=== PATIENT | female | born 1950 | race Caucasian/White ===

== ENCOUNTER 2016-07-07 08:02 | Emergency (ER) | payer MEDICARE, OTHER ==
[~2016-07-07] VITALS: Ht 147.3 cm; Wt 39.0 kg
[2016-07-07 08:05] VITALS: Ht 147.3 cm; Wt 39.0 kg
--- OUTSIDE RECORDS SUMMARY | 2016-07-07 08:07 | XMS REPORT | Summary of Care ---
Author Author Aletha Torrez, [facility] Unknown Address [address], [place] [id number] Phone Unavailable Care Team Providers Care Manufacturing Maintenance Technician Name Role Phone Inna Torrez, Radha Unavailable Unavailable Vance Torrez, David Unavailable Unavailable Jacqueline Nova Unavailable Unavailable Deangelo Torrez, Roosevelt Unavailable Unavailable Richard Keith PP Unavailable Unavailable Unavailable Functional Status Functional Status Health Issues* Name Dates Details Functional status health issues are not documented Status: Cognitive Status Health Issues* Name Dates Details Cognitive status health issues are not documented Status: Problems Name Dates Details Anticoagulant long-term use (V58.61, Z79.01) Status: Active Panniculitis (729.30, M79.3) Status: Active Abnormal weight loss (783.21, R63.4) Status: Active Herpes zoster (053.9, B02.9) Status: Active Chronic pain (338.29, G89.29) Status: Active Eczema (692.9, L30.9) Status: Active Peripheral neuropathy (356.9, G62.9) Status: Active Lower back pain (724.2, M54.5) Status: Active Vulvar pain (625.9, R10.2) Status: Active Medications Name Dates Details Vitamin B-12 1000 MCG Oral Tablet Take 1 tablet daily * Started 18-Feb-2008 ActivePoly-Iron 150 Forte 150-25-1 MG-MCG-MG Oral Capsule si cap daily * Quantity: 30 Refills: 6 Richard Woodard M.D.* Started ActiveCyclobenzaprine HCl - 10 MG Oral Tablet TAKE ONE TABLET BY MOUTH THREE TIMES DAILY NEEDED * Quantity: 90 Refills: 0 Gunner Bright M.D.* Started 24-Aug-2010 ActivePremarin 0.625 MG/GM Vaginal Cream USE 1/3 APPLICATOR VAGINALLY AT BEDTIME TWICE WEEKLY * Quantity: 30 Refills: 11 Richard Keith M.D.* Started 08-Feb-2013 ActiveOxycodone-Acetaminophen 10-325 MG Oral Tablet Si PO every 4-6 hrs prn with a max of 6 per day.Scripts must last 30 days. May fill on or after 06-30-2014.Managed by Dr. Bright. * Quantity: 180 Refills: 0 Jacqueline Hill* Started 23-Nov-2013 ActiveGabapentin 100 MG Oral Capsule TAKE 1 CAPSULE 3 TIMES DAILY. * Quantity: 90 Refills: 5 Richard Keith M.D.* Started 13-May-2014 ActiveTriamcinolone Acetonide 0.1 % External Cream APPLY SPARINGLY AND MASSAGE IN TWICE DAILY. 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 History of colon polyps (V12.72, Z86.010) Status: Resolved History of Summary Of Previous Pregnancies ___ (Total No.) Status: Resolved History of Visit for screening mammogram (V76.12, Z12.31) Status: Resolved Procedures Procedure Dates Details History of Hysterectomy History of Cervical Conization Loop Electrode Excision History of Shoulder Surgery History of Shoulder Arthroplasty Total Shoulder Replacement Completed:Apr-2010 History of Shoulder Arthroscopy With Rotator Cuff Repair Completed:2011 History of Tenodesis Of Long Biceps Tendon Completed:02-Apr-2012 History of Shldr Arthrosc W/ Distal Claviculectomy Incl Distal Art Surf Completed:02-Apr-2012 History of Shoulder Arthroscopy, Space Decompression And Acromioplasty Completed:02-Apr-2012 History of Colonoscopy (Fiberoptic) History of Salpingo-oophorectomy Left Side Procedures not documented Immunization Name Dates Details Immunizations not documented Family History Sister* Name Dates Details Family history of Breast Cancer (V16.3) Status: Active Brother* Name Dates Details Family history of Lung Cancer (V16.1) Status: Active Social History Name Dates Details Smoking Status* Former smoker Vital Signs Date Test Result Details 06-Jul-2014 10:09 BP Systolic 120 mm[Hg] Status: BP Diastolic 80 mm[Hg] Status: Weight 95 lb Status: Body Mass Index Calculated 18.55 kg/m2 Status: Body Surface Area Calculated 1.36 m2 Status: 20-Jun-2014 14:23 BP Systolic 118 mm[Hg] Status: BP Diastolic 84 mm[Hg] Status: Weight 95.5 lb Status: Height 60 in Status: Body Mass Index Calculated 18.65 kg/m2 Status: Body Surface Area Calculated 1.36 m2 Status: Results Date Description Value Details 21-Jun-2014 10:42 Vaginitis Panel ( Trichomonas, Gardnerella, Najma sp.) 5615 T. VAGINALIS PROBE Negative (Better) Range: Negative GARDNERELLA PROBE Negative (Better) Range: Negative NAJMA SP. PROBE Negative (Better) Range: Negative Plan of Care Planned Observations* Name Dates Details Planned Goals not documented Goal Planned Encounters* Appointment; Provider: Luciana Pompa On 21-Jun-2015 09:00 * Appointment; Provider: Luciana Pompa On 08:30 * Appointment; Provider: Jacqueline Hill On 25-Aug-2014 10:00 * Appointment; Provider: Gerard Tillman On 02-Apr-2012 09:30 * Appointment; Provider: Gerard Tillman On 17-May-2010 08:30 * Appointment; Provider: Richard Woodard On 13:45 * Appointment; Provider: Richard Woodard On 08-Sep-2008 08:30 Instructions * Instructions not documented Encounters Appointment; Luciana Pompa Encounter Diagnosis: Problem not documented On 06-Jul-2014 09:45 Appointment; Luciana Pompa Encounter Diagnosis: Problem not documented On 20-Jun-2014 13:45 Appointment; Gunner Bright Encounter Diagnosis: Problem not documented On 31-May-2014 10:45 Appointment; Richard Keith Encounter Diagnosis: Problem not documented On 06-May-2014 09:45 Appointment; Gunner Bright Encounter Diagnosis: Problem not documented On 01-Mar-2014 09:00 Appointment; Giorgi Dockery Encounter Diagnosis: Problem not documented On 31-Jan-2014 13:30 Appointment; Samantha Gao Encounter Diagnosis: Problem not documented On 31-Jan-2014 09:00 Appointment; Richard Keith Encounter Diagnosis: Problem not documented On 17-Jan-2014 09:15 Appointment; Gunner Bright Encounter Diagnosis: Problem not documented On 22-Dec-2013 08:00 Appointment; Gunner Bright Encounter Diagnosis: Problem not documented On 30-Nov-2013 08:15 Appointment; Richard Keith Encounter Diagnosis: Problem not documented On 22-Nov-2013 09:30 Appointment; Gunner Bright Encounter Diagnosis: Problem not documented On 25-Aug-2013 13:15 Appointment; Graham Mcmahan Encounter Diagnosis: Problem not documented On 13-Aug-2013 09:00 Appointment; Richard Keith Encounter Diagnosis: Problem not documented On 08-Jun-2013 13:00 Appointment; Gunner Bright Encounter Diagnosis: Problem not documented On 26-May-2013 13:15 Appointment; Richard Keith Encounter Diagnosis: Problem not documented On 20-May-2013 09:45 Appointment; Gunner Bright Encounter Diagnosis: Problem not documented On 25-Feb-2013 08:15 Appointment; Jese Reyes Encounter Diagnosis: Problem not documented On 25-Jan-2013 14:30 Appointment; Gunner Bright Encounter Diagnosis: Problem not documented On 26-Nov-2012 08:45 Appointment; Gunner Bright Encounter Diagnosis: Problem not documented On 26-Aug-2012 09:15 Appointment; Vimal Rojo Encounter Diagnosis: Problem not documented On 21-Aug-2012 12:00 Appointment; Gerard Tillman Encounter Diagnosis: Problem not documented On 15-Jul-2012 08:30 Appointment; Char Germain Encounter Diagnosis: Problem not documented On 08-Jul-2012 08:00
--- OUTSIDE RECORDS SUMMARY | 2016-07-07 08:07 | XMS REPORT | Summary of Care ---
Author Author Richard Keith M.D. 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 Neck Pain In The Lower Neck / Upper Back Bilateral Status: Active Anticoagulant long-term use (V58.61, Z79.01) Status: Active Muscle spasm (728.85, M62.838) Status: Active High risk medication use (V58.69, Z79.899) Status: Active Pre-operative exam (V72.84, Z01.818) Status: Active Panniculitis (729.30, M79.3) Status: Active Left hip pain (719.45, M25.552) Status: Active Lower back pain (724.2, M54.5) Status: Active Acute bronchitis (466.0, J20.9) Status: Active Wrist pain (719.43, M25.539) Status: Active Visit for screening mammogram (V76.12, Z12.31) Status: Active History of colon polyps (V12.72, Z86.010) Status: Active Abnormal weight loss (783.21, R63.4) Status: Active Herpes zoster (053.9, B02.9) Status: Active Chronic pain (338.29, G89.29) Status: Active Eczema (692.9, L30.9) Status: Active Peripheral neuropathy (356.9, G62.9) Status: Active Medications Name Dates Details Vitamin [...] 6 per day.Scripts must last 30 days. fill 04-27-14 * Quantity: 180 Refills: 0 Gunner Bright M.D.* Started 23-Nov-2013 Active Allergies and Adverse Reactions Name Dates Details Latex Exam Gloves MISC Status: Active Penicillins Status: Active Past Medical History Name Dates Details History of Summary Of Previous Pregnancies ___ (Total No.) Status: Resolved Procedures Procedure Dates Details History [...] And Acromioplasty Completed:02-Apr-2012 History of Colonoscopy (Fiberoptic) Procedures not documented Immunization Name Dates Details Immunizations not documented Family History Sister* Name Dates Details Family history of Breast Cancer (V16.3) Status: Active Brother* Name Dates Details Family history of Lung Cancer (V16.1) Status: Active Social History Name Dates Details Smoking Status* Former smoker Vital Signs Date Test Result Details 06-May-2014 09:52 BP Systolic 136 mm[Hg] Status: BP Diastolic 72 mm[Hg] Status: Heart Rate 64 /min Status: Weight 93 lb Status: Body Mass Index Calculated 18.16 kg/m2 Status: Body Surface Area Calculated 1.35 m2 Status: Results Date Description Value Details Results not documented Plan of Care Planned Observations* Name Dates Details Planned Goals not documented Goal Planned Encounters* Appointment; Provider: Gunner Bright On 31-May-2014 10:45 * Appointment; Provider: Gerard Tillman On 02-Apr-2012 09:30 * Appointment; Provider: Gerard Tillman On 17-May-2010 08:30 * Appointment; Provider: Richard Woodard On 13:45 * Appointment; Provider: Richard Woodard On 08-Sep-2008 08:30 Instructions * Instructions not documented Encounters Appointment; Richard Keith Encounter Diagnosis: Problem not [...] not documented On 25-Aug-2013 13:15 Appointment; Graham Mcmahna Encounter Diagnosis: Problem not documented On 13-Aug-2013 [...] Diagnosis: Problem not documented On 08-Jul-2012 08:00 Appointment; Char Germain Encounter Diagnosis: Problem not documented On 01-Jul-2012 09:00 Appointment; Char Germain Encounter Diagnosis: Problem not documented On 23-Jun-2012 09:00 Appointment; Richard Keith Encounter Diagnosis: Problem not documented On 18-Jun-2012 14:00 Appointment; Kamar Mims Encounter Diagnosis: Problem not documented On 17-Jun-2012 08:45 Appointment; Gerard Tillman Encounter Diagnosis: Problem not documented On 17-Jun-2012 08:30 Appointment; Char Germain Encounter Diagnosis: Problem not documented On 12-Jun-2012 09:00 Appointment; Char Germain Encounter Diagnosis: Problem not documented On 10-Jun-2012 09:30 Appointment; Char Germain Encounter Diagnosis: Problem not documented On 08-Jun-2012 10:30 Appointment; Char Germain Encounter Diagnosis: Problem not documented On 03-Jun-2012 13:00 Appointment; Char Germain Encounter Diagnosis: Problem not documented On 29-May-2012 10:30 Appointment; Gunner Bright Encounter Diagnosis: Problem not documented On 27-May-2012 10:30 Appointment; Char Germain Encounter Diagnosis: Problem not documented On 27-May-2012 09:00 Appointment; Char Germain Encounter Diagnosis: Problem not documented On 22-May-2012 15:30 Appointment; Richard Stringer Encounter Diagnosis: Problem not documented On 19-May-2012 08:00 Appointment; Char Germain Encounter Diagnosis: Problem not documented On 13-May-2012 08:00 Appointment; Char Germain Encounter Diagnosis: Problem not documented On 11-May-2012 08:00
--- OUTSIDE RECORDS SUMMARY | 2016-07-07 08:07 | XMS REPORT | Summary of Care ---
Author Author Richard Keith M.D. Organization Unknown Address [address], [place] [id number] Phone Unavailable Care Team Providers Care Sales Receptionist Name Role Phone Inna Torrez, Radha Unavailable Unavailable Vance Torrez, David Unavailable Unavailable Aletha Torrez, Luciana Unavailable Unavailable Richard Keith PP Unavailable Unavailable [...] Lower back pain (724.2, M54.5) Status: Active Osteoarthritis of spine (721.90, M47.9) Status: Active Low back pain (724.2, M54.5) Status: Active Degenerative disc disease, lumbar (722.52, M51.36) Status: Active Encounter for bone density measurement for therapeutic drug monitoring (V58.83 , Z51.81) Status: Active Vulvar pain (625.9, R10.2) Status: Active Vaginal pain (625.9, R10.2) Status: Active Chronic prescription opiate use (V58.69, Z79.899) Status: Active Cervical pain (neck) (723.1, M54.2) Status: Active Degenerative disc disease, cervical (722.4, M50.30) Status: Active Acute sinusitis (461.9, J01.90) Status: Active Acute bronchitis (466.0, J20.9) Status: Active Left breast lump (611.72, N63) Status: Active Emphysema lung (492.8, J43.9) Status: Active Medications Name Dates Details Vitamin B-12 1000 MCG Oral Tablet Take 1 tablet daily * Started 18-Feb-2008 ActivePoly-Iron 150 Forte 150-25-1 MG-MCG-MG Oral Capsule si cap daily * Quantity: 30 Refills: 6 Richard Woodard M.D.* Started ActivePremarin 0.625 MG/GM Vaginal Cream USE 1/3 APPLICATOR VAGINALLY AT BEDTIME TWICE WEEKLY * Quantity: 30 Refills: 11 Richard Keith M.D.* Started 08-Feb-2013 ActiveOxycodone-Acetaminophen 10-325 MG Oral Tablet Si PO every 4-6 hrs prn with a max of 6 per day. [id number] * Quantity: 180 Refills: 0 Richard Keith M.D.* Started 23-Nov-2013 ActiveGabapentin 300 MG Oral Capsule 1 po morning and noon, 2 po HS * Quantity: 120 Refills: 2 Richard Keith M.D.* Started 13-May-2014 ActiveTriamcinolone Acetonide 0.1 % External Cream APPLY SPARINGLY AND MASSAGE IN TWICE DAILY. * Quantity: 1 Refills: 11 Richard Keith M.D.* Started 13-May-2014 [id number] GM Tube Morphine Sulfate ER 30 MG Oral Tablet Extended Release Take 1 tablet twice daily *MUST LAST 30 DAYS* * Quantity: 60 Refills: 0 Richard Keith M.D.* Started 25-Aug-2014 ActiveMixture Vulvodynia cream-Apply to Vuvla TID * Refills: 0 Luciana Pompa M.D.* Started ActiveSymbicort 160-4.5 MCG/ACT Inhalation Aerosol INHALE 2 PUFFS TWICE DAILY. RINSE MOUTH AFTER USE. * Quantity: 1 Refills: 6 Richard Keith M.D.* Started 28-Feb-2015 Active6 GM Inhaler Allergies and Adverse Reactions Name Dates Details [...] Colonoscopy (Fiberoptic) History of Salpingo-oophorectomy Left Side MAMMOGRAM-DIAG UNILATERAL FOR LUMP PAIN Ordered:03-Feb-2015 Immunization Name Dates Details Immunizations not documented Family History Sister* Name Dates Details Family history of Breast Cancer (V16.3) Status: Active Brother* Name Dates Details Family history of Lung Cancer (V16.1) Status: Active Social History Name Dates Details Smoking Status* Former smoker Vital Signs Date Test Result Details No Known Vitals to report Results Date Description Value Details Results not documented Plan of Care Planned Observations* Name Dates Details Planned Goals not documented Goal Planned Encounters* Appointment; Provider: Luciana Pompa On 21-Jun-2015 13:00 * Appointment; Provider: Luciana Pompa On 07-Apr-2015 09:00 * Appointment; Provider: Gerard Tillman On 02-Apr-2012 09:30 * Appointment; Provider: Gerard Tillman On 17-May-2010 08:30 * Appointment; Provider: Richard Woodard On 13:45 * Appointment; Provider: Richard Woodard On 08-Sep-2008 08:30 Instructions * Instructions not documented Encounters Appointment; Richard Keith Encounter Diagnosis: Problem not documented On 02-Feb-2015 13:15 Appointment; Richard Keith Encounter Diagnosis: Problem not documented On 12-Dec-2014 12:15 Appointment; Gunner Bright Encounter Diagnosis: Problem not documented On 28-Nov-2014 08:15 Appointment; Luciana Pompa Encounter Diagnosis: Problem not documented On 08:30 Appointment; Jacqueline Hill Encounter Diagnosis: Problem not documented On 09:30 Appointment; Richard Keith Encounter Diagnosis: Problem not documented On 26-Aug-2014 11:45 Appointment; Jacqueline Hill Encounter Diagnosis: Problem not documented On 25-Aug-2014 10:00 Appointment; Luciana Pompa Encounter Diagnosis: Problem not [...]
--- OUTSIDE RECORDS SUMMARY | 2016-07-07 08:07 | XMS REPORT | Summary of Care ---
Author Author Gunner Bright M.D. Unknown Address [address] [place], [place] [id number] Phone Unavailable Care Team Providers Care Ticket Attendant Name Role Phone Inna Torrez, Radha Unavailable Unavailable Vance Torrez, David Unavailable Unavailable Aletha Torrez, Luciana Unavailable Unavailable Deangelo Torrez, Roosevelt Unavailable Unavailable [...] Left breast lump (611.72, N63) Status: Active Medications Name Dates Details Vitamin [...] 08-Feb-2013 ActiveOxycodone-Acetaminophen 10-325 MG Oral Tablet Si to 2 PO every 4 hours prn with a max of 6 per day.Scripts must last [address] Bright * Quantity: 180 Refills: 0 Richard Keith M.D.* Started 23-Nov-2013 ActiveGabapentin 300 MG Oral Capsule 1 po morning and noon, 2 po HS * Quantity: 120 Refills: 2 Richard Keith M.D.* Started 13-May-2014 ActiveTriamcinolone Acetonide 0.1 % External Cream APPLY SPARINGLY AND MASSAGE IN TWICE DAILY. * Quantity: 1 Refills: 11 Richard Keith M.D.* Started 13-May-2014 [id number] GM Tube Morphine Sulfate ER 30 MG Oral Tablet Extended Release Take 1 tablet twice daily *MUST LAST 30 DAYS* * Quantity: 60 Refills: 0 Gunner Bright M.D.* Started 25-Aug-2014 ActiveMixture Vulvodynia cream-Apply to Vuvla TID * Refills: 0 Luciana Pompa M.D.* Started Active Allergies and Adverse Reactions Name Dates [...] Colonoscopy (Fiberoptic) History of Salpingo-oophorectomy Left Side MAMMOGRAM-DIAGNOSTIC UNILATERAL FOR BREAST CANCER OR FOLLOW-UP Ordered:2014 ULTRASOUND BREAST CYST ASP LEFT Ordered:02-Feb-2015 Immunization Name Dates Details Immunizations not documented Family History Sister* Name Dates Details Family history of Breast Cancer (V16.3) Status: Active Brother* Name Dates Details Family history of Lung Cancer (V16.1) Status: Active Social History Name Dates Details Smoking Status* Former smoker Vital Signs Date Test Result Details 02-Feb-2015 13:04 BP Systolic 118 mm[Hg] Status: BP Diastolic 66 mm[Hg] Status: Heart Rate 100 /min Status: Height 60 in Status: Weight 83 lb Status: Body Mass Index Calculated 16.21 kg/m2 Status: Body Surface Area Calculated 1.28 m2 Status: Results Date Description Value Details Results not documented Plan of Care Planned Observations* Name Dates Details Planned Goals not documented Goal Planned Encounters* Appointment; Provider: Luciana Pompa On 07-Apr-2015 09:00 [...]
--- OUTSIDE RECORDS SUMMARY | 2016-07-07 08:07 | XMS REPORT | Summary of Care ---
Author Author Richard Keith M.D. Organization Unknown Address [address] [place], [place] [id number] Phone Unavailable Care Team Providers Care Digital Commentator Name Role Phone Radha Keith M.D. Unavailable Unavailable David Woodard M.D. Unavailable Unavailable Richard Keith Unavailable Unavailable Unavailable Unavailable Functional Status Name Dates Details Functional status health issues are not documented Status: Name Dates Details Cognitive status health issues [...] disc disease, lumbar (722.52, M51.36) Status: Active Chronic prescription opiate use (V58.69, Z79.891) Status: Active Cervical pain (neck) (723.1, M54.2) Status: Active Degenerative disc disease, cervical (722.4, M50.30) Status: Active Left breast lump (611.72, N63) Status: Active Emphysema lung (492.8, J43.9) Status: Active Well woman exam with routine gynecological exam (V72.31, Z01.419) Status: Active Postmenopausal (V49.81, Z78.0) Status: Active Wrist pain (719.43, M25.539) Status: Active Wrist pain, acute, left (719.43, M25.532) Status: Active Dysuria (788.1, R30.0) Status: Active Nausea (787.02, R11.0) Status: Active Right flank pain (789.09, R10.9) Status: Active Abdominal pain, acute, right lower quadrant (789.03, R10.31) Status: Active Hydronephrosis, right (591, N13.30) Status: Active Ureteral stone (592.1, N20.1) Status: Active Bruising (924.9, T14.8) Status: Active Pain of right lower extremity (729.5, M79.604) Status: Active Nephrolithiasis (592.0, N20.0) Status: Active Medications Name Dates Details Vitamin B-12 1000 MCG Oral Tablet Take 1 tablet daily * Start 18-Feb-2008 Active Poly-Iron 150 Forte 150-25-1 MG-MCG-MG Oral Capsule si cap daily * Quantity: 30 Refills: 6 Richard Woodard M.D. * Start Active Premarin 0.625 MG/GM Vaginal Cream USE 1/3 APPLICATOR VAGINALLY AT BEDTIME TWICE WEEKLY * Quantity: 30 Refills: 11 Richard Keith M.D. * Start 08-Feb-2013 Active Oxycodone-Acetaminophen 10-325 MG Oral Tablet Si PO every 4-6 hrs prn with a max of 6 per day. [id number] * Quantity: 180 Refills: 0 Richard Keith M.D. * Start 23-Nov-2013 Active Gabapentin 300 MG Oral Capsule 1 po morning and noon, 2 po HS * Quantity: 120 Refills: 2 Richard Keith M.D. * Start 13-May-2014 Active Triamcinolone Acetonide 0.1 % External Cream Apply to skin twice daily. * Quantity: 15 Refills: 6 Richard Keith M.D. * Start 13-May-2014 Active Morphine Sulfate ER 30 MG Oral Tablet Extended Release Take 1 tablet twice daily *MUST LAST 30 DAYS* * Quantity: 60 Refills: 0 Richard Keith M.D. 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 History of colon polyps (V12.72, Z86.010) Status: Resolved History of Encounter for bone density measurement for therapeutic drug monitoring (V58.83, Z51.81) Status: Resolved History of Summary Of Previous Pregnancies ___ (Total No.) Status: Resolved History of Vaginal pain (625.9, R10.2) Status: Resolved History of Visit for screening mammogram (V76.12, Z12.31) Status: Resolved History of Vulvar pain (625.9, R10.2) Status: Resolved Procedures Procedure Dates Details History of Hysterectomy History of Cervical Conization Loop Electrode Excision History of Shoulder Surgery History of Shoulder Arthroplasty Total Shoulder Replacement Completed: Apr-2010 History of Shoulder Arthroscopy With Rotator Cuff Repair Completed: 2011 History of Tenodesis Of Long Biceps Tendon Completed: 02-Apr-2012 History of Shldr Arthrosc W/ Distal Claviculectomy Incl Distal Art Surf Completed: 02-Apr-2012 History of Shoulder Arthroscopy, Space Decompression And Acromioplasty Completed: 02-Apr-2012 History of Colonoscopy (Fiberoptic) History of Salpingo-oophorectomy Left Side [facility] Lumbar Epidural [address] Ordered: Immunization Name Dates Details Immunizations not documented Family History Name Dates Details Family history of Breast Cancer (V16.3) Status: Active Name Dates Details Family history of Lung Cancer (V16.1) Status: Active Social History Name Dates Details - Status: Name Dates Details Current every day smoker Vital Signs Date Test Result Details No Known Vitals to report Results Date Description Value Details 15:30 [facility] PROCEDURE Comments: Exam Date: 11/16/2015 14: 40Dictation Date: 11/16/2015 15:30 Plan of Care Name Dates Details Planned Observations Planned Goals not documented Planned Encounters Appointment; Provider: Luciana Pompa M.D. On 10-Feb-2017 10:45 Appointment; Provider: Schedule Radiology On 10-Feb-2017 10:00 Appointment; Provider: Tadeo Carson M.D.|Saray|GABY Torrez|GABY Torrez, On 03-Apr-2016 11:45 Interventions Provided Medication Changes* Oxycodone-Acetaminophen 10-325 MG Oral Tablet - Renew Instructions Name Dates Details Instructions not documented Encounters Appointment; Richard Keith M.D. Encounter Diagnosis: Problem not documented On 13:15 Appointment; Tadeo Carson M.D.|Saray|GABY Torrez|GABY Torrez, Encounter Diagnosis: Problem not documented On 09:30 Appointment; Cheng Harrington D.O. Encounter Diagnosis: Problem not documented On 14:15 Appointment; Carlota Denny A.P.R.N. Encounter Diagnosis: Problem not documented On 20-Jul-2015 14:15 Appointment; Luciana Pompa M.D. Encounter Diagnosis: Problem not documented On 13-Jul-2015 09:15 Appointment; Richard Keith M.D. Encounter Diagnosis: Problem not documented On 09-Jun-2015 10:40 Appointment; Luciana Pompa M.D. Encounter Diagnosis: Problem not documented On 07-Apr-2015 09:00 Appointment; Richard Keith M.D. Encounter Diagnosis: Problem not documented On 02-Feb-2015 13:15 Appointment; Richard Keith M.D. Encounter Diagnosis: Problem not documented On 12-Dec-2014 12:15 Appointment; Gunner Bright M.D. Encounter Diagnosis: Problem not documented On 28-Nov-2014 08:15 Appointment; Luciana Pompa M.D. Encounter Diagnosis: Problem not documented On 08:30 Appointment; Jacqueline Hill P.A. Encounter Diagnosis: Problem not documented On 09:30 Appointment; Richard Keith M.D. Encounter Diagnosis: Problem not documented On 26-Aug-2014 11:45 Appointment; Jacqueline Hill P.A. Encounter Diagnosis: Problem not documented On 25-Aug-2014 10:00 Appointment; Luciana Pompa M.D. Encounter Diagnosis: Problem not documented On 06-Jul-2014 09:45 Appointment; Luciana Pompa M.D. Encounter Diagnosis: Problem not documented On 20-Jun-2014 13:45 Appointment; Gunner Bright M.D. Encounter Diagnosis: Problem not documented On 31-May-2014 10:45 Appointment; Richard Keith M.D. Encounter Diagnosis: Problem not documented On 06-May-2014 09:45 Appointment; Gunner Bright M.D. Encounter Diagnosis: Problem not documented On 01-Mar-2014 09:00 Appointment; Giorgi Dockery Encounter Diagnosis: Problem not documented On 31-Jan-2014 13:30 Appointment; Samantha Gao M.D. Encounter Diagnosis: Problem not documented On 31-Jan-2014 09:00 Appointment; Richard Keith M.D. Encounter Diagnosis: Problem not documented On 17-Jan-2014 09:15 Appointment; Gunner Bright M.D. Encounter Diagnosis: Problem not documented On 22-Dec-2013 08:00"
--- OUTSIDE RECORDS SUMMARY | 2016-07-07 08:08 | XMS REPORT | Continuity of Care Document ---
Author Author [facility] Organization [facility] Address Unknown Phone Unavailable Allergies Medications Problems Procedures Results Encounters ACCT No. Visit Date/Time Discharge Status Pt. Type Provider Facility Loc./Unit Complaint [id number] 09/27/2015 08:51:00 2015 18:57:50 DIS Inpatient GERTRUDIS GOETZ RIGHT URETERAL LITHIASIS
--- OUTSIDE RECORDS SUMMARY | 2016-07-07 08:08 | XMS REPORT | Summary of Care ---
Author [facility] Address [address] [place], [place] [id number] Phone Unavailable Care Team Providers Care Second Class Welder Name Role Phone Inna Torrez, Radha Unavailable [...] Anticoagulant long-term use (V58.61, Z79.01) Status: Active High risk medication use (V58.69, Z79.899) Status: Active Panniculitis (729.30, M79.3) Status: Active History of colon polyps (V12.72, Z86.010) Status: Active Abnormal weight loss (783.21, R63.4) Status: Active Herpes zoster (053.9, B02.9) Status: Active Chronic pain (338.29, G89.29) Status: Active Eczema (692.9, L30.9) Status: Active Peripheral neuropathy (356.9, G62.9) Status: Active Lower back pain (724.2, M54.5) Status: Active Vulvar pain (625.9, R10.2) Status: Active Well woman exam with routine gynecological exam (V72.31, Z01.419) Status: Active Medications Name Dates Details Vitamin [...] Refills: 11 Richard Keith M.D.* Started 08-Feb-2013 ActiveGabapentin 100 MG Oral Capsule TAKE 1 CAPSULE 3 TIMES DAILY. * Quantity: 90 Refills: 5 Richard Keith M.D.* Started 13-May-2014 ActiveTriamcinolone Acetonide 0.1 % External Cream APPLY SPARINGLY AND MASSAGE IN TWICE DAILY. * Quantity: 1 Refills: 11 Richard Keith M.D.* Started 13-May-2014 [id number] GM Tube Oxycodone-Acetaminophen 10-325 MG Oral Tablet Si PO every 4-6 hrs prn with a max of 6 per day.Scripts must last 30 days. May fill on or after 06-30-2014.Managed by Dr. Bright. 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
--- OUTSIDE RECORDS SUMMARY | 2016-07-07 08:08 | XMS REPORT | Summary of Care ---
Author Author Richard Keith M.D. Organization Unknown Address [address], [place] [phone] Phone Unavailable Care Team Providers Care Medical Surgery Nurse Name Role Phone Radha Keith M.D. Unavailable [...] with a max of 6 per day. [id number] * Quantity: 180 Refills: 0 Richard Keith [...] Colonoscopy (Fiberoptic) History of Salpingo-oophorectomy Left Side [facility] Lumbar Epidural [address] Ordered: Immunization Name Dates Details Immunizations not documented Family History Name Dates Details Family history of Breast Cancer (V16.3) Status: Active Name Dates Details Family history of Lung Cancer (V16.1) Status: Active Social History Name Dates Details - Status: Name Dates Details Current every day smoker Vital Signs Date Test Result Details 13:23 BP Systolic 121 mm[Hg] Status: Comments: Location: ; Position: BP Diastolic 62 mm[Hg] Status: Comments: Location: ; Position: Heart Rate 76 /min Status: Comments: Location: ; Weight 84.6 lb Status: Body Mass Index Calculated 17.68 kg/m2 Status: Body Surface Area Calculated 1.26 m2 Status: Results Date Description Value Details 14:16 PROTIME PANEL 7000 PROTIME 12.1 secs Range: 12.0-14.9 INR 0.90 14:17 PTT 7500 PTT 31.7 secs Range: 23.0-34.7 14:22 CBC w/ Auto Diff 7150 WBC 6.2 K/uL Range: 4.5-11.0 RBC 3.80 mil/uL Range: 3.60-5.00 HGB 13.1 g/dL Range: 12.0-16.0 HCT 41.6 % Range: 36.0-48.0 MCV 109.3 fL (Above high threshold) Range: 80.0-99.0 MCH 34.3 pg (Above high threshold) Range: 27.3-32.5 MCHC 31.4 % (Below low threshold) Range: 32.0-36.0 RDW 14.2 % Range: 11.6-14.8 PLATELETS 267 K/uL Range: 150-400 MPV 7.9 fL Range: 6.0-11.0 %NEUTRO 48.9 % Range: 37.0-80.0 %LYMPHS 37.0 % Range: 13.0-50.0 %MONO 6.5 % Range: 0.0-12.0 %EOS 4.4 % Range: 0.0-7.0 %BASO 0.4 % Range: 0.0-2.5 %PEMA 2.8 % Range: 0.0-5.0 NEUTRO 3.1 K/uL Range: 2.0-6.9 LYMPHS 2.3 K/uL Range: 0.6-3.4 MONOS 0.4 K/uL Range: 0.0-0.9 EOS 0.3 K/uL Range: 0.0-0.7 BASO 0.0 K/uL Range: 0.0-0.2 14:54 XRay TIBIA & FIBULA-Right Comments: Exam Date: 11/06/2015 14: 11Dictation Date: 11/06/2015 14:54 X TIBIA & FIBULA RT 15:36 XRay SPINE-LUMBAR Comments: Exam Date: 11/06/2015 14:11Dictation Date : 11/06/2015 15:36 X SPINE LUMBAR W/ FLEX & EXT 15:30 [facility] PROCEDURE Comments: Exam Date: 11/16/2015 14: 40Dictation Date: 11/16/2015 15:30 Plan of Care Name Dates Details Planned Observations Planned Goals not documented Planned Encounters Appointment; Provider: Luciana Pompa M.D. On 10-Feb-2017 10:45 Appointment; Provider: [facility] On 10-Feb-2017 10:00 Appointment; Provider: Tadeo Carson M.D.|Saray|GBAY Torrez|GABY Torrez, On 03-Apr-2016 11:45 Interventions Provided Medication Changes* Morphine Sulfate ER 30 MG Oral Tablet Extended Release - Renew Instructions Name Dates Details Instructions not documented Encounters Appointment; Richard Keith M.D. Encounter Diagnosis: Problem not documented On 13:15 Appointment; Tadeo Carson M.D.|AleC.STy|GABY Torrez|GABY Torrez, Encounter Diagnosis: Problem not documented [...] not documented On 08:30 Appointment; Jacqueline Hill PGwendolyn Encounter Diagnosis: Problem not documented On 09:30 [...] documented On 22-Dec-2013 08:00 Appointment; Gunner Bright M.D. Encounter Diagnosis: Problem not documented On 30-Nov-2013 08:15"
--- OUTSIDE RECORDS SUMMARY | 2016-07-07 08:08 | XMS REPORT | Summary of Care ---
Author Author Cheng Harrington D.O. Organization Unknown Address [address] [place], [place] [id number] Phone Unavailable Care Team Providers Care Test Preparer Name Role Phone Inna Torrez, Radha Unavailable Unavailable David Woodard M.D. Unavailable Unavailable Richard Keith PP Unavailable Unavailable [...] right lower quadrant (789.03, R10.31) Status: Active Medications Name Dates Details Vitamin [...] with a max of 6 per day. [id number] * Quantity: 180 Refills: 0 Richard Keith M.D.* Started 23-Nov-2013 ActiveGabapentin 300 MG Oral Capsule 1 po morning and noon, 2 po HS * Quantity: 120 Refills: 2 Richard Keith M.D.* Started 13-May-2014 ActiveTriamcinolone Acetonide 0.1 % External Cream Apply to skin twice daily. * Quantity: 15 Refills: 6 Richard Keith M.D.* Started 13-May-2014 ActiveMorphine Sulfate ER 30 MG Oral Tablet Extended Release Take 1 tablet twice daily *MUST LAST 30 DAYS* * Quantity: 60 Refills: 0 Richard Keith M.D.* Started 25-Aug-2014 Active Allergies and Adverse Reactions Name Dates Details Latex Exam Gloves MISC Status: Active Penicillins Status: Active Past Medical History Name Dates Details History of acute bronchitis (V12.69, Z87.09) Status: Resolved History of Acute bronchitis, unspecified organism (466.0, J20.9) Status: Resolved History of acute sinusitis (V1., Z87.09) Status: Resolved History of Adenocarcinoma Of [...] Colonoscopy (Fiberoptic) History of Salpingo-oophorectomy Left Side Urinalysis, Reflex to Microscopic or Culture PRN 8005 Ordered: ULTRASOUND RENAL SONO Ordered: Immunization Name Dates Details Immunizations not documented Family History Sister* Name Dates Details Family history of Breast Cancer (V16.3) Status: Active Brother* Name Dates Details Family history of Lung Cancer (V16.1) Status: Active Social History Name Dates Details Smoking Status* Current every day smoker Vital Signs Date Test Result Details 14:23 BP Systolic 136 mm[Hg] Status: BP Diastolic 88 mm[Hg] Status: Temperature 98.2 f Status: Heart Rate 93 /min Status: O2 SAT 96 % Status: Results Date Description Value Details Results not documented Plan of Care Planned Observations* Name Dates Details Planned Goals not documented Goal Planned Encounters* Appointment; Provider: Luciana Pompa On 10-Feb-2017 10:45 * Appointment; Provider: Schedule Radiology On 10-Feb-2017 10:00 * Appointment; Provider: Schedule Radiology On 15:00 * Appointment; Provider: Schedule Radiology On 03-Aug-2015 11:00 * Appointment; Provider: Gerard Tillman On 02-Apr-2012 09:30 * Appointment; Provider: Gerard Tillman On 17-May-2010 08:30 * Appointment; Provider: Richard Woodard On 13:45 * Appointment; Provider: Richard Woodard On 08-Sep-2008 08:30 Instructions * Instructions not documented Encounters Appointment; Cheng Harrington Encounter Diagnosis: Problem not documented On 14:15 Appointment; Carlota Denny Encounter Diagnosis: Problem not documented On 20-Jul-2015 14:15 Appointment; Luciana Pompa Encounter Diagnosis: Problem not documented On 13-Jul-2015 09:15 Appointment; Richard Keith Encounter Diagnosis: Problem not documented On 09-Jun-2015 10:40 Appointment; Luciana Pompa Encounter Diagnosis: Problem not documented On 07-Apr-2015 09:00 Appointment; Richard Keith Encounter Diagnosis: Problem [...]
--- OUTSIDE RECORDS SUMMARY | 2016-07-07 08:08 | XMS REPORT | Summary of Care ---
Author Author Richard Keith M.D. Organization Unknown Address [address] [place], [place] [id number] Phone Unavailable Care Team Providers Care Army Officer Name Role Phone Radha Keith M.D. Unavailable David Estrada M.D. Unavailable Unavailable Richard Keith Unavailable Unavailable Unavailable Unavailable Functional Status Name Dates Details Functional status health issues are not documented Status: Name Dates Details Cognitive status health issues are not documented Status: Problems Name Dates Details Anticoagulant long-term use (V58.61, Z79.01) Status: Active Lower back pain (724.2, M54.5) Status: Active Low back pain (724.2, M54.5) Status: Active Well woman exam with routine gynecological exam (V72.31, Z01.419) Status: Active Postmenopausal (V49.81, Z78.0) Status: Active Wrist pain (719.43, M25.539) Status: Active Wrist pain, acute, left (719.43, M25.532) Status: Active Dysuria (788.1, R30.0) Status: Active Nausea (787.02, R11.0) Status: Active Right flank pain (789.09, R10.9) Status: Active Abdominal pain, acute, right lower quadrant (789.03, R10.31) Status: Active Bruising (924.9, T14.8) Status: Active Pain of right lower extremity (729.5, M79.604) Status: Active Degenerative disc disease, cervical (722.4, M50.30) Status: Active Abnormal weight loss (783.21, R63.4) Status: Active Chronic pain (338.29, G89.29) Status: Active Peripheral neuropathy (356.9, G62.9) Status: Active Panniculitis (729.30, M79.3) Status: Active Herpes zoster (053.9, B02.9) Status: Active Eczema (692.9, L30.9) Status: Active Osteoarthritis of spine (721.90, M47.9) Status: Active Degenerative disc disease, lumbar (722.52, M51.36) Status: Active Chronic prescription opiate use (V58.69, Z79.891) Status: Active Cervical pain (neck) (723.1, M54.2) Status: Active Left breast lump (611.72, N63) Status: Active Hydronephrosis, right (591, N13.30) Status: Active Ureteral stone (592.1, N20.1) Status: Active Emphysema lung (492.8, J43.9) Status: Active Acute sinusitis (461.9, J01.90) Status: Active Oral thrush (112.0, B37.0) Status: Active Nephrolithiasis (592.0, N20.0) Status: Active Cough (786.2, R05) Status: Active COPD (chronic obstructive pulmonary disease) (496, J44.9) Status: Active Asthmatic bronchitis (493.90, J45.909) Status: Active Medications Name Dates Details Vitamin B-12 1000 MCG Oral Tablet Take 1 tablet daily * Start 18-Feb-2008 Active Poly-Iron 150 Forte 150-25-1 MG-MCG-MG Oral Capsule si cap daily * Quantity: 30 Refills: 6 Richard Woodard M.D. Start Active Premarin 0.625 MG/GM Vaginal Cream USE 1/3 APPLICATOR VAGINALLY AT BEDTIME TWICE WEEKLY * Quantity: 30 Refills: 11 Richard Keith M.D. * Start 08-Feb-2013 Active Oxycodone-Acetaminophen 10-325 MG Oral Tablet Si PO every 4-6 hrs prn with a max of 6 per day. [id number] must last 30 daysDO NOT FILL UNTIL 04/28/16 * Quantity: 180 Refills: 0 Richard Keith M.D. * Start 23-Nov-2013 Active Gabapentin 300 MG Oral Capsule ONE CAPSULE BY MOUTH EVERY MORNING AND NOON TWO CAPSULES BY MOUTH ATBEDTIME * Quantity: 120 Refills: 2 Richard Keith M.D. * Start 20-Mar-2016 Active Triamcinolone Acetonide 0.1 % External Cream Apply to skin twice daily. * Quantity: 15 Refills: 6 Richard Keith M.D. * Start 13-May-2014 Active Morphine Sulfate ER 30 MG Oral Tablet Extended Release Take 1 tablet twice daily *MUST LAST 30 DAYSDO NOT FILL UNTIL 04/20/16 * Quantity: 60 Refills: 0 Richard Keith M.D. * Start 25-Aug-2014 Active Cyclobenzaprine HCl - 10 MG Oral Tablet take one tablet by mouth every 8 hours as needed * Quantity: 60 Refills: 3 Richard Keith M.D. * Start 28-Dec-2015 Active Ipratropium-Albuterol 0.5-2.5 (3) MG/3ML Inhalation Solution NEBULIZE 1 VIAL FOUR TIMES A DAY----DX: J45.909, J43.9 * Quantity: 180 Refills: 11 Richard Keith M.D. * Start 01-Feb-2016 Active Azithromycin 500 MG Oral Tablet TAKE 1 TABLET DAILY UNTIL FINISHED. * Quantity: 7 Refills: 1 Richard Keith M.D. * Start 28-Mar-2016 Active Fluconazole 150 MG Oral Tablet TAKE 1 TABLET DAILY. * Quantity: 7 Refills: 3 Richard Keith M.D. * Start 28-Mar-2016 Active LevoFLOXacin 500 MG Oral Tablet TAKE 1 TABLET DAILY UNTIL FINISHED. * Quantity: 10 Refills: 0 Richard Keith M.D. * Start 03-May-2016 Active PredniSONE 10 MG Oral Tablet 4 tabs for 4 Days, 3 tabs for 4 Days, 2 tabs for 4 Days and 1 tab for 4 Days * Quantity: 40 Refills: 0 Richard Keith M.D. * Start 03-May-2016 Active Allergies and Adverse Reactions Name Dates Details Latex Exam Gloves MISC (Allergy) Status: Active Penicillins (Allergy) Status: Active Past Medical History Name Dates Details Cervical pain (neck) (723.1, M54.2) Status: Active Chronic pain (338.29, G89.29) Status: Active Chronic prescription opiate use (V58.69, Z79.891) Status: Active Degenerative disc disease, lumbar (722.52, M51.36) Status: Active Eczema (692.9, L30.9) Status: Active Emphysema lung (492.8, J43.9) Status: Active Herpes zoster (053.9, B02.9) Status: Active Hydronephrosis, right (591, N13.30) Status: Active Left breast lump (611.72, N63) Status: Active Nephrolithiasis (592.0, N20.0) Status: Active Osteoarthritis of spine (721.90, M47.9) Status: Active Panniculitis (729.30, M79.3) Status: Active Peripheral neuropathy (356.9, G62.9) Status: Active Ureteral stone (592.1, N20.1) Status: Active History of acute bronchitis (V12.69, Z87.09) Status: Resolved History of Acute bronchitis, unspecified organism (466.0, J20.9) Status: Resolved History of Adenocarcinoma Of The [...] smoker Vital Signs Date Test Result Details 03-May-2016 08:14 BP Systolic 120 mm[Hg] Status: Comments: Location: ; Position: BP Diastolic 80 mm[Hg] Status: Comments: Location: ; Position: Heart Rate 60 /min Status: Comments: Location: ; Weight 85 lb Status: Physical Findings 72 Status: Comments: O2 Saturation Body Mass Index Calculated 17.77 kg/m2 Status: Body Surface Area Calculated 1.27 m2 Status: Results Date Description Value Details 03-May-2016 08:50 XRay CHEST-PA & LAT Comments: Exam Date: 05/03/2016 08: 31Dictation Date: 05/03/2016 08:50 X CHEST PA & LAT Plan of Care Name Dates Details Planned Observations Planned Goals not documented Planned Encounters Appointment; Provider: Luciana Pompa M.D. On 10-Feb-2017 10:45 Appointment; Provider: Schedule Radiology On 10-Feb-2017 10:00 Interventions Provided Medication Changes* LevoFLOXacin 500 MG Oral Tablet - Start * PredniSONE 10 MG Oral Tablet - Start Labs/Procedures/Imaging* XRay CHEST-PA & LAT; Done: May 03 2016 8:50AM Instructions* Intermediate Counseling(3-10min) Smoke & Tobacco Cessation - Follow Up at next visit NO referral to [facility] at this vist. Asymptomatic patient.; Done: * You need to stop smoking. Though it is not easy, more than half of all adult smokers have quit. We encourage you to write down all the reasons you should quit smoking and set a quit date for yourself. Ask us how we can help. You may also call 9-205-EWUINOW for free resources and assistance.; Done: Instructions Name Dates Details Instructions not documented Encounters Appointment; Tadeo Carson M.D.,FACS, Encounter Diagnosis: Problem not documented On 03-Apr-2016 11:45 Appointment; Richard Keith M.D. Encounter Diagnosis: Problem not documented On 28-Mar-2016 14:45 Appointment; Richard Keith M.D. Encounter Diagnosis: Problem not documented On 01-Feb-2016 11:30 Appointment; Vimal Rojo M.D. Encounter Diagnosis: Problem not documented On 08-Jan-2016 10:40 Appointment; Richard Keith M.D. Encounter Diagnosis: Problem not documented On 28-Dec-2015 13:15 Appointment; Richard Keith M.D. Encounter Diagnosis: Problem not documented On 13:15 Appointment; Tadeo Carson M.D.,[facility], Encounter Diagnosis: Problem not documented On 09:30 [...] documented On 26-Aug-2014 11:45 Appointment; Jacqueline Hill PGwendolyn Encounter Diagnosis: Problem not documented On 25-Aug-2014 10:00 Appointment; Luciana Pompa M.D. Encounter Diagnosis: Problem not documented On 06-Jul-2014 09:45 Appointment; Luciana Pompa M.D. Encounter Diagnosis: Problem not documented On 20-Jun-2014 13:45 Appointment; Gunner Bright M.D. Encounter Diagnosis: Problem not documented On 31-May-2014 10:45 Appointment; Richard Keith M.D. Encounter Diagnosis: Problem not documented On 06-May-2014 09:45
--- OUTSIDE RECORDS SUMMARY | 2016-07-07 08:08 | XMS REPORT | Summary of Care ---
Author Author Richard Keith M.D. Organization Unknown Address [address], [place] [id number] Phone Unavailable Care Team Providers Care Oenologist Name Role Phone Inna Torrez, Radha Unavailable [...] Active Vaginal pain (625.9, R10.2) Status: Active Acute sinusitis (461.9, J01.90) Status: Active Medications Name Dates Details Vitamin [...] Dr. Bright * Quantity: 180 Refills: 0 Jacqueline Hill P.A.* Started 29-Aug-2014 ActiveGabapentin 300 MG Oral Capsule Si PO Tid.Start with 1 po HS and gradually titrate to 3 x daily. * Quantity: 90 Refills: 0 Jacqueline Hill P.A.* Started 13-May-2014 ActiveTriamcinolone Acetonide 0.1 % External Cream APPLY SPARINGLY AND MASSAGE IN TWICE DAILY. * Quantity: 1 Refills: 11 Richard Keith M.D.* Started 13-May-2014 [id number] GM Tube Morphine Sulfate ER 30 MG Oral Tablet Extended Release Si PO every 12 hours with a max of 2 per day. Script must last [address] Bright. * Quantity: 60 Refills: 0 Jacqueline Hill P.A.* Started 25-Aug-2014 Active Allergies and Adverse Reactions [...] smoker Vital Signs Date Test Result Details 26-Aug-2014 11:39 BP Systolic 148 mm[Hg] Status: BP Diastolic 90 mm[Hg] Status: Heart Rate 100 /min Status: Weight 94 lb Status: Height 60 in Status: Body Mass Index Calculated 18.36 kg/m2 Status: Body Surface Area Calculated 1.35 m2 Status: Results Date Description Value Details Results not documented Plan of Care Planned Observations* Name Dates Details Planned Goals not documented Goal Planned Encounters* Appointment; Provider: Luciana Pompa On 21-Jun-2015 09:00 * Appointment; Provider: Luciana Pompa On 08:30 * Appointment; Provider: Jacqueline Hill On 09:30 * Appointment; Provider: Gerard Tillman On 02-Apr-2012 [...]
--- OUTSIDE RECORDS SUMMARY | 2016-07-07 08:08 | XMS REPORT | Summary of Care ---
Author Author Jacqueline Nova Organization Unknown Address [address], [place] [id number] Phone Unavailable Care Team Providers Care Credit Administration Officer Name Role Phone Inna Torrez, Radha Unavailable Unavailable David Woodard M.D. Unavailable Unavailable Jacqueline Nova Unavailable Unavailable Richard Keith PP Unavailable Unavailable [...] Active Acute sinusitis (461.9, J01.90) Status: Active Low back pain (724.2, M54.5) Status: Active Osteoarthritis of spine (721.90, M47.9) Status: Active Medications Name Dates Details Vitamin B-12 1000 MCG Oral Tablet Take 1 tablet daily * Started 18-Feb-2008 ActivePoly-Iron 150 Forte 150-25-1 MG-MCG-MG Oral Capsule si cap daily * Quantity: 30 Refills: 6 Richard Woodard M.D.* Started ActivePremarin 0.625 MG/GM Vaginal Cream USE 1/3 APPLICATOR VAGINALLY AT BEDTIME TWICE WEEKLY * Quantity: 30 Refills: 11 Yalisaley, Richard M.D.* Started 08-Feb-2013 ActiveOxycodone-Acetaminophen 10-325 MG Oral Tablet Si to 2 PO every 4 hours prn with a max of 6 per day.Scripts must last [address] Bright * Quantity: 180 Refills: 0 Jacqueline Hill P.A.* Started ActiveGabapentin 300 MG Oral Capsule 1 po morning and noon, 2 po HS * Quantity: 120 Refills: 2 Jacqueline Hill P.A.* Started 13-May-2014 ActiveTriamcinolone Acetonide 0.1 % External Cream APPLY SPARINGLY AND MASSAGE IN TWICE DAILY. * Quantity: 1 Refills: 11 Richard Keith M.D.* Started 13-May-2014 [id number] GM Tube Morphine Sulfate ER 30 MG Oral Tablet Extended Release Si PO every 12 hours with a max of 2 per day. Script must last [address] Bright. * Quantity: 60 Refills: 0 Jacqueline Hill P.A.* Started Active Allergies and Adverse Reactions Name [...] Pompa On 21-Jun-2015 09:00 * Appointment; Provider: Gunner Bright On 28-Nov-2014 08:15 * Appointment; Provider: Luciana Pompa On 08:30 * Appointment; Provider: Gerard Tillman On 02-Apr-2012 09:30 * Appointment; Provider: Gerard Tillman On 17-May-2010 08:30 * Appointment; Provider: Richard Woodard On 13:45 * Appointment; Provider: Richard Woodard On 08-Sep-2008 08:30 Instructions * Instructions not documented Encounters Appointment; Jacqueline Hill Encounter Diagnosis: Problem not [...]
--- OUTSIDE RECORDS SUMMARY | 2016-07-07 08:08 | XMS REPORT | Summary of Care ---
Author Author Richard Keith M.D. Organization Unknown Address [address] [place], [place] [id number] Phone Unavailable Care Team Providers Care Director Of Category Management Name Role Phone Inna Torrez, Radha Unavailable [...] Emphysema lung (492.8, J43.9) Status: Active Acute bronchitis, unspecified organism (466.0, J20.9) Status: Active Medications Name Dates Details Vitamin [...] with a max of 6 per day. [id number] * Quantity: 180 Refills: 0 Richard Keith [...] bronchitis (V12.69, Z87.09) Status: Resolved History of acute sinusitis (V12.69, [...] smoker Vital Signs Date Test Result Details 09-Jun-2015 10:53 BP Systolic 142 mm[Hg] Status: BP Diastolic 86 mm[Hg] Status: Heart Rate 80 /min Status: Height 60 in Status: Weight 84 lb Status: Body Mass Index Calculated 16.41 kg/m2 Status: Body Surface Area Calculated 1.29 m2 Status: Results Date Description Value Details Results not documented Plan of Care Planned Observations* Name Dates Details Planned Goals not documented Goal Planned Encounters* Appointment; Provider: Luciana Pompa On 13-Jul-2015 09:15 * Appointment; Provider: Gerard Tillman On 02-Apr-2012 [...]
--- OUTSIDE RECORDS SUMMARY | 2016-07-07 08:09 | XMS REPORT | Summary of Care ---
Author Author Vimal Rojo M.D. Unknown Address Unknown Phone Unavailable Care Team Providers Care Foundry Operator Name Role Phone Inna Torrez, Radha Unavailable Unavailable Nnamdi Rojo M.D. Unavailable Unavailable Vance Torrez, David Unavailable Unavailable Richard Keith Unavailable Unavailable Unavailable [...] Abnormal weight loss (783.21, R63.4) Status: Active Asthmatic bronchitis (493.90, J45.909) Status: Active Chronic pain (338.29, G89.29) Status: [...] Active Ureteral stone (592.1, N20.1) Status: Active Nephrolithiasis (592.0, N20.0) Status: Active Emphysema lung (492.8, J43.9) Status: [...] with a max of 6 per day. [id number] must last 30 days * Quantity: 180 Refills: 0 Richard Keith [...] as needed * Quantity: 60 Refills: 3 Inna Torrez, Richard Garcia * Start 28-Dec-2015 Active Proventil HFA 108 (90 Base) MCG/ACT Inhalation Aerosol Solution INHALE 2 PUFFS FOUR TIMES DAILY DIRECTED. * Quantity: 1 Refills: 0 Thode M.D., Vimal Coto * Start 08-Jan-2016 End 15-Jan-2016 Active 6.7 GM Inhaler Azithromycin 250 MG Oral Tablet TAKE 2 TABLETS ON DAY 1 THEN TAKE 1 TABLET A DAY FOR 4 DAYS. * Quantity: 6 Refills: 0 Thode M.D., Vimal Coto * Start 08-Jan-2016 End 13-Jan-2016 Active PredniSONE 10 MG Oral Tablet TAKE 4 TABLETS DAILY FOR 2 DAYS,3 TABLETS DAILY FOR 2 DAYS, 2 TABLETS DAILY FOR 2 DAYS AND 1 TABLET DAILY FOR 2 DAYS, THEN STOP. * Quantity: 20 Refills: 0 Thode M.D., Vimal Coto * Start 08-Jan-2016 Active Allergies and Adverse Reactions Name Dates [...] smoker Vital Signs Date Test Result Details 08-Jan-2016 11:11 BP Systolic 102 mm[Hg] Status: Comments: Location: ; Position: BP Diastolic 62 mm[Hg] Status: Comments: Location: ; Position: Temperature 98.1 f Status: Heart Rate 62 /min Status: Comments: Location: ; Physical Findings 91 Status: Comments: O2 Saturation 28-Dec-2015 13:19 BP Systolic 120 mm[Hg] Status: Comments: Location: ; Position: BP Diastolic 62 mm[Hg] Status: Comments: Location: ; Position: Heart Rate 97 /min Status: Comments: Location: ; Weight 82.4 lb Status: Body Mass Index Calculated 17.22 kg/m2 Status: Body Surface Area Calculated 1.25 m2 Status: Results Date Description Value Details Results not documented Plan of Care Name Dates Details Planned Observations Planned Goals not documented Planned Encounters Appointment; Provider: Luciana Pompa M.D. On 10-Feb-2017 10:45 Appointment; Provider: Schedule Radiology On 10-Feb-2017 10:00 Appointment; Provider: Tadeo Carson M.D.|GABY Suarez|GABY Torrez, On 03-Apr-2016 11:45 Appointment; Provider: Richard Keith M.D. On 28-Mar-2016 14:45 Interventions Provided Medication Changes* Azithromycin 250 MG Oral Tablet - Start * PredniSONE 10 MG Oral Tablet - Start * Proventil HFA 108 (90 Base) MCG/ACT Inhalation Aerosol Solution - Start Instructions Name Dates Details Instructions not documented Encounters Appointment; Richard Keith M.D. Encounter Diagnosis: Problem not documented On 28-Dec-2015 13:15 Appointment; Richard Keith M.D. Encounter Diagnosis: Problem not documented On 13:15 Appointment; Tadeo Carson M.D.|GABY Suarez|GABY Torrez, Encounter Diagnosis: Problem not documented On [...] Encounter Diagnosis: Problem not documented On 17-Jan-2014 09:15"
--- OUTSIDE RECORDS SUMMARY | 2016-07-07 08:09 | XMS REPORT | Summary of Care ---
Author Author Aletha Torrez, Luciana [facility] Unknown Address [address], [place] [id number] Phone Unavailable Care Team Providers Care Meringuer Name Role Phone Inna Torrez, Radha Unavailable [...] Active Vaginal pain (625.9, R10.2) Status: Active Medications Name [...] Refills: 11 Richard Keith M.D.* Started 13-May-2014 [id number] GM Tube Allergies and Adverse Reactions Name [...]
--- OUTSIDE RECORDS SUMMARY | 2016-07-07 08:09 | XMS REPORT | Summary of Care ---
Author Author Richard Keith M.D. Organization Unknown Address [address] [place], [place] [id number] Phone Unavailable Care Team Providers Care Landscape Architect And Planner Name Role Phone Radha Keith M.D. Unavailable [...] Status: Active Nephrolithiasis (592.0, N20.0) Status: Active COPD (chronic obstructive pulmonary disease) [...] Quantity: 30 Refills: 11 Richard Keith M.D. Start 08-Feb-2013 Active Oxycodone-Acetaminophen 10-325 MG Oral Tablet Si PO every 4-6 hrs prn with a max of 6 per day. [id number] must last 30 daysDO NOT FILL UNTIL 04/28/16 * Quantity: 180 Refills: 0 Richard Keith M.D. Start 23-Nov-2013 Active Gabapentin 300 MG Oral Capsule ONE CAPSULE BY MOUTH EVERY MORNING AND NOON TWO CAPSULES BY MOUTH ATBEDTIME * Quantity: 120 Refills: 2 Richard Keith M.D. Start 20-Mar-2016 Active Triamcinolone Acetonide 0.1 % External Cream Apply to skin twice daily. * Quantity: 15 Refills: 6 Inna Torrez Richard Garcia * Start 13-May-2014 Active Morphine Sulfate ER [...] Refills: 0 Richard Keith M.D. * Start 13-May-2016 Active PredniSONE 10 MG Oral Tablet 4 TABS FOR 4 DAYS, 3 TABS FOR 4 DAYS, 2 TABS FOR 4 DAYS AND 1 TAB FOR4 DAYS * Quantity: 40 Refills: 0 Richard Keith M.D. * Start 13-May-2016 Active Allergies and Adverse Reactions Name Dates [...] smoker Vital Signs Date Test Result Details 13-Oj-2017 08:14 BP Systolic 120 mm[Hg] Status: Comments: [...] On 10-Feb-2017 10:00 Interventions Provided Medication Changes* Morphine Sulfate ER 30 MG Oral Tablet Extended Release - Renew Instructions Name Dates Details Instructions not documented Encounters Appointment; Richard Keith M.D. Encounter Diagnosis: Problem not documented On 03-May-2016 08:15 Appointment; Tadeo Carson M.D.,GABY, Encounter Diagnosis: Problem not documented On 03-Apr-2016 [...] not documented On 13:15 Appointment; Tadeo Carson M.D., FACS, Encounter Diagnosis: Problem not documented On 09:30 [...] not documented On 26-Aug-2014 11:45 Appointment; Jacqueline Hill, PTyATy Encounter Diagnosis: Problem not documented On 25-Aug-2014 10:00 Appointment; Luciana Pompa M.D. Encounter Diagnosis: Problem not documented On 06-Jul-2014 09:45 Appointment; Luciana Pompa M.D. Encounter Diagnosis: Problem not documented On 20-Jun-2014 13:45 Appointment; Gunner Bright M.D. Encounter Diagnosis: Problem not documented On 31-May-2014 10:45
--- OUTSIDE RECORDS SUMMARY | 2016-07-07 08:09 | XMS REPORT | Summary of Care ---
Author Author Richard Keith M.D. Organization Unknown Address [address] [place], [place] [id number] Phone Unavailable Care Team Providers Care Radiology Resident Name Role Phone Inna Torrez, Radha Unavailable [...] pain, acute, left (719.43, M25.532) Status: Active Medications Name Dates Details Vitamin [...] with a max of 6 per day. [id number] * Quantity: 180 Refills: 0 Richard Keith [...] to report Results Date Description Value Details 03-Aug-2015 11:46 CT WRIST W/O LEFT Comments: Exam Date: 08/03/2015 10: 25Dictation Date: 08/03/2015 11:46 XC WRIST W/O LT (Better) Plan of Care Planned Observations* Name Dates Details Planned Goals not documented Goal Planned Encounters* Appointment; Provider: Luciana Pompa On 10-Feb-2017 10:45 * Appointment; Provider: Schedule Radiology On 10-Feb-2017 10:00 * Appointment; Provider: Schedule Radiology On 03-Aug-2015 11:00 * Appointment; Provider: Gerard Tillman On 02-Apr-2012 09:30 * Appointment; Provider: Gerard Tillman On 17-May-2010 08:30 * Appointment; Provider: Richard Woodard On 13:45 * Appointment; Provider: Richard Woodard On 08-Sep-2008 08:30 Instructions * Instructions not documented Encounters Appointment; Carlota Denny Encounter Diagnosis: Problem not [...]
--- OUTSIDE RECORDS SUMMARY | 2016-07-07 08:09 | XMS REPORT | Summary of Care ---
Author Author Richard Keith M.D. Organization Unknown Address [address] [place], [place] [id number] Phone Unavailable Care Team Providers Care Flight Operations Inspector Name Role Phone Inna Torrez, Radha Unavailable [...] Active Ureteral stone (592.1, N20.1) Status: Active Medications Name Dates Details Vitamin [...] with a max of 6 per day. [id number] * Quantity: 180 Refills: 0 Richard Keith [...] % Status: Results Date Description Value Details 15:11 Urinalysis, Reflex to Microscopic or Culture PRN 8005 pH 5.5 (Better) Range: 5.0-7.5 SP GRAVITY 1.025 (Better) Range: 1.010-1.030 APPEARANCE CLEAR (Better) Range: Clear COLOR YELLOW (Better) Range: Straw-Yellow PROTEIN NEGATIVE mg/dL (Better) Range: Negative-Trace GLUCOSE NEGATIVE mg/dL (Better) Range: Negative KETONE TRACE mg/dL (Abnormal) Range: Negative BILIRUB NEGATIVE (Better) Range: Negative BLOOD SMALL (Abnormal) Range: Negative UROBIL 0.2 EU/dL (Better) Range: 0.2-1.0 NITRITE NEGATIVE (Better) Range: Negative LEUK MODERATE (Abnormal) Range: Negative 15:11 Urine Microscopic UMIC Comments: Quantity not sufficient for concentration.Less than 10 ml received for analysis WBC 6-10 /HPF (Abnormal) Range: 0-5 Comments: Specimen referred to Microbiology for Culture----- RBC 3-5 /HPF (Abnormal) Range: 0-2 EPITH 0-2 /HPF (Better) Range: 0-10 U CA OX 1+ /HPF (Better) 15:25 ULTRASOUND RENAL SONO Comments: Exam Date: 09/26/2015 14: 43Dictation Date: 09/26/2015 15:25 XS RENAL LIMITED (Better) Plan of Care Planned Observations* Name [...]
--- OUTSIDE RECORDS SUMMARY | 2016-07-07 08:09 | XMS REPORT | Summary of Care ---
Author Author Richard Keith M.D. Organization Unknown Address [address] [place], [place] [id number] Phone Unavailable Care Team Providers Care College Advisor Name Role Phone Radha Keith M.D. Unavailable [...] Active Emphysema lung (492.8, J43.9) Status: Active Asthmatic bronchitis (493.90, J45.909) Status: Active Acute sinusitis (461.9, J01.90) Status: [...] with a max of 6 per day. [id number] must last 30 daysDO NOT FILL UNTIL [...] UNTIL 04/20/16 * Quantity: 60 Refills: 0 Inna Torrez, Richard Garcia * Start 25-Aug-2014 Active Cyclobenzaprine HCl - 10 MG Oral Tablet take one tablet by mouth every 8 hours as needed * Quantity: 60 Refills: 3 iRchard Keith M.D. * Start 28-Dec-2015 Active Ipratropium-Albuterol [...] Richard Keith M.D. * Start 28-Mar-2016 Active Allergies and Adverse Reactions Name Dates [...] smoker Vital Signs Date Test Result Details 28-Mar-2016 14:52 BP Systolic 115 mm[Hg] Status: Comments: Location: ; Position: BP Diastolic 70 mm[Hg] Status: Comments: Location: ; Position: Heart Rate 78 /min Status: Comments: Location: ; Weight 85.8 lb Status: Physical Findings 76 Status: Comments: O2 Saturation Body Mass Index Calculated 17.93 kg/m2 Status: Body Surface Area Calculated 1.27 m2 Status: Results Date Description Value Details 03-Apr-2016 12:05 Xray ABD ( KUB) Comments: Exam Date: 04/03/2016 11: 41Dictation Date: 04/03/2016 12:05 X ABDOMEN (1V) Plan of Care Name Dates Details Planned Observations Planned Goals not documented Planned Encounters Appointment; Provider: Luciana Pompa M.D. On 10-Feb-2017 10:45 Appointment; Provider: Schedule Radiology On 10-Feb-2017 10:00 Interventions Provided Medication Changes* Morphine Sulfate ER 30 MG Oral Tablet Extended Release - Renew * Oxycodone-Acetaminophen 10-325 MG Oral Tablet - Renew Instructions Name Dates Details Instructions not documented Encounters Appointment; Tadeo Carson M.D.|AleCTySTy|GABY Torrez|GABY Torrez, Encounter Diagnosis: Problem not documented On 03-Apr-2016 [...] Encounter Diagnosis: Problem not documented On 06-May-2014 09:45"
--- OUTSIDE RECORDS SUMMARY | 2016-07-07 08:09 | XMS REPORT | Summary of Care ---
Author Author Gunner Bright M.D. 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 Neck Pain In The Lower Neck / Upper Back Bilateral Status: Active Anticoagulant long-term use (V58.61, Z79.01) Status: Active Muscle spasm (728.85, M62.838) Status: Active High risk medication use (V58.69, Z79.899) Status: Active Pre-operative exam (V72.84, Z01.818) Status: Active Panniculitis (729.30, M79.3) Status: Active Peripheral neuropathy (356.9, G62.9) Status: Active Abnormal weight loss (783.21, R63.4) Status: Active Left hip pain (719.45, M25.552) Status: Active Acute bronchitis (466.0, J20.9) Status: Active Abnormal loss of weight (783.21, R63.4) Status: Active Herpes zoster (053.9, B02.9) Status: Active Chronic pain (338.29, G89.29) Status: Active Lower back pain (724.2, M54.5) Status: Active Medications Name Dates Details Vitamin B-12 1000 MCG Oral Tablet Take 1 tablet daily * Started 18-Feb-2008 ActivePoly-Iron 150 Forte 150-25-1 MG-MCG-MG Oral Capsule si cap daily * Quantity: 30 Refills: 6 * Started ActiveGabapentin 100 MG Oral Capsule Take one capsule 3 times daily for 10 days. * Quantity: 90 Capsule Refills: 2 * Started 30-Aug-2010 ActiveOmeprazole 20 MG Oral Capsule Delayed Release TAKE ONE CAPSULE BY MOUTH EVERY DAY * Quantity: 30 Capsule Delayed Release Refills: 1 * Started 20-Apr-2013 ActivePremarin 0.625 MG/GM Vaginal Cream USE 1/3 APPLICATOR VAGINALLY AT BEDTIME TWICE WEEKLY * Quantity: 30 GM Refills: 11 * Started 08-Feb-2013 ActiveCarisoprodol 350 MG Oral Tablet Si PO Tid. * Quantity: 90 Tablet Refills: 2 * Started 25-Aug-2013 ActiveOxycodone-Acetaminophen 10-325 MG Oral Tablet Si PO every 4-6 hrs prn with a max of 6 per day.Scripts must last 30 days. May fill on or after 12-30-2013. * Quantity: 180 Tablet Refills: 0 * Started 23-Nov-2013 Active Allergies and Adverse Reactions Name Dates Details Penicillins Status: Active Latex Exam Gloves MISC Status: Active Past Medical History Name Dates Details Summary Of Previous Pregnancies ___ (Total No.) Status: Resolved Procedures Procedure Dates Details Hysterectomy Cervical Conization Loop Electrode Excision Shoulder Surgery Shoulder Arthroplasty Total Shoulder Replacement Completed:17-May-2010 Shoulder Arthroscopy With Rotator Cuff Repair Completed:02-Apr-2012 Tenodesis Of Long Biceps Tendon Completed:02-Apr-2012 ldr Arthrosc W/ Distal Claviculectomy Incl Distal Art Surf Completed:Mar-2012 Shoulder Arthroscopy, Space Decompression And Acromioplasty Completed:Mar-2012 Procedures not documented Immunization Name Dates Details Immunizations not documented Family History Sister* Name Dates Details Breast Cancer (V16.3) Status: Active Brother* Name Dates Details Lung Cancer (V16.1) Status: Active Social History Name Dates Details Former Smoker Comments: 1/2 ppd X 30yrs Smoking Status* Former smoker Vital Signs Date Test Result Details No Known Vitals to report Results Date Description Value Details Results not documented Plan of Care Instructions* Instructions not documented Planned Observations* Name Dates Details Planned Goals not documented Goal Planned Encounters* Appointment; Provider: Gunner Bright On 01-Mar-2014 08:15 * Appointment; Provider: Gerard Tillman On 02-Apr-2012 09:30 * Appointment; Provider: Gerard Tillman On 17-May-2010 08:30 * Appointment; Provider: Richard Woodard On 13:45 * Appointment; Provider: Richard Woodard On 08-Sep-2008 08:30 Instructions * No Known Instructions Encounters Appointment; Gunner Bright Encounter Diagnosis: Problem not [...] Diagnosis: Problem not documented On 11-May-2012 08:00 Appointment; Gerard Tillman Encounter Diagnosis: Problem not documented On 06-May-2012 08:45 Appointment; Char Germain Encounter Diagnosis: Problem not documented On 06-May-2012 08:00 Appointment; Char Germain Encounter Diagnosis: Problem not documented On 04-May-2012 09:00 Appointment; Char Germain Encounter Diagnosis: Problem not documented On 01-May-2012 09:00 Appointment; Char Germain Encounter Diagnosis: Problem not documented On 28-Apr-2012 09:00 Appointment; Richard Stringer Encounter Diagnosis: Problem not documented On 22-Apr-2012 11:00 Appointment; Gerard Tillman Encounter Diagnosis: Problem not documented On 22-Apr-2012 10:15 Appointment; Richard Stringer Encounter Diagnosis: Problem not documented On 17-Apr-2012 09:00 Appointment; Gerard Tillman Encounter Diagnosis: Problem not documented On 15-Apr-2012 09:00 Appointment; Gerard Tillman Encounter Diagnosis: Problem not documented On 08-Apr-2012 11:00 Appointment; Gerard Tillman Encounter Diagnosis: Problem not documented On 16-Mar-2012 14:15 Appointment; Gunner Bright Encounter Diagnosis: Problem not documented On 27-Feb-2012 09:30 Appointment; Richard Keith Encounter Diagnosis: Problem not documented On 27-Feb-2012 09:15
--- OUTSIDE RECORDS SUMMARY | 2016-07-07 08:10 | XMS REPORT | Summary of Care ---
Author Author Gunner Bright M.D. Organization Unknown Address [address] [place], [place] [id number] Phone Unavailable Care Team Providers Care Restaurant Greeter Name Role Phone Inna Torrez, Radha Unavailable [...] WEEKLY * Quantity: 30 Refills: 11 Richard Keiht M.D.* Started 08-Feb-2013 ActiveOxycodone-Acetaminophen 10-325 MG Oral Tablet Si to 2 PO every 4 hours prn with a max of 6 per day.Scripts must last 30 days. May fill on or after 07-30-2014.Managed by Dr. Bright. * Quantity: 180 Refills: 0 Gunner Bright M.D.* Started 23-Nov-2013 ActiveGabapentin 100 MG Oral Capsule TAKE 1 CAPSULE 3 TIMES DAILY. * Quantity: 90 Refills: 5 Richard Keith M.D.* Started 13-May-2014 ActiveTriamcinolone Acetonide 0.1 % External Cream APPLY SPARINGLY AND MASSAGE IN TWICE DAILY. * Quantity: 1 Refills: 11 Richard Keith M.D.* Started 13-May-2014 [id number] GM Tube Allergies and Adverse Reactions Name [...] 95 lb Status: Body Mass Index Calculated .55 kg/m2 Status: Body Surface Area Calculated 1.36 [...]
--- OUTSIDE RECORDS SUMMARY | 2016-07-07 08:10 | XMS REPORT | Summary of Care ---
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 Anticoagulant long-term use (V58.61, Z79.01) Status: Active High risk medication use (V58.69, Z79.899) Status: Active Panniculitis (729.30, M79.3) Status: Active Visit for screening mammogram (V76.12, Z12.31) Status: Active History of colon polyps (V12.72, Z86.010) Status: Active Abnormal weight loss (783.21, R63.4) Status: Active Herpes zoster (053.9, B02.9) Status: Active Chronic pain (338.29, G89.29) Status: Active Eczema (692.9, L30.9) Status: Active Peripheral neuropathy (356.9, G62.9) Status: Active Lower back pain (724.2, M54.5) Status: Active Vaginal pain (625.9, R10.2) Status: [...] Refills: 11 Richard Keith M.D.* Started 13-May-2014 [id number] GM Tube Allergies and Adverse Reactions Name [...] And Acromioplasty Completed:02-Apr-2012 History of Colonoscopy (Fiberoptic) Vaginitis Panel ( Trichomonas, Gardnerella, Najma sp.) 5615 Ordered:2014 Immunization Name Dates Details Immunizations not documented [...]
--- OUTSIDE RECORDS SUMMARY | 2016-07-07 08:10 | XMS REPORT | Summary of Care ---
Author Author Richard Keith M.D. Organization Unknown Address Unknown Phone Unavailable Care Team Providers Care Supreme Court Judge Name Role Phone Inna Torrez, Radha Unavailable [...] right lower extremity (729.5, M79.604) Status: Active Medications Name Dates Details Vitamin [...] with a max of 6 per day. [email or web address] * Quantity: 180 Refills: 0 Richard Keith [...] Colonoscopy (Fiberoptic) History of Salpingo-oophorectomy Left Side CBC w/ Auto Diff 7150 Ordered: PROTIME PANEL 7000 Ordered: PTT 7500 Ordered: XRay SPINE-LUMBAR Ordered: XRay TIBIA & FIBULA-Right Ordered: Immunization Name Dates Details Immunizations not documented Family History Sister* Name Dates Details Family history of Breast Cancer (V16.3) Status: Active Brother* Name Dates Details Family history of Lung Cancer (V16.1) Status: Active Social History Name Dates Details Smoking Status* Current every day smoker Vital Signs Date Test Result Details 13:23 BP Systolic 121 mm[Hg] Status: BP Diastolic 62 mm[Hg] Status: Heart Rate 76 /min Status: Weight 84.6 lb Status: Body Mass Index Calculated 17.68 kg/m2 Status: Body Surface Area Calculated 1.26 m2 Status: Results Date Description Value Details Results not documented Plan of Care Planned Observations* Name Dates Details Planned Goals not documented Goal Planned Encounters* Appointment; Provider: Luciana Pompa On 10-Feb-2017 10:45 * Appointment; Provider: Schedule Radiology On 10-Feb-2017 10:00 * Appointment; Provider: Tadeo Carson On 03-Apr-2016 11:45 * Appointment; Provider: Schedule Radiology On 15:00 * Appointment; Provider: Schedule Radiology On 03-Aug-2015 11:00 * Appointment; Provider: Gerard Tillman On 02-Apr-2012 09:30 * Appointment; Provider: Gerard Tillman On 17-May-2010 08:30 * Appointment; Provider: Richard Woodard On 13:45 * Appointment; Provider: Richard Woodard On 08-Sep-2008 08:30 Instructions * Instructions not documented Encounters Appointment; Richard Keith Encounter Diagnosis: Problem not documented On 13:15 Appointment; Tadeo Carson Encounter Diagnosis: Problem not documented On 09:30 Appointment; Cheng Harrington Encounter Diagnosis: Problem not [...]
--- OUTSIDE RECORDS SUMMARY | 2016-07-07 08:10 | XMS REPORT | Summary of Care ---
Author Author Richard Keith M.D. Organization Unknown Address Unknown Phone Unavailable Care Team Providers Care Security Ambassador Name Role Phone Inna Torrez, Radha Unavailable [...] with a max of 6 per day. [id number] * Quantity: 180 Refills: 0 Richard Keith [...] 14:16 PROTIME PANEL 7000 PROTIME 12.1 secs (Better) Range: 12.0-14.9 INR 0.90 (Better) 14:17 PTT 7500 PTT 31.7 secs (Better) Range: 23.0-34.7 14:22 CBC w/ Auto Diff 7150 WBC 6.2 K/uL (Better) Range: 4.5-11.0 RBC 3.80 mil/uL (Better) Range: 3.60-5.00 HGB 13.1 g/dL (Better) Range: 12.0-16.0 HCT 41.6 % (Better) Range: 36.0-48.0 MCV 109.3 fL (Above high threshold) Range: 80.0-99.0 MCH 34.3 pg (Above high threshold) Range: 27.3-32.5 MCHC 31.4 % (Below low threshold) Range: 32.0-36.0 RDW 14.2 % (Better) Range: 11.6-14.8 PLATELETS 267 K/uL (Better) Range: 150-400 MPV 7.9 fL (Better) Range: 6.0-11.0 %NEUTRO 48.9 % (Better) Range: 37.0-80.0 %LYMPHS 37.0 % (Better) Range: 13.0-50.0 %MONO 6.5 % (Better) Range: 0.0-12.0 %EOS 4.4 % (Better) Range: 0.0-7.0 %BASO 0.4 % (Better) Range: 0.0-2.5 %PEMA 2.8 % (Better) Range: 0.0-5.0 NEUTRO 3.1 K/uL (Better) Range: 2.0-6.9 LYMPHS 2.3 K/uL (Better) Range: 0.6-3.4 MONOS 0.4 K/uL (Better) Range: 0.0-0.9 EOS 0.3 K/uL (Better) Range: 0.0-0.7 BASO 0.0 K/uL (Better) Range: 0.0-0.2 14:54 XRay TIBIA & FIBULA-Right Comments: Exam Date: 11/06/2015 14: 11Dictation Date: 11/06/2015 14:54 X TIBIA & FIBULA RT (Better) 15:36 XRay SPINE-LUMBAR Comments: Exam Date: 11/06/2015 14:11Dictation Date: 11/06/2015 15:36 X SPINE LUMBAR W/ FLEX & EXT (Better) Plan of Care Planned Observations* Name [...]
--- OUTSIDE RECORDS SUMMARY | 2016-07-07 08:10 | XMS REPORT | Summary of Care ---
Author Author Richard Keith M.D. Organization Unknown Address [address] [place], [place] [id number] Phone Unavailable Care Team Providers Care Sanitizer Name Role Phone Inna Torrez, Radha Unavailable [...] Active Acute bronchitis (466.0, J20.9) Status: Active Medications Name Dates [...] Refills: 11 Richard Keith M.D.* Started 13-May-2014 [id number] GM Tube Morphine Sulfate ER 30 MG Oral Tablet Extended Release Si PO every 12 hours with a max of 2 per day. Script must last [address] Bright. * Quantity: 60 Refills: 0 Gunner Bright M.D.* Started 28-Dec-2014 ActiveMixture Vulvodynia cream-Apply to Vuvla TID * [...] Colonoscopy (Fiberoptic) History of Salpingo-oophorectomy Left Side Drug Screen Pain Management 8400 Ordered:28-Nov-2014 Immunization Name Dates Details Immunizations not documented [...]
--- OUTSIDE RECORDS SUMMARY | 2016-07-07 08:10 | XMS REPORT | Summary of Care ---
Author Author Richard Goetz M.D. Organization Unknown Address [address] [place], [place] [id number] Phone Unavailable Care Team Providers Care Retail Loss Prevention Officer Name Role Phone Inna Torrez, Radha Unavailable Unavailable Vance Torrez, David Unavailable Unavailable Aletha Torrez, Luciana Unavailable Unavailable Deangelo Torrez, Roosevelt Unavailable Unavailable Richard Goetz PP Unavailable Unavailable Unavailable Functional Status Functional [...] WEEKLY * Quantity: 30 Refills: 11 Richard Goetz M.D.* Started 08-Feb-2013 ActiveOxycodone-Acetaminophen 10-325 MG Oral Tablet Si PO every 4-6 hrs prn with a max of 6 per day. [id number] * Quantity: 180 Refills: 0 Richard Goetz M.D.* Started 23-Nov-2013 ActiveGabapentin 300 MG Oral Capsule 1 po morning and noon, 2 po HS * Quantity: 120 Refills: 2 Richard Goetz M.D.* Started 13-May-2014 ActiveTriamcinolone Acetonide 0.1 % External Cream APPLY SPARINGLY AND MASSAGE IN TWICE DAILY. * Quantity: 1 Refills: 11 Richard Goetz M.D.* Started 13-May-2014 [id number] GM Tube Morphine Sulfate ER 30 MG Oral Tablet Extended Release Take 1 tablet twice daily *MUST LAST 30 DAYS* * Quantity: 60 Refills: 0 Gunner Bright M.D.* Started 25-Aug-2014 ActiveMixture Vulvodynia cream-Apply to Vuvla TID * Refills: 0 Luciana Pompa M.D.* Started ActiveSymbicort 160-4.5 MCG/ACT Inhalation Aerosol INHALE 2 PUFFS TWICE DAILY. RINSE MOUTH AFTER USE. * Quantity: 1 Refills: 6 Richard Goetz M.D.* Started 28-Feb-2015 Active6 GM Inhaler Allergies [...] to report Results Date Description Value Details 08-Feb-2015 10:25 ULTRASOUND BREAST LEFT Comments: Exam Date: 2014 09:59Dictation Date: 02/08/2015 10:25 XS BREAST LEFT (Better) 10:25 MAMMOGRAM-DIAG BILATERAL FOR LUMP OR PAIN Comments: Exam Date: 09:23Dictation Date: 02/08/2015 10:25 XM DIAG MARCIAL FOR LUMP [facility] ReportSLARA CARLISLE [id number] (X-RAY)PATIENT OF DR. GOETZ BD: 1949 SECONDARY 02/08/15 XM DIG DIAG MARCIAL FOR LUMP /PAIN XM DIGITAL CAD ( DIAGNOSTIC) INDICA (Better) 22-Feb-2015 12:37 CT CHEST ABD PEL WITH ORAL AND WITHOUT IV CONTRAST Comments: Exam Date: 02/22/2015 09:34Dictation Date: 02/22/2015 12:37 XC CHEST ABD PEL WITHOUT [facility] Radiologic ReportSLARA CARLISLE [id number] (X-RAY)PATIENT OF DR. GOETZ BD: 1949 SECONDARY 02/22/15 XC CHEST ABD PEL WITHOUT INDICATION : R 63.4: ABNORMAL WEIGHT LOS (Better) Plan of Care Planned Observations* Name Dates Details Planned Goals not documented Goal Planned Encounters* Appointment; Provider: Luciana Pompa On 07-Apr-2015 09:00 * Appointment; Provider: Gerard Tillman On 02-Apr-2012 09:30 * Appointment; Provider: Gerard Tillman On 17-May-2010 08:30 * Appointment; Provider: Richard Woodard On 13:45 * Appointment; Provider: Richard Woodard On 08-Sep-2008 08:30 Instructions * Instructions not documented Encounters Appointment; Richard Goetz Encounter Diagnosis: Problem not documented On 02-Feb-2015 13:15 Appointment; Richard Goetz Encounter Diagnosis: Problem not documented On 12-Dec-2014 12:15 Appointment; Gunner Bright Encounter Diagnosis: Problem not documented On 28-Nov-2014 08:15 Appointment; Luciana Pompa Encounter Diagnosis: Problem not documented On 08:30 Appointment; Jacqueline Hill Encounter Diagnosis: Problem not documented On 09:30 Appointment; Richard Goetz Encounter Diagnosis: Problem not documented On 26-Aug-2014 11:45 Appointment; Jacqueline Hill Encounter Diagnosis: Problem not documented On 25-Aug-2014 10:00 Appointment; Luciana Pompa Encounter Diagnosis: Problem not documented On 06-Jul-2014 09:45 Appointment; Luciana Pompa Encounter Diagnosis: Problem not documented On 20-Jun-2014 13:45 Appointment; Gunner Bright Encounter Diagnosis: Problem not documented On 31-May-2014 10:45 Appointment; Richard Goetz Encounter Diagnosis: Problem not documented On 06-May-2014 09:45 Appointment; Gunner Bright Encounter Diagnosis: Problem not documented On 01-Mar-2014 09:00 Appointment; Giorgi Dockery Encounter Diagnosis: Problem not documented On 31-Jan-2014 13:30 Appointment; Samantha Gao Encounter Diagnosis: Problem not documented On 31-Jan-2014 09:00 Appointment; Richard Goetz Encounter Diagnosis: Problem not documented On 17-Jan-2014 09:15 Appointment; Gunner Bright Encounter Diagnosis: Problem not documented On 22-Dec-2013 08:00 Appointment; Gunner Bright Encounter Diagnosis: Problem not documented On 30-Nov-2013 08:15 Appointment; Richard Goetz Encounter Diagnosis: Problem not documented On 22-Nov-2013 09:30 Appointment; Gunner Bright Encounter Diagnosis: Problem not documented On 25-Aug-2013 13:15 Appointment; Graham Mcmahan Encounter Diagnosis: Problem not documented On 13-Aug-2013 09:00 Appointment; Richard Goetz Encounter Diagnosis: Problem not documented On 08-Jun-2013 13:00 Appointment; Gunner Bright Encounter Diagnosis: Problem not documented On 26-May-2013 13:15 Appointment; Richard Goetz Encounter Diagnosis: Problem not documented On 20-May-2013 09:45
--- OUTSIDE RECORDS SUMMARY | 2016-07-07 08:10 | XMS REPORT | Summary of Care ---
Author Author Richard Keith M.D. Organization Unknown Address [address] [place], [place] [id number] Phone Unavailable Care Team Providers Care Accounts Receivable Manager Name Role Phone Radha Keith M.D. Unavailable [...] with a max of 6 per day. [id number] must last 30 days * Quantity: 180 [...] as needed * Quantity: 60 Refills: 3 nIna Torrez, Richard Garcia * Start 28-Dec-2015 Active Ipratropium-Albuterol 0.5-2.5 (3) MG/3ML Inhalation Solution NEBULIZE 1 VIAL FOUR TIMES A DAY----DX: J45.909, J43.9 * Quantity: 180 Refills: 11 Richard Keith M.D. * Start 01-Feb-2016 Active Allergies and Adverse Reactions Name Dates [...] smoker Vital Signs Date Test Result Details 01-Feb-2016 11:56 BP Systolic 120 mm[Hg] Status: Comments: Location: ; Position: BP Diastolic 70 mm[Hg] Status: Comments: Location: ; Position: Heart Rate 71 /min Status: Comments: Location: ; Weight 83 lb Status: Physical Findings 88 Status: Comments: O2 Saturation Body Mass Index Calculated 17.35 kg/m2 Status: Body Surface Area Calculated 1.25 m2 Status: Results Date Description Value Details Results not documented Plan of Care Name Dates Details Planned Observations Planned Goals not documented Planned Encounters Appointment; Provider: Luciana Pompa M.D. On 10-Feb-2017 10:45 Appointment; Provider: Schedule Radiology On 10-Feb-2017 10:00 Appointment; Provider: Tadeo Carson M.D.|Saray|GABY Torrez|Shan,GABY, On 03-Apr-2016 11:45 Appointment; Provider: Richard Keith M.D. On 28-Mar-2016 14:45 Interventions Provided Medication Changes* Morphine Sulfate ER [...] not documented On 13:15 Appointment; Tadeo Carson M.D.|Saray|Shan,GABY|Shan,GABY, Encounter Diagnosis: Problem not documented On 09:30 [...] Encounter Diagnosis: Problem not documented On 01-Mar-2014 09:00"
--- OUTSIDE RECORDS SUMMARY | 2016-07-07 08:11 | XMS REPORT | Summary of Care ---
Author Author Aletha Torrez, [employer] [facility] Unknown Address [address], [place] [id number] Phone Unavailable Care Team Providers Care Signal Wirer Name Role Phone Inna Torrez, Radha Unavailable [...] with a max of 6 per day. [email or web address] * Quantity: 180 Refills: 0 Richard Keith [...] not documented Goal Planned Encounters* Appointment; Provider: Gerard Tillman On 02-Apr-2012 09:30 * Appointment; Provider: Gerard Tilmlan On 17-May-2010 08:30 * Appointment; Provider: Richard [...]
--- OUTSIDE RECORDS SUMMARY | 2016-07-07 08:11 | XMS REPORT | Summary of Care ---
Author Author Richard Keith M.D. Organization Unknown Address [address] [place], [place] [id number] Phone Unavailable Care Team Providers Care Tour Driver Name Role Phone Inna Torrez, Radha Unavailable [...] with a max of 6 per day. [email or web address] * Quantity: 180 Refills: 0 Richard Keith M.D.* Started 23-Nov-2013 ActiveGabapentin 300 MG Oral Capsule 1 po morning and noon, 2 po HS * Quantity: 120 Refills: 2 Richard Keith M.D.* Started 13-May-2014 ActiveTriamcinolone Acetonide 0.1 % External Cream APPLY SPARINGLY AND MASSAGE IN TWICE DAILY. * Quantity: 1 Refills: 11 Richard Keith M.D.* Started 13-May-2014 [id number] GM Tube Morphine Sulfate ER 30 MG Oral Tablet Extended Release Take 1 tablet twice daily *MUST LAST 30 DAYS* * Quantity: 60 Refills: 0 Richard Keith M.D.* Started 25-Aug-2014 ActiveMixture Vulvodynia cream-Apply to Vuvla TID * Refills: 0 Luciana Pompa M.D.* Started ActiveSymbicort 160-4.5 MCG/ACT Inhalation Aerosol INHALE 2 PUFFS TWICE DAILY. RINSE MOUTH AFTER USE. * Quantity: 1 Refills: 6 Richard eKith M.D.* Started 28-Feb-2015 Active6 GM Inhaler Allergies [...] Pompa On 21-Jun-2015 13:00 * Appointment; Provider: Gerard Tillman On 02-Apr-2012 [...]
--- OUTSIDE RECORDS SUMMARY | 2016-07-07 08:11 | XMS REPORT | Summary of Care ---
Author Author Richard Keith M.D. Organization Unknown Address [address] [place], [place] [id number] Phone Unavailable Care Team Providers Care Electrician Supervisor Name Role Phone Inna Torrez, Radha Unavailable [...] with a max of 6 per day. [id number] * Quantity: 180 Refills: 0 Richard Keith [...] Date: 09/26/2015 15:25 XS RENAL LIMITED (Better) 07:43 URINE CULTURE [id number] Comments: N[facility]has performed at: [email or web address], [address] [place] [address], [phone], Gas Scrubber Operator: Per Hoffman D.O., MPHQuest Collection Date/Time: [id number] Results Received Date/Time: [id number] Reported Date/Time: FASTING:NOQuest performed at: [email or web address], [address] [place] [address], [phone], Gas Scrubber Operator: Per Hoffman D.O., MPHQuest Collection Date/Time: [id number] Results Received Date/Time: [id number] Reported Date/Time: FASTING:NO CULTURE, URINE, ROUTINE SEE NOTE (Abnormal) Comments: CULTURE, URINE, ROUTINE MICRO NUMBER: [id number] TEST STATUS: FINAL SPECIMEN SOURCE : URINE, CLEAN CATCH SPECIMEN QUALITY: ADEQUATE RESULT: 10,000- 50,000 CFU/mL of Proteus mirabilis This organism may show imipenem resistance by mechanisms other than a carbapenemase. COMMENT: Additional organism(s) less than 10,000 CFU/ mL isolated. These organisms, commonly found on external and internal genitalia, are considered colonizers. No further testing performed. P.mirabilis INT YARIEL AMOX/CLAVULANATE S <=2 AMPICILLIN S <=2 AMP/ SULBACTAM S <=2 CEFAZOLIN R 8 1 CEFEPIME S <=1 CEFTRIAXONE S <=1 CIPROFLOXACIN S <=0.25 ERTAPENEM S <=0.5 GENTAMICIN S <=1 IMIPENEM I 2 LEVOFLOXACIN S <=0.12 NITROFURANTOIN R 128 PIP/TAZOBACTAM S <=4 TOBRAMYCIN S <=1 TRIMETHOPRIM/SULFA S <=20S= Susceptible I=Intermediate R=Resistant *=Not TestedNR=Not Reported NN=See Therapy CommentsTHERAPY COMMENTS Note 1: ORAL therapy: A cefazolin YARIEL of < 32 predicts susceptibility to the oral agents cefaclor, cefdinir, cefpodoxime, cefprozil, cefuroxime, cephalexin, and loracarbef when used for therapy of uncomplicated UTIs due to E. coli, K. pneumoniae, and P. mirabilis. PARENTERAL therapy: A cefazolin YARIEL of > 8 indicates resistance to parenteral cefazo----- 09:41 Xray ABD ( KUB) Comments: Exam Date: 10/03/2015 09: 22Dictation Date: 10/03/2015 09:41 X ABDOMEN (1V) (Better) Plan of Care Planned Observations* Name [...] Instructions * Instructions not documented Encounters Appointment; Tadeo Carson Encounter Diagnosis: Problem not [...]
--- OUTSIDE RECORDS SUMMARY | 2016-07-07 08:11 | XMS REPORT | Summary of Care ---
Author Author Carlota Denny APRN Unknown Address [address] [place], [place] [id number] Phone Unavailable Care Team Providers Care Fraud Representative Name Role Phone Inna Torrez, Radha Unavailable Unavailable Vance Torrez, David Unavailable Unavailable Richard Keith PP Unavailable Unavailable [...] with a max of 6 per day. [id number] * Quantity: 180 Refills: 0 Richard Keith [...] Colonoscopy (Fiberoptic) History of Salpingo-oophorectomy Left Side XRay WRIST-Left Ordered:20-Jul-2015 Immunization Name Dates Details Immunizations not documented Family History Sister* Name Dates Details Family history of Breast Cancer (V16.3) Status: Active Brother* Name Dates Details Family history of Lung Cancer (V16.1) Status: Active Social History Name Dates Details Smoking Status* Current every day smoker Vital Signs Date Test Result Details 20-Jul-2015 14:19 BP Systolic 137 mm[Hg] Status: BP Diastolic 93 mm[Hg] Status: Temperature 98.2 f Status: Heart Rate 108 /min Status: Respiration Rate 16 /min Status: O2 SAT 93 % Status: 13-Jul-2015 09:22 BP Systolic 100 mm[Hg] Status: BP Diastolic 61 mm[Hg] Status: Height 58 in Status: Weight 83 lb Status: Body Mass Index Calculated 17.35 kg/m2 Status: Body Surface Area Calculated 1.25 m2 Status: Results Date Description Value Details Results not documented Plan of Care Planned Observations* Name Dates Details Planned Goals not documented Goal Planned Encounters* Appointment; Provider: Luciana Pompa On 10-Feb-2017 10:45 * Appointment; Provider: Lorene Radiology On 10-Feb-2017 10:00 * Appointment; Provider: Gerard Tillman On [...]
--- OUTSIDE RECORDS SUMMARY | 2016-07-07 08:11 | XMS REPORT | Summary of Care ---
Author Author Aletha Torrez, Luciana Mullins Unknown Address Unknown Phone Unavailable Care Team Providers Care Digital Manager Name Role Phone Inna Torrez, Radha Unavailable Unavailable David Woodard M.D. Unavailable Unavailable Aletha Torrez, Luciana Unavailable Unavailable Richard Keith Unavailable Unavailable Unavailable [...] Abnormal weight loss (783.21, R63.4) Status: Active Ureteral stone (592.1, N20.1) Status: Active Peripheral neuropathy (356.9, G62.9) Status: Active Panniculitis (729.30, M79.3) Status: Active Osteoarthritis of spine (721.90, M47.9) Status: Active Left breast lump (611.72, N63) Status: Active Hydronephrosis, right (591, N13.30) Status: Active Herpes zoster (053.9, B02.9) Status: Active Emphysema lung (492.8, J43.9) Status: Active Eczema (692.9, L30.9) Status: Active Degenerative disc disease, lumbar (722.52, M51.36) Status: Active Chronic prescription opiate use (V58.69, Z79.891) Status: Active Chronic pain (338.29, G89.29) Status: Active Cervical pain (neck) (723.1, M54.2) Status: Active Acute sinusitis (461.9, J01.90) Status: Active Oral thrush (112.0, B37.0) Status: Active Nephrolithiasis (592.0, N20.0) Status: Active COPD (chronic obstructive pulmonary disease) (496, J44.9) Status: Active Asthmatic bronchitis (493.90, J45.909) Status: Active Vaginal lesion (623.8, N89.8) Status: Active Vaginal ulcer (616.89, N76.5) Status: Active Vulvar lesion (624.8, N90.89) Status: Active Medications Name Dates Details Vitamin [...] with a max of 6 per day. [id number] must last 30 days * Quantity: 180 [...] Richard Keith M.D. * Start 01-Feb-2016 Active LevoFLOXacin 500 MG Oral Tablet TAKE 1 TABLET DAILY UNTIL FINISHED. * Quantity: 10 Refills: 0 Richard Keith M.D. * Start 13-May-2016 Active PredniSONE 10 MG Oral Tablet 4 TABS FOR 4 DAYS, 3 TABS FOR 4 DAYS, 2 TABS FOR 4 DAYS AND 1 TAB FOR4 DAYS * Quantity: 40 Refills: 0 Richard Keith M.D. * Start 13-May-2016 Active Acyclovir 400 MG Oral Tablet TAKE ONE TABLET THREE TIMES DAILY FOR 10 DAYS. * Quantity: 30 Refills: 0 Luciana Pompa M.D. * Start 31-May-2016 Active Allergies and Adverse Reactions Name Dates [...] Colonoscopy (Fiberoptic) History of Salpingo-oophorectomy Left Side HSV CULTURE [id number] Ordered: 31-May-2016 Immunization Name Dates Details Immunizations not documented Family History Name Dates Details Family history of Breast Cancer (V16.3) Status: Active Name Dates Details Family history of Lung Cancer (V16.1) Status: Active Social History Name Dates Details - Status: Name Dates Details Current every day smoker Vital Signs Date Test Result Details 31-May-2016 13:12 BP Systolic 128 mm[Hg] Status: Comments: Location: ; Position: BP Diastolic 82 mm[Hg] Status: Comments: Location: ; Position: Heart Rate 102 /min Status: Comments: Location: ; Weight 85 lb Status: Body Mass Index Calculated 17.77 kg/m2 Status: Body Surface Area Calculated 1.27 m2 Status: 03-May-2016 08:14 BP Systolic 120 mm[Hg] Status: [...] On 10-Feb-2017 10:00 Interventions Provided Medication Changes* Acyclovir 400 MG Oral Tablet - Start * Azithromycin 500 MG Oral Tablet - Completed * Fluconazole 150 MG Oral Tablet - Completed Labs/Procedures/Imaging* HSV CULTURE [id number]; To be Done: 31 May 2016 Instructions Name Dates Details Instructions not documented Encounters Appointment; Richard Keith M.D. Encounter Diagnosis: Problem not documented On 03-May-2016 08:15 Appointment; Tadeo Carson M.D.,[facility], Encounter Diagnosis: Problem not documented On 03-Apr-2016 [...] not documented On 13:15 Appointment; Tadeo Carson M.D.,[facility], Encounter Diagnosis: Problem not documented On 09:30 [...]
--- OUTSIDE RECORDS SUMMARY | 2016-07-07 08:11 | XMS REPORT | Summary of Care ---
Author Author Aletha Torrez, Luciana Mullins Unknown Address [address] [place], [place] [phone] Phone Unavailable Care Team Providers Care X Ray Technician Name Role Phone Inna Torrez, Radha Unavailable Unavailable David Woodard M.D. Unavailable Unavailable Luciana Travis M.D. Unavailable Unavailable Liz Redd, Jacqueline Unavailable Unavailable Richard Keith PP Unavailable Unavailable [...] back pain (724.2, M54.5) Status: Active Acute sinusitis (461.9, J01.90) Status: Active Osteoarthritis of spine (721.90, M47.9) [...] Refills: 11 Richard Keith M.D.* Started 13-May-2014 [id number] GM Tube Morphine Sulfate ER 30 MG Oral Tablet Extended Release Si PO every 12 hours with a max of 2 per day. Script must last [address] Bright. * Quantity: 60 Refills: 0 Jacqueline Hill P.A.* Started ActiveMixture Vulvodynia cream-Apply to Vuvla TID * Refills: 0 Luciana Travis M.D.* Started Active Allergies and Adverse Reactions [...] smoker Vital Signs Date Test Result Details 08:28 BP Systolic 120 mm[Hg] Status: BP Diastolic 70 mm[Hg] Status: Weight 89 lb Status: Body Mass Index Calculated 17.38 kg/m2 Status: Body Surface Area Calculated 1.32 m2 Status: Results Date Description Value Details 09:56 DEXA Comments: Exam Date: 10/20/2014 08:42Dictation Date: 10/20/2014 09:56 XD DEXA FIN[facility]ULT[facility] Radiologic ReportSCAROLANN CARLISLE [id number] (X-RAY)PATIENT OF DR. TRAVIS BD: 1950 SECONDARY XD DEXA XD DEXAImaging was performed with the [employer]) Plan of Care Planned Observations* Name Dates Details Planned Goals not documented Goal Planned Encounters* Appointment; Provider: Luciana Travis On 21-Jun-2015 09:00 * Appointment; Provider: Luciana Travis On 07-Apr-2015 09:00 * Appointment; Provider: Gunner Bright On 28-Nov-2014 08:15 * Appointment; Provider: Gerard Tillman On 02-Apr-2012 09:30 * Appointment; Provider: Gerard Tillman On 17-May-2010 08:30 * Appointment; Provider: Richard Woodard On 13:45 * Appointment; Provider: Richard Woodard On 08-Sep-2008 08:30 Instructions * Instructions not documented Encounters Appointment; Luciana Travis Encounter Diagnosis: Problem not documented On 08:30 Appointment; Jacqueline Hill Encounter Diagnosis: Problem not documented On 09:30 Appointment; Richard Keith Encounter Diagnosis: Problem not documented On 26-Aug-2014 11:45 Appointment; Jacqueline Hill Encounter Diagnosis: Problem not documented On 25-Aug-2014 10:00 Appointment; Luciana Travis Encounter Diagnosis: Problem not documented On 06-Jul-2014 09:45 Appointment; Luciana Travis Encounter Diagnosis: Problem not documented On 20-Jun-2014 [...]
--- OUTSIDE RECORDS SUMMARY | 2016-07-07 08:12 | XMS REPORT | Summary of Care ---
Author Author Richard Keith M.D. Organization Unknown Address [address] [place], [place] [id number] Phone Unavailable Care Team Providers Care Road Consultant Name Role Phone Inna Torrez, Radha Unavailable [...] with a max of 6 per day. [id number] * Quantity: 180 Refills: 0 Richard Keith [...] /min Status: O2 SAT 93 % Status: Results Date Description Value Details 20-Jul-2015 16:35 XRay WRIST-Left Comments: Exam Date: 07/20/2015 14: 21Dictation Date: 07/20/2015 16:35 X WRIST COMP (MIN 3V) LT (Better) 03-Aug-2015 11:46 CT WRIST W/O LEFT Comments: [...] Problem not documented On 02-Feb-2015 13:15 Appointment; Richrad Keith Encounter Diagnosis: Problem not documented On [...] Problem not documented On 06-May-2014 09:45 Appointment; uGnner Bright Encounter Diagnosis: Problem not documented On [...]
--- OUTSIDE RECORDS SUMMARY | 2016-07-07 08:12 | XMS REPORT | Summary of Care ---
Author Author Richard Keith M.D. Organization Unknown Address [address] [place], [place] [id number] Phone Unavailable Care Team Providers Care Sustainability Purchasing Agent Name Role Phone Inna Torrez, Radha Unavailable [...] with a max of 6 per day. [id number] * Quantity: 180 Refills: 0 Richard Keith [...] Colonoscopy (Fiberoptic) History of Salpingo-oophorectomy Left Side CT WRIST W/O LEFT Ordered:31-Jul-2015 Immunization Name Dates Details Immunizations not documented [...] m2 Status: Results Date Description Value Details 20-Jul-2015 16:35 XRay WRIST-Left Comments: Exam Date: 07/20/2015 14: 21Dictation Date: 07/20/2015 16:35 X WRIST COMP (MIN 3V) LT (Better) Plan of Care Planned Observations* [...] Problem not documented On 31-Jan-2014 13:30 Appointment; Murray Samantha Encounter Diagnosis: Problem not documented On 31-Jan-2014 [...]
--- OUTSIDE RECORDS SUMMARY | 2016-07-07 08:12 | XMS REPORT | Summary of Care ---
Author Author Richard Keith M.D. Organization Unknown Address [address] [place], [place] [phone] Phone Unavailable Care Team Providers Care Financial Recording Clerk Name Role Phone Radha Keith M.D. Unavailable [...] prescription opiate use (V58.69, Z79.891) Status: Active Left breast lump (611.72, N63) [...] Status: Active Nephrolithiasis (592.0, N20.0) Status: Active Degenerative disc disease, cervical (722.4, M50.30) Status: Active Cervical pain (neck) (723.1, M54.2) Status: Active Abnormal weight loss (783.21, R63.4) Status: Active Medications Name Dates Details Vitamin [...] with a max of 6 per day. [id number] * Quantity: 180 Refills: 0 Richard Keith [...] Torrez, Richard Garcia * Start 28-Dec-2015 Active Allergies and Adverse Reactions Name Dates [...] smoker Vital Signs Date Test Result Details 28-Dec-2015 13:19 BP Systolic 120 mm[Hg] Status: [...] On 28-Mar-2016 14:45 Interventions Provided Medication Changes* Cyclobenzaprine HCl - 10 MG Oral Tablet - Start Instructions Name Dates Details Instructions [...]
--- OUTSIDE RECORDS SUMMARY | 2016-07-07 08:12 | XMS REPORT | Summary of Care ---
Author Author Richard Goetz M.D. Organization Unknown Address [address] [place], [place] [phone] Phone Unavailable Care Team Providers Care Marker Assembler Name Role Phone Inna Torrez, Radha Unavailable [...] with a max of 6 per day. [id number] * Quantity: 180 Refills: 0 Richard Goetz M.D.* Started 23-Nov-2013 ActiveGabapentin 300 MG Oral Capsule 1 po morning and noon, 2 po HS * Quantity: 120 Refills: 2 Richard Goetz M.D.* Started 13-May-2014 ActiveTriamcinolone Acetonide 0.1 % External Cream APPLY SPARINGLY AND MASSAGE IN TWICE DAILY. * Quantity: 1 Refills: 11 Richard Goetz M.D.* Started 13-May-2014 [id number] GM Tube Morphine Sulfate ER 30 MG [...] Side MAMMOGRAM-DIAG UNILATERAL FOR LUMP PAIN Ordered:03-Feb-2015 CT CHEST ABD PEL WITH ORAL AND WITHOUT IV CONTRAST Ordered:13-Feb-2015 Immunization Name Dates Details Immunizations not documented [...] m2 Status: Results Date Description Value Details 08-Feb-2015 10:25 ULTRASOUND BREAST LEFT Comments: Exam Date: 2014 09:59Dictation Date: 02/08/2015 10:25 XS BREAST LEFT (Better) 10:25 MAMMOGRAM-DIAG BILATERAL FOR LUMP OR PAIN Comments: Exam Date: 09:23Dictation Date: 02/08/2015 10:25 XM DIAG MARCIAL FOR LUMP OR PAIN [facility]ULTFair[facility] Radiologic ReportSLARA CARLISLE [id number] (X-RAY)PATIENT OF DR. GOETZ BD: 1949 SECONDARY 02/08/15 XM DIG DIAG MARCIAL FOR LUMP /PAIN XM DIGITAL CAD ( DIAGNOSTIC) INDICA (Better) Plan of Care Planned Observations* Name [...] Problem not documented On 12-Dec-2014 12:15 Appointment; Gunnre Bright Encounter Diagnosis: Problem not documented On [...]
--- OUTSIDE RECORDS SUMMARY | 2016-07-07 08:12 | XMS REPORT | Summary of Care ---
Author Author Richard Keith M.D. Organization Unknown Address [address] [place], [place] [id number] Phone Unavailable Care Team Providers Care Bridal Gown Fitter Name Role Phone Inna Torrez, Radha Unavailable [...] with a max of 6 per day. [id number] * Quantity: 180 Refills: 0 Richard Keith [...]
--- OUTSIDE RECORDS SUMMARY | 2016-07-07 08:12 | XMS REPORT | Summary of Care ---
Author Author Richard Keith M.D. Organization Unknown Address [address] [place], [place] [id number] Phone Unavailable Care Team Providers Care Labor Economics Professor Name Role Phone Inna Torrez, Radha Unavailable [...] with a max of 6 per day. [id number] * Quantity: 180 Refills: 0 Richard Keith M.D.* Started 23-Nov-2013 ActiveGabapentin 300 MG Oral Capsule 1 po morning and noon, 2 po HS * Quantity: 120 Refills: 2 Richard Keith M.D.* Started 13-May-2014 ActiveTriamcinolone Acetonide 0.1 % External Cream APPLY SPARINGLY AND MASSAGE IN TWICE DAILY. * Quantity: 1 Refills: 11 Richard Keith M.D.* Started 13-May-2014 [id number] GM Tube Morphine Sulfate ER 30 MG [...] smoker Vital Signs Date Test Result Details 07-Apr-2015 09:11 BP Systolic 138 mm[Hg] Status: BP Diastolic 86 mm[Hg] Status: Weight 83.5 lb Status: Body Mass Index Calculated 16.31 kg/m2 Status: Body Surface Area Calculated 1.29 [...]
--- OUTSIDE RECORDS SUMMARY | 2016-07-07 08:12 | XMS REPORT | Summary of Care ---
Author Author Richard Keith M.D. Organization Unknown Address [address] [place], [place] [phone] Phone Unavailable Care Team Providers Care Pickle Water Pump Operator Name Role Phone Radha Keith M.D. Unavailable David Estraad M.D. Unavailable Unavailable Richard Keith Unavailable Unavailable [...] Active Oral thrush (112.0, B37.0) Status: Active Acute upper respiratory infection (465.9, J06.9) Status: Active Medications Name Dates Details Vitamin [...] with a max of 6 per day. [id number] must last 30 days * Quantity: 180 [...] Carson M.D.|GABY Suarez|GABY Torrez, On 03-Apr-2016 11:45 Interventions Provided Medication Changes* Azithromycin 500 MG Oral Tablet - Start * Fluconazole 150 MG Oral Tablet - Start * Oxycodone-Acetaminophen 10-325 MG Oral Tablet - Renew Instructions* Intermediate Counseling(3-10min) Smoke & Tobacco Cessation - Follow Up at next visit [facility] Asymptomatic patient.; Done: * You need to stop smoking. Though it is not easy, more than half of all adult smokers have quit. We encourage you to write down all the reasons you should quit smoking and set a quit date for yourself. Ask us how we can help. You may also call [address] [place], [place] [address] for free resources and assistance.; Done: Instructions [...]
--- OUTSIDE RECORDS SUMMARY | 2016-07-07 08:12 | XMS REPORT | Summary of Care ---
Author Author Richard Goetz M.D. Organization Unknown Address [address] [place], [place] [phone] Phone Unavailable Care Team Providers Care Dairy Associate Name Role Phone Inna Torrez, Radha Unavailable Unavailable Vance Torrez, David Unavailable Unavailable Aletha Torrez, Luciana Unavailable Unavailable Richard Goetz PP Unavailable Unavailable [...] with a max of 6 per day. [id number] * Quantity: 180 Refills: 0 Richard Goetz M.D.* Started 23-Nov-2013 ActiveGabapentin 300 MG Oral Capsule 1 po morning and noon, 2 po HS * Quantity: 120 Refills: 2 Richard Goetz M.D.* Started 13-May-2014 ActiveTriamcinolone Acetonide 0.1 % External Cream APPLY SPARINGLY AND MASSAGE IN TWICE DAILY. * Quantity: 1 Refills: 11 Richard Goetz M.D.* Started 13-May-2014 [id number] GM Tube Morphine Sulfate ER 30 MG Oral Tablet Extended Release Take 1 tablet twice daily *MUST LAST 30 DAYS* * Quantity: 60 Refills: 0 Richard Goetz M.D.* Started 25-Aug-2014 ActiveMixture Vulvodynia cream-Apply to [...] DIAG MARCIAL FOR LUMP OR PAIN FINAL RESULTWashington [facility] Radiologic ReportSMITCAROLANN [id number] (X-RAY)PATIENT OF DR. GOETZ BD: 1949 SECONDARY 02/08/15 XM DIG DIAG MARCIAL FOR LUMP /PAIN XM DIGITAL CAD ( DIAGNOSTIC) INDICA (Better) 22-Feb-2015 12:37 CT CHEST ABD PEL WITH ORAL AND WITHOUT IV CONTRAST Comments: Exam Date: 02/22/2015 09:34Dictation Date: 02/22/2015 12:37 XC CHEST ABD PEL WITHOUT FINAL RESULTWashington Health System [facility] Radiologic ReportSCAROLANN CARLISLE-[id number] (X-RAY)PATIENT OF DR. GOETZ BD: 1949 SECONDARY DRTy 02/22/15 XC CHEST ABD PEL WITHOUT INDICATION [...] Instructions not documented Encounters Appointment; Richard Goetz Diagnosis: Problem not documented On 02-Feb-2015 13:15 [...]
--- OUTSIDE RECORDS SUMMARY | 2016-07-07 08:13 | XMS REPORT ---
Author Author Vimal Rojo Organization Unknown Address [address] [place], [place] [phone] Phone Care Team Providers Care White Work Cleaner Name Role Phone Inna Ramos PP Unavailable Unavailable Reason for Referral No Reason for Referral was given. History of Present Illness No HPI available. 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); (Active) * Visit For: Preoperative Exam (V72.84); (Active) * Neck Pain In The Lower Neck / Upper Back Bilateral (Active) * Peripheral Neuropathy (356.9); (Active) * Lower Back Pain (724.2); (Active) * Muscle Spasm (728.85); (Active) * Panniculitis (729.30); (Active) Medication * Vitamin B-12 1000 MCG Oral Tablet; Take 1 tablet daily; Start Date: 2007 (Active) * Poly-Iron 150 Forte 150-25-1 MG-MCG-MG Oral Capsule; si cap daily; Start Date: 10/04/2008 (Active) * Premarin Vaginal Cream; 1/3 applicator vaginally @ twice weekly; Start Date : 10/17/2008; End Date: (Active) * Cyclobenzaprine HCl 10 MG Oral Tablet; Take 1 tablet every 6 hours as needed for muscle spasms.; Start Date: 04/22/2012; End Date: (Active) * Gabapentin 100 MG Oral Capsule; Take one capsule 3 times daily for 10 days.; Start Date: 08/30/2010; End Date: (Active) * Triamcinolone Acetonide 0.1 % External Cream; APPLY SPARINGLY AND RUB IN TO AFFECTED AREA 3 TIMES A DAY UNTIL CLEAR.; Start Date: 05/06/2012; End Date: 04/1899 (Active) * Oxycodone-Acetaminophen 5-325 MG Oral Tablet; Si or 2 PO every 4-6 hrs prn with a max of 6 per day. May fill on or after 07-25-2012. Must last 30 days.; Start Date: 03/19/2012 (Active) Allergies and Adverse Reactions * Penicillins (Active) Past Medical History * Recovering Alcoholic Comments: Quit 11yrs ago (Resolved) * History of Summary Of Previous Pregnancies ___ (Total No.) Comments: 3 (Resolved) Procedures Procedure Procedure Date Date Completed Status Hysterectomy - - Active Cervical Conization Loop Electrode Excision - - Active Shoulder Surgery - - Active Shoulder Arthroplasty Total Shoulder Replacement 05/17/2010 - Active Shoulder Arthroscopy With Rotator Cuff Repair 04/02/2012 - Active Tenodesis Of Long Biceps Tendon 04/02/2012 - Active Shldr Arthrosc W/ Distal Claviculectomy Incl Distal Art Surf 04/02/2012 - Active Shoulder Arthroscopy, Space Decompression And Acromioplasty 04/02/2012 - Active Family History * Sororal history of Breast Cancer (V16.3); (Active) * Fraternal history of Lung Cancer (V16.1); (Active) Social History * Marital History - (V61.0); (Active) * Occupation: Comments: Retired valet cashier (Active) * Former Smoker Comments: 1/2 ppd X 30yrs (Active) Vital Signs Date Description Test Result 21 Aug 2012 12:04 PM recorded by: Carlota Delong BP Systolic 110 mm[Hg] BP Diastolic 74 mm[Hg] Temperature 98 F Heart Rate 120 /min O2 SAT 90 % Treatment Plan * X DIGITIZATION OF X-RAY FILM 04/08/2008 Routine * XN CARD STRESS PERFUSION 07/22/2008 Routine * XN NUC MED HEART WALL MOTION 07/22/2008 Routine * XN PERFUSION STUDY WITH EF 07/22/2008 Routine * XC OPTIRAY 320 100ML 09/09/2008 Routine * PAP SMEAR 9600 10/17/2008 Routine * XM CAD (SCREENING) 11/26/2008 Routine * XO SHOULDER COMP (MIN 2V) RT 01/02/2009 Routine * XRay FOREARM-Right 08/31/2009 Routine * XO SHOULDER COMP (MIN 2V) LT 02/02/2010 Routine * XO SHOULDER COMP (MIN 2V) RT 04/11/2010 Routine * Urine Culture PRN 8000 04/26/2010 Routine * XO SHOULDER COMP (MIN 2V) RT 05/23/2010 Routine * XO SHOULDER COMP (MIN 2V) RT 06/04/2010 Routine * XO SHOULDER COMP (MIN 2V) RT 04/17/2011 Routine * XO SHOULDER COMP (MIN 2V) LT 09/25/2011 Routine Advance Directives * No Advance Directives available. Encounters * AUDIT 08/22/2012 * RTNPT , Provider: Deangelo Martino, Status: Pen , Time: 9:15 AM 08/26/2012
--- OUTSIDE RECORDS SUMMARY | 2016-07-07 08:13 | XMS REPORT | Summary of Care ---
Author Author Richard Keith M.D. Organization Unknown Address [address] [place], [place] [phone] Phone Unavailable Care Team Providers Care Vegetable Sorter Name Role Phone Inna Torrez, Radha Unavailable [...] with a max of 6 per day. [id number] * Quantity: 180 Refills: 0 Richard Keith [...]
--- OUTSIDE RECORDS SUMMARY | 2016-07-07 08:13 | XMS REPORT | Summary of Care ---
Author Author Inna oTrrez, Richard Garcia Organization Unknown Address [address] [place], [place] [phone] Phone Unavailable Care Team Providers Care Commodities Requirements Analyst Name Role Phone Inna Torrez, Radha Unavailable [...] with a max of 6 per day. [id number] must last 30 days * Quantity: 180 Refills: 0 Richard Keith M.D. Start 23-Nov-2013 Active Gabapentin 300 MG Oral Capsule ONE CAPSULE BY MOUTH EVERY MORNING AND NOON TWO CAPSULES BY MOUTH ATBEDTIME * Quantity: 120 Refills: 3 Richard Keith M.D. * Start 10-Jun-2016 Active Triamcinolone Acetonide 0.1 % External Cream Apply to skin twice daily. * Quantity: 15 Refills: 6 Richard Keith M.D. * Start 13-May-2014 Active Morphine Sulfate ER 30 MG Oral Tablet Extended Release Take 1 tablet twice daily *MUST LAST 30 DAYS*MAY 06/19/16 * Quantity: 60 Refills: 0 Richard Keith [...] m2 Status: Results Date Description Value Details 04-Jun-2016 15:39 HSV CULTURE [id number] Comments: Swipp performed at: [facility], [address] [place], [address], Net Finisher: Per Hoffman D.O., MPHQuest Collection Date/Time: [id number] Results Received Date/Time: [id number] Reported Date/Time: [id number] VAGINAL LESION FASTING:NO SOURCE: LESION Comments: [NE]----- HSV CULTURE: NOT ISOLATED Comments: [NE]----- Plan of Care Name Dates Details Planned Observations Planned Goals not documented Planned Encounters Appointment; Provider: Luciana Pompa M.D. On 10-Feb-2017 10:45 Appointment; Provider: Schedule Radiology On 10-Feb-2017 10:00 Interventions Provided Medication Changes* Oxycodone-Acetaminophen 10-325 MG Oral Tablet - Renew Instructions Name Dates Details Instructions not documented Encounters Appointment; Luciana Pompa M.D. Encounter Diagnosis: Problem not documented On 31-May-2016 13:15 Appointment; Richard Keith M.D. Encounter Diagnosis: Problem not documented On 03-May-2016 08:15 Appointment; Tadeo Carson M.D.,[facility], Encounter Diagnosis: Problem not documented On [...] not documented On 13:15 Appointment; Tadeo Carson M.D.,[facility], Encounter Diagnosis: Problem not documented On [...] Problem not documented On 08:30 Appointment; Jacqueline Hill, PGwendolyn Encounter Diagnosis: Problem not documented On 09:30 Appointment; Richard Keith M.D. Encounter Diagnosis: Problem not documented On 26-Aug-2014 11:45 Appointment; Jacqueline Hill PGwendolyn Encounter Diagnosis: Problem not documented On 25-Aug-2014 10:00 Appointment; Luciana Pompa M.D. Encounter Diagnosis: Problem not documented On 06-Jul-2014 09:45
--- OUTSIDE RECORDS SUMMARY | 2016-07-07 08:13 | XMS REPORT | Summary of Care ---
Author Author Richard Keith M.D. Organization Unknown Address Unknown Phone Unavailable Care Team Providers Care Glass Mould Cleaner Name Role Phone Inna Torrez, Radha Unavailable [...] with a max of 6 per day. [id number] * Quantity: 180 Refills: 0 Richard Keith [...] to report Results Date Description Value Details 07:43 URINE CULTURE [id number] Comments: [facility] [address] [place], [address], Thread Trimmer: Per Hoffman D.O., MPHQuest Collection Date/Time: [id number] Results Received Date/Time: [id number] Reported Date/Time: [id number] FASTING:NOQuest performed at: [facility] [address] [place], [address], Thread Trimmer: Per Hoffman D.O., MPHQuest Collection Date/Time: [id number] Results Received Date/Time: [id number] Reported Date/Time: FASTING:NO CULTURE, URINE, ROUTINE SEE NOTE (Abnormal) Comments: CULTURE, URINE, ROUTINE MICRO NUMBER: [id number] TEST STATUS: FINAL SPECIMEN SOURCE : URINE, [...] 8 indicates resistance to parenteral cefazo----- 09:41 Talon WISE ( TANIA) Comments: Exam Date: 10/03/2015 09: 22Dictation Date: [...]
--- OUTSIDE RECORDS SUMMARY | 2016-07-07 08:13 | XMS REPORT | Summary of Care ---
Author Author Carlota Denny APRN Unknown Address [address], [place] [address] Phone Unavailable Care Team Providers Care Stranding Machine Operator Helper Name Role Phone Inna Torrez, Radha Unavailable [...] with a max of 6 per day. [id number] * Quantity: 180 Refills: 0 Richard Keith [...]
--- OUTSIDE RECORDS SUMMARY | 2016-07-07 08:13 | XMS REPORT | Summary of Care ---
Author Author Yamileth Torrez, FACS, ,, Tadeo Monzon Organization Unknown Address [address] [place], [place] [phone] Phone Unavailable Care Team Providers Care Driver Service Technician Name Role Phone Inna Torrez, Radha [...] with a max of 6 per day. [id number] * Quantity: 180 Refills: 0 Richard Keith [...]
--- OUTSIDE RECORDS SUMMARY | 2016-07-07 08:13 | XMS REPORT | Summary of Care ---
Author Author Richard Keith M.D. Organization Unknown Address [address] [place], [place] [phone] Phone Unavailable Care Team Providers Care Trimming Cutter Machine Name Role Phone Radha Keith M.D. Unavailable [...] with a max of 6 per day. [id number] must last 30 days * Quantity: 180 [...] J43.9 * Quantity: 180 Refills: 11 Richard Kieth M.D. * Start 01-Feb-2016 Active Allergies and [...] not documented On 13:15 Appointment; Tadeo Carson M.D.|F.A.CTySTy|Shan,GABY|Shan,GABY, Encounter Diagnosis: Problem not documented On 09:30 [...]
--- OUTSIDE RECORDS SUMMARY | 2016-07-07 08:14 | XMS REPORT | Summary of Care ---
Author Author Murray Torrez, Samantha J Organization Unknown Address [address] [place], [place] [phone] Phone Unavailable Care Team Providers Care Heat Treat Supervisor Name Role Phone Inna Torrez, Radha Unavailable Unavailable Murray Torrez, Luci Unavailable Unavailable Vance Torrez, David Unavailable Unavailable [...] Active Peripheral neuropathy (356.9, G62.9) Status: Active Left hip pain (719.45, M25.552) Status: Active Herpes zoster (053.9, B02.9) Status: Active Lower back pain (724.2, M54.5) Status: Active Acute bronchitis (466.0, J20.9) Status: Active Wrist pain (719.43, M25.539) Status: Active Visit for screening mammogram (V76.12, Z12.31) Status: Active Eczema (692.9, L30.9) Status: Active History of colon polyps (V12.72, Z86.010) Status: Active Abnormal weight loss (783.21, R63.4) Status: Active Chronic pain (338.29, G89.29) Status: Active Medications Name Dates Details Vitamin B-12 1000 MCG Oral Tablet Take 1 tablet daily * Started 30-Oct-2008 ActivePoly-Iron 150 Forte 150-25-1 MG-MCG-MG Oral Capsule [...] Refills: 11 Richard Keith M.D.* Started 08-Feb-2013 ActiveOmeprazole 20 MG Oral Capsule Delayed Release TAKE ONE CAPSULE BY MOUTH EVERY DAY * Quantity: 30 Refills: 1 Richard Keith M.D.* Started 20-Apr-2013 ActiveOxycodone-Acetaminophen 10-325 MG Oral Tablet Si PO every 4-6 hrs prn with a max of 6 per day.Scripts must last 30 days. fill 04-27-14 * Quantity: 180 Refills: 0 Gunner Bright M.D.* Started 23-Nov-2013 ActiveMetoclopramide HCl - 10 MG Oral Tablet 1 tablet as directed per colonoscopy instructions * Quantity: 1 Refills: 0 Samantha Gao M.D.* Started 17-Jan-2014 Active Allergies and Adverse Reactions Name Dates [...] Instructions * Instructions not documented Encounters Appointment; Gunner Bright Encounter Diagnosis: Problem [...] documented On 22-Nov-2013 09:30 Appointment; Gunner Bright Diagnosis: Problem not documented On 25-Aug-2013 13:15 Appointment; Graham Mcmahan Encounter Diagnosis: Problem not documented On 13-Aug-2013 09:00 Appointment; Richard Keith Encounter Diagnosis: Problem not documented On 08-Jun-2013 13:00 Appointment; Gunner Bright Encounter Diagnosis: Problem not documented On 26-May-2013 13:15 Appointment; Richard Keith Encounter Diagnosis: Problem not documented On 20-May-2013 09:45 Appointment; Gunner Bright Diagnosis: Problem not documented On 25-Feb-2013 08:15 [...]
--- OUTSIDE RECORDS SUMMARY | 2016-07-07 08:14 | XMS REPORT | Summary of Care ---
Author Author Aletha Torrez, Luciana [facility] Unknown Address [address] [place], [place] [phone] Phone Unavailable Care Team Providers Care Public Safety Teacher Name Role Phone Inna Torrez, Radha Unavailable [...] Refills: 11 Richard Keith M.D.* Started 13-May-2014 [id number] GM Tube Morphine Sulfate ER 30 MG [...] Colonoscopy (Fiberoptic) History of Salpingo-oophorectomy Left Side DEXA Ordered: Immunization Name Dates Details Immunizations not [...] not documented Goal Planned Encounters* Appointment; Provider: Lcuiana Pompa On 21-Jun-2015 09:00 * Appointment; Provider: Luciana Pompa On 07-Apr-2015 09:00 * Appointment; Provider: Gunner [...]
--- OUTSIDE RECORDS SUMMARY | 2016-07-07 08:14 | XMS REPORT | Summary of Care ---
Author Author Gunner Bright M.D. Organization Unknown Address Unknown Phone Unavailable Care Team Providers Care Human Resources Manager Manufacturing Name Role Phone Inna Torrez, Radha Unavailable [...] Refills: 0 Samantha Gao M.D.* Started 17-Jan-2014 ActiveCyclobenzaprine HCl - 10 MG Oral Tablet TAKE ONE TABLET BY MOUTH THREE TIMES DAILY NEEDED * Quantity: 90 Refills: 0 Gunner Bright M.D.* Started 24-Aug-2010 Active Allergies and Adverse Reactions Name Dates [...] not documented On 01-Mar-2014 09:00 Appointment; Giorgi Docekry Encounter Diagnosis: Problem not documented On 31-Jan-2014 [...]
--- OUTSIDE RECORDS SUMMARY | 2016-07-07 08:14 | XMS REPORT ---
Author Author Gerard Tillman Organization Unknown Address [address] [place], [place] [phone] Phone Care Team Providers Care County Agent Name Role Phone Inna Ramos PP Unavailable Unavailable Reason for Referral RECHECK History of Present Illness No HPI available. [...] Date : 10/17/2008; End Date: (Active) * Gabapentin 100 MG Oral Capsule; Take one capsule 3 times daily for 10 days.; Start Date: 08/30/2010; End Date: (Active) * Oxycodone-Acetaminophen 5-325 MG Oral Tablet; Si or 2 PO every 4-6 hrs prn with a max of 6 per day. May fill on or after 06-26-2012. Must last 30 days.; Start Date: 03/19/2012 (Active) * Cyclobenzaprine HCl 10 MG Oral Tablet; Take 1 tablet every 6 hours as needed for muscle spasms.; Start Date: 04/22/2012; End Date: (Active) * Triamcinolone Acetonide 0.1 % External Cream; APPLY SPARINGLY AND RUB IN TO AFFECTED AREA 3 TIMES A DAY UNTIL CLEAR.; Start Date: 05/06/2012; End Date: 04/1899 (Active) Allergies and Adverse Reactions * Penicillins [...] - (V61.0); (Active) * Occupation: Comments: Retired decision unit rn (Active) * Former Smoker Comments: 1/2 ppd X 30yrs (Active) Treatment Plan * X DIGITIZATION OF X-RAY [...] * No Advance Directives available. Encounters * Appointment 07/15/2012 * RTNPT , Provider: Deangelo Martino, Status: Steven , Time: 9:15 AM 08/26/2012
--- OUTSIDE RECORDS SUMMARY | 2016-07-07 08:14 | XMS REPORT | Summary of Care ---
Author Author Aletha Torrez, [facility] Unknown Address [address], [place] [phone] Phone Unavailable Care Team Providers Care Services Host Name Role Phone Inna Torrez, Radha Unavailable [...] Refills: 11 Richard Keith M.D.* Started 13-May-2014 [id number] GM Tube Allergies and Adverse Reactions Name [...] not documented Goal Planned Encounters* Appointment; Provider: Jacqueline Hill On 25-Aug-2014 10:00 [...]
--- OUTSIDE RECORDS SUMMARY | 2016-07-07 08:14 | XMS REPORT | Summary of Care ---
Author Richard Pugh M.D. Organization Unknown Address [address] [place], [place] [phone] Phone Unavailable Care Team Providers Care Chute Man Name Role Phone Inna Torrez, Radha Unavailable Unavailable Nnamdi Rojo M.D. Unavailable Unavailable Vance Torrez, David Unavailable Unavailable Richard Ketih Unavailable Unavailable Unavailable Unavailable Functional Status Name [...] with a max of 6 per day. [id number] must last 30 days * Quantity: 180 [...] Quantity: 60 Refills: 0 Richard Keith M.D. A * Start 25-Aug-2014 Active Cyclobenzaprine HCl - 10 MG Oral Tablet take one tablet by mouth every 8 hours as needed * Quantity: 60 Refills: 3 Inna Torrez, Richard Garcia * Start 28-Dec-2015 Active PredniSONE 10 MG Oral Tablet TAKE 4 TABLETS DAILY FOR 2 DAYS,3 TABLETS DAILY FOR 2 DAYS, 2 TABLETS DAILY FOR 2 DAYS AND 1 TABLET DAILY FOR 2 DAYS, THEN STOP. * Quantity: 20 Refills: 0 Vimal Rojo M.D. * Start 08-Jan-2016 Active PredniSONE 10 MG Oral Tablet TAKE 4 TABLETS FOR 3 DAYS, 3 TABLETS FOR 3 DAYS, 2 TABLET FOR 3 DAYS AND 1 TABLET FOR 3 DAYS THEN STOP. * Quantity: 30 Refills: 0 Richard Keith M.D. * Start 18-Jan-2016 Active Azithromycin 500 MG Oral Tablet TAKE 1 TABLET DAILY. * Quantity: 7 Refills: 0 Inna Torrez, Richard Garcia * Start 18-Jan-2016 Active Allergies and Adverse Reactions Name Dates [...] On 10-Feb-2017 10:00 Appointment; Provider: Tadeo Carson M.D.|BIBI Suarez FACS, On 03-Apr-2016 11:45 Appointment; Provider: Richard Keith M.D. On 28-Mar-2016 14:45 Interventions Provided Medication Changes* Morphine Sulfate ER 30 MG Oral Tablet Extended Release - Renew Instructions Name Dates Details Instructions not documented Encounters Appointment; Vimal Rojo M.D. Encounter Diagnosis: Problem [...] Encounter Diagnosis: Problem not documented On 31-Jan-2014 09:00"
--- OUTSIDE RECORDS SUMMARY | 2016-07-07 08:14 | XMS REPORT | Summary of Care ---
Author Author Richard Keith M.D. Organization Unknown Address [address] [place], [place] [phone] Phone Unavailable Care Team Providers Care Controller Instructor Name Role Phone Inna Torrez, Radha Unavailable [...] with a max of 6 per day. [id number] * Quantity: 180 Refills: 0 Richard Keith M.D.* Started 23-Nov-2013 ActiveGabapentin 300 MG Oral Capsule 1 po morning and noon, 2 po HS * Quantity: 120 Refills: 2 Richard Keith M.D.* Started 13-May-2014 ActiveTriamcinolone Acetonide 0.1 % External Cream APPLY SPARINGLY AND MASSAGE IN TWICE DAILY. * Quantity: 1 Refills: 11 Richard Keith M.D.* Started 13-May-2014 [id number] GM Tube Morphine Sulfate ER 30 MG [...]
--- OUTSIDE RECORDS SUMMARY | 2016-07-07 08:15 | XMS REPORT | Summary of Care ---
Author Author Gunner Bright M.D. Organization Unknown Address Unknown Phone Unavailable Care Team Providers Care Community Recreation Programmer Name Role Phone Inna Torrez, Radha Unavailable Unavailable David Woodard M.D. Unavailable Unavailable Roosevelt Bright M.D. Unavailable Unavailable Richard Keith PP Unavailable [...] Refills: 11 Richard Keith M.D.* Started 13-May-2014 [id number] GM Tube Allergies and Adverse Reactions Name [...] On 02-Apr-2012 09:30 * Appointment; Provider: Gerard Tillmna On 17-May-2010 08:30 * Appointment; Provider: Richard [...]
--- OUTSIDE RECORDS SUMMARY | 2016-07-07 08:15 | XMS REPORT | Summary of Care ---
Author Author Richard Keith M.D. Organization Unknown Address [address] [place], [place] [phone] Phone Unavailable Care Team Providers Care Physical Scientist Name Role Phone Radha Keith M.D. Unavailable [...] with a max of 6 per day. [id number] must last 30 days * Quantity: 180 [...]
--- OUTSIDE RECORDS SUMMARY | 2016-07-07 08:15 | XMS REPORT | Summary of Care ---
Author Author Richard Keith M.D. Organization Unknown Address [address] [place], [place] [phone] Phone Unavailable Care Team Providers Care Supervisor Electronics Inspection Name Role Phone Radha Keith M.D. Unavailable [...] Richard Keith M.D. * Start 08-Feb-2013 Active Triamcinolone Acetonide 0.1 % External Cream Apply to skin twice daily. * Quantity: 15 Refills: 6 Richard Keith M.D. * Start 13-May-2014 Active Oxycodone-Acetaminophen 10-325 MG Oral Tablet Si PO every 4-6 hrs prn with a max of 6 per day. [id number] * Quantity: 180 Refills: 0 Richard Keith [...] On 10-Feb-2017 10:00 Appointment; Provider: Tadeo Carson M.D.|Daniela,GABY|GABY Torrez, On 03-Apr-2016 11:45 Interventions Provided Medication [...]
--- OUTSIDE RECORDS SUMMARY | 2016-07-07 08:15 | XMS REPORT | Summary of Care ---
Author Author Cheng Harrington D.O. Organization Unknown Address [address] [place], [place] [phone] Phone Unavailable Care Team Providers Care Sausage Smoker Name Role Phone Inna Torrez, Radha Unavailable [...] Active Hydronephrosis, right (591, N13.30) Status: Active Medications Name Dates Details Vitamin [...] with a max of 6 per day. [id number] * Quantity: 180 Refills: 0 Richard Keith [...] not documented On 01-Mar-2014 09:00 Appointment; Giorgi oDckery Encounter Diagnosis: Problem not documented On 31-Jan-2014 [...]
--- OUTSIDE RECORDS SUMMARY | 2016-07-07 08:15 | XMS REPORT | Summary of Care ---
Author Author Erlin ALBERT, Darlyn Organization Unknown Address [address] [place], [place] [phone] Phone Unavailable Care Team Providers Care Senior Hr Business Partner Name Role Phone Yamileth Torrez, FACS, ,, M Unavailable Unavailable Inna Torrez, A Unavailable Unavailable Vance Torrez, R Unavailable Unavailable Richard Keith Unavailable Unavailable Unavailable [...] Cervical pain (neck) (723.1, M54.2) Status: Active Asthmatic bronchitis (493.90, J45.909) Status: Active Acute sinusitis (461.9, J01.90) Status: Active Oral thrush (112.0, B37.0) Status: Active Acute upper respiratory infection (465.9, J06.9) Status: Active Nephrolithiasis (592.0, N20.0) Status: Active [...] Richard Keith M.D. * Start 13-May-2014 Active Ipratropium-Albuterol 0.5-2.5 (3) MG/3ML Inhalation Solution NEBULIZE 1 VIAL FOUR TIMES A DAY----DX: J45.909, J43.9 * Quantity: 180 Refills: 11 Richard Keith M.D. * Start 01-Feb-2016 Active Cyclobenzaprine HCl - 10 MG Oral Tablet take one tablet by mouth every 8 hours as needed * Quantity: 60 Refills: 3 Inna Torrez, Richard Garcia * Start 28-Dec-2015 Active Gabapentin 300 MG Oral Capsule ONE CAPSULE BY MOUTH EVERY MORNING AND NOON TWO CAPSULES BY MOUTH ATBEDTIME * Quantity: 120 Refills: 2 Inna Torrez, Richard Garcia * Start 20-Mar-2016 Active Morphine Sulfate ER 30 MG Oral Tablet Extended Release Take 1 tablet twice daily *MUST LAST 30 DAYS* * Quantity: 60 Refills: 0 Richard Keith M.D. * Start 25-Aug-2014 Active Oxycodone-Acetaminophen 10-325 MG Oral Tablet Si PO every 4-6 hrs prn with a max of 6 per day. [id number] must last 30 days * Quantity: 180 Refills: 0 Inna Torrez, Richard Garcia * Start 23-Nov-2013 Active Azithromycin 500 MG Oral Tablet TAKE [...] Schedule Radiology On 10-Feb-2017 10:00 Interventions Provided Labs/Procedures/Imaging* Xray ABD ( KUB); Done: Apr 03 2016 12:05PM Instructions Name Dates Details Instructions not documented [...] not documented On 13:15 Appointment; Tadeo Carson M.D.|Saray|Shan,BIBI,GABY, Encounter Diagnosis: Problem not documented On 09:30 [...]
--- OUTSIDE RECORDS SUMMARY | 2016-07-07 08:15 | XMS REPORT | Summary of Care ---
Author Author Richard Keith M.D. Organization Unknown Address [address] [place], [place] [phone] Phone Unavailable Care Team Providers Care Stockroom Selector Name Role Phone Radha Keith M.D. Unavailable [...] with a max of 6 per day. [id number] must last 30 days * Quantity: 180 [...] On 28-Mar-2016 14:45 Interventions Provided Medication Changes* Oxycodone-Acetaminophen 10-325 MG [...] Problem not documented On 08:30 Appointment; Jacqueline Hlil P.A. Encounter Diagnosis: Problem not documented On [...]
--- OUTSIDE RECORDS SUMMARY | 2016-07-07 08:15 | XMS REPORT | Summary of Care ---
Author Author Jacqueline Nova Unknown Address [address] [place], [place] [phone] Phone Unavailable Care Team Providers Care Automobile Service Station Mechanic Name Role Phone Inna Torrez, Radha Unavailable Unavailable Vance Torrez, David Unavailable Unavailable Jacqueline Nova Unavailable Unavailable Deangelo oTrrez, G Unavailable Unavailable Richard Keith PP Unavailable Unavailable [...] Refills: 11 Richard Keith M.D.* Started 13-May-2014 [id number] GM Tube Allergies and Adverse Reactions Name [...]
--- OUTSIDE RECORDS SUMMARY | 2016-07-07 08:16 | XMS REPORT | Summary of Care ---
Author Author Richard Keith M.D. Organization Unknown Address Unknown Phone Unavailable Care Team Providers Care Remedial Reading Teacher Name Role Phone Inna Torrez, Radha [...] with a max of 6 per day. [id number] * Quantity: 180 Refills: 0 Richard Keith [...]
--- OUTSIDE RECORDS SUMMARY | 2016-07-07 08:16 | XMS REPORT | Summary of Care ---
Author Author Aletha Torrez, Luciana [facility] Unknown Address [address] [place], [place] [phone] Phone Unavailable Care Team Providers Care Patient Scheduling Coordinator Name Role Phone Inna Torrez, Radha Unavailable Unavailable David Woodard M.D. Unavailable Unavailable Luciana Pompa M.D. Unavailable Unavailable Richard Keith PP Unavailable [...] with a max of 6 per day. [id number] * Quantity: 180 Refills: 0 Richard Keith M.D.* Started 23-Nov-2013 ActiveGabapentin 300 MG Oral Capsule 1 po morning and noon, 2 po HS * Quantity: 120 Refills: 2 Richard Keith M.D.* Started 13-May-2014 ActiveTriamcinolone Acetonide 0.1 % External Cream APPLY SPARINGLY AND MASSAGE IN TWICE DAILY. * Quantity: 1 Refills: 11 Richard Keith M.D.* Started 13-May-2014 [id number] GM Tube Morphine Sulfate ER 30 MG [...]
--- OUTSIDE RECORDS SUMMARY | 2016-07-07 08:16 | XMS REPORT | Summary of Care ---
Author Author Richard Keith M.D. Organization Unknown Address [address] [place], [place] [phone] Phone Unavailable Care Team Providers Care Lobby [place] Name Role Phone Inna Torrez, Radha Unavailable [...] with a max of 6 per day. [id number] * Quantity: 180 Refills: 0 Richard Keith [...] Diagnosis: Problem not documented On 09:30 Appointment; iRchard Keith Encounter Diagnosis: Problem not documented On [...]
--- OUTSIDE RECORDS SUMMARY | 2016-07-07 08:16 | XMS REPORT | Summary of Care ---
Author Author Jacqueline Nova Organization Unknown Address [address] [place], [place] [phone] Phone Unavailable Care Team Providers Care Deputy County Attorney Name Role Phone Inna Torrez, Radha Unavailable [...] disc disease, lumbar (722.52, M51.36) Status: Active Medications Name Dates Details Vitamin [...] Refills: 11 Richard Keith M.D.* Started 13-May-2014 [id number] GM Tube Morphine Sulfate ER 30 MG [...]
--- OUTSIDE RECORDS SUMMARY | 2016-07-07 08:16 | XMS REPORT | Summary of Care ---
Author Author Richard Keith M.D. Organization Unknown Address [address] [place], [place] [phone] Phone Unavailable Care Team Providers Care Biology Instructor Name Role Phone Inna Torrez, Radha [...] with a max of 6 per day. [id number] * Quantity: 180 Refills: 0 Richard Keith [...] Planned Encounters* Appointment; Provider: Luciana Pompa On 05-Jul-2015 11:45 * Appointment; Provider: Gerard Tillman On 02-Apr-2012 [...]
--- OUTSIDE RECORDS SUMMARY | 2016-07-07 08:16 | XMS REPORT | Summary of Care ---
Author Author Gunner Bright M.D. Organization Unknown Address Unknown Phone Unavailable Care Team Providers Care Beam Racker Name Role Phone Inna Torrez, Radha Unavailable Unavailable Murray Torrez, Luci Unavailable Unavailable David Woodard M.D. Unavailable Unavailable Deangelo Torrez, Roosevelt Unavailable Unavailable [...]
--- OUTSIDE RECORDS SUMMARY | 2016-07-07 08:16 | XMS REPORT | Summary of Care ---
Author Author Richard Keith M.D. Organization Unknown Address Unknown Phone Unavailable Care Team Providers Care Materials Clerk Name Role Phone Inna Torrez, Radha Unavailable [...] with a max of 6 per day. [id number] * Quantity: 180 Refills: 0 Richard Keith [...]
--- OUTSIDE RECORDS SUMMARY | 2016-07-07 08:17 | XMS REPORT | Summary of Care ---
Author Author Yamileth Torrez, GABY, ,, Tadeo Mullins Unknown Address Unknown Phone Unavailable Care Team Providers Care Deaf Interpreter Name Role Phone Yamileth Torrez, GABY, ,, Nicolás Unavailable Unavailable Inna Torrez, Radha Unavailable Unavailable Vance Torrez, [...] with a max of 6 per day. [id number] * Quantity: 180 Refills: 0 Richard Keith [...] of Salpingo-oophorectomy Left Side HASC Lumbar Epidural [id number] Ordered: Immunization Name Dates Details Immunizations not [...] 10-Feb-2017 10:00 Appointment; Provider: Tadeo Carson M.D.|GABY Suarez|Shan,GABY, On 03-Apr-2016 11:45 Interventions Provided Labs/Procedures/Imaging* Xray ABD ( KUB); Done: Oct 03 2015 9:41AM Instructions Name Dates Details Instructions not documented Encounters Appointment; Cheng Hrarington D.O. Encounter Diagnosis: Problem not documented On [...] Problem not documented On 01-Mar-2014 09:00 Appointment; Nahed, Giorgi Encounter Diagnosis: Problem not documented On 31-Jan-2014 13:30 Appointment; Samantha Gao M.D. Encounter Diagnosis: Problem not documented On 31-Jan-2014 09:00 Appointment; Richard Keith M.D. Encounter Diagnosis: Problem not documented On 17-Jan-2014 09:15 Appointment; Gunner Bright M.D. Encounter Diagnosis: Problem not documented On 22-Dec-2013 08:00 Appointment; Gunner Bright M.D. Encounter Diagnosis: Problem not documented On 30-Nov-2013 08:15 Appointment; Richard Keith M.D. Encounter Diagnosis: Problem not documented On 22-Nov-2013 09:30"
--- OUTSIDE RECORDS SUMMARY | 2016-07-07 08:17 | XMS REPORT | Summary of Care ---
Author Author Gunner Bright M.D. 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 Medications Name Dates Details Poly-Iron 150 Forte 150-25-1 MG-MCG-MG Oral Capsule si cap daily Quantity: 30 Richard Woodard M.D.* Started ActivePremarin 0.625 MG/GM [...] Refills: 0 Gunner Bright M.D.* Started 24-Aug-2010 ActiveVitamin B-12 1000 MCG Oral Tablet Take 1 tablet daily * Refills: 0 * Started 18-Feb-2008 ActiveOmeprazole 20 MG Oral Capsule Delayed Release TAKE ONE CAPSULE BY MOUTH EVERY DAY * Quantity: 30 Refills: 1 Richard Keith M.D.* Started 20-Apr-2013 Active Allergies and Adverse Reactions Name Dates Details Latex Exam Gloves MISC Status: Active Penicillins Status: Active Past Medical History Name Dates Details History of Summary Of Previous Pregnancies ___ (Total No.) Status: Resolved Procedures Procedure Dates Details History of Shoulder Arthroplasty Total Shoulder Replacement Completed:Apr-2010 History of Shoulder Arthroscopy With Rotator Cuff Repair Completed:2011 History of Tenodesis Of Long Biceps Tendon Completed:02-Apr-2012 History of Shldr Arthrosc W/ Distal Claviculectomy Incl Distal Art Surf Completed:02-Apr-2012 History of Shoulder Arthroscopy, Space Decompression And Acromioplasty Completed:02-Apr-2012 History of Colonoscopy (Fiberoptic) History of Shoulder Surgery History of Cervical Conization Loop Electrode Excision History of Hysterectomy Procedures not documented Immunization Name Dates Details [...] not documented On 31-Jan-2014 13:30 Appointment; Samantha aGo Encounter Diagnosis: Problem not documented On 31-Jan-2014 [...] not documented On 06-May-2012 08:00 Appointment; Char Germani Encounter Diagnosis: Problem not documented On 04-May-2012 09:00
--- OUTSIDE RECORDS SUMMARY | 2016-07-07 08:17 | XMS REPORT | Summary of Care ---
Author Author Cheng Harrington D.O. Organization Unknown Address [address] [place], [place] [phone] Phone Unavailable Care Team Providers Care Deputy Sheriff Lieutenant Name Role Phone Inna Torrez, Radha Unavailable [...] with a max of 6 per day. [id number] * Quantity: 180 Refills: 0 Richard Keith [...]
--- OUTSIDE RECORDS SUMMARY | 2016-07-07 08:17 | XMS REPORT | Summary of Care ---
Author Author Richard Keith M.D. Organization Unknown Address [address] [place], [place] [id number] Phone Unavailable Care Team Providers Care Tentmaker Name Role Phone Inna Torrez, Radha Unavailable [...] 30 Refills: 6 Richard Woodard M.D.* Started ActiveTriamcinolone Acetonide 0.1 % External Cream APPLY SPARINGLY AND MASSAGE IN TWICE DAILY. * Quantity: 1 Refills: 11 Richard Keith M.D.* Started 13-May-2014 [id number] GM Tube Mixture Vulvodynia cream-Apply to Vuvla TID * Refills: 0 Luciana Pompa M.D.* Started ActivePremarin 0.625 MG/GM Vaginal Cream USE 1/3 APPLICATOR VAGINALLY AT BEDTIME TWICE WEEKLY * Quantity: 30 Refills: 11 Richard Keith M.D.* Started 08-Feb-2013 ActiveSymbicort 160-4.5 MCG/ACT Inhalation Aerosol INHALE 2 PUFFS TWICE DAILY. RINSE MOUTH AFTER USE. * Quantity: 1 Refills: 6 Richard Keith M.D.* Started 28-Feb-2015 Active6 GM Inhaler Gabapentin 300 MG Oral Capsule 1 po morning and noon, 2 po HS * Quantity: 120 Refills: 2 Richard Keith M.D.* Started 13-May-2014 ActiveMorphine Sulfate ER 30 MG Oral Tablet Extended Release Take 1 tablet twice daily *MUST LAST 30 DAYS* * Quantity: 60 Refills: 0 Richard Keith M.D.* Started 25-Aug-2014 ActiveOxycodone-Acetaminophen 10-325 MG Oral Tablet Si PO every 4-6 hrs prn with a max of 6 per day. [id number] * Quantity: 180 Refills: 0 Richard Keith M.D.* Started 23-Nov-2013 Active Allergies and Adverse [...] not documented On 20-Jun-2014 13:45 Appointment; Gunner Brigth Encounter Diagnosis: Problem not documented On 31-May-2014 [...]
--- OUTSIDE RECORDS SUMMARY | 2016-07-07 08:17 | XMS REPORT | Summary of Care ---
Author Author Richard Keith M.D. Organization Unknown Address [address] [place], [place] [phone] Phone Unavailable Care Team Providers Care Senior Technologist Name Role Phone Radha Keith M.D. Unavailable [...] with a max of 6 per day. [email or web address] must last 30 days * Quantity: 180 [...] Quantity: 60 Refills: 3 Inna Torrez, Richard A * Start 28-Dec-2015 Active Allergies and Adverse [...] On 10-Feb-2017 10:00 Appointment; Provider: Tadeo Carson M.D.|AleCLuda|GABY Torrez|GABY Torrez, On 03-Apr-2016 11:45 Appointment; Provider: Richard [...]
--- OUTSIDE RECORDS SUMMARY | 2016-07-07 08:17 | XMS REPORT | Summary of Care ---
Author Author Richard Keith M.D. Organization Unknown Address [address] [place], [place] [phone] Phone Unavailable Care Team Providers Care Die Repairer Stamping Name Role Phone Radha Keith M.D. Unavailable [...] J45.909) Status: Active Medications Name Dates Details Poly-Iron 150 Forte 150-25-1 MG-MCG-MG Oral Capsule si cap daily Quantity: 30 Richard Woodard M.D. * Start Active Premarin 0.625 MG/GM Vaginal Cream USE 1/3 APPLICATOR VAGINALLY AT BEDTIME TWICE WEEKLY * Quantity: 30 Refills: 11 Richard Keith M.D. * Start 08-Feb-2013 Active Oxycodone-Acetaminophen 10-325 MG Oral Tablet Si PO every 4-6 hrs prn with a max of 6 per day. [id number] must last 30 days * Quantity: 180 [...] Richard Keith M.D. * Start 25-Aug-2014 Active Ipratropium-Albuterol 0.5-2.5 (3) MG/3ML Inhalation Solution NEBULIZE 1 VIAL FOUR TIMES A DAY----DX: J45.909, J43.9 * Quantity: 180 Refills: 11 Inna Torrez, Richard Garcia * Start 01-Feb-2016 Active Vitamin B-12 1000 MCG Oral Tablet Take 1 tablet daily * Refills: 0 * Start 18-Feb-2008 Active Cyclobenzaprine HCl - 10 MG Oral [...] Body Surface Area Calculated 1.25 m2 Status: 08-Jan-2016 11:11 BP Systolic 102 mm[Hg] Status: Comments: Location: ; Position: BP Diastolic 62 mm[Hg] Status: Comments: Location: ; Position: Temperature 98.1 f Status: Heart Rate 62 /min Status: Comments: Location: ; Physical Findings 91 Status: Comments: O2 Saturation Results Date Description Value Details Results not documented Plan of Care Name Dates Details Planned Observations Planned Goals not documented Planned Encounters Appointment; Provider: Luciana Pompa M.D. On 10-Feb-2017 10:45 Appointment; Provider: Schedule Radiology On 10-Feb-2017 10:00 Appointment; Provider: Tadeo Carson M.D.|Saray|GABY Torrez|GABY Torrez, On 03-Apr-2016 11:45 Appointment; Provider: Richard Keith M.D. On 28-Mar-2016 14:45 Interventions Provided Medication Changes* Azithromycin 500 MG Oral Tablet - Completed * PredniSONE 10 MG Oral Tablet - Completed * PredniSONE 10 MG Oral Tablet - Completed Instructions* Intermediate Counseling(3-10min) Smoke & Tobacco Cessation [...] we can help. You may also call [address] [place], [place] [phone] for free resources and assistance.; Done: Instructions Name Dates Details Instructions not documented Encounters Appointment; Vimal Rojo M.D. Encounter Diagnosis: Problem not documented On 08-Jan-2016 10:40 Appointment; Richard Keith M.D. Encounter Diagnosis: Problem not documented On 28-Dec-2015 13:15 Appointment; Richard Keith M.D. Encounter Diagnosis: Problem not documented On 13:15 Appointment; Tadeo Carson M.D.|Saray|GABY Torrez|Shan,GABY, Encounter Diagnosis: Problem not documented On 09:30 [...]
--- OUTSIDE RECORDS SUMMARY | 2016-07-07 08:17 | XMS REPORT | Summary of Care ---
Author Author Richard Keith M.D. Organization Unknown Address [address] [place], [place] [phone] Phone Unavailable Care Team Providers Care Prototype Engineer Name Role Phone Inna Torrez, Radha Unavailable [...] with a max of 6 per day. [id number] * Quantity: 180 Refills: 0 Richard Keith M.D.* Started 23-Nov-2013 ActiveGabapentin 300 MG Oral Capsule 1 po morning and noon, 2 po HS * Quantity: 120 Refills: 2 Richard Keith M.D.* Started 13-May-2014 ActiveTriamcinolone Acetonide 0.1 % External Cream APPLY SPARINGLY AND MASSAGE IN TWICE DAILY. * Quantity: 1 Refills: 11 Ricahrd Keith M.D.* Started 13-May-2014 [id number] GM Tube Morphine Sulfate ER 30 MG [...]
--- OUTSIDE RECORDS SUMMARY | 2016-07-07 08:18 | XMS REPORT | Summary of Care ---
Author Author Aletha Torrez, Prior Knowledge Unknown Address [address] [place], [place] [phone] Phone Unavailable Care Team Providers Care Spool Sander Name Role Phone Inna Torrez, Radha Unavailable [...] Status: Active Postmenopausal (V49.81, Z78.0) Status: Active Medications Name Dates Details Vitamin [...] with a max of 6 per day. [id number] * Quantity: 180 Refills: 0 Richard Keith [...] smoker Vital Signs Date Test Result Details 13-Jul-2015 09:22 BP Systolic 100 mm[Hg] Status: [...]
--- OUTSIDE RECORDS SUMMARY | 2016-07-07 08:18 | XMS REPORT | Summary of Care ---
Author Author Jacqueline Nova Unknown Address [address] [place], [place] [phone] Phone Unavailable Care Team Providers Care Edge Stainer Name Role Phone Inna Torrez, Radha Unavailable Unavailable Vance Torrez, David Unavailable Unavailable Jacqueline Nova Unavailable Unavailable Deangelo Torrez, G Unavailable Unavailable Richard Keith PP Unavailable [...] Refills: 0 Jacqueline Hill P.A.* Started 29-Aug-2014 ActiveTriamcinolone Acetonide 0.1 % External Cream APPLY SPARINGLY AND MASSAGE IN TWICE DAILY. * Quantity: 1 Refills: 11 Richard Keith M.D.* Started 13-May-2014 [id number] GM Tube Gabapentin 300 MG Oral Capsule Si PO Tid.Start with 1 po HS and gradually titrate to 3 x daily. * Quantity: 90 Refills: 0 Jacqueline Hill P.A.* Started 13-May-2014 ActiveMorphine Sulfate ER 30 MG [...] Richard Woodard On 13:45 * Appointment; Provider: Rcihard Woodard On 08-Sep-2008 08:30 Instructions * Instructions [...]
--- OUTSIDE RECORDS SUMMARY | 2016-07-07 08:18 | XMS REPORT | Summary of Care ---
Author Author Richard Keith M.D. Organization Unknown Address [address] [place], [place] [phone] Phone Unavailable Care Team Providers Care Felling Bucking Supervisor Name Role Phone Inna Torrez, Radha [...] TWICE WEEKLY * Quantity: 30 Refills: 11 Rihcard Keith M.D.* Started 08-Feb-2013 ActiveOxycodone-Acetaminophen 10-325 MG Oral Tablet Si PO every 4-6 hrs prn with a max of 6 per day. [id number] * Quantity: 180 Refills: 0 Richard Keith M.D.* Started 23-Nov-2013 ActiveGabapentin 300 MG Oral Capsule 1 po morning and noon, 2 po HS * Quantity: 120 Refills: 2 Richard Keith M.D.* Started 13-May-2014 ActiveTriamcinolone Acetonide 0.1 % External Cream APPLY SPARINGLY AND MASSAGE IN TWICE DAILY. * Quantity: 1 Refills: 11 Richard Keith M.D.* Started 13-May-2014 [id number] GM Tube Morphine Sulfate ER 30 MG [...]
--- OUTSIDE RECORDS SUMMARY | 2016-07-07 08:18 | XMS REPORT | Summary of Care ---
Author Author Aletha Torrez, [facility] Unknown Address [address], [place] [phone] Phone Unavailable Care Team Providers Care Duty Engineer Name Role Phone Inna Torrez, Radha [...] Refills: 11 Richard Keith M.D.* Started 13-May-2014 [id number] GM Tube Allergies and Adverse Reactions Name [...]
--- OUTSIDE RECORDS SUMMARY | 2016-07-07 08:18 | XMS REPORT | Summary of Care ---
Author Author Jacqueline Nova Unknown Address [address], [place] [phone] Phone Unavailable Care Team Providers Care Edge Blacker Name Role Phone Inna Torrez, Radha Unavailable [...] TWICE WEEKLY * Quantity: 30 Refills: 11 Yackley, Richard M.D.* Started 08-Feb-2013 ActiveOxycodone-Acetaminophen 10-325 MG [...] Refills: 11 Richard Keith M.D.* Started 13-May-2014 [id number] GM Tube Morphine Sulfate ER 30 MG [...] not documented On 20-May-2013 09:45 Appointment; Gunner Brgiht Encounter Diagnosis: Problem not documented On 25-Feb-2013 08:15 Appointment; Jese Reyes Encounter Diagnosis: Problem not documented On 25-Jan-2013 14:30 Appointment; Gunner Bright Encounter Diagnosis: Problem not documented On 26-Nov-2012 08:45 Appointment; Gunner Bright Encounter Diagnosis: Problem not documented On 26-Aug-2012 09:15
--- OUTSIDE RECORDS SUMMARY | 2016-07-07 08:18 | XMS REPORT | Summary of Care ---
Author Author Richard Keith M.D. Organization Unknown Address [address] [place], [place] [id number] Phone Unavailable Care Team Providers Care Major Sales Associate Name Role Phone Inna Torrez, Radha Unavailable Unavailable Vance Torrez, David Unavailable Unavailable Aletha Torrez, Luciana Unavailable Unavailable Liz Redd, Jacqueline Unavailable Unavailable Deangelo Torrez, G Unavailable Unavailable [...] Dr. Bright * Quantity: 180 Refills: 0 Gunner Bright M.D.* Started 28-Dec-2014 ActiveGabapentin 300 MG Oral Capsule 1 po morning and noon, 2 po HS * Quantity: 120 Refills: 2 Jacqueline Hill* Started 13-May-2014 ActiveTriamcinolone Acetonide 0.1 % External Cream APPLY SPARINGLY AND MASSAGE IN TWICE DAILY. * Quantity: 1 Refills: 11 Richard Keith M.D.* Started 13-May-2014 [id number] GM Tube Morphine Sulfate ER 30 MG [...] smoker Vital Signs Date Test Result Details 12-Dec-2014 12:06 BP Systolic 126 mm[Hg] Status: BP Diastolic 74 mm[Hg] Status: Heart Rate 84 /min Status: Height 60 in Status: Weight 85 lb Status: Body Mass Index Calculated 16.6 kg/m2 Status: Body Surface Area Calculated 1.3 m2 Status: Results Date Description Value Details 01-Dec-2014 09:36 Drug Screen PM, Tramadol [id number] Comments: What's Hot performed at: [facility] [address], [address], Lumber Carrier: Shantelle Santana Ph.D.Quest Collection Date/Time: [id number] Results Received Date/Time: [id number] Reported Date/Time: [id number] Desmethyltramadol NEGATIVE ng/mL (Better) Range: <100 Comments: [AP]----- Tramadol NEGATIVE ng/mL (Better) Range: <100 Comments: [AP]----- 02-Dec-2014 07:50 Drug Screen PM, Fentanyl [id number] Comments: What's Hot performed at: [facility] [address], [address], Lumber Carrier: Shantelle Santana Ph.D.Quest Collection Date/Time: [id number] Results Received Date/Time: [id number] Reported Date/Time: [id number] performed at: , [facility], [address] [place] [address], [address], [place], [address], Lumber Carrier: Shantelle Santana Ph.D.Quest Collection Date/Time: [id number] Results Received Date/Time: Reported Date/Time: [id number] performed at: , [facility], [address] [place] [address], [address], [place], [address], Lumber Carrier: Shantelle Santana Ph.D.Quest Collection Date/Time: [id number] Results Received Date/Time: [id number] Reported Date/Time: [id number] Fentanyl NEGATIVE ng/mL (Better) Range: <0.5 Comments: [AP]----- Norfentanyl NEGATIVE ng/mL (Better) Range: <0.5 Comments: [AP]----- 07:50 Drug Screen PM, Meperidine [id number] Comments: [facility] performed at: , [facility], [address] [place] [address], [address], [place], [address], Lumber Carrier: Shantelle Santana Ph.D.Quest Collection Date/Time: [id number] Results Received Date/Time : [id number] Reported Date/Time: [id number] performed at: , [facility], [address] [place] [address], [address], [place], [address], Lumber Carrier: Shantelle Santana Ph.D.Quest Collection Date/Time: [id number] Results Received Date/Time : [id number] Reported Date/Time: [id number] performed at: , [facility], [address] [place] [address], [address], [place], [address], Lumber Carrier: Shantelle Santana Ph.D.[facility] Collection Date/Time: [id number] Results Received Date/Time : [id number] Reported Date/Time: [id number] Meperidine NEGATIVE ng/mL (Better) Range: <100 Comments: [AP]----- Normeperidine NEGATIVE ng/mL (Better) Range: <100 Comments: [AP]----- 05-Dec-2014 07:52 Drug Screen PM Profile 1 [id number] Comments: [facility] performed at: , [facility], [address] [place] [address], [address], [place], [address], Lumber Carrier: Shantelle Santana Ph.D.[facility] Collection Date/Time: [id number] Results Received Date/Time: [id number] Reported Date/Time: [id number] performed at: , [facility], [address] [place] [address], [address], [place], [address], Lumber Carrier: Shantelle Santana Ph.D.[facility] Collection Date/Time: [id number] Results Received Date/Time: [id number] Reported Date/Time: [id number] performed at: AP, [facility], [address] [place] [address], [address], [place], [address], Lumber Carrier: Shantelle Santana Ph.D.[facility] Collection Date/Time: [id number] Results Received Date/Time: [id number] Reported Date/Time: [id number] performed at: AP, [facility], [address] [place] [address], [address], [place], [address], Lumber Carrier: Shantelle Joseph Santana Ph.D.Quest Collection Date/Time: [id number] Results Received Date/Time: [id number] Reported Date/Time: [id number] performed at: AP, [facility], [address] [place] [address], [address], [place], [address], Lumber Carrier: Shantelle Joseph Santana Ph.D.Quest Collection Date/Time: [id number] Results Received Date/Time: [id number] Reported Date/Time: [id number] Management Profile 1 w/ Confirmation, Urine Drug 1 MorphinePain Management Profile 1 w/ Confirmation, Urine Drug 2 PercocetPain Management Profile 1 w/ Confirmation, Urine Drug 3 No Answer GivenPain Management Profile 1 w/ Confirmation, Urine Drug 4 No Answer GivenPain Management Profile 1 w/ Confirmation, Urine Drug 5 No Answer Given Prescribed Drug 1 Morphine (Better) Comments: [AP]----- Prescribed Drug 2 Percocet(TM) (Better) Comments: [AP]----- Creatinine 79.8 mg/dL (Better) Range: > or=20.0 Comments: [AP]----- pH 6.57 (Better) Range: 4.5 - 9.0 Comments: [AP]----- Oxidant NEGATIVE mcg/mL (Better) Range: <200 Comments: [AP]----- Amphetamines NEGATIVE ng/mL (Better) Range: <500 Comments: [AP]----- medMATCH Amphetamines CONSISTENT (Better) Comments: [AP]----- Barbiturates NEGATIVE ng/mL (Better) Range: <300 Comments: [AP]----- medMATCH Barbiturates CONSISTENT (Better) Comments: [AP]----- Benzodiazepines POSITIVE ng/mL (Abnormal) Range: <100 Comments: [AP]----- Alphahydroxyalprazolam NEGATIVE ng/mL (Better) Range: <25 Comments: [AP]----- medMATCH aOH alprazolam CONSISTENT (Better) Comments: [AP]----- Alphahydroxymidazolam 61 ng/mL (Above high threshold) Range: <50 Comments: [AP]----- medMATCH aOH midazolam INCONSISTENT (Better) Comments: [AP]----- Alphahydroxytriazolam NEGATIVE ng/mL (Better) Range: <50 Comments: [AP]----- medMATCH aOH triazolam CONSISTENT (Better) Comments: [AP]----- Aminoclonazepam NEGATIVE ng/mL (Better) Range: <25 Comments: [AP]----- medMATCH Aminoclonazepam CONSISTENT (Better) Comments: [AP]----- Hydroxyethylflurazepam NEGATIVE ng/mL (Better) Range: <50 Comments: [AP]----- medMATCH OH,Et flurazepam CONSISTENT (Better) Comments: [AP]----- Lorazepam NEGATIVE ng/mL (Better) Range: <50 Comments: [AP]----- medMATCH Lorazepam CONSISTENT (Better) Comments: [AP]----- Nordiazepam NEGATIVE ng/mL (Better) Range: <50 Comments: [AP]----- medMATCH Nordiazepam CONSISTENT (Better) Comments: [AP]----- Oxazepam NEGATIVE ng/mL (Better) Range: <50 Comments: [AP]----- medMATCH Oxazepam CONSISTENT (Better) Comments: [AP]----- Temazepam NEGATIVE ng/mL (Better) Range: <50 Comments: [AP]----- medMATCH Temazepam CONSISTENT (Better) Comments: [AP]----- Marijuana Metabolite NEGATIVE ng/mL (Better) Range: <20 Comments: [AP]----- medMATCH Marijuana Metab CONSISTENT (Better) Comments: [AP]----- Cocaine Metabolite NEGATIVE ng/mL (Better) Range: <150 Comments: [AP]----- medMATCH Cocaine Metab CONSISTENT (Better) Comments: [AP]----- Methadone NEGATIVE ng/mL (Better) Range: <100 Comments: [AP]----- medMATCH Methadone CONSISTENT (Better) Comments: [AP]----- Opiates POSITIVE ng/mL (Abnormal) Range: <100 Comments: [AP]----- Codeine NEGATIVE ng/mL (Better) Range: <50 Comments: [AP]----- medMATCH Codeine CONSISTENT (Better) Comments: [AP]----- Hydrocodone 2402 ng/mL (Above high threshold) Range: <50 Comments: [AP]----- medMATCH Hydrocodone INCONSISTENT (Better) Comments: [AP]----- Hydromorphone 199 ng/mL (Above high threshold) Range: <50 Comments: [AP]----- medMATCH Hydromorphone INCONSISTENT (Better) Comments: Hydromorphone is a metabolite of hydrocodone as wellas a prescribed drug.[AP]----- Morphine NEGATIVE ng/mL (Better) Range: <50 Comments: [AP]----- medMATCH Morphine INCONSISTENT (Better) Comments: [AP]----- Norhydrocodone 2860 ng/mL (Above high threshold) Range: <50 Comments: [AP]----- medMATCH Norhydrocodone INCONSISTENT (Better) Comments: Norhydrocodone is a metabolite of Hydrocodone.[AP]----- Oxycodone POSITIVE ng/mL (Abnormal) Range: <100 Comments: [AP]----- Noroxycodone 2347 ng/mL (Above high threshold) Range: <50 Comments: [AP]----- medMATCH Noroxycodone CONSISTENT (Better) Comments: Noroxycodone is a metabolite of Oxycodone.[AP]----- Oxycodone NEGATIVE ng/mL (Better) Range: <50 Comments: [AP]----- medMATCH Oxycodone CONSISTENT (Better) Comments: [AP]----- Oxymorphone 429 ng/mL (Above high threshold) Range: <50 Comments: [AP]----- medMATCH Oxymorphone CONSISTENT (Better) Comments: Oxymorphone is a metabolite of oxycodone as well asa prescribed drug.[AP]----- Phencyclidine NEGATIVE ng/mL (Better) Range: <25 Comments: [AP]----- medMATCH Phencyclidine CONSISTENT (Better) Comments: [AP]----- COMMENT SEE NOTE (Better) Comments: medMATCH comments are: - present when drug test results may be the result of metabolism of one or more drugs or when results are inconsistent with prescribed medication(s) listed. - may be blank when drug results are consistent with prescribed medication(s) listed.[AP]----- 07:52 Drug Screen PM, Alcohol Metabolites [id number] Comments: What's Hot performed at: [facility], [address] [place] [address], [address], [place], [address], Lumber Carrier: Shantelle Santana Ph.D.Quest Collection Date/Time: [id number] Results Received Date/Time: [id number] Reported Date/Time: [id number] performed at: , [facility], [address] [place] [address], [address], [place], [place], [address] [place] [address], Lumber Carrier: Shantelle Santana Ph.D.Quest Collection Date/Time: [id number] Results Received Date/Time: [id number] Reported Date/Time: [id number] performed at: , [facility], [address] [place] [address], [address], [place], [place], [address] [place] [address], Lumber Carrier: Shantelle Santana Ph.D.Quest Collection Date/Time: [id number] Results Received Date/Time: [id number] Reported Date/Time: [id number] performed at: , [facility], [address] [place] [address], [address], [place], [address], Lumber Carrier: Shantelle Santana Ph.D.Quest Collection Date/Time: [id number] Results Received Date/Time: [id number] Reported Date/Time: [id number] performed at: [facility], [address] [place] [address], [address], [place], [place], [address] [place] [address], Lumber Carrier: Shantelle Santana Ph.D.Quest Collection Date/Time: [id number] Results Received Date/Time: [id number] Reported Date/Time: [id number] Alcohol Metabolites NEGATIVE ng/mL (Better) Range: <500 Comments: [AP]----- Please note: SEE NOTE (Better) Comments: * These results are for medical treatment only Analysis was performed as non-forensic testing *For assistance with interpreting these drug results,please contact a [facility] ToxicologySpecialist: [phone] ( ),M-F, 8am-6pm EST.[AP]----- Plan of Care Planned Observations* Name Dates [...]
--- OUTSIDE RECORDS SUMMARY | 2016-07-07 08:18 | XMS REPORT | Summary of Care ---
Author Author Inna Torrez, Richard Garcia Organization Unknown Address [address] [place], [place] [phone] Phone Unavailable Care Team Providers Care Fleet Service Clerk Name Role Phone Inna Torrez, Radha [...] with a max of 6 per day. [id number] must last 30 days * Quantity: 180 [...] Description Value Details 04-Jun-2016 15:39 HSV CULTURE [id number] Comments: Private Outlet performed at: [facility] [address] [place], [address], Biomedical Engineering Professor: Per Hoffman D.O., MPHQuest Collection Date/Time: [id number] Results Received Date/Time: [id number] Reported Date/Time: [id number] VAGINAL LESION FASTING:NO SOURCE: LESION Comments: [CA]----- HSV CULTURE: NOT ISOLATED Comments: [CA]----- Plan of Care Name Dates Details Planned [...] documented On 03-May-2016 08:15 Appointment; Tadeo Carson M.D.,[facility], Encounter Diagnosis: Problem not documented On 03-Apr-2016 [...] not documented On 13:15 Appointment; Tadeo Carson M.D.,[facility], Encounter Diagnosis: Problem not documented On 09:30 [...]
--- OUTSIDE RECORDS SUMMARY | 2016-07-07 08:19 | XMS REPORT | Summary of Care ---
Author Author Gunner Bright M.D. Unknown Address [address] [place], [place] [id number] Phone Unavailable Care Team Providers Care Vaccine Customer Representative Name Role Phone Inna Torrez, Radha Unavailable Unavailable Vance Torrez, David Unavailable Unavailable Aletha Torrez, Luciana Unavailable Unavailable Liz Redd, Jacqueline Unavailable Unavailable Deangelo Torrez, Roosevelt Unavailable Unavailable [...] prescription opiate use (V58.69, Z79.899) Status: Active Medications Name Dates Details Vitamin [...] Refills: 11 Richard Keith M.D.* Started 13-May-2014 [id number] GM Tube Morphine Sulfate ER 30 MG [...]
--- OUTSIDE RECORDS SUMMARY | 2016-07-07 08:19 | XMS REPORT ---
Author Author GENERATED, SYSTEM Organization Unknown Address Unknown Phone Unavailable Care Team Providers Care Lockstitch Lining Setter Name Role Phone MD BISHNU, GERTRUDIS LOO Unavailable Reason For Visit Reason for Visit from 09/26/2015 11:38 PM:* Pt Stated Reason for Adm : right sided pain Chief Complaint RIGHT URETERAL LITHIASIS Social History Social History from 09/27/2015 6:29 PM:* Tobacco Use? : Current Everyday Smoker Social History from 09/26/2015 11:38 PM:* Tobacco Use? : Current Everyday Smoker Functional Status Functional Status from 09/27/2015 5:14 PM:* LOC : Alert * Oriented To : Person,Place,Event Functional Status from 09/27/2015 4:42 PM:* LOC : Drowsy * Oriented To : Person Functional Status from 09/27/2015 8:06 AM:* LOC : Alert * Oriented To : Person,Place,Time * Weight Bearing Status : Full * Assist Level : Partial * # Assists : 1 Functional Status from 09/26/2015 11:38 PM:* LOC : Alert * Oriented To : Person,Place,Time,Event * Weight Bearing Status : Full * Assist Level : Partial * # Assists : 1 Vital Signs Hospital Vital Signs from 09/27/2015 5:50 PM:* Height : 4/10 ft,in * Temperature : 98.3 F * Pulse : 101 * Respirations : 18 * BP : 130/60 Hospital Vital Signs from 09/27/2015 5:05 PM:* Heart Rate : 95 * Resp Rate : 19 * Systolic BP (mmHg) : 131 * Diastolic BP (mmHg) : 81 * Mean BP (mmHg) : 96 * O2 Saturation (%) : 99 Hospital Vital Signs from 09/27/2015 5:00 PM:* Heart Rate : 97 * Resp Rate : 23 * Systolic BP (mmHg) : 122 * Diastolic BP (mmHg) : 79 * Mean BP (mmHg) : 86 * O2 Saturation (%) : 100 Hospital Vital Signs from 09/27/2015 4:55 PM:* Temp : 98.5 * Heart Rate : 90 * Resp Rate : 13 * Systolic BP (mmHg) : 107 * Diastolic BP (mmHg) : 71 * Mean BP (mmHg) : 81 * O2 Saturation (%) : 100 Hospital Vital Signs from 09/27/2015 4:50 PM:* Heart Rate : 90 * Resp Rate : 12 * O2 Saturation (%) : 100 Hospital Vital Signs from 09/27/2015 4:45 PM:* Heart Rate : 89 * Resp Rate : 12 * Systolic BP (mmHg) : 120 * Diastolic BP (mmHg) : 71 * Mean BP (mmHg) : 83 * O2 Saturation (%) : 97 Hospital Vital Signs from 09/27/2015 4:42 PM:* Temp : 98.1 Hospital Vital Signs from 09/27/2015 12:45 PM:* Height : 4/10 ft,in * Temperature : 98.3 F * BP : 144/72 Hospital Vital Signs from 09/27/2015 12:01 PM:* Height : 4/10 ft,in * Pulse : 90 * Respirations : 16 Hospital Vital Signs from 09/27/2015 9:02 AM:* Height : 4/10 ft,in Hospital Vital Signs from 09/27/2015 7:45 AM:* Height : 4/10 ft,in Hospital Vital Signs from 09/27/2015 7:40 AM:* Height : 4/10 ft,in * Temperature : 98.3 F * Pulse : 100 * Respirations : 18 * BP : 111/61 Hospital Vital Signs from 09/27/2015 3:29 AM:* Height : 4/10 ft,in * Pulse : 102 * Respirations : 18 * BP : 98/56 Hospital Vital Signs from 09/26/2015 11:38 PM:* Weight : 38.7/ kg * Height : 4/10 ft,in Hospital Vital Signs from 09/26/2015 11:38 AM:* Weight : 38.7/ kg * Height : 4/10 ft,in * Temperature : 97.8 F * Pulse : 109 * Respirations : 18 * BP : 115/65 Results Problems Encounter Diagnosis * Acute Pain Status:Active. * Fall Risk Status:Active. Encounters Encounter Diagnosis * Acute Pain Status:Active. * Fall Risk Status:Active. Plan of Care Treatment Plan from 09/27/2015 11:20 AM:* Care Management Note : Patient is Observation in a medical bed. Patient was seen in ER with complaints of back pain and was found to have a right ureteral lithiasis. Patient is currently being treated with NPO, levaquin IV daily, NS@125, NPO, and Urology consult. Abnormal labs: Bun- 24, Cr- 1.06, Glu- 135, Ca- 7.4, Alb- 2.6, Wbc- 13.1, Platelets- 119, Anc- 11.79. VSS on RA at this time. Plan is for Patient to go for cystoscopy, right ureteroscopy, and possible stent placement. Patient remains Observation status appropriate at this time. SW notified of POC. Care Management will continue to follow. Procedures * Completed right ureteroscopy with stent insertion, Right, on 09/27/2015 4:13 PM * Completed , on 04/02/2012 12:00 AM * Completed , on 04/02/2012 12:00 AM * Completed , on 04/02/2012 12:00 AM * Completed , on 04/02/2012 12:00 AM * Completed , on 04/02/2012 12:00 AM * Completed , on 04/02/2012 12:00 AM * Completed , on 04/02/2012 12:00 AM * Completed , on 04/02/2012 12:00 AM * Completed , on 04/02/2012 12:00 AM * Completed , on 04/02/2012 12:00 AM * Completed , on 04/02/2012 12:00 AM * Completed , on 04/02/2012 12:00 AM * Completed , on 05/17/2010 12:00 AM Immunizations No immunizations administered or ordered. Hospital Course Hospital Discharge Instructions How to care for yourself at home from 09/27/2015 6:29 PM:* Discharge Activity : Activity as tolerated,May Shower * Discharge Diet : Diet as tolerated * Call your doctor if: : Fever over 101 F or severe chills,You have persistent or worsening symptoms * Specific Discharge Teaching Instructions provided: : Yes * Discharge on Warfarin : No Allergies, Adverse Reactions, Alerts * Latex causes Rash. * Penicillins causes Severe Hives. * No IV Contrast Allergy. * No Known Food Allergies. Medication It is the responsibility of the patient or patient community relations representative to confirm the list of medications with either the patient's personal care provider or the patient's follow-up care provider to ensure the patient has an appropriate list of medications to take at home. Discharge medications New medications* phenazopyridine 200 mg Tablet, Ordered By: LEONARD GALINDO RN Directions: 1 tablet oral three times a day PRN pain * levofloxacin 500 mg Tablet, Ordered By: LEONARD GALINDO RN Directions: 1 tablet oral daily Additional Instructions: CAUTION: ADMINISTER 2 HOURS BEFORE OR AT LEAST 4 HR AFTER ANTACIDS, IRON, CALCIUM, MVI * HYDROcodone-acetaminophen (Duck) 5 mg-325 mg Tablet, Ordered By: LEONARD GALINDO RN Directions: 1 tablet oral every four hours PRN pain Stopped medications* gabapentin 300 mg Capsule * morphine 30 mg Tablet Extended Release * oxyCODONE-acetaminophen 10 mg-325 mg Tablet
--- OUTSIDE RECORDS SUMMARY | 2016-07-07 08:19 | XMS REPORT | Summary of Care ---
Author Author Aletha Torrez, Luciana [facility] Unknown Address [address] [place], [place] [phone] Phone Unavailable Care Team Providers Care Ways Operator Name Role Phone Inna Torrez, Radha [...] Refills: 11 Richard Keith M.D.* Started 13-May-2014 Lvyiru04 GM Tube Allergies and Adverse Reactions Name [...]
--- OUTSIDE RECORDS SUMMARY | 2016-07-07 08:19 | XMS REPORT | Summary of Care ---
Author Author Richard Keith M.D. Organization Unknown Address [address] [place], [place] [phone] Phone Unavailable Care Team Providers Care Evp Business Development Name Role Phone Inna Torrez, Radha Unavailable [...] Refills: 11 Richard Keith M.D.* Started 13-May-2014 Urfxxd48 GM Tube Morphine Sulfate ER 30 MG [...] Problem not documented On 06-Jul-2014 09:45 Appointment; Luciaan Pompa Encounter Diagnosis: Problem not documented On [...]
--- OUTSIDE RECORDS SUMMARY | 2016-07-07 08:19 | XMS REPORT | Summary of Care ---
Author Author Aletha Torrez, Luciana [facility] Unknown Address Unknown Phone Unavailable Care Team Providers Care Coal Passer Name Role Phone Inna Torrez, Radha Unavailable [...] with a max of 6 per day. [email or web address] must last 30 days * Quantity: 180 [...] Description Value Details 04-Jun-2016 15:39 HSV CULTURE [id number] Comments: Geolab-IT [facility] [address] [place], [address], Funeral Director'S Assistant: Per Hoffman D.O., MPHQuest Collection Date/Time: [id number] Results Received Date/Time: [id number] Reported Date/Time: [id number] VAGINAL LESION FASTING: NO SOURCE: LESION Comments: [[place]]----- HSV CULTURE: NOT ISOLATED Comments: [VA]----- Plan of Care Name Dates Details Planned Observations Planned Goals not documented Planned Encounters Appointment; Provider: Luciana Pompa M.D. On 10-Feb-2017 10:45 Appointment; Provider: Schedule Radiology On 10-Feb-2017 10:00 Instructions Name Dates Details Instructions not documented Encounters Appointment; Luciana Pompa M.D. Encounter Diagnosis: Problem not documented On 31-May-2016 13:15 Appointment; Richard Keith M.D. Encounter Diagnosis: Problem not documented On 03-May-2016 08:15 Appointment; Tadeo Carson M.D.,[facility], Encounter Diagnosis: Problem not documented [...] not documented On 13:15 Appointment; Tadeo Carson M.D.,[facility], Encounter Diagnosis: Problem not documented [...]
--- OUTSIDE RECORDS SUMMARY | 2016-07-07 08:19 | XMS REPORT | Summary of Care ---
Author Author Gunner Bright M.D. Unknown Address [address] [place], [place] [phone] Phone Unavailable Care Team Providers Care Wheel Braider Name Role Phone Inna Torrez, Radha Unavailable [...] Refills: 11 Richard Keith M.D.* Started 13-May-2014 Uaqiud43 GM Tube Morphine Sulfate ER 30 MG [...]
--- NOTE | 2016-07-07 08:25 | ERPDOC ---
Departure Disposition Decision Date: Jul 07, 2016 Disposition Decision Time: 12:03 Disposition: 01 DISCHARGED HOME, SELF-CARE Impression Impression Impression: Primary Impression: Pneumonia Additional Impression: COPD (chronic obstructive pulmonary disease) Severity: Moderate Condition: Improved Seen By: Physician only Patient Instructions: COPD (Chronic Obstructive Pulmonary Disease) (ED), Pneumonia (ED) Problems/Meds/Labs Reviewed?: Yes Medications reviewed and manag: Yes Additional Instructions: You were given Rocephin 1 g as a intramuscular shot. Zithromax 500 mg daily by mouth for 3 days. Follow-up with your primary care provider. Continue to decrease the amount that you smoke, and quit totally as soon as you can. Follow up care ordered?: Yes Mental Status: Alert Scripts Azithromycin (Zithromax Tri-Ricardo) 500 Mg Tablet 1 TAB PO DAILY for 3 Days, TAB Prov: JIGAR CALVERT MD 07/07/16 HPI - Cough/URI General Chief Complaint: Cough,Fever,Flu,URI Stated Complaint: CHEST CONGESTION,SOA,CHILLS,FEVER,COUGH,WEAKNESS Time Seen by Provider: 08:22 HPI - Cough/URI Initial Comments [id number] female with approximately 50 year smoking history. She was recently diagnosed with COPD, has cut back to 4-6 cigarettes daily. She has significant control breathing was started on an inhaler, but has not made an of a difference for her. She is coughing, dyspneic, having trouble lying down to sleep. She is very pleasant and interactive with the staff. No other concerns Allergies: Coded Allergies: Penicillins (Verified Allergy, Mild, 07/07/16) Past History Past Medical History Pt denies signifigant PMH Respiratory: COPD Surgical History Denies Surgeries Family History Family PMH: FOUND: hypertension Social History Smoking Status: Current every day smoker Second Hand Exposure: Yes Substance Use Type: does not use Alcohol Intake: none Record Review Pertinent history updated: Yes Review of Systems Pulmonary Respiratory: see HPI All other Systems All Other Systems: Reviewed and Negative Physical Exam General General Nourishment: adult, thin Distress Description Cough, dyspnea Vitals and Pain First Documented Vital Signs Date Time Temp Pulse Resp B/P Pulse Ox O2 Delivery O2 Flow Rate FiO2 07/07/16 08:05 98.4 105 24 170/69 95 Room Air Weight: Kilograms: 39.000 Height (feet): 4 Height (inches): 10.00 Triage Pain Scale: Normal Exams: Head: Normocephalic w/o trauma Eyes: Pupils are PERRLA w/ EOMI, No scleral icterus, irritation, or foreign bodies noted Fundi: Disks flat and sharp, No hemorrhages, or AV nicking noted ENMT: nasal exudates, pharyngeal erythema Neck: Full range of motion, without adenopathy, JVD, bruits or thyromegaly Neurologic: Patient is alert, and oriented, cranial nerves, motor/sensory/ cerebellar, exams w/o gross deficits, to observation Psychiatric: Patient exhibits, appropriate attention, emotion and affect ENMT (brief) ENMT Brief: FOUND: TM clear, TM good light reflex Abdomen (brief) Abdominal Brief: FOUND: bowel normo active x4, soft Musculoskeletal (brief) Musculoskeletal Brief: FOUND: spasm, tenderness Differential Diagnoses Differential Diagnoses Considering: COPD Exacerbation, Influenza, Mastoiditis, Meningitis, Otitis Media, Sinusitis Progress Results/Orders Orders Procedure Category Date Status Time Cmp - Comprehensive LAB 07/07/16 Complete Metabolic 08:29 Probnp LAB 07/07/16 Complete 08:29 Cbc W/Auto LAB 07/07/16 Complete Diff-Reflex Manual 08:29 Bmp - Basic Metabolic LAB 07/07/16 Complete Panel 08:29 D-Dimer LAB 07/07/16 Complete 08:29 Troponin I W LAB 07/07/16 Complete Hemolysis Index 08:29 EKG EKG 07/07/16 Logged 08:29 Chest, Pa & Lateral RAD 07/07/16 Taken 08:29 Iv Lock (Ed Only) EDM 07/07/16 Transmitted 08:29 Oxygen Administration EDM 07/07/16 Transmitted 08:29 Methylprednisolone PHA 07/07/16 Complete Sod Succ (Solu-Medrol 08:30 Normal Saline (Normal PHA 07/07/16 In Process Saline Iv) 08:30 Albuterol/Ipratropium PHA 07/07/16 Complete (Duoneb) 09:[address] 07/07/16 Taken 09:19 Iohexol (Omnipaque) PHA 07/07/16 Complete 09:56 Normal Saline (Ns) PHA 07/07/16 Complete 09:56 Saline Flush (Iv PHA 07/07/16 Complete Flush) 09:56 Diazepam (Valium) PHA 07/07/16 Complete 10:30 Ondansetron (Zofran) PHA 07/07/16 Complete 10:30 Ondansetron Odt PHA 07/07/16 Complete (Zofran Odt) 11:00 Ceftriaxone (Rocephin) PHA 07/07/16 In Process 12:15 Lab Results Laboratory Tests Test 07/07/16 08:29 White Blood Count 9.1T/MM3 Red Blood Count 4.22M/MM3 Hemoglobin 14.3GM/DL Hematocrit 43.2% Mean Corpuscular Volume 102.4UM3 Mean Corpuscular Hemoglobin 33.9UUG Mean Corpuscular Hemoglobin Concent 33.1GM/DL RDW Standard Deviation 48.0FL Platelet Count 217T/MM3 Mean Platelet Volume 10.2UM3 Immature Granulocyte % (Auto) 0.1% Neutrophils (%) (Auto) 64.3% Lymphocytes (%) (Auto) 24.5% Monocytes (%) (Auto) 9.9% Eosinophils (%) (Auto) 1.1% Basophils (%) (Auto) 0.1% Absolute Immature Granulocyte (auto 0.01T/MM3 Absolute Neutrophils (auto) 5.9T/MM3 Absolute Lymphocytes (auto) 2.2T/MM3 Absolute Monocytes (auto) 0.9T/MM3 Absolute Eosinophils (auto) 0.1T/MM3 Absolute Basophils (auto) 0.0T/MM3 D-Dimer 203NG/ML Turbidity < 20 Sodium Level 139MEQ/L Potassium Level 4.2MEQ/L Chloride Level 102MEQ/L Carbon Dioxide Level 26MEQ/L Anion Gap 11MEQ/L Blood Urea Nitrogen 16.0MG/DL Creatinine 0.5MG/DL Glomerular Filtration Rate Calc 123 BUN/Creatinine Ratio 32RATIO Glucose Level 129MG/DL Calculated Osmolality 271MOSM/KG Calcium Level 8.8MG/DL Total Bilirubin 1.00MG/DL Icterus Index < 2 Aspartate Amino Transf (AST/SGOT) 48U/L Alanine Aminotransferase (ALT/SGPT) 30U/L Alkaline Phosphatase 79U/L Troponin I < 0.012ng/ml WA-Qcx-B-Type Natriuretic Peptide 232PG/ML Total Protein 7.3G/DL Albumin 4.0G/DL Globulin 3.3G/DL Albumin/Globulin Ratio 1.2RATIO Chemistry Specimen Hemolysis 127 Medications Current ED Medications Methylprednisolone Sodium Succinate 125 mg 125 mg O ONCE IV Last administered on 07/07/16 08:49; Start 07/07/16 at 08:30; Stop 07/07/16 at 08:34; Status DC Sodium Chloride (Normal Saline IV) 1,000 ml @ 125 mls/hr Q8H ONCE IV Last administered on 07/07/16 08:49; Start 07/07/16 at 08:30; Stop 07/07/16 at 16:29 Albuterol/ Ipratropium (Duoneb) 3 ml O ONCE AEROSOL Last administered on 09:49; Start 07/07/16 at 09:30; Stop 07/07/16 at 09:31; Status DC Iohexol 1 bottle 1 bottle STK-MED ONCE .ROUTE ; Start 07/07/16 at 09:56; Stop at 09:57; Status DC Sodium Chloride (NS) 100 ml @ As Directed STK-MED ONCE .ROUTE ; Start 07/07/16 at 09:56; Stop 07/07/16 at 09:57; Status DC Sodium Chloride (Iv Flush) 10 ml STK-MED ONCE .ROUTE ; Start 07/07/16 at 09:56; Stop 07/07/16 at 09:57; Status DC Diazepam (Valium) 5 mg O ONCE PO Last administered on 07/07/16 10:34; Start 07/07/16 at 10:30; Stop 07/07/16 at 10:31; Status DC Ondansetron HCl (Zofran) 4 mg O ONCE PO ; Start 07/07/16 at 10:30; Stop at 10:51; Status DC Ondansetron HCl (Zofran Odt) 4 mg O ONCE PO Last administered on 07/07/16 10: 51; Start 07/07/16 at 11:00; Stop 07/07/16 at 11:01; Status DC Ceftriaxone Sodium (Rocephin) 1 g O ONCE IM ; Start 07/07/16 at 12:15; Stop at 12:16 Progress Progress Patient does have mild right-sided pneumonia, no PE by CT exam. I did give her 1 L normal saline, 125 mg Solu-Medrol IV, Zofran 4 mg IV, Toradol 30 mg IV, Valium IV. She had an anxiety attack and she was getting ready to go to CT, the Valium settle things down nicely for her. She'll be given Rocephin 1 g IM, started on Zithromax 500 mg daily for 3 days. She is to continue with albuterol nebulizer and follow up with her primary care provider to manage her COPD. We did discuss stopping smoking, not sure that she is ready to, but hopefully she can as it this point it is quite imperative for her health. We did discuss that as well. JIGAR CALVERT MD Jul 07, 2016 08:25
[2016-07-07] MEDS ORDERED: NORMAL SALINE 1,000 ML IV ONE (08:30)
--- OUTSIDE RECORDS SUMMARY | 2016-07-07 08:30 | XMS REPORT | Continuity of Care Document ---
Author Author [facility] Organization [facility] Address Unknown Phone Unavailable Allergies Medications Problems Procedures Results Encounters ACCT No. Visit Date/Time Discharge Status Pt. Type Provider Facility Loc./Unit Complaint [id number] 09/27/2015 08:51:00 2015 18:57:50 DIS Inpatient GERTRUDIS GOETZ RIGHT URETERAL LITHIASIS
--- OUTSIDE RECORDS SUMMARY | 2016-07-07 08:38 | XMS REPORT ---
Author Author GENERATED, SYSTEM Organization Unknown Address Unknown Phone Unavailable Care Team Providers Care Mobile Heavy Equipment Mechanic Name Role Phone MD BISHNU, GERTRUDIS LOO [...] the responsibility of the patient or patient representative government relations to confirm the list of medications with [...] AFTER ANTACIDS, IRON, CALCIUM, MVI * HYDROcodone-acetaminophen ([place]) 5 mg-325 mg Tablet, Ordered By: LEONARD GALINDO RN Directions: 1 tablet oral every four hours PRN pain Stopped medications* gabapentin 300 mg Capsule * morphine 30 mg Tablet Extended Release * oxyCODONE-acetaminophen 10 mg-325 mg Tablet
[2016-07-07 08:49] LABS: BASOPHILS % (AUTO) 0.1 % (0-2); EOSINOPHILS # (AUTO) 0.1 T/MM3 (0-0.5); EOSINOPHILS % (AUTO) 1.1 % (0-4); HCT - HEMATOCRIT 43.2 % (36-46); HGB - HEMOGLOBIN 14.3 GM/DL (12-16); IMMATURE GRANULOCYTE # (AUTO) 0.01 T/MM3 (0.00-0.03); IMMATURE GRANULOCYTE % (AUTO) 0.1 % (0.0-0.5); LYMPHOCYTES # (AUTO) 2.2 T/MM3 (1-4.8); LYMPHOCYTES % (AUTO) 24.5 % (23-45); MEAN CORPUSCULAR HGB 33.9 UUG (26-34); MEAN CORPUSCULAR HGB CONC(MCHC 33.1 GM/DL (31-37); MEAN CORPUSCULAR VOLUME 102.4 UM3 (80-100); MEAN PLATELET VOLUME 10.2 UM3 (9.4-12.4); MONOCYTES # (AUTO) 0.9 T/MM3 (0-0.8); MONOCYTES % (AUTO) 9.9 % (0-9.0); NEUTROPHILS #(AUTO)-ABSOLUTE 5.9 T/MM3 (1.8-7.7); NEUTROPHILS % (AUTO) 64.3 % (33-66); RED BLOOD COUNT 4.22 M/MM3 (4.00-5.20); WBC - WHITE BLOOD COUNT 9.1 T/MM3 (4.5-11.0)
[2016-07-07 08:53] LABS: ALBUMIN/GLOBULIN RATIO 1.2 RATIO (1.1-2.2); ALKALINE PHOSPHATASE 79 U/L (38-126); ALT (SGPT) 30 U/L (9-52); ANION GAP 11 MEQ/L (5-15); AST (SGOT) 48 U/L (14-36); BUN/CREATININE RATIO 32 RATIO (6-26); CALCIUM 8.8 MG/DL (8.4-10.2); CHLORIDE 102 MEQ/L (98-107); CO2 - CARBON DIOXIDE 26 MEQ/L (22-30); CREATININE 0.5 MG/DL (0.7-1.2); GLOMERULAR FILTRATION RATE 123; GLUCOSE 129 MG/DL (65-110); POTASSIUM 4.2 MEQ/L (3.6-5); SODIUM 139 MEQ/L (134-144); TOTAL PROTEIN 7.3 G/DL (6.3-8.2)
[2016-07-07 09:01] LABS: PROBNP 232 PG/ML (0-175)
[2016-07-07] MEDS ORDERED: GABA-338 PO (09:10)
[2016-07-07] MEDS ORDERED: CYCL-375 PO (09:10)
[2016-07-07] MEDS ORDERED: OXYC-533 PO (09:10)
[2016-07-07] MEDS ORDERED: MORP30TA95 PO (09:10)
[2016-07-07] MEDS ORDERED: MULT1TAB69 PO (09:10)
--- NOTE | 2016-07-07 09:11 | NUR ---
TO [facility] PER CART
--- NOTE | 2016-07-07 09:16 | NUR ---
RETURNED FROM [facility]
[2016-07-07] MEDS ORDERED: ALBUTEROL/IPRATROPIUM INHAL. 2.5mg-0.5mg/3ml Neb. AEROSOL ONE (09:30)
[2016-07-07] MEDS ORDERED: NORMAL SALINE 100 ML ONE (09:56)
[2016-07-07] MEDS ORDERED: SALINE FLUSH 10ml SYRINGE ONE (09:56)
[2016-07-07] MEDS ORDERED: IOHEXOL 350 MG/ML 50ml INJECTION ONE (09:56)
[2016-07-07] MEDS ORDERED: DIAZEPAM 5 MG TABLET PO ONE (10:30)
[2016-07-07] MEDS ORDERED: ONDANSETRON 4 MG TABLET PO ONE (10:30)
--- NOTE | 2016-07-07 10:54 | NUR ---
TO CT PER CART
[2016-07-07] MEDS ORDERED: ONDANSETRON ODT 4 MG TAB PO ONE (11:00)
--- NOTE | 2016-07-07 11:11 | NUR ---
RETURNED FROM CT
--- NOTE | 2016-07-07 11:28 | NUR ---
SLEEPING VS STABLE
[2016-07-07] MEDS ORDERED: AZIT500T2 PO (12:06)
[2016-07-07 12:15] VITALS: TEMP 98.7
[2016-07-07] MEDS ORDERED: CEFTRIAXONE 1 GRAM INJECTION IM ONE (12:15)
--- NOTE | 2016-07-07 12:15 | NUR ---
ACTIVITY UP TO BR. STEADY ON FEET.
--- NOTE | 2016-07-07 12:33 | NUR ---
DISMISSAL NOTE DISMISSAL INSTRUCTIONS GIVEN TO PT. AND NO FURTHER QUESTIONS. IV LOCK DC'D. RX GIVEN TO PT. PT. LEFT ED WITH MALE.
--- NOTE | 2016-07-07 13:15 | DI ---
Indication: ITS.REASON: dyspnea sudden onset PROCEDURE: CTA PULMONARY EMBOLI: Encounter: Initial Comparison: None Technique: Axial CT pulmonary angiographic phase images were performed through the chest after the administration of intravenous contrast. Coronal and Sagittal MIP reconstructed images were created and reviewed. Automated Exposure Control and Iterative Reconstruction dose reducing techniques were utilized. Contrast: Omnipaque 350 39 mL Findings: Pulmonary arteries: Exam is diagnostic to the subsegmental pulmonary arterial level. No filling defects identified to suggest a pulmonary embolus. Other findings: Severe emphysema. Minimal left basilar atelectasis or scar. No focal pneumonia, pleural effusion or pneumothorax. No pulmonary masses. The central airways are patent. No axillary or mediastinal adenopathy. The upper abdomen shows no acute findings. Enlarged thyroid. Impression: No pulmonary embolus. Severe emphysema. There is a preliminary report by [employer] radiologic. .
--- NOTE | 2016-07-07 13:25 | DI ---
INDICATION: ITS.REASON: dyspnea,copd PROCEDURE: CHEST 2-VIEWS UPRIGHT (PA \T\ LAT) Encounter: Initial COMPARISON: CT angiogram of the chest from the same date FINDINGS: The lungs are radiographically clear. Severe emphysema is noted with prominence of the interstitial markings. There is no pleural effusion or pneumothorax. The heart size, mediastinal contours and pulmonary vascularity are within normal limits. Right shoulder replacement IMPRESSION: No pneumonia. Severe emphysema. .
[2016-07-07 13:46] VITALS: BP 111/56; PULSE 104; RESP 20; O2SAT 91
== END 2016-07-07 12:33 | disposition home or self-care (01) ==
LOC: ED 08:02
DX: J44.0 Chronic obstructive pulmonary disease with (acute) lower respiratory infection (principal); J18.9 Pneumonia, unspecified organism; R06.00 Dyspnea, unspecified; F17.210 Nicotine dependence, cigarettes, uncomplicated
CPT/HCPCS: 71020; 71275; 80053; 83880; 84484; 85025; 85379; 93005; 94640; 96361; 96372; 96374; 99284; A9270; J0696; J2930; J7030; J7050; Q9967

== ENCOUNTER 2017-05-20 05:56 | Inpatient (IN) ==
[2017-05-20] MEDS ORDERED: ALBUTEROL/IPRATROPIUM 2.5mg-0.5mg/3ml NEB AEROSOL ONE ×2 (06:05→06:25)
[2017-05-20] MEDS ORDERED: METHYLPREDNISOLONE SOD SUCC 125mg/2ml INJECTION IVP ONE (06:12)
--- NOTE | 2017-05-20 06:17 | Emergency Department Report ---
SOB HPI - General Chief Complaint: Shortness of Breath/Dyspnea Stated Complaint: soa Time Seen by Provider: 05/20/17 06:05 Source: patient Mode of arrival: ambulatory Limitations: no limitations - History of Present Illness Patient is a 67-year-old female history of COPD baseline 3 L by nasal cannula. Patient presents to the ER for evaluation of shortness of air. Patient states that she has not felt good in about a year, did quit smoking in March, 50- pack-year smoking history. Patient states that approximately 2 days ago she started having increasing shortness of air specially with ambulation, patient does have breathing treatments at home which she does not like which she says she uses them, with minimal improvement. Patient did see an urgent care yesterday in [place], was started on prednisone and Levaquin, patient continuing to have difficulty breathing, this morning patient woke up with significant and severe dyspnea unrelieved by home nebulizer medications, so patient was brought to the ER for evaluation. Patient states that the quality her did help her breathing, however on ambulation into the emergency department on her 3 L by nasal cannula patient's O2 sats are in the mid 70s. MD Complaint: shortness of breath, cough Onset (ago): day(s) Severity: severe Consistency/Duration: constant Relieving factors: other (cool night air) Known history of: COPD Treatment prior to arrival: oxygen, bronchodilator, other (Levaquin, prednisone) - Related Data Home oxygen amount: 3 liters Home Medications Medication Instructions Recorded Confirmed Cyclobenzaprine HCl 5 mg PO TID PRN #0 07/07/16 10/18/16 Gabapentin 300 mg PO TID #0 07/07/16 10/18/16 Morphine Sulfate [Morphine Sulfate 30 mg PO BID PRN #0 07/07/16 10/18/16 ER] Oxycodone HCl/Acetaminophen 1 tab PO Q4HR PRN #0 07/07/16 10/18/16 [Oxycodone-Acetaminophen 10-325] B,C/Folic/Zinc/Copper Ox/Vit E 1 each PO DAILY 10/18/16 10/18/16 [Stress B-Complex Tablet] Ginseng 100 mg PO BID 10/18/16 10/18/16 No122/Iron/Folic Acid 1 tab PO DAILY 06/30/17 06/30/17 [ Multi Tablet] Shark Cartilage 2 tab PO BID 10/18/16 10/18/16 Soy Isofl/Blk Coh/Gr Tea/Yerba 1 each PO TID 10/18/16 10/18/16 [[employer] Caplet] Turmeric Root Extract [Turmeric] 500 mg PO DAILY 10/18/16 10/18/16 Allergies Allergy/AdvReac Type Severity Reaction Status Date / Time Penicillins Allergy Mild Hives Verified 05/20/17 06:40 latex Allergy Rash Verified 05/20/17 06:40 Review of Systems Constitutional: Reports: weakness. Denies: fever, chills ENT: Denies: throat pain, dental pain Cardiovascular: Reports: dyspnea on exertion. Denies: chest pain, palpitations Respiratory: Reports: cough, dyspnea, wheezes Gastrointestinal: Denies: abdominal pain, nausea, vomiting Genitourinary: Denies: dysuria, frequency Musculoskeletal: Denies: back pain Neurological: Denies: headache, weakness, numbness Psychiatric: Denies: anxiety, depression Endocrine: Denies: fatigue, heat or cold intolerance PFSH Patient Stated Medical History Cataracts Yes Bronchitis Yes Chronic Obstructive Pulmonary Yes Disease (COPD) Pneumonia Yes Hx Kidney Stones Yes Osteoarthritis Yes Human Papilloma Virus Yes Shingles Yes Abnormal Pap Yes - Social History Smoking status: Former smoker ([id number]) Substance use type: does not use Alcohol intake frequency: does not drink Physical Exam - General General appearance: alert, in distress - Eye Eye exam: Present: PERRL - ENT ENT exam: Present: normal oropharynx, mucous membranes moist - Chest Chest inspection: Present: symmetric chest wall rise. Absent: tenderness - Respiratory Respiratory exam: Present: respiratory distress, wheezes, accessory muscle use, prolonged expiratory phase - Cardiovascular Cardiovascular exam: Present: regular rate, normal rhythm, normal heart sounds - Abdominal Exam Abdominal exam: Present: soft, normal bowel sounds. Absent: distention, tenderness - Skin Skin exam: Present: warm, dry - Neurological Exam Neurological exam: Present: alert, oriented X3 - Psychiatric Psychiatric exam: Present: normal affect, normal mood Course Vital Signs Temperature 98.2 F 05/20/17 06:00 Pulse Rate 106 H 05/20/17 06:00 Respiratory Rate 28 H 05/20/17 06:00 Blood Pressure 181/95 H 05/20/17 06:00 Pulse Oximetry 70 L 05/20/17 06:00 Temperature 98.2 F 05/20/17 06:00 Pulse Rate 116 H 05/20/17 07:00 Respiratory Rate 39 H 05/20/17 06:45 Blood Pressure 172/89 H 05/20/17 07:00 Pulse Oximetry 96 05/20/17 07:00 Procedures - ABG Interpretation ABG Interpretation 1 Interpretation: abnormal, respiratory acidosis - Other Procedure Procedure: ABG was collected from right radial artery by this physician Shortness of Breath/Dyspnea - Differential Diagnosis Likely: acute exacerbation of chronic obstructive airways disease, congestive heart failure, community acquired pneumonia, asthma with exacerbation, pulmonary embolism - Medical Records Attestation: I reviewed the patient's medical records. - Lab Data Attestation: I reviewed the patient's lab results. Result diagrams: 05/20/17 06:24 05/20/17 06:24 Lab Results 05/20/17 05/20/17 05/20/17 Range/Units 06:24 06:24 06:55 WBC 9.8 (4.5-11.0) T/MM3 RBC 4.25 (4.00-5.20) M/MM3 Hgb 14.2 (12-16) GM/DL Hct 46.1 H (36-46) % MCV 108.5 H (80-100) UM3 MCH 33.4 (26-34) UUG MCHC 30.8 L (31-37) GM/DL RDW Std Deviation 46.8 (36.9-50.2) FL Plt Count 187 (130-400) T/MM3 MPV 10.1 (9.4-12.4) UM3 Immature Gran % (Auto) 0.1 (0.0-0.5) % Neut % (Auto) 80.4 H (33-66) % Lymph % (Auto) 11.5 L (23-45) % [place] % (Auto) 7.3 (0-9.0) % Eos % (Auto) 0.5 (0-4) % Baso % (Auto) 0.2 (0-2) % Neut # (Auto) 7.9 H (1.8-7.7) T/MM3 Lymph # (Auto) 1.1 (1-4.8) T/MM3 [place] # (Auto) 0.7 (0-0.8) T/MM3 Eos # (Auto) 0.1 (0-0.5) T/MM3 Baso # (Auto) 0.0 (0-0.2) T/MM3 Abs Immat Gran (auto) 0.01 (0.00-0.03) T/MM3 ABG pH 7.300 L (7.350-7.450) ABG pCO2 89 H* (34-45) MMHG ABG pO2 93 (80-100) MMHG ABG HCO3 44 H (22-26) MEQ/L ABG Total CO2 46.5 H (23-27) MEQ/L ABG O2 Saturation 96.0 (95.0-98.0) % ABG Base Excess 13.6 H (-2.0-2.0) MMOL/L O2 Delivery Method Nasal cannula, liter FiO2 (liters per min) 6 Turbidity < 20 (0-20) Sodium 138 (134-144) MEQ/L Potassium 4.1 (3.6-5) MEQ/L Chloride 88 L (98-107) MEQ/L Carbon Dioxide 41 H* (22-30) MEQ/L Anion Gap 9 (5-15) MEQ/L BUN 11.0 (7-17) MG/DL Creatinine 0.4 L (0.7-1.2) MG/DL GFR Calculation 158 BUN/Creatinine Ratio 28 H (6-26) RATIO Glucose 137 H (65-110) MG/DL Calculated Osmolality 267 (261-280) MOSM/KG Calcium 8.9 (8.4-10.2) MG/DL Total Bilirubin 0.20 (0.20-1.30) MG/DL Icterus Index < 2 (0-7) AST 35 (14-36) U/L ALT 36 (9-52) U/L Alkaline Phosphatase 111 (38-126) U/L Troponin I < 0.012 (0-0.12) ng/ml B-Natriuretic Peptide 277 H (0-175) pg/mL Total Protein 7.8 (6.3-8.2) G/DL Albumin 4.2 (3.5-5.0) G/DL Globulin 3.6 (2.4-3.6) G/DL Albumin/Globulin Ratio 1.2 (1.1-2.2) RATIO Specimen Hemolysis 23 (0-25) - Radiology Data Attestation: I reviewed the patient's radiology results. COPD changes no acute infiltrates - EKG Data EKG #1 EKG attestation: Yes: I reviewed and interpreted this EKG. Rate: tachycardia Rhythm: NSR [place]/QRS: normal Voltage: c/w LVH When compared to previous EKG there are: no significant changes Disposition Clinical Impression: Acute exacerbation of chronic obstructive airways disease, Hypercapnia Disposition: 02 To [facility] [place] Acute Care Condition: Stable Prescriptions: No Action Morphine Sulfate [Morphine Sulfate ER] 30 mg PO BID PRN #0 PRN Reason: PAIN Cyclobenzaprine HCl 5 mg PO TID PRN #0 PRN Reason: PRN ORDERS Oxycodone HCl/Acetaminophen [Oxycodone-Acetaminophen 10-325] 1 tab PO Q4HR PRN #0 PRN Reason: PAIN No122/Iron/Folic Acid [ Multi Tablet] 1 tab PO DAILY Ginseng 100 mg PO BID B,C/Folic/Zinc/Copper Ox/Vit E [Stress B-Complex Tablet] 1 each PO DAILY Turmeric Root Extract [Turmeric] 500 mg PO DAILY Gabapentin 300 mg PO TID #0 Soy Isofl/Blk Coh/Gr Tea/Yerba [[employer] Caplet] 1 each PO TID Shark Cartilage 2 tab PO BID Referrals: GERTRUDIS GOETZ MD [Family Provider] - Time of Disposition: 07:21 - Seen By: physician
[2017-05-20] MEDS: SALINE FLUSH 10ml SYRINGE IVF PRN ×3 (06:20→11:11)
--- OUTSIDE RECORDS SUMMARY | 2017-05-20 06:24 | External Medical Summary | Summary of Care ---
:1950 Author Name Inna Torrez, Radha Ramos Address [address], [place] [id number] Care Team Providers Name Role Phone Inna Torrez, Radha Ramos Unavailable Unavailable Vance Torrze, David Ramos Unavailable Unavailable Aletha Torrez, Luciana Unavailable Unavailable Richard Keith Primary Care Provider Unavailable Unavailable Unavailable Unavailable Functional Status Functional Status Health Issues Name Dates Details Functional status health issues are not documented Status: Cognitive Status Health Issues Name Dates Details Cognitive status health issues [...] MCG Oral Tablet Take 1 tablet daily Refills: 0 Started 18-Feb-2008 ActivePoly-Iron 150 Forte 150-25-1 MG-MCG-MG Oral Capsule si cap daily Quantity: 30 Refills: 6 Richard Woodard M.D. Started ActivePremarin 0.625 MG/GM Vaginal Cream USE 1/3 APPLICATOR VAGINALLY AT BEDTIME TWICE WEEKLY Quantity: 30 Refills: 11 Richard Keith M.D. Started 08-Feb-2013 ActiveOxycodone-Acetaminophen 10-325 MG Oral Tablet Si PO every 4-6 hrs prn with a max of 6 per day. [id number] Quantity: 180 Refills: 0 Richard Keith M.D. Started 23-Nov-2013 ActiveGabapentin 300 MG Oral Capsule 1 po morning and noon, 2 po HS Quantity: 120 Refills: 2 Richard Keith M.D. Started 13-May-2014 ActiveTriamcinolone Acetonide 0.1 % External Cream APPLY SPARINGLY AND MASSAGE IN TWICE DAILY. Quantity: 1 Refills: 11 Richard Keith M.D. Started 13-May-2014 [id number] GM Tube Morphine Sulfate ER 30 MG Oral Tablet Extended Release Take 1 tablet twice daily *MUST LAST 30 DAYS* Quantity: 60 Refills: 0 Richard Keith M.D. 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 Started ActiveSymbicort 160-4.5 MCG/ACT Inhalation Aerosol INHALE 2 PUFFS TWICE DAILY. RINSE MOUTH AFTER USE. Quantity: 1 Refills: 6 Richard Keith M.D. Started 28-Feb-2015 Active6 GM Inhaler Allergies and [...] Shoulder Surgery History of Shoulder Arthroplasty Total Completed:17-May-2010 Shoulder Replacement History of Shoulder Arthroscopy With Completed:02-Apr-2012 Rotator Cuff Repair History of Tenodesis Of Long Biceps Tendon Completed:02-Apr-2012 History of Shldr Arthrosc W/ Distal Completed:02-Apr-2012 Claviculectomy Incl Distal Art Surf History of Shoulder Arthroscopy, Space Completed:02-Apr-2012 Decompression And Acromioplasty History of Colonoscopy (Fiberoptic) History of Salpingo-oophorectomy Left Side MAMMOGRAM-DIAG UNILATERAL FOR LUMP PAIN Ordered:03-Feb-2015 Immunization Name Dates Details Immunizations not documented Family History Sister Name Dates Details Family history of Breast Cancer (V16.3) Status: Active Brother Name Dates Details Family history of Lung Cancer (V16.1) Status: Active Social History Name Dates Details Smoking StatusFormer smoker Vital Signs Date Test Result Details No Known Vitals to report Results Date Description Value Details Results not documented Plan of Care Planned Observations Name Dates Details Planned Goals not documented Goal Planned Encounters Appointment; Provider: Luciana Pompa On 21-Jun-2015 13:00 Appointment; Provider: Luciana Pompa On 07-Apr-2015 09:00 Appointment; Provider: Gerard Tillman On 02-Apr-2012 09:30 Appointment; Provider: Gerard Tillman On 17-May-2010 08:30 Appointment; Provider: Richard Woodard On 13:45 Appointment; Provider: Richard Woodard On 08-Sep-2008 08:30 Instructions Instructions not documented Encounters Appointment; Richard Keith On 02-Feb-2015 Encounter Diagnosis: Problem not documented 13:15 Appointment; Richard Keith On 12-Dec-2014 Encounter Diagnosis: Problem not documented 12:15 Appointment; Gunner Bright On 28-Nov-2014 Encounter Diagnosis: Problem not documented 08:15 Appointment; Luciana Pompa On Encounter Diagnosis: Problem not documented 08:30 Appointment; Jacqueline Hill On Encounter Diagnosis: Problem not documented 09:30 Appointment; Richard Keith On 26-Aug-2014 Encounter Diagnosis: Problem not documented 11:45 Appointment; Jacqueline Hill On 25-Aug-2014 Encounter Diagnosis: Problem not documented 10:00 Appointment; Luciana Pompa On 06-Jul-2014 Encounter Diagnosis: Problem not documented 09:45 Appointment; Luciana Pompa On 20-Jun-2014 Encounter Diagnosis: Problem not documented 13:45 Appointment; Gunner Bright On 31-May-2014 Encounter Diagnosis: Problem not documented 10:45 Appointment; Richard Keith On 06-May-2014 Encounter Diagnosis: Problem not documented 09:45 Appointment; Gunner Bright On 01-Mar-2014 Encounter Diagnosis: Problem not documented 09:00 Appointment; Giorgi Dockery On 31-Jan-2014 Encounter Diagnosis: Problem not documented 13:30 Appointment; Samantha Gao On 31-Jan-2014 Encounter Diagnosis: Problem not documented 09:00 Appointment; Richard Keith On 17-Jan-2014 Encounter Diagnosis: Problem not documented 09:15 Appointment; Gunner Bright On 22-Dec-2013 Encounter Diagnosis: Problem not documented 08:00 Appointment; Gunner Bright On 30-Nov-2013 Encounter Diagnosis: Problem not documented 08:15 Appointment; Ricahrd Keith On 22-Nov-2013 Encounter Diagnosis: Problem not documented 09:30 Appointment; Gunner Bright On 25-Aug-2013 Encounter Diagnosis: Problem not documented 13:15 Appointment; Graham Mmcahan On 13-Aug-2013 Encounter Diagnosis: Problem not documented 09:00 Appointment; Richard Keith On 08-Jun-2013 Encounter Diagnosis: Problem not documented 13:00 Appointment; Gunner Bright On 26-May-2013 Encounter Diagnosis: Problem not documented 13:15 Appointment; Richard Keith On 20-May-2013 Encounter Diagnosis: Problem not documented 09:45
--- OUTSIDE RECORDS SUMMARY | 2017-05-20 06:24 | External Medical Summary | Summary of Care ---
:1950 Author Name Inna Torrez, Radha Ramos Address [address], [place] [id number] Care Team Providers Name Role Phone Inna Torrez, Radha Ramos Unavailable Unavailable Vance Torrez, David Ramos Unavailable Unavailable Deangelo Torrez, Roosevelt Martino Unavailable Unavailable Richard Keith Primary Care Provider [...] Take 1 tablet daily Refills: 0 Started 30-Jan-2008 ActivePoly-Iron 150 Forte 150-25-1 MG-MCG-MG Oral Capsule si cap daily Quantity: 30 Refills: 6 Richard Woodard M.D. Started ActiveCyclobenzaprine HCl - 10 MG Oral Tablet TAKE ONE TABLET BY MOUTH THREE TIMES DAILY NEEDED Quantity: 90 Refills: 0 Gunner Bright M.D. Started 24-Aug-2010 ActivePremarin 0.625 MG/GM Vaginal Cream USE 1/3 APPLICATOR VAGINALLY AT BEDTIME TWICE WEEKLY Quantity: 30 Refills: 11 Richard Keith M.D. Started 08-Feb-2013 ActiveOxycodone-Acetaminophen 10-325 MG Oral Tablet Si PO every 4-6 hrs prn with a max of 6 per day.Scripts must last 30 days. fill 04-27-14 Quantity: 180 Refills: 0 Gunner Bright M.D. Started 23-Nov-2013 Active Allergies and Adverse Reactions Name Dates Details Latex Exam Gloves MISC Status: Active Penicillins Status: Active Past Medical History Name Dates Details History of Summary Of Previous Pregnancies ___ (Total No.) Status: Resolved Procedures Procedure Dates Details History of Hysterectomy History of Cervical Conization Loop Electrode Excision History of Shoulder Surgery History of Shoulder Arthroplasty Total Shoulder Completed:17-May-2010 Replacement History of Shoulder Arthroscopy With Rotator Cuff Repair Completed:2011 History of Tenodesis Of Long Biceps Tendon Completed:02-Apr-2012 History of Shldr Arthrosc W/ Distal Claviculectomy Incl Completed:2011 Distal Art Surf History of Shoulder Arthroscopy, Space Decompression And Completed:2011 Acromioplasty History of Colonoscopy (Fiberoptic) Procedures not documented [...] not documented Goal Planned Encounters Appointment; Provider: Gunner Bright On 31-May-2014 10:45 Appointment; Provider: Gerard Tillman On 02-Apr-2012 09:30 Appointment; Provider: Gerard Tillman On 17-May-2010 08:30 Appointment; Provider: Richard Woodard On 13:45 Appointment; Provider: Richard Woodard On 08-Sep-2008 08:30 Instructions Instructions not documented Encounters Appointment; Richard Keith On 06-May-2014 Encounter Diagnosis: [...] Encounter Diagnosis: Problem not documented 08:15 Appointment; Richard Keith On 22-Nov-2013 Encounter Diagnosis: Problem not documented 09:30 Appointment; Gunner Bright On 25-Aug-2013 Encounter Diagnosis: Problem not documented 13:15 Appointment; Graham Mcmahan On 13-Aug-2013 Encounter Diagnosis: Problem not documented 09:00 Appointment; Richard Keith On 08-Jun-2013 Encounter Diagnosis: Problem not documented 13:00 Appointment; Gunner Bright On 26-May-2013 Encounter Diagnosis: Problem not documented 13:15 Appointment; Richard Keith On 20-May-2013 Encounter Diagnosis: Problem not documented 09:45 Appointment; Gunner Bright On 25-Feb-2013 Encounter Diagnosis: Problem not documented 08:15 Appointment; Jese Reyes On 25-Jan-2013 Encounter Diagnosis: Problem not documented 14:30 Appointment; Gunner Bright On 26-Nov-2012 Encounter Diagnosis: Problem not documented 08:45 Appointment; Gunner Bright On 26-Aug-2012 Encounter Diagnosis: Problem not documented 09:15 Appointment; Vimal Rojo On 21-Aug-2012 Encounter Diagnosis: Problem not documented 12:00 Appointment; Gerard Tillman On 15-Jul-2012 Encounter Diagnosis: Problem not documented 08:30 Appointment; Char Germain On 08-Jul-2012 Encounter Diagnosis: Problem not documented 08:00 Appointment; Char Germain On 01-Jul-2012 Encounter Diagnosis: Problem not documented 09:00 Appointment; Char Germain On 23-Jun-2012 Encounter Diagnosis: Problem not documented 09:00 Appointment; Richard Keith On 18-Jun-2012 Encounter Diagnosis: Problem not documented 14:00 Appointment; Kamar Mims On 17-Jun-2012 Encounter Diagnosis: Problem not documented 08:45 Appointment; Gerard Tillman On 17-Jun-2012 Encounter Diagnosis: Problem not documented 08:30 Appointment; Char Germain On 12-Jun-2012 Encounter Diagnosis: Problem not documented 09:00 Appointment; Char Germain On 10-Jun-2012 Encounter Diagnosis: Problem not documented 09:30 Appointment; Char Germain On 08-Jun-2012 Encounter Diagnosis: Problem not documented 10:30 Appointment; Char Germain On 03-Jun-2012 Encounter Diagnosis: Problem not documented 13:00 Appointment; Char Germain On 29-May-2012 Encounter Diagnosis: Problem not documented 10:30 Appointment; Gunner Brgiht On 27-May-2012 Encounter Diagnosis: Problem not documented 10:30 Appointment; Char Germain On 27-May-2012 Encounter Diagnosis: Problem not documented 09:00 Appointment; Char Germain On 22-May-2012 Encounter Diagnosis: Problem not documented 15:30 Appointment; Richard Stringer On 19-May-2012 Encounter Diagnosis: Problem not documented 08:00 Appointment; Char Germain On 13-May-2012 Encounter Diagnosis: Problem not documented 08:00 Appointment; Char Germain On 11-May-2012 Encounter Diagnosis: Problem not documented 08:00
--- OUTSIDE RECORDS SUMMARY | 2017-05-20 06:24 | External Medical Summary | Summary of Care ---
:1950 Author Name Luciana Pompa M.D. Address [address], [place] [id number] Care Team Providers Name Role Phone Inna Torrez, Radha Ramos Unavailable Unavailable Vance Torrez, David Ramos Unavailable Unavailable Jacqueline Nova Unavailable Unavailable Deangelo Torrez, Roosevelt Martino Unavailable [...] last 30 days. May fill on or [id number].Managed by Dr. Bright. Quantity: 180 Refills: 0 Jacqueline Hill Started 23-Nov-2013 ActiveGabapentin 100 MG Oral Capsule TAKE 1 CAPSULE 3 TIMES DAILY. Quantity: 90 Refills: 5 Richard Keith M.D. Started 13-May-2014 ActiveTriamcinolone Acetonide 0.1 % External Cream APPLY SPARINGLY AND MASSAGE IN TWICE DAILY. Quantity: 1 Refills: 11 Richard Keith M.D. Started 13-May-2014 [id number] GM Tube Allergies and Adverse Reactions Name [...] And Completed:2011 Acromioplasty History of Colonoscopy (Fiberoptic) History of [...] (Better) Range: Negative Plan of Care Planned Observations Name Dates Details Planned Goals not documented Goal Planned Encounters Appointment; Provider: Luciana Pompa On 21-Jun-2015 09:00 Appointment; Provider: Luciana Pompa On 08:30 Appointment; Provider: Jacqueline Hill On 25-Aug-2014 10:00 Appointment; Provider: Gerard Tillman On 02-Apr-2012 09:30 Appointment; Provider: Gerard Tillman On 17-May-2010 08:30 Appointment; Provider: Richard Woodard On 13:45 Appointment; Provider: Richard Woodard On 08-Sep-2008 08:30 Instructions Instructions not documented Encounters Appointment; Luciana Pompa On 06-Jul-2014 Encounter Diagnosis: [...] Encounter Diagnosis: Problem not documented 08:30 Appointment; Chra Germain On 08-Jul-2012 Encounter Diagnosis: Problem not documented 08:00
--- OUTSIDE RECORDS SUMMARY | 2017-05-20 06:24 | External Medical Summary | Summary of Care ---
:1950 Author Name Inna Torrez, Radha Ramos Address [address], [place] [id number] Care Team Providers Name Role Phone Radha Keith M.D. Unavailable [...] Status: Active Nephrolithiasis (592.0, N20.0) Status: Active Asthmatic bronchitis (493.90, J45.909) Status: Active Vaginal lesion (623.8, N89.8) Status: Active Vaginal ulcer (616.89, N76.5) Status: Active Vulvar lesion (624.8, N90.89) Status: Active Pneumonia (486, J18.9) Status: Active Fullness of neck (784.2, R22.1) Status: Active COPD (chronic obstructive pulmonary disease) (496, J44.9) Status: Active Medications Name Dates Details Vitamin B-12 1000 MCG Oral Tablet Take 1 tablet daily Refills: 0 Start 18-Feb-2008 Active Poly-Iron 150 Forte 150-25-1 MG-MCG-MG Oral Capsule si cap daily Quantity: 30 Refills: 6 Richard Woodard M.D. Start Active Premarin 0.625 MG/GM Vaginal Cream USE 1/3 APPLICATOR VAGINALLY AT BEDTIME TWICE WEEKLY Quantity: 30 Refills: 11 Richard Keith M.D. Start 08-Feb-2013 Active Oxycodone-Acetaminophen 10-325 MG Oral Tablet Si PO every 4-6 hrs prn with a max of 6 per day. [id number] must last 30 days Quantity: 180 Refills: 0 Richard Keith M.D. Start 23-Nov-2013 Active Gabapentin 300 MG Oral Capsule ONE CAPSULE BY MOUTH EVERY MORNING AND NOON TWO CAPSULES BY MOUTH ATBEDTIME Quantity: 120 Refills: 3 Inna Torrez Richard Garcia Start 10-Jun-2016 Active Triamcinolone Acetonide 0.1 % External Cream Apply to skin twice daily. Quantity: 15 Refills: 6 Inna Torrez Richard Garcia Start 13-May-2014 Active Morphine Sulfate ER 30 MG Oral Tablet Extended Release Take 1 tablet twice daily *MUST LAST 30 DAYS*AUGUST FILL 08/19/16 Quantity: 60 Refills: 0 Inna Torrez Richard Garcia Start 25-Aug-2014 Active Cyclobenzaprine HCl - 10 MG Oral Tablet take one tablet by mouth every 8 hours as needed Quantity: 60 Refills: 6 Inna Torrez Richard Garcia Start 28-Dec-2015 Active Ipratropium-Albuterol 0.5-2.5 (3) MG/3ML Inhalation Solution NEBULIZE 1 VIAL FOUR TIMES A DAY----DX: J45.909, J43.9 Quantity: 180 Refills: 11 Inna Torrez Richard Garcia Start 01-Feb-2016 Active Allergies and Adverse Reactions [...] Surgery History of Shoulder Arthroplasty Total Shoulder Completed: 17-May-2010 Replacement History of Shoulder Arthroscopy With Rotator Cuff Completed: 02-Apr-2012 Repair History of Tenodesis Of Long Biceps Tendon Completed: 02-Apr-2012 History of Shldr Arthrosc W/ Distal Claviculectomy Incl Completed: 2011 Distal Art Surf History of Shoulder Arthroscopy, Space Decompression Completed: 02-Apr-2012 And Acromioplasty History of Colonoscopy (Fiberoptic) History of Salpingo-oophorectomy Left Side Procedures not documented Immunization Name Dates Details Immunizations not documented Family History Sister Name Dates Details Family history of Breast Cancer (V16.3) Status: Active Brother Name Dates Details Family history of Lung Cancer (V16.1) Status: Active Social History Name Dates Details - Status: Smoking Status Name Dates Details Current every day smoker Vital Signs Date Test Result Details No Known Vitals to report Results Date Description Value Details Results not documented Plan of Care Name Dates Details Planned Observations Planned Goals not documented Planned Encounters Appointment; Provider: Luciana Pompa M.D. On 10-Feb-2017 10:45 Appointment; Provider: Schedule Radiology On 10-Feb-2017 10:00 Interventions Provided Medication ChangesMorphine Sulfate ER 30 MG Oral Tablet Extended Release - RenewOxycodone-Acetaminophen 10-325 MG Oral Tablet - Renew Instructions Name Dates Details Instructions not documented Encounters Appointment; Richard Keith M.D. On 30-Jul-2016 Encounter Diagnosis: Problem not documented 08:00 Appointment; Richard Keith M.D. On 09-Jul-2016 Encounter Diagnosis: Problem not documented 08:45 Appointment; Luciana Pompa M.D. On 31-May-2016 Encounter Diagnosis: Problem not documented 13:15 Appointment; Richard Keith M.D. On 03-May-2016 Encounter Diagnosis: Problem not documented 08:15 Appointment; Tadeo Carson M.D.,[facility], On 03-Apr-2016 Encounter Diagnosis: Problem not documented 11:45 Appointment; Richard Keith M.D. On 28-Mar-2016 Encounter Diagnosis: Problem not documented 14:45 Appointment; Richard Keith M.D. On 01-Feb-2016 Encounter Diagnosis: Problem not documented 11:30 Appointment; Vimal Rojo M.D. On 08-Jan-2016 Encounter Diagnosis: Problem not documented 10:40 Appointment; Richard Keith M.D. On 28-Dec-2015 Encounter Diagnosis: Problem not documented 13:15 Appointment; Richard Keith M.D. On Encounter Diagnosis: Problem not documented 13:15 Appointment; Tadeo Carson M.D.,[facility], On Encounter Diagnosis: Problem not documented 09:30 Appointment; Cheng Harrington D.O. On Encounter Diagnosis: Problem not documented 14:15 Appointment; Carlota Denny A.P.R.N. On 20-Jul-2015 Encounter Diagnosis: Problem not documented 14:15 Appointment; Luciana Pompa M.D. On 13-Jul-2015 Encounter Diagnosis: Problem not documented 09:15 Appointment; Richard Keith M.D. On 09-Jun-2015 Encounter Diagnosis: Problem not documented 10:40 Appointment; Luciana Pompa M.D. On 07-Apr-2015 Encounter Diagnosis: Problem not documented 09:00 Appointment; Richard Keith M.D. On 02-Feb-2015 Encounter Diagnosis: Problem not documented 13:15 Appointment; Richard Keith M.D. On 12-Dec-2014 Encounter Diagnosis: Problem not documented 12:15 Appointment; Gunner Bright M.D. On 28-Nov-2014 Encounter Diagnosis: Problem not documented 08:15 Appointment; Luciana Pompa M.D. On Encounter Diagnosis: Problem not documented 08:30 Appointment; Jacqueline Hill P.A. On Encounter Diagnosis: Problem not documented 09:30
--- OUTSIDE RECORDS SUMMARY | 2017-05-20 06:24 | External Medical Summary | Summary of Care ---
:1950 Author Name Inna Torrez, Radha Ramos Address [address] [place], [place] [id number] Care Team Providers Name Role Phone Inna Torrez, Radha Ramos Unavailable Unavailable David Woodard M.D. Unavailable Unavailable [...] with a max of 6 per day. [id number] Quantity: 180 Refills: 0 Richard Keith M.D. Start 23-Nov-2013 Active Gabapentin 300 MG Oral Capsule 1 po morning and noon, 2 po HS Quantity: 120 Refills: 2 Richard Keith M.D. Start 13-May-2014 Active Triamcinolone Acetonide 0.1 % External Cream Apply to skin twice daily. Quantity: 15 Refills: 6 Richard Keith M.D. Start 13-May-2014 Active Morphine Sulfate ER 30 MG Oral Tablet Extended Release Take 1 tablet twice daily *MUST LAST 30 DAYS* Quantity: 60 Refills: 0 Richard Keith M.D. Start 25-Aug-2014 Active Allergies and Adverse Reactions [...] Shoulder Surgery History of Shoulder Arthroplasty Total Completed: 17-May-2010 Shoulder Replacement History of Shoulder Arthroscopy With Completed: 02-Apr-2012 Rotator Cuff Repair History of Tenodesis Of Long Biceps Completed: 02-Apr-2012 Tendon History of Shldr Arthrosc W/ Distal Completed: 02-Apr-2012 Claviculectomy Incl Distal Art Surf History of Shoulder Arthroscopy, Space Completed: 02-Apr-2012 Decompression And Acromioplasty History of Colonoscopy (Fiberoptic) History of Salpingo-oophorectomy Left Side [facility] Lumbar Epidural [id number] Ordered: Immunization Name Dates Details Immunizations not [...] report Results Date Description Value Details 15:30 [facility] PROCEDURE Comments: Exam Date: 11/16/2015 14: 40Dictation Date: 11/16/2015 15:30 Plan of Care Name Dates Details Planned Observations Planned Goals not documented Planned Encounters Appointment; Provider: Luciana Pompa M.D. On 10-Feb-2017 10:45 Appointment; Provider: Schedule Radiology On 10-Feb-2017 10:00 Appointment; Provider: Tadeo Carson M.D.|[facility] Suarez|[facility] Torrez On 03-Apr-2016 11:45 Interventions Provided Medication ChangesOxycodone-Acetaminophen 10-325 MG Oral Tablet - Renew Instructions Name Dates Details Instructions not documented Encounters Appointment; Richard Keith M.D. On Encounter Diagnosis: Problem not documented 13:15 Appointment; Tadeo Carson M.D.|Sar[facility]|GABY Torrez|GABY Torrez, On 2015 Encounter Diagnosis: Problem not documented 09:30 Appointment; Cheng Harringotn D.O. On Encounter Diagnosis: Problem not documented [...] Diagnosis: Problem not documented 08:30 Appointment; Jacqueline Hill, P.ATy On Encounter Diagnosis: Problem not documented 09:30 Appointment; Richard Keith M.D. On 26-Aug-2014 Encounter Diagnosis: Problem not documented 11:45 Appointment; Jacqueline Hill, P.ATy On 25-Aug-2014 Encounter Diagnosis: Problem not documented 10:00 Appointment; Luciana Pompa M.D. On 06-Jul-2014 Encounter Diagnosis: Problem not documented 09:45 Appointment; Luciana Pompa M.D. On 20-Jun-2014 Encounter Diagnosis: Problem not documented 13:45 Appointment; Gunner Bright M.D. On 31-May-2014 Encounter Diagnosis: Problem not documented 10:45 Appointment; Richard Keith M.D. On 06-May-2014 Encounter Diagnosis: Problem not documented 09:45 Appointment; Gunner Bright M.D. On 01-Mar-2014 Encounter Diagnosis: Problem not documented 09:00 Appointment; Giorgi Dockery On 31-Jan-2014 Encounter Diagnosis: Problem not documented 13:30 Appointment; Samantha Gao M.D. On 31-Jan-2014 Encounter Diagnosis: Problem not documented 09:00 Appointment; Richard Keith M.D. On 17-Jan-2014 Encounter Diagnosis: Problem not documented 09:15 Appointment; Gunner Bright M.D. On 22-Dec-2013 Encounter Diagnosis: Problem not documented 08:00"
--- OUTSIDE RECORDS SUMMARY | 2017-05-20 06:25 | External Medical Summary | Summary of Care ---
:1950 Author Name Rose Figueredo APRN Address [address] Unavailable [place], [place] [id number] Care Team Providers Name Role Phone Radha Keith M.D. Unavailable Unavailable David Woodard M.D. Unavailable Unavailable Rose Figueredo APRN Unavailable Unavailable Richard Keith Unavailable Unavailable Unavailable Unavailable Unavailable Functional Status Functional [...] obstructive pulmonary disease) (496, J44.9) Status: Active Chigger bites (133.8, B88.0) Status: Active Medications Name Dates Details Vitamin [...] with a max of 6 per day. [id number] must last 30 days Quantity: 180 Refills: 0 Inna TorrezRichard Start 23-Nov-2013 Active Gabapentin 300 MG Oral Capsule ONE CAPSULE BY MOUTH EVERY MORNING AND NOON TWO CAPSULES BY MOUTH ATBEDTIME Quantity: 120 Refills: 3 Inna TorrezRichard Start 10-Jun-2016 Active Triamcinolone Acetonide 0.1 % External Cream Apply to skin twice daily. Quantity: 15 Refills: 6 Inna Torrez Richard Radha Start 13-May-2014 Active Morphine Sulfate ER 30 [...] J45.909, J43.9 Quantity: 180 Refills: 11 Inna TorrezRichard Start 01-Feb-2016 Active Allergies and Adverse Reactions [...] smoker Vital Signs Date Test Result Details 15:48 BP Systolic 128 mm[Hg] Status: Comments: Location: ; Position: BP Diastolic 82 mm[Hg] Status: Comments: Location: ; Position: Heart Rate 102 /min Status: Comments: Location: ; Weight 81.6 lb Status: Physical Findings 93 Status: Comments: O2 Saturation Body Mass Index Calculated 17.05 kg/m2 Status: Body Surface Area Calculated 1.24 m2 Status: Results Date Description Value Details Results not documented Plan of Care Name Dates Details Planned Observations Planned Goals not documented Planned Encounters Appointment; Provider: Luciana Pompa M.D. On 10-Feb-2017 10:45 Appointment; Provider: [facility]iology On 10-Feb-2017 10:00 Instructions Name Dates [...] Problem not documented 13:15 Appointment; Tadeo Carson M.D.,[facility], On Encounter Diagnosis: Problem not documented 09:30 [...]
--- OUTSIDE RECORDS SUMMARY | 2017-05-20 06:25 | External Medical Summary | Summary of Care ---
:1950 Author Name Roosevelt Bright M.D. Address [address], [place] [id number] Care Team Providers Name Role Phone Inna Torrez, Radha Ramos Unavailable Unavailable Vance Torrez, David Ramos Unavailable Unavailable Aletha Torrez, Luciana Unavailable Unavailable Roosevelt Bright M.D. Unavailable Unavailable Richard Keith Primary Care Provider [...] last [address] Bright Quantity: 180 Refills: 0 Richard Keith M.D. Started 23-Nov-2013 ActiveGabapentin 300 MG Oral Capsule 1 po morning and noon, 2 po HS Quantity: 120 Refills: 2 Richard Keith M.D. Started 13-May-2014 ActiveTriamcinolone Acetonide 0.1 % External Cream APPLY SPARINGLY AND MASSAGE IN TWICE DAILY. Quantity: 1 Refills: 11 Richard Keith M.D. Started 13-May-2014 [id number] GM Tube Morphine Sulfate ER 30 MG Oral Tablet Extended Release Take 1 tablet twice daily *MUST LAST 30 DAYS* Quantity: 60 Refills: 0 Gunner Bright M.D. 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 Started Active Allergies and Adverse Reactions Name [...] Salpingo-oophorectomy Left Side MAMMOGRAM-DIAGNOSTIC UNILATERAL FOR BREAST Ordered:02-Feb-2015 CANCER OR FOLLOW-UP ULTRASOUND BREAST CYST ASP LEFT Ordered:02-Feb-2015 Immunization [...] Planned Encounters Appointment; Provider: Luciana Pompa On 07-Apr-2015 09:00 [...]
--- OUTSIDE RECORDS SUMMARY | 2017-05-20 06:25 | External Medical Summary | Summary of Care ---
:1950 Author Name Inna Torrez, Radha Ramos Address [address] [place], [place] [id number] Care Team Providers Name Role Phone Radha [...] with a max of 6 per day. [id number] must last 30 daysDO NOT FILL UNTIL 04/28/16 Quantity: 180 Refills: 0 Richard Keith M.D. Start 23-Nov-2013 Active Gabapentin 300 MG Oral Capsule ONE CAPSULE BY MOUTH EVERY MORNING AND NOON TWO CAPSULES BY MOUTH ATBEDTIME Quantity: 120 Refills: 2 Richard Keith M.D. Start 20-Mar-2016 Active Triamcinolone Acetonide 0.1 % External Cream Apply to skin twice daily. Quantity: 15 Refills: 6 Inna TorrezRichard Start 13-May-2014 Active Morphine Sulfate ER 30 MG Oral Tablet Extended Release Take 1 tablet twice daily *MUST LAST 30 DAYSDO NOT FILL UNTIL 04/20/16 Quantity: 60 Refills: 0 Inna TorrezRichard Start 25-Aug-2014 Active Cyclobenzaprine HCl - 10 MG Oral Tablet take one tablet by mouth every 8 hours as needed Quantity: 60 Refills: 3 Inna Torrez Richard Garcia Start 28-Dec-2015 Active Ipratropium-Albuterol 0.5-2.5 (3) MG/3ML Inhalation Solution NEBULIZE 1 VIAL FOUR TIMES A DAY----DX: J45.909, J43.9 Quantity: 180 Refills: 11 Inna TorrezRichard Start 01-Feb-2016 Active Azithromycin 500 MG Oral Tablet TAKE 1 TABLET DAILY UNTIL FINISHED. Quantity: 7 Refills: 1 Inna Torrez Richard Garcia Start 28-Mar-2016 Active Fluconazole 150 MG Oral Tablet TAKE 1 TABLET DAILY. Quantity: 7 Refills: 3 Inna Torrez Richard Garcia Start 28-Mar-2016 Active LevoFLOXacin 500 MG Oral Tablet TAKE 1 TABLET DAILY UNTIL FINISHED. Quantity: 10 Refills: 0 Inna Torrez Richard Garcia Start 03-May-2016 Active PredniSONE 10 MG Oral Tablet 4 tabs for 4 Days, 3 tabs for 4 Days, 2 tabs for 4 Days and 1 tab for 4 Days Quantity: 40 Refills: 0 Inna Torrez Richard Garcia Start 03-May-2016 Active Allergies and Adverse Reactions [...] Radiology On 10-Feb-2017 10:00 Interventions Provided Medication ChangesLevoFLOXacin 500 MG Oral Tablet - StartPredniSONE 10 MG Oral Tablet - StartLabs/Procedures/ImagingXRay CHEST-PA & LAT; Done: May 03 2016 8:50AMInstructionsIntermediate Counseling(3-10min) Smoke & Tobacco Cessation - Follow Up at next visit NO referralto Ashley at this vist. Asymptomatic patient.; Done:You need to stop smoking. Though it is not easy, more than half of all adult smokers have quit. We encourage you to write down all the reasons you should quit smoking and set a quit date for yourself. Ask us how we can help. You may also call 0-147-JMMCNOW for free resources and assistance.; Done: Instructions Name Dates Details Instructions not documented Encounters Appointment; Tadeo Carson M.D.,[facility], On 03-Apr-2016 Encounter Diagnosis: Problem not documented 11:45 Appointment; Richard Keith M.D. On 28-Mar-2016 Encounter Diagnosis: Problem not documented 14:45 Appointment; Richard Ketih M.D. On 01-Feb-2016 Encounter Diagnosis: Problem not documented 11:30 Appointment; Vimal Rojo M.D. On 08-Jan-2016 Encounter Diagnosis: Problem not documented 10:40 Appointment; Richard Keith M.D. On 28-Dec-2015 Encounter Diagnosis: Problem not documented 13:15 Appointment; Richard Keith M.D. On Encounter Diagnosis: Problem not documented 13:15 Appointment; Tadeo Carson M.D.,[facility], On Encounter Diagnosis: Problem not documented 09:30 [...]
--- OUTSIDE RECORDS SUMMARY | 2017-05-20 06:25 | External Medical Summary | Summary of Care ---
:1950 Author Name Inna Torrez, Radha Ramos Address [address] [place], [place] [id number] Care Team Providers Name Role Phone Inna [...] BEDTIME TWICE WEEKLY Quantity: 30 Refills: 11 iRchard Keith M.D. Started 08-Feb-2013 ActiveOxycodone-Acetaminophen 10-325 MG Oral Tablet Si PO every 4-6 hrs prn with a max of 6 per day. [id number] Quantity: 180 Refills: 0 Richard Keith M.D. Started 23-Nov-2013 ActiveGabapentin 300 MG Oral Capsule 1 po morning and noon, 2 po HS Quantity: 120 Refills: 2 Richard Keith M.D. Started 13-May-2014 ActiveTriamcinolone Acetonide 0.1 % External Cream Apply to skin twice daily. Quantity: 15 Refills: 6 Richard Keith M.D. Started 13-May-2014 ActiveMorphine Sulfate ER 30 MG [...] Planned Encounters Appointment; Provider: Luciana Pompa On 13-Jul-2015 09:15 Appointment; Provider: Gerard Tillman On 02-Apr-2012 09:30 Appointment; Provider: Gerard Tillman On 17-May-2010 08:30 Appointment; Provider: Richard Woodard On 13:45 Appointment; Provider: Richard Woodard On 08-Sep-2008 08:30 Instructions Instructions not documented Encounters Appointment; Richard Keith On 09-Jun-2015 Encounter Diagnosis: Problem not documented 10:40 Appointment; Luciana Pompa On 07-Apr-2015 Encounter Diagnosis: Problem not documented 09:00 Appointment; Richard Keith On 02-Feb-2015 Encounter Diagnosis: [...]
--- OUTSIDE RECORDS SUMMARY | 2017-05-20 06:25 | External Medical Summary | Summary of Care ---
:1950 Author Name Inna Torrez, Radha Ramos Address [address] [place], [place] [id number] Care Team Providers Name Role Phone Inna Torrez, Radha Ramos Unavailable Unavailable David Woodard M.D. Unavailable Unavailable Jacqueline Nova Unavailable Unavailable Deangelo [...] by Dr. Bright Quantity: 180 Refills: 0 Jacqueline Hill P.A. Started 29-Aug-2014 ActiveGabapentin 300 MG Oral Capsule Si PO Tid.Start with 1 po HS and gradually titrate to 3 x daily. Quantity: 90 Refills: 0 Jacqueline Hill P.A. Started 13-May-2014 ActiveTriamcinolone Acetonide 0.1 % External Cream APPLY SPARINGLY AND MASSAGE IN TWICE DAILY. Quantity: 1 Refills: 11 Richard Keith M.D. Started 13-May-2014 [id number] GM Tube Morphine Sulfate ER 30 MG Oral Tablet Extended Release Si PO every 12 hours with a max of 2 per day. Script must last [address] Bright. Quantity: 60 Refills: 0 Jacqueline Hill P.A. Started 25-Aug-2014 Active Allergies and Adverse Reactions [...] On 08:30 Appointment; Provider: Jacqueline Hill On 09:30 Appointment; Provider: Gerard Tillman On 02-Apr-2012 09:30 Appointment; Provider: Gerard Tillman On 17-May-2010 08:30 Appointment; Provider: Richard Woodard On 13:45 Appointment; Provider: Richard Woodard On 08-Sep-2008 08:30 Instructions Instructions not documented Encounters Appointment; Richard Keith On 26-Aug-2014 Encounter Diagnosis: [...]
--- OUTSIDE RECORDS SUMMARY | 2017-05-20 06:25 | External Medical Summary | Summary of Care ---
:1950 Author Name Jacqueline Nova Address [address], [place] [id number] Care Team Providers Name Role Phone Inna Torrez, Radha Ramos Unavailable Unavailable David Woodard M.D. Unavailable Unavailable Jacqueline Nova Unavailable Unavailable Richard Keith Primary Care Provider [...] BEDTIME TWICE WEEKLY Quantity: 30 Refills: 11 Yalisaley, Richard M.D. Started 08-Feb-2013 ActiveOxycodone-Acetaminophen 10-325 MG Oral Tablet Si to 2 PO every 4 hours prn with a max of 6 per day.Scripts must last [address] Bright Quantity: 180 Refills: 0 Jacqueline Hill P.A. Started ActiveGabapentin 300 MG Oral Capsule 1 po morning and noon, 2 po HS Quantity: 120 Refills: 2 Jacqueline Hill P.A. Started 13-May-2014 ActiveTriamcinolone Acetonide 0.1 % External Cream APPLY SPARINGLY AND MASSAGE IN TWICE DAILY. Quantity: 1 Refills: 11 Richard Keith M.D. Started 13-May-2014 [id number] GM Tube Morphine Sulfate ER 30 MG Oral Tablet Extended Release Si PO every 12 hours with a max of 2 per day. Script must last [address] Bright. Quantity: 60 Refills: 0 Jacqueline Hill P.A. Started Active Allergies and Adverse Reactions Name [...] Luciana Pompa On 21-Jun-2015 09:00 Appointment; Provider: Gunner Bright On 28-Nov-2014 08:15 Appointment; Provider: Luciana Pompa On 08:30 Appointment; Provider: Gerard Tillman On 02-Apr-2012 09:30 Appointment; Provider: Gerard Tillman On 17-May-2010 08:30 Appointment; Provider: Richard Woodard On 13:45 Appointment; Provider: Richard Woodard On 08-Sep-2008 08:30 Instructions Instructions not documented Encounters Appointment; Jacqueline Hill On Encounter Diagnosis: Problem [...]
--- OUTSIDE RECORDS SUMMARY | 2017-05-20 06:25 | External Medical Summary | Summary of Care ---
:1950 Author Name Nnamdi Harrington D.O. Address [address] [place], [place] [id number] Care Team Providers Name Role Phone Radha Keith M.D. Unavailable Unavailable David Woodard M.D. Unavailable Unavailable Richard Keith Primary Care [...] with a max of 6 per day. [id number] Quantity: 180 Refills: 0 Richard Keith M.D. [...] Refills: 0 Richard Keith M.D. Started 25-Aug-2014 Active Allergies and Adverse Reactions [...] Left Side Urinalysis, Reflex to Microscopic or Ordered: Culture PRN [id number] ULTRASOUND RENAL SONO Ordered: Immunization Name Dates Details Immunizations not documented Family History Sister Name Dates Details Family history of Breast Cancer (V16.3) Status: Active Brother Name Dates Details Family history of Lung Cancer (V16.1) Status: Active Social History Name Dates Details Smoking StatusCurrent every day smoker Vital Signs Date Test Result Details 14:23 BP Systolic 136 mm[Hg] Status: BP Diastolic 88 mm[Hg] Status: Temperature 98.2 f Status: Heart Rate 93 /min Status: O2 SAT 96 % Status: Results Date Description Value Details Results not documented Plan of Care Planned Observations Name Dates Details Planned Goals not documented Goal Planned Encounters Appointment; Provider: Luciana Pompa On 10-Feb-2017 10:45 Appointment; Provider: Schedule Radiology On 10-Feb-2017 10:00 Appointment; Provider: Schedule Radiology On 15:00 Appointment; Provider: Schedule Radiology On 03-Aug-2015 11:00 Appointment; Provider: Gerard Tillman On 02-Apr-2012 09:30 Appointment; Provider: Gerard Tillman On 17-May-2010 08:30 Appointment; Provider: Richard Woodard On 13:45 Appointment; Provider: Richard Woodard On 08-Sep-2008 08:30 Instructions Instructions not documented Encounters Appointment; Cheng Harrington On Encounter Diagnosis: Problem not documented 14:15 Appointment; Carlota Denny On 20-Jul-2015 Encounter Diagnosis: Problem not documented 14:15 Appointment; Luciana Pompa On 13-Jul-2015 Encounter Diagnosis: Problem not documented 09:15 Appointment; Richard Keith On 09-Jun-2015 Encounter Diagnosis: [...]
--- OUTSIDE RECORDS SUMMARY | 2017-05-20 06:26 | External Medical Summary | Summary of Care ---
:1950 Author Name Inna Torrez, Radha Ramos Address [address] [place], [place] [id number] Care Team Providers Name Role Phone Inna [...] Status: Active Pneumonia (486, J18.9) Status: Active Medications Name Dates Details Vitamin B-12 1000 MCG Oral Tablet Take 1 tablet daily Refills: 0 Start 18-Feb-2008 Active Poly-Iron 150 Forte 150-25-1 MG-MCG-MG Oral Capsule si cap daily Quantity: 30 Refills: 6 Richard Woodard M.D. Start Active Oxycodone-Acetaminophen 10-325 MG Oral Tablet Si PO every 4-6 hrs prn with a max of 6 per day. [id number] must last 30 days Quantity: 180 Refills: 0 Richard Keith M.D. Start 23-Nov-2013 Active Gabapentin 300 MG Oral Capsule ONE CAPSULE BY MOUTH EVERY MORNING AND NOON TWO CAPSULES BY MOUTH ATBEDTIME Quantity: 120 Refills: 3 Richard Keith M.D. Start 10-Jun-2016 Active Triamcinolone Acetonide 0.1 % External Cream Apply to skin twice daily. Quantity: 15 Refills: 6 Inna Torrez Richard Garcia Start 13-May-2014 Active Morphine Sulfate ER 30 MG Oral Tablet Extended Release Take 1 tablet twice daily *MUST LAST 30 DAYS*MAY FILL 06/19/16 Quantity: 60 Refills: 0 Inna Torrez Richard Garcia Start 25-Aug-2014 Active Cyclobenzaprine HCl - 10 MG Oral Tablet take one tablet by mouth every 8 hours as needed Quantity: 60 Refills: 2 Inna Torrez, Richard Garcia Start 09-Jul-2016 Active Ipratropium-Albuterol 0.5-2.5 (3) MG/3ML Inhalation Solution NEBULIZE 1 VIAL FOUR TIMES A DAY----DX: J45.909, J43.9 Quantity: 180 Refills: 11 Inna Torrez Richard Garcia Start 01-Feb-2016 Active Acyclovir 400 MG Oral Tablet TAKE ONE TABLET THREE TIMES DAILY FOR 10 DAYS. Quantity: 30 Refills: 0 Luciana Pompa M.D. Start 31-May-2016 Active Azithromycin 500 MG Oral Tablet TAKE 1 TABLET DAILY UNTIL FINISHED. Quantity: 7 Refills: 1 Richard Keith M.D. Start 09-Jul-2016 Active PredniSONE 10 MG Oral Tablet 4 tabs for 3 days, 3 tabs for 3 days, 2 tabs for 3 days and 1 tab for 3 days Quantity: 30 Refills: 0 Richard Keith M.D. Start 09-Jul-2016 Active PredniSONE 10 MG Oral Tablet 4 TABS FOR 4 DAYS, 3 TABS FOR 4 DAYS, 2 TABS FOR 4 DAYS AND 1 TAB FOR4 DAYS Quantity: 40 Refills: 0 Inna Torrez Richard Radha Start 13-May-2016 Active LevoFLOXacin 500 MG Oral Tablet TAKE 1 TABLET DAILY UNTIL FINISHED. Quantity: 10 Refills: 0 Richard Keith M.D. Start 13-May-2016 Active Premarin 0.625 MG/GM Vaginal Cream USE 1/3 APPLICATOR VAGINALLY AT BEDTIME TWICE WEEKLY Quantity: 30 Refills: 11 Inna Torrez Richard Radha Start 08-Feb-2013 Active Allergies and Adverse Reactions Name Dates [...] (Fiberoptic) History of Salpingo-oophorectomy Left Side XRay CHEST-PA & LAT Ordered: 09-Jul-2016 Immunization Name Dates Details Immunizations not documented Family History Sister Name Dates Details Family history of Breast Cancer (V16.3) Status: Active Brother Name Dates Details Family history of Lung Cancer (V16.1) Status: Active Social History Name Dates Details - Status: Smoking Status Name Dates Details Current every day smoker Vital Signs Date Test Result Details 09-Jul-2016 08:49 BP Systolic 115 mm[Hg] Status: Comments: Location: ; Position: BP Diastolic 60 mm[Hg] Status: Comments: Location: ; Position: Heart Rate 79 /min Status: Comments: Location: ; Weight 87 lb Status: Body Mass Index Calculated 18.18 kg/m2 Status: Body Surface Area Calculated 1.28 m2 Status: Results Date Description Value Details Results not documented Plan of Care Name Dates Details Planned Observations XRay CHEST-PA & LAT On 19-Jul-2016 Intent Planned Goals not documented Planned Encounters Appointment; Provider: Luciana Pompa M.D. On 10-Feb-2017 10:45 Appointment; Provider: Schedule Radiology On 10-Feb-2017 10:00 Interventions Provided Medication ChangesAzithromycin 500 MG Oral Tablet - StartPredniSONE 10 MG Oral Tablet - Start Instructions Name Dates Details Instructions not documented Encounters Appointment; Luciana Pompa M.D. On 31-May-2016 Encounter Diagnosis: Problem not documented 13:15 Appointment; Richard Keith M.D. On 03-May-2016 Encounter Diagnosis: Problem not documented 08:15 Appointment; Tadeo Carson M.D.,[facility], On 03-Apr-2016 Encounter Diagnosis: Problem not documented 11:45 Appointment; Richard Keith M.D. On 28-Mar-2016 Encounter Diagnosis: Problem not documented 14:45 Appointment; Richard Keith M.D. On 01-Feb-2016 Encounter Diagnosis: Problem not documented 11:30 Appointment; Vimal Rojo M.D. On 08-Jan-2016 Encounter Diagnosis: Problem not documented 10:40 Appointment; Richard Ketih M.D. On 28-Dec-2015 Encounter Diagnosis: Problem not documented 13:15 Appointment; Richard Keith M.D. On Encounter Diagnosis: Problem not documented 13:15 Appointment; Tadeo Carson M.D.,[facility], On Encounter Diagnosis: Problem not documented [...] Problem not documented 11:45 Appointment; Jacqueline Hill, P.A. On 25-Aug-2014 Encounter Diagnosis: Problem not documented 10:00
--- OUTSIDE RECORDS SUMMARY | 2017-05-20 06:26 | External Medical Summary | Summary of Care ---
:1950 Author Name Inna Torrez, Radha Ramos Address [address], [place] [id number] Care Team Providers Name Role Phone Radha [...] cap daily Quantity: 30 Refills: 6 Richard Wooadrd M.D. Started ActivePremarin 0.625 MG/GM Vaginal Cream USE 1/3 APPLICATOR VAGINALLY AT BEDTIME TWICE WEEKLY Quantity: 30 Refills: 11 Richard Keith M.D. Started 08-Feb-2013 ActiveOxycodone-Acetaminophen 10-325 MG Oral Tablet Si PO every 4-6 hrs prn with a max of 6 per day. [id number] Quantity: 180 Refills: 0 Richard Keith M.D. [...] W/O LT (Better) Plan of Care Planned Observations Name Dates Details Planned Goals not documented Goal Planned Encounters Appointment; Provider: Luciana Pompa On 10-Feb-2017 10:45 Appointment; Provider: Schedule Radiology On 10-Feb-2017 10:00 Appointment; Provider: Schedule Radiology On 03-Aug-2015 11:00 Appointment; Provider: Gerard Tillman On 02-Apr-2012 09:30 Appointment; Provider: Gerard Tillman On 17-May-2010 08:30 Appointment; Provider: Richard Woodard On 13:45 Appointment; Provider: Richard Woodard On 08-Sep-2008 08:30 Instructions Instructions not documented Encounters Appointment; Carlota Denny On 20-Jul-2015 Encounter Diagnosis: [...]
--- OUTSIDE RECORDS SUMMARY | 2017-05-20 06:26 | External Medical Summary | Summary of Care ---
:1950 Author Name Inna Torrez, Radha Ramos Address [address] [place], [place] [id number] Care Team Providers Name Role Phone Radha [...] with a max of 6 per day. [id number] must last 30 daysDO NOT FILL UNTIL [...] Quantity: 15 Refills: 6 Richard Keith M.D. A Start 13-May-2014 Active Morphine Sulfate ER 30 [...] Inna Torrez Richard Garcia Start 01-Feb-2016 Active Azithromycin 500 MG Oral Tablet TAKE 1 TABLET DAILY UNTIL FINISHED. Quantity: 7 Refills: 1 Richard Keith M.D. Start 28-Mar-2016 Active Fluconazole 150 MG Oral Tablet TAKE 1 TABLET DAILY. Quantity: 7 Refills: 3 Inna Torrez Richard Garcia Start 28-Mar-2016 Active Allergies and Adverse Reactions [...] documented Encounters Appointment; Tadeo Carson M.D.|AleCTySTy|GABY Torrez|GABY Torrez On 2015 Encounter Diagnosis: Problem not documented 11:45 Appointment; [...] Problem not documented 13:15 Appointment; Tadeo Carson M.D.|AleCTySGABY Kellogg|GABY Torrez, On 2015 Encounter Diagnosis: Problem not [...] On 06-May-2014 Encounter Diagnosis: Problem not documented 09:45"
--- OUTSIDE RECORDS SUMMARY | 2017-05-20 06:26 | External Medical Summary | Summary of Care ---
:1950 Author Name Inna Torrez, Radha Ramos Address [address] [place], [place] [address] Care Team Providers Name Role Phone Radha [...] with a max of 6 per day. [id number] Quantity: 180 Refills: 0 Richard Keith M.D. [...] YELLOW (Better) Range: Straw-Yellow PROTEIN NEGATIVE mg/dL Range: Negative-Trace (Better) GLUCOSE NEGATIVE mg/dL Range: Negative (Better) KETONE TRACE mg/dL Range: Negative (Abnormal) BILIRUB NEGATIVE (Better) Range: Negative BLOOD SMALL (Abnormal) Range: Negative UROBIL 0.2 EU/dL (Better) Range: 0.2-1.0 NITRITE NEGATIVE (Better) Range: Negative LEUK MODERATE (Abnormal) Range: Negative 15:11 Urine Microscopic UMIC Comments: Quantity not sufficient for concentration.Less than 10 ml received for analysis WBC 6-10 /HPF Range: 0-5 (Abnormal) Comments: Specimen referred to Microbiology for Culture----- RBC 3-5 /HPF (Abnormal) Range: 0-2 EPITH 0-2 /HPF (Better) Range: 0-10 U CA OX 1+ /HPF (Better) 15:25 ULTRASOUND RENAL SONO Comments: Exam Date: 09/26/2015 14: 43Dictation Date: 09/26/2015 15:25 XS RENAL LIMITED (Better) Plan of Care Planned Observations Name [...]
--- OUTSIDE RECORDS SUMMARY | 2017-05-20 06:26 | External Medical Summary | Summary of Care ---
:1950 Author Name Inna Torrez, Radha Ramos Address [address] [place], [place] [id number] Care Team Providers Name Role Phone Inna [...] with a max of 6 per day. [id number] Quantity: 180 Refills: 0 Richard Keith M.D. [...] of Salpingo-oophorectomy Left Side HASC Lumbar Epidural [id number] Ordered: Immunization Name Dates Details Immunizations not [...] 10:00 Appointment; Provider: Tadeo Carson M.D.|BIBI Suarez FACS On 03-Apr-2016 11:45 Interventions Provided Medication ChangesMorphine Sulfate ER 30 MG Oral Tablet Extended Release - Renew Instructions Name Dates Details Instructions not documented Encounters Appointment; Richard Keith M.D. On Encounter Diagnosis: Problem not documented 13:15 Appointment; Tadeo Carson M.D.|GABY Suarez|GABY Torrez, On 2015 Encounter Diagnosis: Problem not [...] Problem not documented 08:30 Appointment; Jacqueline Hill, PGwendolyn On Encounter Diagnosis: Problem not documented 09:30 Appointment; Richard Keith M.D. On 26-Aug-2014 Encounter Diagnosis: Problem not documented 11:45 Appointment; Jacqueline Hill P.A. On 25-Aug-2014 Encounter Diagnosis: Problem not [...] Problem not documented 08:00 Appointment; Gunner Bright M.D. On 30-Nov-2013 Encounter Diagnosis: Problem not documented 08:15"
--- OUTSIDE RECORDS SUMMARY | 2017-05-20 06:26 | External Medical Summary | Summary of Care ---
:1950 Author Name Darrel Torrez, Nnamdi Celis Address Unavailable Unavailable , Care Team Providers Name Role Phone Inna Torrez, Radha Ramos Unavailable Unavailable Nnamdi Rojo M.D. Unavailable Unavailable Vance Torrez, David Ramos Unavailable Unavailable Richard Keith Unavailable Unavailable Unavailable [...] with a max of 6 per day. [id number] must last 30 days Quantity: 180 Refills: [...] 0 Richard Keith M.D. Start 25-Aug-2014 Active Cyclobenzaprine HCl - 10 MG Oral Tablet take one tablet by mouth every 8 hours as needed Quantity: 60 Refills: 3 Inna Torrez, Richard Garcia Start 28-Dec-2015 Active Proventil HFA 108 (90 Base) MCG/ACT Inhalation Aerosol Solution INHALE 2 PUFFS FOUR TIMES DAILY DIRECTED. Quantity: 1 Refills: 0 Thode M.D.Vimal Start 08-Jan-2016 End 15-Jan-2016 Active 6.7 GM Inhaler Azithromycin 250 MG Oral Tablet TAKE 2 TABLETS ON DAY 1 THEN TAKE 1 TABLET A DAY FOR 4 DAYS. Quantity: 6 Refills: 0 Thode M.D.Vimal Start 08-Jan-2016 End 13-Jan-2016 Active PredniSONE 10 MG Oral Tablet TAKE 4 TABLETS DAILY FOR 2 DAYS,3 TABLETS DAILY FOR 2 DAYS, 2 TABLETS DAILY FOR 2 DAYS AND 1 TABLET DAILY FOR 2 DAYS, THEN STOP. Quantity: 20 Refills: 0 Thode M.D.Vimal Start 08-Jan-2016 Active Allergies and Adverse Reactions [...] M.D. On 28-Mar-2016 14:45 Interventions Provided Medication ChangesAzithromycin 250 MG Oral Tablet - StartPredniSONE 10 MG Oral Tablet - StartProventil HFA 108 (90 Base) MCG/ACT Inhalation Aerosol Solution - Start Instructions Name Dates Details Instructions not documented Encounters Appointment; Richard Keith M.D. On 28-Dec-2015 Encounter Diagnosis: Problem not documented 13:15 Appointment; Richard Keith M.D. On Encounter Diagnosis: Problem not documented 13:15 Appointment; Tadeo Carosn M.D.|GABY Suarez|GABY Torrez, On 2015 Encounter Diagnosis: [...] Problem not documented 08:30 Appointment; Jacqueline Hill PTyATy On Encounter Diagnosis: Problem not documented 09:30 Appointment; Richard Keith M.D. On 26-Aug-2014 Encounter Diagnosis: Problem not documented 11:45 Appointment; Jacqueline Hill PGwendolyn On 25-Aug-2014 Encounter Diagnosis: Problem not documented [...] On 17-Jan-2014 Encounter Diagnosis: Problem not documented 09:15"
--- OUTSIDE RECORDS SUMMARY | 2017-05-20 06:27 | External Medical Summary | Summary of Care ---
:1950 Author Name Inna Torrez, Radha Ramos Address [address], [place] [id number] Care Team Providers Name Role Phone Inna Torrez, Radha Ramos Unavailable Unavailable Vance Torrez, David Ramos Unavailable Unavailable Aletha Torrez, Luciana Unavailable Unavailable Deangelo Torrez, Roosevelt Martino Unavailable Unavailable Richard Goetz Primary Care Provider Unavailable Unavailable Unavailable Unavailable [...] TWICE WEEKLY Quantity: 30 Refills: 11 Richard Goetz M.D. Started 08-Feb-2013 ActiveOxycodone-Acetaminophen 10-325 MG Oral Tablet Si PO every 4-6 hrs prn with a max of 6 per day. [id number] Quantity: 180 Refills: 0 Richard Goetz M.D. Started 23-Nov-2013 ActiveGabapentin 300 MG Oral Capsule 1 po morning and noon, 2 po HS Quantity: 120 Refills: 2 Richard Goetz M.D. Started 13-May-2014 ActiveTriamcinolone Acetonide 0.1 % External Cream APPLY SPARINGLY AND MASSAGE IN TWICE DAILY. Quantity: 1 Refills: 11 Richard Goetz M.D. Started 13-May-2014 [id number] GM Tube Morphine Sulfate ER 30 MG Oral Tablet Extended Release Take 1 tablet twice daily *MUST LAST 30 DAYS* Quantity: 60 Refills: 0 Gunner Bright M.D. 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 Started ActiveSymbicort 160-4.5 MCG/ACT Inhalation Aerosol INHALE 2 PUFFS TWICE DAILY. RINSE MOUTH AFTER USE. Quantity: 1 Refills: 6 Richard Goetz M.D. Started 28-Feb-2015 Active6 GM Inhaler Allergies [...] report Results Date Description Value Details 08-Feb-2015 ULTRASOUND BREAST LEFT Comments: Exam Date: 02/08/2015 09: 59Dictation Date: 02/08/2015 10:25 10:25 XS BREAST LEFT (Better) 10:25 MAMMOGRAM-DIAG Comments: Exam Date: 02/08/2015 09:23Dictation Date: 02/08/2015 10:25 BILATERAL FOR LUMP OR PAIN XM DIAG [facility] Radiologic ReportSMITCAROLANN [id number] (X-RAY)PATIENT OF DR. GOETZ BD: 1950 SECONDARY 02/08/15 XM DIG DIAG MARCIAL FOR LUMP /PAIN XM DIGITAL CAD (DIAGNOSTIC) INDICA (Better) 22-Feb-2015 12:37 CT CHEST ABD PEL WITH Comments: Exam Date: 02/22/2015 09: 34Dictation Date: 02/22/2015 12:37 ORAL AND WITHOUT IV CONTRAST XC CHEST ABD PEL [facility] Radiologic ReportSCAROLANN [id number] (X-RAY)PATIENT OF DR. GOETZ BD: 1950 SECONDARY 02/22/15 XC CHEST ABD PEL WITHOUT INDICATION: R 63.4: ABNORMAL WEIGHT LOS (Better) Plan of Care Planned Observations Name Dates Details Planned Goals not documented Goal Planned Encounters Appointment; Provider: Luciana Pompa On 07-Apr-2015 09:00 Appointment; Provider: Gerard Tillman On 02-Apr-2012 09:30 Appointment; Provider: Gerard Tillman On 17-May-2010 08:30 Appointment; Provider: Richard Woodard On 13:45 Appointment; Provider: Richard Woodard On 08-Sep-2008 08:30 Instructions Instructions not documented Encounters Appointment; Richard Goetz On 02-Feb-2015 Encounter Diagnosis: Problem not documented 13:15 Appointment; Richard Goetz On 12-Dec-2014 Encounter Diagnosis: Problem not documented 12:15 Appointment; Gunner Bright On 28-Nov-2014 Encounter Diagnosis: Problem not documented 08:15 Appointment; Luciana Pompa On Encounter Diagnosis: Problem not documented 08:30 Appointment; Jacqueline Hill On Encounter Diagnosis: Problem not documented 09:30 Appointment; Richard Goetz On 26-Aug-2014 Encounter Diagnosis: Problem not documented 11:45 Appointment; Jacqueline Hill On 25-Aug-2014 Encounter Diagnosis: Problem not documented 10:00 Appointment; Luciana Pompa On 06-Jul-2014 Encounter Diagnosis: Problem not documented 09:45 Appointment; Luciana Pompa On 20-Jun-2014 Encounter Diagnosis: Problem not documented 13:45 Appointment; Gunner Bright On 31-May-2014 Encounter Diagnosis: Problem not documented 10:45 Appointment; Richard Goetz On 06-May-2014 Encounter Diagnosis: Problem not documented 09:45 Appointment; Gunner Bright On 01-Mar-2014 Encounter Diagnosis: Problem not documented 09:00 Appointment; Giorgi Dockery On 31-Jan-2014 Encounter Diagnosis: Problem not documented 13:30 Appointment; Samantha Gao On 31-Jan-2014 Encounter Diagnosis: Problem not documented 09:00 Appointment; Richard Goetz On 17-Jan-2014 Encounter Diagnosis: Problem not documented 09:15 Appointment; Gunner Brihgt On 22-Dec-2013 Encounter Diagnosis: Problem not documented 08:00 Appointment; Gunner Bright On 30-Nov-2013 Encounter Diagnosis: Problem not documented 08:15 Appointment; Richard Goetz On 22-Nov-2013 Encounter Diagnosis: Problem not documented 09:30 Appointment; Gunner Bright On 25-Aug-2013 Encounter Diagnosis: Problem not documented 13:15 Appointment; Graham Mcmahan On 13-Aug-2013 Encounter Diagnosis: Problem not documented 09:00 Appointment; Richard Goetz On 08-Jun-2013 Encounter Diagnosis: Problem not documented 13:00 Appointment; Gunner Bright On 26-May-2013 Encounter Diagnosis: Problem not documented 13:15 Appointment; Richard Goetz On 20-May-2013 Encounter Diagnosis: Problem not documented 09:45
--- OUTSIDE RECORDS SUMMARY | 2017-05-20 06:27 | External Medical Summary | Summary of Care ---
:1950 Author Name Inna Torrez, Radha Ramos Address [address] [place], [place] [id number] Care Team Providers Name Role Phone Radha [...] with a max of 6 per day. [id number] must last 30 days Quantity: 180 Refills: [...] hours as needed Quantity: 60 Refills: 3 Richard Keith M.D. Start 28-Dec-2015 Active Ipratropium-Albuterol 0.5-2.5 (3) MG/3ML Inhalation Solution NEBULIZE 1 VIAL FOUR TIMES A DAY----DX: J45.909, J43.9 Quantity: 180 Refills: 11 Richard Keith M.D. Start 01-Feb-2016 Active Allergies and Adverse Reactions [...] M.D. On 28-Mar-2016 14:45 Interventions Provided Medication ChangesMorphine Sulfate ER 30 MG Oral Tablet Extended Release - Renew Instructions Name Dates Details Instructions not documented Encounters Appointment; Richard Keith M.D. On 01-Feb-2016 Encounter Diagnosis: Problem not documented 11:30 Appointment; Vimal Rojo M.D. On 08-Jan-2016 Encounter Diagnosis: Problem not documented 10:40 Appointment; Richard Keith M.D. On 28-Dec-2015 Encounter Diagnosis: Problem not documented 13:15 Appointment; Richard Keith M.D. On Encounter Diagnosis: Problem not documented 13:15 Appointment; Tadeo Carson M.D.|Saray|Shan,GABY|Shan,GABY, On 2015 Encounter Diagnosis: Problem not documented [...] Problem not documented 08:30 Appointment; Jacqueline Hill, PTyATy On Encounter Diagnosis: Problem not documented 09:30 Appointment; Richard Keith M.D. On 26-Aug-2014 Encounter Diagnosis: Problem not documented 11:45 Appointment; Jacqueline Hill PTyATy On 25-Aug-2014 Encounter Diagnosis: Problem not documented [...] On 01-Mar-2014 Encounter Diagnosis: Problem not documented 09:00"
--- OUTSIDE RECORDS SUMMARY | 2017-05-20 06:27 | External Medical Summary | Summary of Care ---
:1950 Author Name Inna Torrez, Radha Ramos Address [address], [place] [id number] Care Team Providers Name Role Phone Inna [...] Refills: 11 Richard Keith M.D. Started 13-May-2014 [id number] GM Tube Morphine Sulfate ER 30 MG Oral Tablet Extended Release Si PO every 12 hours with a max of 2 per day. Script must last [address] Bright. Quantity: 60 Refills: 0 Gunner Bright M.D. Started 28-Dec-2014 ActiveMixture Vulvodynia cream-Apply to Vuvla TID Refills: [...] not documented Encounters Appointment; Richard Keith On 12-Dec-2014 Encounter Diagnosis: [...]
--- OUTSIDE RECORDS SUMMARY | 2017-05-20 06:27 | External Medical Summary | Summary of Care ---
:1950 Author Name Radha Keith M.D. Address Unavailable Unavailable , Care Team Providers [...] with a max of 6 per day. [id number] Quantity: 180 Refills: 0 Richard Keith M.D. [...] K/uL (Better) Range: 4.5-11.0 RBC 3.80 mil/uL Range: 3.60-5.00 (Better) HGB 13.1 g/dL (Better) Range: 12.0-16.0 HCT 41.6 % (Better) Range: 36.0-48.0 MCV 109.3 fL (Above Range: 80.0-99.0 high threshold) MCH 34.3 pg (Above Range: 27.3-32.5 high threshold) MCHC 31.4 % (Below low Range: 32.0-36.0 threshold) RDW 14.2 % (Better) Range: 11.6-14.8 PLATELETS [...] (Better) Range: 0.0-0.2 14:54 XRay TIBIA & Comments: Exam Date: 11/06/2015 14:11Dictation Date : 11/06/2015 14:54 FIBULA-Right X TIBIA & FIBULA RT (Better) 15:36 XRay SPINE-LUMBAR Comments: Exam Date: 11/06/2015 14:11Dictation Date: 11/06/2015 15:36 X SPINE LUMBAR W/ FLEX (Better) & EXT Plan of Care Planned Observations Name Dates Details Planned Goals not documented Goal Planned Encounters Appointment; Provider: Luciana Pompa On 10-Feb-2017 10:45 Appointment; Provider: Schedule Radiology On 10-Feb-2017 10:00 Appointment; Provider: Tadeo Carson On 03-Apr-2016 11:45 Appointment; Provider: Schedule Radiology On 15:00 Appointment; Provider: Schedule Radiology On 03-Aug-2015 11:00 Appointment; Provider: Gerard Tillman On 02-Apr-2012 09:30 Appointment; Provider: Gerard Tillman On 17-May-2010 08:30 Appointment; Provider: Richard Woodard On 13:45 Appointment; Provider: Richard Woodard On 08-Sep-2008 08:30 Instructions Instructions not documented Encounters Appointment; Richard Keith On Encounter Diagnosis: Problem not documented 13:15 Appointment; Tadeo Carson On Encounter Diagnosis: Problem not documented 09:30 Appointment; Cheng Harrington On Encounter Diagnosis: Problem [...]
--- OUTSIDE RECORDS SUMMARY | 2017-05-20 06:27 | External Medical Summary | Summary of Care ---
[...] BEDTIME TWICE WEEKLY Quantity: 30 Refills: 11 Richrad Keith M.D. Started 08-Feb-2013 ActiveOxycodone-Acetaminophen 10-325 MG Oral Tablet Si PO every 4-6 hrs prn with a max of 6 per day. [id number] Quantity: 180 Refills: 0 Richard Keith M.D. [...] Encounter Diagnosis: Problem not documented 08:30 Appointment; Jacquelien Hill On Encounter Diagnosis: Problem not documented [...]
--- OUTSIDE RECORDS SUMMARY | 2017-05-20 06:27 | External Medical Summary | Summary of Care ---
:1950 Author Name Inna Torrez, Radha Ramos Address [address] [place], [place] [id number] Care Team Providers Name Role Phone Radha [...] with a max of 6 per day. [id number] must last 30 daysDO NOT FILL UNTIL [...] LAST 30 DAYS* Quantity: 60 Refills: 0 Inna TorrezRichard Start 25-Aug-2014 Active Cyclobenzaprine HCl - 10 MG Oral Tablet take one tablet by mouth every 8 hours as needed Quantity: 60 Refills: 3 Inna TorrezRichard Start 28-Dec-2015 Active Ipratropium-Albuterol 0.5-2.5 (3) MG/3ML Inhalation Solution NEBULIZE 1 VIAL FOUR TIMES A DAY----DX: J45.909, J43.9 Quantity: 180 Refills: 11 Inna TorrezRichard Start 01-Feb-2016 Active Azithromycin 500 MG Oral Tablet TAKE 1 TABLET DAILY UNTIL FINISHED. Quantity: 7 Refills: 1 Inna Torrez Richard Garcia Start 28-Mar-2016 Active Fluconazole 150 MG Oral Tablet TAKE 1 TABLET DAILY. Quantity: 7 Refills: 3 Inna TorrezRichard Start 28-Mar-2016 Active LevoFLOXacin 500 MG Oral Tablet TAKE 1 TABLET DAILY UNTIL FINISHED. Quantity: 10 Refills: 0 Inna TorrezRichard Start 13-May-2016 Active PredniSONE 10 MG Oral Tablet 4 TABS FOR 4 DAYS, 3 TABS FOR 4 DAYS, 2 TABS FOR 4 DAYS AND 1 TAB FOR4 DAYS Quantity: 40 Refills: 0 Inna TorrezRichard Start 13-May-2016 Active Allergies and Adverse Reactions [...] documented Encounters Appointment; Richard Keith M.D. On 03-May-2016 Encounter [...] Problem not documented 13:15 Appointment; Tadeo Carson M.D., FACS, On Encounter Diagnosis: Problem not documented 09:30 [...] Problem not documented 08:30 Appointment; Jacqueline Hill, P.A. On Encounter Diagnosis: Problem not documented [...]
--- OUTSIDE RECORDS SUMMARY | 2017-05-20 06:27 | External Medical Summary | Summary of Care ---
:1950 Author Name Roosevelt Bright M.D. Address [address], [place] [id number] Care Team Providers Name Role Phone Inna [...] on or after 07-30-2014.Managed by Dr. Bright. Quantity: 180 Refills: 0 Gunner Bright M.D. Started 23-Nov-2013 ActiveGabapentin 100 MG Oral Capsule TAKE 1 CAPSULE 3 TIMES DAILY. Quantity: 90 Refills: 5 Richard Keith M.D. Started 13-May-2014 ActiveTriamcinolone Acetonide 0.1 % External Cream APPLY SPARINGLY AND MASSAGE IN TWICE DAILY. Quantity: 1 Refills: 11 Richard Keith M.D. Started 13-May-2014 [id number] GM Tube Allergies and Adverse Reactions Name [...]
--- OUTSIDE RECORDS SUMMARY | 2017-05-20 06:28 | External Medical Summary | Summary of Care ---
:1950 Author Name Carlota Denny APRN Address [address] Unavailable [place], [place] [id number] Care Team Providers Name Role Phone Radha [...] with a max of 6 per day. [id number] Quantity: 180 Refills: 0 Richard Keith M.D. [...] Schedule Radiology On 10-Feb-2017 10:00 Appointment; Provider: Gerard Tillman On 02-Apr-2012 [...]
--- OUTSIDE RECORDS SUMMARY | 2017-05-20 06:28 | External Medical Summary | Summary of Care ---
:1950 Author Name Aletha Torrez, Luciana Address [address] [place], [place] [id number] Care Team Providers Name Role Phone Radha [...] Tablet Take 1 tablet daily Refills: 0 -Jan-2008 ActivePoly-Iron 150 Forte 150-25-1 MG-MCG-MG Oral Capsule si cap daily Quantity: 30 Refills: 6 Richard Woodard M.D. Started ActivePremarin 0.625 MG/GM Vaginal Cream USE 1/3 APPLICATOR VAGINALLY AT BEDTIME TWICE WEEKLY Quantity: 30 Refills: 11 Richard Keith M.D. Started 08-Feb-2013 ActiveOxycodone-Acetaminophen 10-325 MG Oral Tablet Si PO every 4-6 hrs prn with a max of 6 per day. [id number] Quantity: 180 Refills: 0 Richard Keith M.D. Started 23-Nov-2013 ActiveGabapentin 300 MG Oral Capsule 1 po morning and noon, 2 po HS Quantity: 120 Refills: 2 Richard Keith M.D. Started 13-May-2014 ActiveTriamcinolone Acetonide 0.1 % External Cream Apply to skin twice daily. Quantity: 15 Refills: 6 Richard Keiht M.D. Started 13-May-2014 ActiveMorphine Sulfate ER 30 [...] not documented Goal Planned Encounters Appointment; Provider: Gerard Tillman On 02-Apr-2012 09:30 Appointment; Provider: Gerard Tillman On 17-May-2010 08:30 Appointment; Provider: Richard Woodard On 13:45 Appointment; Provider: Richard Woodard On 08-Sep-2008 08:30 Instructions Instructions not documented Encounters Appointment; Luciana Pompa On 13-Jul-2015 Encounter Diagnosis: [...]
--- OUTSIDE RECORDS SUMMARY | 2017-05-20 06:28 | External Medical Summary | Summary of Care ---
:1950 Author Name Inna Torrez, Radha Ramos Address [address] [place], [place] [id number] Care Team Providers Name Role Phone Radha [...] with a max of 6 per day. [id number] Quantity: 180 Refills: 0 Richard Keith M.D. [...] % Status: Results Date Description Value Details Urinalysis, Reflex to 15:11 Microscopic or Culture PRN 8005 pH 5.5 [...] Date: 09/26/2015 15:25 XS RENAL LIMITED (Better) [id number] URINE CULTURE [id number] Comments: Intelipost performed at: [facility] [employer] [place], [place], [address] [place] [address], Mh Teacher: Per Hoffman D.O., MPHQuest Collection Date/Time: 07:43 [id number] Results Received Date/Time: [id number] Reported Date/Time: FASTING:NOQuest performed at: [facility] [address] [address] [place], [place], [address] [place] [address], Mh Teacher: Per Hoffman D.O., MPHQuest Collection Date/Time: [id number] Results Received Date/Time: [id number] Reported Date/Time: FASTING:NO CULTURE, URINE, ROUTINE SEE NOTE (Abnormal) Comments: CULTURE, URINE, ROUTINE MICRO NUMBER: [id number] TEST STATUS: FINAL SPECIMEN SOURCE : URINE, CLEAN CATCH SPECIMEN QUALITY: ADEQUATE RESULT: 10,000- 50,000 CFU/mL of Proteus mirabilis This organism may show imipenem resistance by mechanisms other than a carbapenemase. COMMENT: Additional organism(s) less than 10,000 CFU/mL isolated. These organisms, commonly found on external and internal genitalia, are considered colonizers. No further testing performed. P.mirabilis INT YARIEL AMOX/CLAVULANATE S <=2 AMPICILLIN S <=2 AMP/SULBACTAM S <=2 CEFAZOLIN R 8 1 CEFEPIME S <=1 CEFTRIAXONE S <=1 CIPROFLOXACIN S <=0.25 ERTAPENEM S <=0.5 GENTAMICIN S <=1 IMIPENEM I 2 LEVOFLOXACIN S <=0.12 NITROFURANTOIN R 128 PIP/TAZOBACTAM S <=4 TOBR AMYCIN S <=1 TRIMETHOPRIM/SULFA S <=20S= Susceptible I=Intermediate R=Resistant *=Not TestedNR=Not Reported NN=See Therapy CommentsTHERAPY COMMENTS Note 1: ORA L therapy: A cefazolin YARIEL of < 32 predicts susceptibility to the oral agents cefaclor, cefdinir, cefpodoxime, cefprozil, cefuroxime, cephalexin, and loracarbef when used for therapy of u ncomplicated UTIs due to E. coli, K. pneumoniae, and P. mirabilis. PARENTERAL therapy: A cefazolin YARIEL of > 8 indicates resistance to parenteral cefazo----- Talon WISE ( TANIA) Comments: Exam Date: 10/03/2015 09: 22Dictation Date: 10/03/2015 09:41 09:41 X ABDOMEN (1V) (Better) Plan of Care Planned Observations Name [...] 08:30 Instructions Instructions not documented Encounters Appointment; Tadeo Carson On Encounter Diagnosis: Problem [...] Diagnosis: Problem not documented 13:15 Appointment; Richard Kieth On 12-Dec-2014 Encounter Diagnosis: Problem not documented 12:15 Appointment; Gunner Brgiht On 28-Nov-2014 Encounter Diagnosis: Problem not documented [...]
--- OUTSIDE RECORDS SUMMARY | 2017-05-20 06:28 | External Medical Summary | Summary of Care ---
:1950 Author Name Inna Torrez, Radha Ramos Address [address] [place], [place] [id number] Care Team Providers Name Role Phone Radha [...] J44.9) Status: Active Medications Name Dates Details Poly-Iron [...] with a max of 6 per day. [id number] must last 30 days Quantity: 180 Refills: [...] Quantity: 60 Refills: 6 Inna Torrez Richard Radha Start 28-Dec-2015 Active Ipratropium-Albuterol 0.5-2.5 (3) MG/3ML Inhalation Solution NEBULIZE 1 VIAL FOUR TIMES A DAY----DX: J45.909, J43.9 Quantity: 180 Refills: 11 Inna Torrez Richard Garcia Start 01-Feb-2016 Active Vitamin B-12 1000 MCG Oral Tablet Take 1 tablet daily Refills: 0 Start 18-Feb-2008 Active Allergies and Adverse Reactions Name Dates [...] smoker Vital Signs Date Test Result Details 30-Jul-2016 08:10 BP Systolic 130 mm[Hg] Status: Comments: Location: ; Position: BP Diastolic 80 mm[Hg] Status: Comments: Location: ; Position: Heart Rate 88 /min Status: Comments: Location: ; Weight 86 lb Status: Body Mass Index Calculated 17.97 kg/m2 Status: Body Surface Area Calculated 1.27 m2 Status: Results Date Description Value Details 02-Aug-2016 09:00 CT NECK WITH IV CONTRAST Comments: Exam Date: 08/02/2016 08 :20Dictation Date: 08/02/2016 09:00 XC NECK WITH Plan of Care Name Dates Details Planned Observations Planned Goals not documented Planned Encounters Appointment; Provider: Luciana Pompa M.D. On 10-Feb-2017 10:45 Appointment; Provider: Schedule Radiology On 10-Feb-2017 10:00 Interventions Provided Medication ChangesMorphine Sulfate ER 30 MG Oral Tablet Extended Release - Renew with ChangesOxycodone-Acetaminophen 10-325 MG Oral Tablet - Renew [...] Problem not documented 08:15 Appointment; Tadeo Carson M.D., FACS, On 03-Apr-2016 Encounter Diagnosis: Problem not documented [...]
--- OUTSIDE RECORDS SUMMARY | 2017-05-20 06:28 | External Medical Summary | Summary of Care ---
:1950 Author Name Aletha Torrez, Luciana Address [address] [place], [place] [id number] Care Team Providers Name Role Phone Inna Torrez, Radha Ramos Unavailable Unavailable David Woodard M.D. Unavailable Unavailable Luciana Pompa M.D. Unavailable Unavailable Jacqueline Nova Unavailable Unavailable [...] Take 1 tablet daily Refills: 0 Started -Jan-2008 ActivePoly-Iron 150 Forte 150-25-1 MG-MCG-MG Oral [...] Bright Quantity: 180 Refills: 0 Jacqueline Hill P.ATy Started ActiveGabapentin 300 MG Oral Capsule 1 po morning and noon, 2 po HS Quantity: 120 Refills: 2 Jacqueline Hill P.ATy Started 13-May-2014 ActiveTriamcinolone Acetonide 0.1 % External Cream APPLY SPARINGLY AND MASSAGE IN TWICE DAILY. Quantity: 1 Refills: 11 Richard Keith M.D. Started 13-May-2014 [id number] GM Tube Morphine Sulfate ER 30 MG Oral Tablet Extended Release Si PO every 12 hours with a max of 2 per day. Script must last [address] Bright. Quantity: 60 Refills: 0 Jacqueline Hill P.ATy Started ActiveMixture Vulvodynia cream-Apply to Vuvla TID Refills: [...] 09:56 DEXA Comments: Exam Date: 10/20/2014 08:42Dictation Date : 10/20/2014 09:56 XD DEX[facility] FIN[facility]ULTFair[facility] Radiologic ReportSGUADALUPE COUNTY HOSPITALCAROLANN [id number] (X-RAY)PATIENT OF DR. POMPA BD: 1950 SECONDARY 10/20/14 XD DEXA XD DEXAImaging was performed with the [email or web address] ([employer]) Plan of Care Planned Observations Name Dates Details Planned Goals not documented Goal Planned Encounters Appointment; Provider: Luciana Pompa On 21-Jun-2015 09:00 Appointment; Provider: Luciana Pompa On 07-Apr-2015 09:00 Appointment; Provider: Gunner Bright On 28-Nov-2014 08:15 Appointment; Provider: Gerard Tillman On 02-Apr-2012 09:30 Appointment; Provider: Gerard Tillman On 17-May-2010 08:30 Appointment; Provider: Richard Woodard On 13:45 Appointment; Provider: Richard Woodard On 08-Sep-2008 08:30 Instructions Instructions not documented Encounters Appointment; Luciana Pompa On Encounter Diagnosis: Problem [...]
--- OUTSIDE RECORDS SUMMARY | 2017-05-20 06:28 | External Medical Summary | Summary of Care ---
:1950 Author Name Aletha Torrez, Luciana Address Unavailable Unavailable , Care Team Providers [...] with a max of 6 per day. [id number] must last 30 days Quantity: 180 Refills: 0 Richard Keith M.D. Start 23-Nov-2013 Active Gabapentin 300 MG Oral Capsule ONE CAPSULE BY MOUTH EVERY MORNING AND NOON TWO CAPSULES BY MOUTH ATBEDTIME Quantity: 120 Refills: 2 Inna TorrezRichard Start 20-Mar-2016 Active Triamcinolone Acetonide 0.1 % [...] Refills: 11 Inna TorrezRichard Start 01-Feb-2016 Active LevoFLOXacin 500 MG Oral Tablet TAKE 1 TABLET DAILY UNTIL FINISHED. Quantity: 10 Refills: 0 Inna TorrezRichard Start 13-May-2016 Active PredniSONE 10 MG Oral Tablet 4 TABS FOR 4 DAYS, 3 TABS FOR 4 DAYS, 2 TABS FOR 4 DAYS AND 1 TAB FOR4 DAYS Quantity: 40 Refills: 0 Inna TorrezRichard Start 13-May-2016 Active Acyclovir 400 MG Oral Tablet TAKE ONE TABLET THREE TIMES DAILY FOR 10 DAYS. Quantity: 30 Refills: 0 Aletha Torrez Luciana Start 31-May-2016 Active Allergies and Adverse Reactions [...] History of Salpingo-oophorectomy Left Side HSV CULTURE [id number] Ordered: 31-May-2016 Immunization Name Dates Details Immunizations [...] Radiology On 10-Feb-2017 10:00 Interventions Provided Medication ChangesAcyclovir 400 MG Oral Tablet - StartAzithromycin 500 MG Oral Tablet - CompletedFluconazole 150 MG Oral Tablet - CompletedLabs/Procedures/ ImagingHSV CULTURE [id number]; To be Done: 31 May 2016 Instructions Name Dates Details Instructions not documented Encounters Appointment; Richard Keith M.D. On 03-May-2016 Encounter Diagnosis: Problem not documented 08:15 Appointment; Tadeo Carson M.D.,[facility], On 03-Apr-2016 Encounter Diagnosis: Problem [...] Problem not documented 13:15 Appointment; Tadeo Carson M.D.,[facility], On Encounter Diagnosis: Problem not [...]
--- OUTSIDE RECORDS SUMMARY | 2017-05-20 06:28 | External Medical Summary | Summary of Care ---
:1950 Author Name Inna Torrez, Radha Ramos Address [address] [place], [place] [id number] Care Team Providers Name Role Phone Inna Torrez, Radha Ramos Unavailable Unavailable David Woodard M.D. Unavailable Unavailable Luciana Pompa M.D. Unavailable Unavailable Richard Keith Primary Care [...] with a max of 6 per day. [id number] Quantity: 180 Refills: 0 Richard Keith M.D. Started 23-Nov-2013 ActiveGabapentin 300 MG Oral Capsule 1 po morning and noon, 2 po HS Quantity: 120 Refills: 2 Richard Keith M.D. Started 13-May-2014 ActiveTriamcinolone Acetonide 0.1 % External Cream APPLY SPARINGLY AND MASSAGE IN TWICE DAILY. Quantity: 1 Refills: 11 Richard Keith M.D. Started 13-May-2014 [id number] GM Tube Morphine Sulfate ER 30 MG [...] Luciana Pompa On 21-Jun-2015 13:00 Appointment; Provider: Gerard Tilmlan On 02-Apr-2012 09:30 Appointment; Provider: Gerard Tillman On 17-May-2010 08:30 Appointment; Provider: Richard Woodard On 13:45 Appointment; Provider: Richard Woodard On 08-Sep-2008 08:30 Instructions Instructions not documented Encounters Appointment; Luciana Pompa On 07-Apr-2015 Encounter Diagnosis: [...]
--- OUTSIDE RECORDS SUMMARY | 2017-05-20 06:29 | External Medical Summary | Summary of Care ---
:1950 Author Name Inna Torrez, Radha Ramos Address [address] [place], [place] [id number] Care Team Providers Name Role Phone Radha [...] with a max of 6 per day. [id number] Quantity: 180 Refills: 0 Richard Keith M.D. [...] 60 Refills: 3 Inna Torrez, Richard A Start 28-Dec-2015 Active Allergies and Adverse Reactions [...] M.D. On 28-Mar-2016 14:45 Interventions Provided Medication ChangesCyclobenzaprine HCl - 10 MG Oral Tablet - Start Instructions Name Dates Details Instructions not documented Encounters Appointment; Richard Keith M.D. On Encounter Diagnosis: Problem not documented 13:15 Appointment; Tadeo Carson M.D.|Saray|GABY Torrez|Shan,GABY, On 2015 Encounter Diagnosis: Problem not documented [...]
--- OUTSIDE RECORDS SUMMARY | 2017-05-20 06:29 | External Medical Summary | Summary of Care ---
:1950 Author Name Inna Torrez, Radha Ramos Address [address] [place], [place] [phone] Care Team Providers Name Role Phone Inna [...] with a max of 6 per day. [id number] Quantity: 180 Refills: 0 Richard Keith M.D. Started 23-Nov-2013 ActiveGabapentin 300 MG Oral Capsule 1 po morning and noon, 2 po HS Quantity: 120 Refills: 2 Richard Keith M.D. Started 13-May-2014 ActiveTriamcinolone Acetonide 0.1 % External Cream APPLY SPARINGLY AND MASSAGE IN TWICE DAILY. Quantity: 1 Refills: 11 Richard Keith M.D. Started 13-May-2014 [id number] GM Tube Morphine Sulfate ER 30 MG [...] Pompa On 21-Jun-2015 13:00 Appointment; Provider: Gerard Tillman On 02-Apr-2012 09:30 [...]
--- OUTSIDE RECORDS SUMMARY | 2017-05-20 06:29 | External Medical Summary | Summary of Care ---
:1950 Author Name Inna Torrez, Radha Ramos Address [address] [place], [place] [id number] Care Team Providers Name Role Phone Radha [...] with a max of 6 per day. [id number] must last 30 days Quantity: 180 Refills: [...] Torrez, On 03-Apr-2016 11:45 Interventions Provided Medication ChangesAzithromycin 500 MG Oral Tablet - StartFluconazole 150 MG Oral Tablet - StartOxycodone-Acetaminophen 10-325 MG Oral Tablet - Renew InstructionsIntermediate Counseling(3-10min) Smoke & Tobacco Cessation - Follow Up at next visit NO referralto KanQuit at this vist. Asymptomatic patient.; Done:You need to stop smoking. Though it is not easy, more than half of all adult smokers have quit. We encourage you to write down all the reasons you should quit smoking and set a quit date for yourself. Ask us how we can help. You may also call 2-861-JILENOW for free resources and assistance.; Done : Instructions Name Dates Details Instructions not documented [...]
--- OUTSIDE RECORDS SUMMARY | 2017-05-20 06:29 | External Medical Summary | Summary of Care ---
:1950 Author Name Inna Torrez, Radha Ramos Address [address] [place], [place] [id number] Care Team Providers Name Role Phone Inna Torrez, Radha Ramos Unavailable Unavailable Vance Torrez, David Ramos Unavailable Unavailable Aletha Torrez, Luciana Unavailable Unavailable Richard Goetz Primary Care Provider [...] with a max of 6 per day. [id number] Quantity: 180 Refills: 0 Richard Goetz M.D. Started 23-Nov-2013 ActiveGabapentin 300 MG Oral Capsule 1 po morning and noon, 2 po HS Quantity: 120 Refills: 2 Richard Goetz M.D. Started 13-May-2014 ActiveTriamcinolone Acetonide 0.1 % External Cream APPLY SPARINGLY AND MASSAGE IN TWICE DAILY. Quantity: 1 Refills: 11 Richard Goetz M.D. Started 13-May-2014 [id number] GM Tube Morphine Sulfate ER 30 MG Oral Tablet Extended Release Take 1 tablet twice daily *MUST LAST 30 DAYS* Quantity: 60 Refills: 0 Richard Goetz M.D. Started 25-Aug-2014 ActiveMixture Vulvodynia cream-Apply to [...] XM DIAG MARCIAL [facility] Radiologic ReportSMITCAROLANN Ruff [id number] (X-RAY)PATIENT OF DR. GOETZ BD: 1950 SECONDARY 02/08/15 XM DIG DIAG MARCIAL FOR LUMP /PAIN XM DIGITAL CAD (DIAGNOSTIC) INDICA (Better) 22-Feb-2015 12:37 CT CHEST ABD PEL WITH Comments: Exam Date: 02/22/2015 09: 34Dictation Date: 02/22/2015 12:37 ORAL AND WITHOUT IV CONTRAST XC CHEST ABD PEL FINAL RESULTHutchinson WITHOUT Clinic Radiologic ReportSMITCAROLANN Ruff-[id number] (X-RAY)PATIENT OF DR. GOETZ BD: 1950 SECONDARY [...]
--- OUTSIDE RECORDS SUMMARY | 2017-05-20 06:29 | External Medical Summary | Summary of Care ---
:1950 Author Name Inna Torrez, Radha Ramos Address [address] [place], [place] [phone] Care Team Providers Name Role Phone Inna [...] with a max of 6 per day. [id number] Quantity: 180 Refills: 0 Richard Keith M.D. [...]
--- OUTSIDE RECORDS SUMMARY | 2017-05-20 06:29 | External Medical Summary | Summary of Care ---
:1950 Author Name Inna Torrez, Radha Ramos Address [address] [place], [place] [phone] Care Team Providers Name Role Phone Inna [...] BEDTIME TWICE WEEKLY Quantity: 30 Refills: 11 Rcihard Goetz M.D. Started 08-Feb-2013 ActiveOxycodone-Acetaminophen 10-325 MG Oral Tablet Si PO every 4-6 hrs prn with a max of 6 per day. [id number] Quantity: 180 Refills: 0 Richard Goetz M.D. Started 23-Nov-2013 ActiveGabapentin 300 MG Oral Capsule 1 po morning and noon, 2 po HS Quantity: 120 Refills: 2 Richard Goetz M.D. Started 13-May-2014 ActiveTriamcinolone Acetonide 0.1 % External Cream APPLY SPARINGLY AND MASSAGE IN TWICE DAILY. Quantity: 1 Refills: 11 Richard Goetz M.D. Started 13-May-2014 [id number] GM Tube Morphine Sulfate ER 30 MG [...] ABD PEL WITH ORAL AND WITHOUT IV Ordered:13-Feb-2015 CONTRAST Immunization Name Dates Details Immunizations not documented [...] Status: Results Date Description Value Details 08-Feb-2015 ULTRASOUND BREAST LEFT Comments: Exam Date: 02/08/2015 09: 59Dictation Date: 02/08/2015 10:25 10:25 XS BREAST LEFT (Better) 10:25 MAMMOGRAM-DIAG Comments: Exam Date: 02/08/2015 09:23Dictation Date: 02/08/2015 10:25 BILATERAL FOR LUMP OR PAIN XM DIAG MARCIAL FOR LUMP OR [facility]AL [facility]TRich[facility] Clinic Radiologic ReportSCAROLANN CARLISLE [id number] (X-RAY)PATIENT OF DR. GOETZ BD: 1950 SECONDARY 02/08/15 XM DIG DIAG MARCIAL FOR LUMP /PAIN XM DIGITAL CAD (DIAGNOSTIC) INDICA (Better) Plan of Care Planned Observations Name [...] Encounter Diagnosis: Problem not documented 08:00 Appointment; uGnner Bright On 30-Nov-2013 Encounter Diagnosis: Problem not [...]
--- OUTSIDE RECORDS SUMMARY | 2017-05-20 06:29 | External Medical Summary | Summary of Care ---
:1950 Author Name Inna Torrez, Radha Ramos Address [address] [place], [place] [phone] Care Team Providers Name Role Phone Radha [...] with a max of 6 per day. [id number] Quantity: 180 Refills: 0 Richard Keith M.D. [...]
--- OUTSIDE RECORDS SUMMARY | 2017-05-20 06:30 | External Medical Summary | Summary of Care ---
:1950 Author Name Inna Torrez, Radha Ramos Address [address] [place], [place] [address] Care Team Providers Name Role Phone Radha [...] with a max of 6 per day. [id number] must last 30 days Quantity: 180 Refills: [...]
--- OUTSIDE RECORDS SUMMARY | 2017-05-20 06:30 | External Medical Summary | Summary of Care ---
:1950 Author Name Inna Torrez, Radha Ramos Address [address] [place], [place] [id number] Care Team Providers Name Role Phone Radha [...] with a max of 6 per day. [id number] Quantity: 180 Refills: 0 Richard Keith M.D. [...]
--- OUTSIDE RECORDS SUMMARY | 2017-05-20 06:30 | External Medical Summary | Summary of Care ---
:1950 Author Name Yamileth Torrez, GABY, ,, M Tadeo Address [address] [place], [place] [phone] Care Team Providers Name Role Phone Radha [...] with a max of 6 per day. [id number] Quantity: 180 Refills: 0 Richard Keith M.D. [...] Encounter Diagnosis: Problem not documented 10:40 Appointment; uLciana Pompa On 07-Apr-2015 Encounter Diagnosis: Problem not [...]
--- OUTSIDE RECORDS SUMMARY | 2017-05-20 06:30 | External Medical Summary | Summary of Care ---
[...] with a max of 6 per day. [id number] Quantity: 180 Refills: 0 Richard Keith M.D. [...] Name Dates Details History of acute bronchitis (V1.69, Z87.09) Status: Resolved History of Acute bronchitis, unspecified organism (466.0, J20.9) Status: Resolved History of acute sinusitis (, Z87.09) Status: Resolved History of Adenocarcinoma Of [...] to report Results Date Description Value Details URINE CULTURE [id number] Comments: [facility] [address] [place], [address], Vp Revenue Cycle: Per Hoffman D.O., MPHQuest Collection Date/Time: 07:43 [id number] Results Received Date/Time: [id number] Reported Date/Time: [id number] FASTING:NOQuest performed at: [facility] [employer] [facility] [address] [place], [address], Vp Revenue Cycle: Per Hoffman D.O., MPHQuest Collection Date/Time: [id number] Results Received Date/Time: [id number] Reported Date/Time: FASTING:NO CULTURE, URINE, ROUTINE SEE NOTE Comments: CULTURE, URINE, ROUTINE MICRO NUMBER: [id number] TEST STATUS: FINAL SPECIMEN SOURCE: URINE , CLEAN CATCH SPECIMEN QUALITY: ADEQUATE RESULT: 10,000-50,000 CFU /mL of Proteus (Abnormal) mirabilis This organism may show imipenem resistance [...]
--- OUTSIDE RECORDS SUMMARY | 2017-05-20 06:30 | External Medical Summary | Summary of Care ---
:1950 Author Name Inna Torrez, Radha Ramos Address [address] [place], [place] [phone] Care Team Providers Name Role Phone Inna [...] with a max of 6 per day. [id number] must last 30 days Quantity: 180 Refills: 0 Richard Keith M.D. Start 23-Nov-2013 Active Gabapentin 300 MG Oral Capsule ONE CAPSULE BY MOUTH EVERY MORNING AND NOON TWO CAPSULES BY MOUTH ATBEDTIME Quantity: 120 Refills: 3 Inna Torrez Richard Radha Start 10-Jun-2016 Active Triamcinolone Acetonide 0.1 % External Cream Apply to skin twice daily. Quantity: 15 Refills: 6 Inna Torrez Richard Radha Start 13-May-2014 Active Morphine Sulfate ER 30 MG Oral Tablet Extended Release Take 1 tablet twice daily *MUST LAST 30 DAYS*MAY FILL 06/19/16 Quantity: 60 Refills: 0 Inna Torrez Richard Radha Start 25-Aug-2014 Active Cyclobenzaprine HCl - 10 MG Oral Tablet take one tablet by mouth every 8 hours as needed Quantity: 60 Refills: 2 Inna Torrez Richard Radha Start 09-Jul-2016 Active Ipratropium-Albuterol 0.5-2.5 (3) MG/3ML Inhalation Solution NEBULIZE 1 VIAL FOUR TIMES A DAY----DX: J45.909, J43.9 Quantity: 180 Refills: 11 Inna Torrez Richard Radha Start 01-Feb-2016 Active LevoFLOXacin 500 MG Oral Tablet TAKE 1 TABLET DAILY UNTIL FINISHED. Quantity: 10 Refills: 0 Richard Keith M.D. Start 13-May-2016 Active PredniSONE 10 MG Oral Tablet 4 TABS FOR 4 DAYS, 3 TABS FOR 4 DAYS, 2 TABS FOR 4 DAYS AND 1 TAB FOR4 DAYS Quantity: 40 Refills: 0 Richard Keith M.D. Start 13-May-2016 Active Acyclovir 400 MG Oral [...] 0 Richard Keith M.D. Start 09-Jul-2016 Active Allergies and Adverse Reactions Name Dates [...] m2 Status: Results Date Description Value Details 19-Jul-2016 10:20 XRay CHEST-PA & LAT Comments: Exam Date: 07/19/2016 09: 40Dictation Date: 07/19/2016 10:20 X CHEST PA & LAT Plan of Care Name Dates Details Planned Observations Planned Goals not documented Planned Encounters Appointment; Provider: Luciana Pompa M.D. On 10-Feb-2017 10:45 Appointment; Provider: Schedule Radiology On 10-Feb-2017 10:00 Appointment; Provider: Richard Keith M.D. On 30-Jul-2016 08:00 Interventions Provided Medication ChangesOxycodone-Acetaminophen 10-325 MG Oral Tablet - Renew Instructions Name Dates Details Instructions not documented Encounters Appointment; Richard Keith M.D. On 09-Jul-2016 Encounter Diagnosis: Problem not documented 08:45 Appointment; Luciana Pompa M.D. On 31-May-2016 Encounter Diagnosis: Problem not documented 13:15 Appointment; Richard Keith M.D. On 03-May-2016 Encounter Diagnosis: Problem not documented 08:15 Appointment; Tadeo Carson M.D.,[facility], On 03-Apr-2016 Encounter Diagnosis: Problem not [...] Problem not documented 13:15 Appointment; Tadeo Carson M.D.,[facility], On Encounter Diagnosis: Problem not documented [...]
--- OUTSIDE RECORDS SUMMARY | 2017-05-20 06:30 | External Medical Summary | Summary of Care ---
:1950 Author Name Inna Torrez, Radha Ramos Address [address] [place], [place] [phone] Care Team Providers Name Role Phone Radha [...] with a max of 6 per day. [id number] Quantity: 180 Refills: 0 Richard Keith M.D. [...] 3V) LT (Better) Plan of Care Planned Observations [...]
--- OUTSIDE RECORDS SUMMARY | 2017-05-20 06:30 | External Medical Summary | Summary of Care ---
:1950 Author Name Inna Torrez, Radha Ramos Address [address] [place], [place] [id number] Care Team Providers Name Role Phone Inna [...] with a max of 6 per day. [id number] must last 30 days Quantity: 180 Refills: 0 Richard Keith M.D. Start 23-Nov-2013 Active Gabapentin 300 MG Oral Capsule ONE CAPSULE BY MOUTH EVERY MORNING AND NOON TWO CAPSULES BY MOUTH ATBEDTIME Quantity: 120 Refills: 3 Inna Torrez Richard Garcia Start 10-Jun-2016 Active Triamcinolone Acetonide 0.1 % External Cream Apply to skin twice daily. Quantity: 15 Refills: 6 Inna TorrezRichard Radha Start 13-May-2014 Active Morphine Sulfate ER 30 MG Oral Tablet Extended Release Take 1 tablet twice daily *MUST LAST 30 DAYS*MAY 06/19/16 Quantity: 60 Refills: 0 Inna Torrez Richard Garcia Start 25-Aug-2014 Active Cyclobenzaprine HCl - 10 MG Oral Tablet take one tablet by mouth every 8 hours as needed Quantity: 60 Refills: 3 Inna Torrez Richard Radha Start 28-Dec-2015 Active Ipratropium-Albuterol 0.5-2.5 (3) MG/3ML Inhalation Solution NEBULIZE 1 VIAL FOUR TIMES A DAY----DX: J45.909, J43.9 Quantity: 180 Refills: 11 Inna Torrez Richard Garcia Start 01-Feb-2016 Active LevoFLOXacin 500 MG Oral Tablet TAKE 1 TABLET DAILY UNTIL FINISHED. Quantity: 10 Refills: 0 Inna Torrez Richard Radha Start 13-May-2016 Active PredniSONE 10 MG Oral Tablet 4 TABS FOR 4 DAYS, 3 TABS FOR 4 DAYS, 2 TABS FOR 4 DAYS AND 1 TAB FOR4 DAYS Quantity: 40 Refills: 0 Inna Torrez Richard Radha Start 13-May-2016 Active Acyclovir 400 MG Oral Tablet TAKE ONE TABLET THREE TIMES DAILY FOR 10 DAYS. Quantity: 30 Refills: 0 Luciana Pompa M.D. 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 On 10-Feb-2017 10:45 Appointment; Provider: Schedule Radiology On 10-Feb-2017 10:00 Interventions Provided Medication ChangesOxycodone-Acetaminophen 10-325 MG Oral Tablet - Renew Instructions Name Dates Details Instructions not documented Encounters Appointment; Luciana Pompa M.D. On 31-May-2016 Encounter Diagnosis: Problem not documented 13:15 Appointment; Richard Keith M.D. On 03-May-2016 Encounter Diagnosis: Problem not documented 08:15 Appointment; Tadeo Carson M.D.,[facility], On 03-Apr-2016 Encounter Diagnosis: Problem not [...] Problem not documented 13:15 Appointment; Tadeo Carson M.D.,[facility], On Encounter Diagnosis: Problem not documented [...]
--- OUTSIDE RECORDS SUMMARY | 2017-05-20 06:31 | External Medical Summary | Summary of Care ---
:1950 Author Name Inna Torrez, Radha Ramos Address [address] [place], [place] [phone] Care Team Providers Name Role Phone Inna [...] with a max of 6 per day. [id number] Quantity: 180 Refills: 0 Richard Keith M.D. Started 23-Nov-2013 ActiveGabapentin 300 MG Oral Capsule 1 po morning and noon, 2 po HS Quantity: 120 Refills: 2 Richard Keith M.D. Started 13-May-2014 ActiveTriamcinolone Acetonide 0.1 % External Cream APPLY SPARINGLY AND MASSAGE IN TWICE DAILY. Quantity: 1 Refills: 11 Richard Keith M.D. Started 13-May-2014 [id number] GM Tube Morphine Sulfate ER 30 MG [...]
--- OUTSIDE RECORDS SUMMARY | 2017-05-20 06:31 | External Medical Summary | Summary of Care ---
:1950 Author Name Inna Torrez, Radha Ramos Address [address] [place], [place] [address] Care Team Providers Name Role Phone Radha [...] with a max of 6 per day. [id number] must last 30 days Quantity: 180 Refills: 0 Inna TorrezRichard Start 23-Nov-2013 Active Gabapentin 300 MG Oral Capsule ONE CAPSULE BY MOUTH EVERY MORNING AND NOON TWO CAPSULES BY MOUTH ATBEDTIME Quantity: 120 Refills: 0 Inna TorrezRichard Start Active Triamcinolone Acetonide 0.1 % External Cream [...] as needed Quantity: 60 Refills: 6 Inna TorrezRichard Start 28-Dec-2015 Active Ipratropium-Albuterol 0.5-2.5 [...] Left Side Drug Screen Pain Management 8400 Ordered: Immunization Name Dates Details Immunizations not [...] - RenewOxycodone-Acetaminophen 10-325 MG Oral Tablet - RenewLabs/Procedures/ ImagingDrug Screen Pain Management 8400; To be Done: 15 Oct 2016 Instructions Name Dates Details Instructions not documented Encounters Appointment; Rose Figueredo A.P.R.N. On Encounter Diagnosis: Problem not documented 15:45 Appointment; Richard Keith M.D. On 30-Jul-2016 Encounter [...]
--- OUTSIDE RECORDS SUMMARY | 2017-05-20 06:31 | External Medical Summary | Summary of Care ---
:1950 Author Name Inna Torrez, Radha Ramos Address [address] [place], [place] [phone] Care Team Providers Name Role Phone Inna Torrez, Radha Ramos Unavailable Unavailable Nnamdi Rojo M.D. Unavailable Unavailable David Woodard M.D. Unavailable [...] with a max of 6 per day. [id number] must last 30 days Quantity: 180 Refills: [...] 30 DAYS* Quantity: 60 Refills: 0 Inna Torrez Richard Garcia Start 25-Aug-2014 Active Cyclobenzaprine HCl - 10 MG Oral Tablet take one tablet by mouth every 8 hours as needed Quantity: 60 Refills: 3 Inna Torrez Richard Radha Start 28-Dec-2015 Active PredniSONE 10 MG Oral Tablet TAKE 4 TABLETS DAILY FOR 2 DAYS,3 TABLETS DAILY FOR 2 DAYS, 2 TABLETS DAILY FOR 2 DAYS AND 1 TABLET DAILY FOR 2 DAYS, THEN STOP. Quantity: 20 Refills: 0 Darrel Torrez Vimal Coto Start 08-Jan-2016 Active PredniSONE 10 MG Oral Tablet TAKE 4 TABLETS FOR 3 DAYS, 3 TABLETS FOR 3 DAYS, 2 TABLET FOR 3 DAYS AND 1 TABLET FOR 3 DAYS THEN STOP. Quantity: 30 Refills: 0 Inna Torrez Richard Radha Start 18-Jan-2016 Active Azithromycin 500 MG Oral Tablet TAKE 1 TABLET DAILY. Quantity: 7 Refills: 0 Inna Torrez, Richard Radha Start 18-Jan-2016 Active Allergies and Adverse Reactions [...] Carson M.D.|GABY Suarez|GABY Torrez On 03-Apr-2016 11:45 Appointment; Provider: Richard Keith M.D. On 28-Mar-2016 14:45 Interventions Provided Medication ChangesMorphine Sulfate ER 30 MG Oral Tablet Extended Release - Renew Instructions Name Dates Details Instructions not documented Encounters Appointment; Vimal Rojo M.D. On 08-Jan-2016 Encounter [...] On 31-Jan-2014 Encounter Diagnosis: Problem not documented 09:00"
--- OUTSIDE RECORDS SUMMARY | 2017-05-20 06:31 | External Medical Summary | Summary of Care ---
:1950 Author Name Inna Torrez, Radha Ramos Address [address] [place], [place] [phone] Care Team Providers Name Role Phone Radha [...] tablet daily Refills: 0 Start 18-Feb-2008 Active Oxycodone-Acetaminophen 10-325 MG Oral Tablet Si PO every 4-6 hrs prn with a max of 6 per day. [id number] must last 30 days Quantity: 180 Refills: 0 Richard Keith M.D. Start 23-Nov-2013 Active Gabapentin 300 MG Oral Capsule ONE CAPSULE BY MOUTH EVERY MORNING AND NOON TWO CAPSULES BY MOUTH ATBEDTIME Quantity: 120 Refills: 0 Richard Keith M.D. Start Active Triamcinolone Acetonide 0.1 % External Cream Apply to skin twice daily. Quantity: 15 Refills: 6 Yackley M.D.Richard Start 13-May-2014 Active Morphine Sulfate ER 30 MG Oral Tablet Extended Release Take 1 tablet twice daily *MUST LAST 30 DAYS* Quantity: 60 Refills: 0 Inna Torrez Richard Radha Start 25-Aug-2014 Active Cyclobenzaprine HCl - 10 MG Oral Tablet take one tablet by mouth every 8 hours as needed Quantity: 60 Refills: 6 Richard Keith M.D. Start 28-Dec-2015 Active Ipratropium-Albuterol 0.5-2.5 (3) MG/3ML Inhalation Solution NEBULIZE 1 VIAL FOUR TIMES A DAY----DX: J45.909, J43.9 Quantity: 180 Refills: 11 Richard Keith M.D. Start 01-Feb-2016 Active Premarin 0.625 MG/GM Vaginal Cream USE 1/3 APPLICATOR VAGINALLY AT BEDTIME TWICE WEEKLY Quantity: 30 Refills: 11 Richard Keith M.D. Start 08-Feb-2013 Active Poly-Iron 150 Forte 150-25-1 MG-MCG-MG Oral Capsule si cap daily Quantity: 30 Refills: 6 Vance Torrez Richard David Start Active Allergies and Adverse Reactions Name Dates [...]
--- OUTSIDE RECORDS SUMMARY | 2017-05-20 06:31 | External Medical Summary | Summary of Care ---
:1950 Author Name Luciana Pompa M.D. Address [address], [place] [phone] Care Team Providers Name Role Phone Inna [...] Refills: 11 Richard Keith M.D. Started 13-May-2014 [id number] GM Tube Morphine Sulfate ER 30 MG [...]
--- OUTSIDE RECORDS SUMMARY | 2017-05-20 06:31 | External Medical Summary | Summary of Care ---
:1950 Author Name Carlota Denny APRN Address [address] Unavailable [place], [place] [phone] Care Team Providers Name Role Phone Radha [...] TWICE WEEKLY Quantity: 30 Refills: 11 Richard Kieth M.D. Started 08-Feb-2013 ActiveOxycodone-Acetaminophen 10-325 MG Oral Tablet Si PO every 4-6 hrs prn with a max of 6 per day. [id number] Quantity: 180 Refills: 0 Richard Keith M.D. [...] Luciana Pompa On 10-Feb-2017 10:45 Appointment; Provider: [facility] On 10-Feb-2017 10:00 Appointment; Provider: Gerard [...]
--- OUTSIDE RECORDS SUMMARY | 2017-05-20 06:32 | External Medical Summary | Summary of Care ---
:1950 Author Name Inna Torrez, Radha Ramos Address [address] [place], [place] [phone] Care Team Providers Name Role Phone Radha [...] with a max of 6 per day. [id number] must last 30 days Quantity: 180 Refills: 0 Richard Keith M.D. Start 23-Nov-2013 Active Gabapentin 300 MG Oral Capsule ONE CAPSULE BY MOUTH EVERY MORNING AND NOON TWO CAPSULES BY MOUTH ATBEDTIME Quantity: 120 Refills: 2 Richadr Keith M.D. Start 20-Mar-2016 Active Triamcinolone Acetonide [...] UNTIL FINISHED. Quantity: 7 Refills: 1 Inna Torrez, Richard Garcia Start 28-Mar-2016 Active Fluconazole 150 [...]
--- OUTSIDE RECORDS SUMMARY | 2017-05-20 06:32 | External Medical Summary | Summary of Care ---
:1950 Author Name Inna Torrez, Radha Ramos Address [address] [place], [place] [phone] Care Team Providers Name Role Phone Inna [...] 11 Richard Keith M.D. Start 08-Feb-2013 Active Triamcinolone Acetonide 0.1 % External Cream Apply to skin twice daily. Quantity: 15 Refills: 6 Richard Keith M.D. Start 13-May-2014 Active Oxycodone-Acetaminophen 10-325 MG Oral Tablet Si PO every 4-6 hrs prn with a max of 6 per day. [id number] Quantity: 180 Refills: 0 Richard Keith M.D. Start 23-Nov-2013 Active Gabapentin 300 MG Oral Capsule 1 po morning and noon, 2 po HS Quantity: 120 Refills: 2 Richard Keith M.D. Start 13-May-2014 Active Morphine [...] On 10-Feb-2017 10:00 Appointment; Provider: Tadeo Carson M.D.|Saray|Shan,GABY|Shan,GABY, On 03-Apr-2016 11:45 Interventions Provided Medication ChangesMorphine [...] Diagnosis: Problem not documented 14:15 Appointment; Luciana oPmpa M.D. On 13-Jul-2015 Encounter Diagnosis: Problem not [...]
--- OUTSIDE RECORDS SUMMARY | 2017-05-20 06:32 | External Medical Summary | Summary of Care ---
:1950 Author Name Nnamdi Harrington D.O. Address [address] [place], [place] [phone] Care Team Providers Name Role Phone Radha [...] with a max of 6 per day. [id number] Quantity: 180 Refills: 0 Richard Keith M.D. [...]
--- OUTSIDE RECORDS SUMMARY | 2017-05-20 06:32 | External Medical Summary | Summary of Care ---
:1950 Author Name Inna Torrez, Radha Ramos Address [address] [place], [place] [address] Care Team Providers Name Role Phone Radha [...] with a max of 6 per day. [id number] Quantity: 180 Refills: 0 Richard Keith M.D. [...] Diagnosis: Problem not documented 13:45 Appointment; Gunner Brihgt On 31-May-2014 Encounter Diagnosis: Problem not documented [...]
--- OUTSIDE RECORDS SUMMARY | 2017-05-20 06:32 | External Medical Summary | Summary of Care ---
:1950 Author Name Inna Torrez, Radha Ramos Address [address] [place], [place] [phone] Care Team Providers Name Role Phone Radha [...] with a max of 6 per day. [id number] must last 30 days Quantity: 180 Refills: [...] M.D. On 28-Mar-2016 14:45 Interventions Provided Medication ChangesOxycodone-Acetaminophen 10-325 MG Oral [...]
--- OUTSIDE RECORDS SUMMARY | 2017-05-20 06:32 | External Medical Summary | Summary of Care ---
:1950 Author Name Aletha Torrez, Luciana Address [address], [place] [id number] Care Team Providers Name Role Phone Inna Torrez, Radha Ramos Unavailable Unavailable Vance Torrez, David Ramos Unavailable Unavailable Luciana Pompa M.D. Unavailable Unavailable [...] with a max of 6 per day. [id number] Quantity: 180 Refills: 0 Richard Keith M.D. Started 23-Nov-2013 ActiveGabapentin 300 MG Oral Capsule 1 po morning and noon, 2 po HS Quantity: 120 Refills: 2 Richard Keith M.D. Started 13-May-2014 ActiveTriamcinolone Acetonide 0.1 % External Cream APPLY SPARINGLY AND MASSAGE IN TWICE DAILY. Quantity: 1 Refills: 11 Richard Keith M.D. Started 13-May-2014 [id number] GM Tube Morphine Sulfate ER 30 MG [...] Diagnosis: Problem not documented 10:45 Appointment; Richard Kieth On 06-May-2014 Encounter Diagnosis: Problem not documented [...]
--- OUTSIDE RECORDS SUMMARY | 2017-05-20 06:32 | External Medical Summary | Summary of Care ---
:1950 Author Name Darlyn Kern PA-C Address [address], [place] [id number] Care Team Providers Name Role Phone Yamileth Torrez, FACS, ,, M Tadeo Unavailable Unavailable Inna Torrez, Radha Ramos Unavailable Unavailable David [...] 6 Richard Keith M.D. Start 13-May-2014 Active Ipratropium-Albuterol 0.5-2.5 (3) MG/3ML Inhalation Solution NEBULIZE 1 VIAL FOUR TIMES A DAY----DX: J45.909, J43.9 Quantity: 180 Refills: 11 Richard Keith M.D. Start 01-Feb-2016 Active Cyclobenzaprine HCl - 10 MG Oral Tablet take one tablet by mouth every 8 hours as needed Quantity: 60 Refills: 3 Inna TorrezRichard Start 28-Dec-2015 Active Gabapentin 300 MG Oral Capsule ONE CAPSULE BY MOUTH EVERY MORNING AND NOON TWO CAPSULES BY MOUTH ATBEDTIME Quantity: 120 Refills: 2 Inna Torrez Richard Garcia Start 20-Mar-2016 Active Morphine Sulfate ER 30 MG Oral Tablet Extended Release Take 1 tablet twice daily *MUST LAST 30 DAYS* Quantity: 60 Refills: 0 Inna Torrez Richard Garcia Start 25-Aug-2014 Active Oxycodone-Acetaminophen 10-325 MG Oral Tablet Si PO every 4-6 hrs prn with a max of 6 per day. [id number] must last 30 days Quantity: 180 Refills: 0 Inna Torrez Richard Radha Start 23-Nov-2013 Active Azithromycin 500 MG Oral Tablet TAKE 1 TABLET DAILY UNTIL FINISHED. Quantity: 7 Refills: 1 Richard Keith M.D. Start 28-Mar-2016 Active Fluconazole 150 MG Oral Tablet TAKE 1 TABLET DAILY. Quantity: 7 Refills: 3 Inna TorrezRichard Start 28-Mar-2016 Active Allergies and Adverse Reactions [...] Schedule Radiology On 10-Feb-2017 10:00 Interventions Provided Labs/Procedures/ImagingXray ABD ( KUB); Done: Apr 03 2016 12:05PM Instructions Name Dates Details Instructions not documented Encounters Appointment; Richard Keith M.D. On 28-Mar-2016 Encounter Diagnosis: Problem not documented 14:45 Appointment; Richard Keith M.D. On 01-Feb-2016 Encounter Diagnosis: Problem not documented 11:30 Appointment; Vimal Rojo M.D. On 08-Jan-2016 Encounter Diagnosis: Problem not documented 10:40 Appointment; Richard Keith M.D. On 28-Dec-2015 Encounter Diagnosis: Problem not documented 13:15 Appointment; Richard Keith M.D. On Encounter Diagnosis: Problem not documented 13:15 Appointment; Tadeo Carson M.D.|Daniela,GABY|Shan,GABY, On 2015 Encounter Diagnosis: Problem not documented [...] Problem not documented 08:30 Appointment; Jacqueline Hill PGwendolyn On Encounter Diagnosis: Problem not documented [...]
--- OUTSIDE RECORDS SUMMARY | 2017-05-20 06:33 | External Medical Summary | Summary of Care ---
:1950 Author Name Inna Torrez, Radha Ramos Address [address], [place] [phone] Care Team Providers Name Role Phone Inna [...] with a max of 6 per day. [id number] Quantity: 180 Refills: 0 Richard Keith M.D. [...] Planned Encounters Appointment; Provider: Luciana Pompa On 05-Jul-2015 11:45 Appointment; Provider: Gerard Tillman On 02-Apr-2012 09:30 [...] Encounter Diagnosis: Problem not documented 08:15 Appointment; Rcihard Keith On 22-Nov-2013 Encounter Diagnosis: Problem not documented 09:30 Appointment; Gunner Bright On 25-Aug-2013 Encounter Diagnosis: Problem not documented 13:15 Appointment; Graham Mcmahan On 13-Aug-2013 Encounter Diagnosis: Problem not documented 09:00
--- OUTSIDE RECORDS SUMMARY | 2017-05-20 06:33 | External Medical Summary | Summary of Care ---
[...] with a max of 6 per day. [id number] Quantity: 180 Refills: 0 Richard Keith M.D. [...] Diagnosis: Problem not documented 14:15 Appointment; Luciana Pomap On 13-Jul-2015 Encounter Diagnosis: Problem not documented [...]
--- OUTSIDE RECORDS SUMMARY | 2017-05-20 06:33 | External Medical Summary | Summary of Care ---
:1950 Author Name Inna Torrez, Radha Ramos Address [address] [place], [place] [phone] Care Team Providers Name Role Phone Radha [...] with a max of 6 per day. [id number] must last 30 days Quantity: 180 Refills: [...]
--- OUTSIDE RECORDS SUMMARY | 2017-05-20 06:33 | External Medical Summary | Summary of Care ---
[...] with a max of 6 per day. [id number] Quantity: 180 Refills: 0 Richard Keith M.D. [...] Diagnosis: Problem not documented 09:30 Appointment; Cheng Harringtno On Encounter Diagnosis: Problem not documented 14:15 [...]
--- OUTSIDE RECORDS SUMMARY | 2017-05-20 06:33 | External Medical Summary | Summary of Care ---
:1950 Author Name Yamileth Torrez, GABY ,Nicolás Address Unavailable Unavailable , Care Team Providers Name Role Phone Yamileth Torrez, GABY, ,Nicolás Unavailable Unavailable Radha Keith M.D. Unavailable Unavailable David Woodard [...] with a max of 6 per day. [id number] Quantity: 180 Refills: 0 Richard Keith M.D. [...] of Salpingo-oophorectomy Left Side HASC Lumbar Epidural [id number] Ordered: Immunization Name Dates Details Immunizations not [...] SPINE LUMBAR W/ FLEX & EXT 15:30 [facility] PROCEDURE Comments: Exam Date: 11/16/2015 14: 40Dictation Date: 11/16/2015 15:30 Plan of Care Name Dates Details Planned Observations Planned Goals not documented Planned Encounters Appointment; Provider: Luciana Pompa M.D. On 10-Feb-2017 10:45 Appointment; Provider: Schedule Radiology On 10-Feb-2017 10:00 Appointment; Provider: Tadeo Carson M.D.|Saray|Shan,GABY|Shan,GABY, On 03-Apr-2016 11:45 Interventions Provided Labs/Procedures/ImagingXray ABD ( KUB); Done: Oct 03 2015 9:41AM Instructions Name Dates Details Instructions not documented Encounters Appointment; Cheng Harrington D.O. On Encounter Diagnosis: [...] Encounter Diagnosis: Problem not documented 09:00 Appointment; Nahed, Giorgi On 31-Jan-2014 Encounter Diagnosis: Problem not documented 13:30 Appointment; Samantha Gao M.D. On 31-Jan-2014 Encounter Diagnosis: Problem not documented 09:00 Appointment; Richard Keith M.D. On 17-Jan-2014 Encounter Diagnosis: Problem not documented 09:15 Appointment; Gunner Bright M.D. On 22-Dec-2013 Encounter Diagnosis: Problem not documented 08:00 Appointment; Gunner Bright M.D. On 30-Nov-2013 Encounter Diagnosis: Problem not documented 08:15 Appointment; Richard Keith M.D. On 22-Nov-2013 Encounter Diagnosis: Problem not documented 09:30"
--- OUTSIDE RECORDS SUMMARY | 2017-05-20 06:33 | External Medical Summary | Summary of Care ---
:1950 Author Name Inna Torrez, Radha Ramos Address [address], [place] [phone] Care Team Providers Name Role Phone Inna [...] with a max of 6 per day. [id number] Quantity: 180 Refills: 0 Richard Keith M.D. Started 23-Nov-2013 ActiveGabapentin 300 MG Oral Capsule 1 po morning and noon, 2 po HS Quantity: 120 Refills: 2 Richard Keith M.D. Started 13-May-2014 ActiveTriamcinolone Acetonide 0.1 % External Cream APPLY SPARINGLY AND MASSAGE IN TWICE DAILY. Quantity: 1 Refills: 11 Richard Keith M.D. Started 13-May-2014 [id number] GM Tube Morphine Sulfate ER 30 MG [...]
--- OUTSIDE RECORDS SUMMARY | 2017-05-20 06:33 | External Medical Summary | Summary of Care ---
:1950 Author Name Jacqueline Nova Address [address], [place] [phone] Care Team Providers Name Role Phone Radha [...] Refills: 11 Richard Keith M.D. Started 13-May-2014 [id number] GM Tube Morphine Sulfate ER 30 MG [...] Encounter Diagnosis: Problem not documented 09:45 Appointment; Lucaina Pompa On 20-Jun-2014 Encounter Diagnosis: Problem not [...]
--- OUTSIDE RECORDS SUMMARY | 2017-05-20 06:34 | External Medical Summary | Summary of Care ---
:1950 Author Name Nnamdi Harrington D.O. Address [address] [place], [place] [phone] Care Team Providers Name Role Phone Radha [...] with a max of 6 per day. [id number] Quantity: 180 Refills: 0 Richard Keith M.D. [...] Gerard Tillman On 02-Apr-2012 09:30 Appointment; Provider: Geradr Tillman On 17-May-2010 08:30 Appointment; Provider: Richard [...]
--- OUTSIDE RECORDS SUMMARY | 2017-05-20 06:34 | External Medical Summary | Summary of Care ---
:1950 Author Name Inna Torrez, Radha Ramos Address [address] [place], [place] [phone] Care Team Providers Name Role Phone Inna [...] with a max of 6 per day. [id number] must last 30 days Quantity: 180 Refills: [...] Description Value Details 04-Jun-2016 15:39 HSV CULTURE [id number] Comments: [email or web address] performed at: [facility], [facility], [address] [place], [address], Manufacturing Engineering Manager: Per Hoffman D.O., MPHQuest Collection Date/Time: [id number] Results Received Date/Time: [id number] Reported Date /Time: [id number] VAGINAL LESION FASTING:NO SOURCE: LESION Comments: [MD]----- HSV CULTURE: NOT ISOLATED Comments: [MD]----- Plan of Care Name Dates Details Planned [...] Problem not documented 08:15 Appointment; Tadeo Carson M.D.,[facility], On 03-Apr-2016 Encounter Diagnosis: Problem not documented 11:45 Appointment; Richard Keith M.D. On 28-Mar-2016 Encounter Diagnosis: Problem not documented 14:45 Appointment; Richard Keith M.D. On 01-Feb-2016 Encounter Diagnosis: Problem not documented 11:30 Appointment; Vimal Rojo M.D. On 08-Jan-2016 Encounter Diagnosis: Problem not documented 10:40 Appointment; Rihcard Keith M.D. On 28-Dec-2015 Encounter Diagnosis: Problem not documented 13:15 Appointment; Richard Keith M.D. On Encounter Diagnosis: Problem not documented 13:15 Appointment; Tadeo Carson M.D.,[facility], On Encounter Diagnosis: Problem not documented 09:30 [...]
--- OUTSIDE RECORDS SUMMARY | 2017-05-20 06:34 | External Medical Summary | Summary of Care ---
:1950 Author Name Luciana Pompa M.D. Address [address], [place] [phone] Care Team Providers Name Role Phone Radha [...] Take 1 tablet daily Refills: 0 Started 30-Oct-2008 ActivePoly-Iron 150 Forte 150-25-1 MG-MCG-MG Oral Capsule si cap daily Quantity: 30 Refills: 6 Richard Woodard M.D. Started ActivePremarin 0.625 MG/GM Vaginal Cream USE 1/3 APPLICATOR VAGINALLY AT BEDTIME TWICE WEEKLY Quantity: 30 Refills: 11 Richard Keith M.D. Started 08-Feb-2013 ActiveOxycodone-Acetaminophen 10-325 MG Oral Tablet Si PO every 4-6 hrs prn with a max of 6 per day. [id number] Quantity: 180 Refills: 0 Richard Keith M.D. [...] Diagnosis: Problem not documented 08:15 Appointment; Luciana oPmpa On Encounter Diagnosis: Problem not documented 08:30 [...]
--- OUTSIDE RECORDS SUMMARY | 2017-05-20 06:34 | External Medical Summary | Summary of Care ---
:1950 Author Name Inna Torrez, Radha Ramos Address [address], [place] [phone] Care Team Providers Name Role Phone Inna Torrez, Radha Ramos Unavailable Unavailable Vance Torrez, David Ramos Unavailable Unavailable Aletha Torrez, Luciana Unavailable Unavailable Liz Redd, Jacqueline Unavailable Unavailable Deangelo Torrez, Roosevelt Martino Unavailable [...] by Dr. Bright Quantity: 180 Refills: 0 Gunner Bright M.D. Started 28-Dec-2014 ActiveGabapentin 300 MG Oral Capsule 1 po morning and noon, 2 po HS Quantity: 120 Refills: 2 Jacqueline Hill Started 13-May-2014 ActiveTriamcinolone Acetonide 0.1 % External Cream APPLY SPARINGLY AND MASSAGE IN TWICE DAILY. Quantity: 1 Refills: 11 Richard Keith M.D. Started 13-May-2014 [id number] GM Tube Morphine Sulfate ER 30 MG [...] Status: Results Date Description Value Details 01-Dec-2014 Drug Screen PM, Tramadol Comments: [facility] performed at: [facility], [address] [place] [address], [facility] [address], [address], Manager Safe: Shantelle Santana Ph.D.[facility] Collection Date/Jacinto 09:36 [id number] e: [id number] Results Received Date/Time: [id number] Reported Date/Time: [id number] Desmethyltramadol NEGATIVE ng/mL Range: <100 (Better) Comments: [AP]----- Tramadol NEGATIVE ng/mL Range: <100 (Better) Comments: [AP]----- 02-Dec-2014 Drug Screen PM, Fentanyl Comments: [facility] [employer] performed at: [facility], [address] [place] [address], [facility] [address], [address], Manager Safe: Shantelle Santana Ph.D.[facility] Collection Date/Jacinto 07:50 [id number] e: [id number] Results Received Date/Time: [id number] Reported Date/Time: [id number] performed at: AP, [facility], [address] [facility], [address], [place], [address], Manager Safe: Shantelle Santana Ph.D.[facility] Collection Date/Time: [id number] Results Received Date/Time: [id number] Reported Date/Time: 00Quest performed at: AP, [facility], [address] [place] [address], [address], [place], [address], Manager Safe: Shantelle Santana Ph.D.[facility] Collection Date/Time: [id number] Results Received Date/Time: [id number] Reported Date/Time: [id number] Fentanyl NEGATIVE ng/mL Range: <0.5 (Better) Comments: [AP]----- Norfentanyl NEGATIVE ng/mL Range: <0.5 (Better) Comments: [AP]----- 07:50 Drug Screen PM, Meperidine Comments: [facility] performed at: AP, [facility], [address] [place] [address], [address], [place], [address], Manager Safe: Shantelle Santana Ph.D.[facility] Collection Date/Jacinto [id number] e: [id number] Results Received Date/Time: [id number] Reported Date/Time: [id number] performed at: AP, [facility], [address] [place] [address], [address], [place], [address], Manager Safe: Shantelle Santana Ph.D.[facility] Collection Date/Time: [id number] Results Received Date/Time: [id number] Reported Date/Time: [id number] performed at: AP, [facility], [address] [place] [address], [address], [place], [address], Manager Safe: Shantelle Santana Ph.D.[facility] Collection Date/Time: [id number] Results Received Date/Time: [id number] Reported Date/Time: [id number] Meperidine NEGATIVE ng/mL Range: <100 (Better) Comments: [AP]----- Normeperidine NEGATIVE ng/mL Range: <100 (Better) Comments: [AP]----- 05-Dec-2014 Drug Screen PM Profile 1 Comments: [facility] performed at: , [facility], [address] [place] [address], [address], [place], [address], Manager Safe: Shantelle Santana Ph.D.Quest Collection Date/Jacinto 07:52 [id number] e: [id number] Results Received Date/Time: [id number] Reported Date/Time: [id number] performed at: , [facility], [address] [place] [address], [address], [place], [address], Manager Safe: Shantelle Santana Ph.D.[facility] Collection Date/Time: [id number] Results Received Date/Time: [id number] Reported Date/Time: [id number] performed at: AP, [facility], [address] [place] [address], [address], [place], [address], Manager Safe: Shantelle Santana Ph.D.[facility] Collection Date/Time: [id number] Results Received Date/Time: [id number] Reported Date/Time: [id number] performed at: AP, [facility], [address] [place] [address], [address], [place], [address], Manager Safe: Shantelle Santana Ph.D.[facility] Collection Date/Time: [id number] Results Received Date/Time: [id number] Reported Date/Time : [id number] performed at: AP, [facility], [address] [place] [address], [address], [place], [address] , Manager Safe: Shantelle Santana Ph.D.Quest Col lection Date/Time: [id number] Results Received Date/Time: [id number] Reported Date/Time: [id number] Management Profile 1 w/ Confirmation, Urine Drug 1 MorphinePain Management Profile 1 w/ Confirmation, Urine Drug 2 PercocetPain Management Profile 1 w/ Confirmation, Urine Drug 3 No Answer GivenPain Management Profile 1 w/ Confirmation, Urine Drug 4 No Answer GivenPain Genesis gement Profile 1 w/ Confirmation, Urine Drug 5 No Answer Given Prescribed Drug 1 Morphine (Better) Comments: [AP]----- Prescribed Drug 2 Percocet(TM) Comments: [AP]----- (Better) Creatinine 79.8 mg/dL Range: > or=20.0 (Better) Comments: [AP]----- pH 6.57 (Better) Range: 4.5 - 9.0 Comments: [AP]----- Oxidant NEGATIVE mcg/mL Range: <200 (Better) Comments: [AP]----- Amphetamines NEGATIVE ng/mL Range: <500 (Better) Comments: [AP]----- medMATCH Amphetamines CONSISTENT Comments: [AP]----- (Better) Barbiturates NEGATIVE ng/mL Range: <300 (Better) Comments: [AP]----- medMATCH Barbiturates CONSISTENT Comments: [AP]----- (Better) Benzodiazepines POSITIVE ng/mL Range: <100 (Abnormal) Comments: [AP]----- Alphahydroxyalprazolam NEGATIVE ng/mL Range: <25 (Better) Comments: [AP]----- medMATCH aOH alprazolam CONSISTENT Comments: [AP]----- (Better) Alphahydroxymidazolam 61 ng/mL (Above Range: <50 high threshold) Comments: [AP]----- medMATCH aOH midazolam INCONSISTENT Comments: [AP]----- (Better) Alphahydroxytriazolam NEGATIVE ng/mL Range: <50 (Better) Comments: [AP]----- medMATCH aOH triazolam CONSISTENT Comments: [AP]----- (Better) Aminoclonazepam NEGATIVE ng/mL Range: <25 (Better) Comments: [AP]----- medMATCH Aminoclonazepam CONSISTENT Comments: [AP]----- (Better) Hydroxyethylflurazepam NEGATIVE ng/mL Range: <50 (Better) Comments: [AP]----- medMATCH OH,Et flurazepam CONSISTENT Comments: [AP]----- (Better) Lorazepam NEGATIVE ng/mL Range: <50 (Better) Comments: [AP]----- medMATCH Lorazepam CONSISTENT Comments: [AP]----- (Better) Nordiazepam NEGATIVE ng/mL Range: <50 (Better) Comments: [AP]----- medMATCH Nordiazepam CONSISTENT Comments: [AP]----- (Better) Oxazepam NEGATIVE ng/mL Range: <50 (Better) Comments: [AP]----- medMATCH Oxazepam CONSISTENT Comments: [AP]----- (Better) Temazepam NEGATIVE ng/mL Range: <50 (Better) Comments: [AP]----- medMATCH Temazepam CONSISTENT Comments: [AP]----- (Better) Marijuana Metabolite NEGATIVE ng/mL Range: <20 (Better) Comments: [AP]----- medMATCH Marijuana Metab CONSISTENT Comments: [AP]----- (Better) Cocaine Metabolite NEGATIVE ng/mL Range: <150 (Better) Comments: [AP]----- medMATCH Cocaine Metab CONSISTENT Comments: [AP]----- (Better) Methadone NEGATIVE ng/mL Range: <100 (Better) Comments: [AP]----- medMATCH Methadone CONSISTENT Comments: [AP]----- (Better) Opiates POSITIVE ng/mL Range: <100 (Abnormal) Comments: [AP]----- Codeine NEGATIVE ng/mL Range: <50 (Better) Comments: [AP]----- medMATCH Codeine CONSISTENT Comments: [AP]----- (Better) Hydrocodone 2402 ng/mL (Above Range: <50 high threshold) Comments: [AP]----- medMATCH Hydrocodone INCONSISTENT Comments: [AP]----- (Better) Hydromorphone 199 ng/mL (Above Range: <50 high threshold) Comments: [AP]----- medMATCH Hydromorphone INCONSISTENT Comments: Hydromorphone is a metabolite of hydrocodone as wellas a prescribed drug.[AP]----- (Better) Morphine NEGATIVE ng/mL Range: <50 (Better) Comments: [AP]----- medMATCH Morphine INCONSISTENT Comments: [AP]----- (Better) Norhydrocodone 2860 ng/mL (Above Range: <50 high threshold) Comments: [AP]----- medMATCH Norhydrocodone INCONSISTENT Comments: Norhydrocodone is a metabolite of Hydrocodone.[AP]----- (Better) Oxycodone POSITIVE ng/mL Range: <100 (Abnormal) Comments: [AP]----- Noroxycodone 2347 ng/mL (Above Range: <50 high threshold) Comments: [AP]----- medMATCH Noroxycodone CONSISTENT Comments: Noroxycodone is a metabolite of Oxycodone.[AP]----- (Better) Oxycodone NEGATIVE ng/mL Range: <50 (Better) Comments: [AP]----- medMATCH Oxycodone CONSISTENT Comments: [AP]----- (Better) Oxymorphone 429 ng/mL (Above Range: <50 high threshold) Comments: [AP]----- medMATCH Oxymorphone CONSISTENT Comments: Oxymorphone is a metabolite of oxycodone as well asa prescribed drug.[AP]----- (Better) Phencyclidine NEGATIVE ng/mL Range: <25 (Better) Comments: [AP]----- medMATCH Phencyclidine CONSISTENT Comments: [AP]----- (Better) COMMENT SEE NOTE (Better) Comments: medMATCH comments are: - present when drug test results may be the result of metabolism of one or more drugs or when results are inconsistent with prescribed medication(s) listed. - may be blank whe n drug results are consistent with prescribed medication(s) listed.[AP] ----- 07:52 Drug Screen PM, Alcohol Comments: [facility] performed at: [facility], [address] [place] [address], [address], [place], [address], Manager Safe: Shantelle Santana Ph.D.Quest Collection Date/Jacinto Metabolites [id number] e: [id number] Results Received Date/Time: [id number] Reported Date/Time: [id number] performed at: [facility], [address] [place] [address], [address], [place], [address], Manager Safe: Shantelle Santana Ph.D.Quest Collection Date/Time: [id number] Results Received Date/Time: [id number] Reported Date/Time: [id number] performed at: [facility], [address] [place] [address], [address], [place], [address], Manager Safe: Shantelle Santana Ph.D.Quest Collection Date/Time: [id number] Results Received Date/Time: [id number] Reported Date/Time: [id number] performed at: [facility], [address] [place] [address], [address], [place], [address], Manager Safe: Shantelle Santana Ph.D.Quest Collection Date/Time: [id number] Results Received Date/Time: [id number] Reported Date/Time : [id number] performed at: [facility], [address] [place] [address], [address], [place], [address] , Manager Safe: Shantelle Santana Ph.D.Quest Col lection Date/Time: [id number] Results Received Date/Time: [id number] Reported Date/Time: [id number] Alcohol Metabolites NEGATIVE ng/mL Range: <500 (Better) Comments: [AP]----- Please note: SEE NOTE (Better) Comments: * These results are for medical treatment only Analysis was performed as non-forensic testing *For assistance with interpreting these drug results,please contact a [facility] ToxicologySpecial ist: [phone] ( ),M-F, 8am-6pm EST.[AP]----- Plan of Care Planned Observations Name Dates [...]
--- OUTSIDE RECORDS SUMMARY | 2017-05-20 06:34 | External Medical Summary | Summary of Care ---
:1950 Author Name Inna Torrez, Radha Ramos Address [address] [place], [place] [phone] Care Team Providers Name Role Phone Radha [...] with a max of 6 per day. [id number] must last 30 days Quantity: 180 Refills: [...] 0 Richard Keith M.D. Start 25-Aug-2014 Active Ipratropium-Albuterol 0.5-2.5 (3) MG/3ML Inhalation Solution NEBULIZE 1 VIAL FOUR TIMES A DAY----DX: J45.909, J43.9 Quantity: 180 Refills: 11 Inna TorrezRichard Radha Start 01-Feb-2016 Active Vitamin B-12 1000 MCG Oral Tablet Take 1 tablet daily Refills: 0 Start 18-Feb-2008 Active Cyclobenzaprine HCl - 10 MG Oral Tablet take one tablet by mouth every 8 hours as needed Quantity: 60 Refills: 3 Richard Keith M.D. Start 28-Dec-2015 Active Allergies and Adverse Reactions [...] On 28-Mar-2016 14:45 Interventions Provided Medication ChangesAzithromycin 500 MG Oral Tablet - CompletedPredniSONE 10 MG Oral Tablet - CompletedPredniSONE 10 MG Oral Tablet - CompletedInstructions Intermediate Counseling(3-10min) Smoke & Tobacco Cessation - [...] we can help. You may also call [address] [place], [place] [address]NOW for free resources and assistance.; Done: Instructions [...]
--- OUTSIDE RECORDS SUMMARY | 2017-05-20 06:34 | External Medical Summary | Summary of Care ---
:1950 Author Name Inna Torrez, Radha Ramos Address [address], [place] [id number] Care Team Providers Name Role Phone Inna [...] 30 Refills: 6 Richard Woodard M.D. Started ActiveTriamcinolone Acetonide 0.1 % External Cream APPLY SPARINGLY AND MASSAGE IN TWICE DAILY. Quantity: 1 Refills: 11 Richard Keith M.D. Started 13-May-2014 [id number] GM Tube Mixture Vulvodynia cream-Apply to Vuvla TID Refills: 0 Luciana Pompa M.D. Started ActivePremarin 0.625 MG/GM Vaginal Cream USE 1/3 APPLICATOR VAGINALLY AT BEDTIME TWICE WEEKLY Quantity: 30 Refills: 11 Richard Keith M.D. Started 08-Feb-2013 ActiveSymbicort 160-4.5 MCG/ACT Inhalation Aerosol INHALE 2 PUFFS TWICE DAILY. RINSE MOUTH AFTER USE. Quantity: 1 Refills: 6 Richard Keith M.D. Started 28-Feb-2015 Active6 GM Inhaler Gabapentin 300 MG Oral Capsule 1 po morning and noon, 2 po HS Quantity: 120 Refills: 2 Richard Keith M.D. Started 13-May-2014 ActiveMorphine Sulfate ER 30 MG Oral Tablet Extended Release Take 1 tablet twice daily *MUST LAST 30 DAYS* Quantity: 60 Refills: 0 Richard Keith M.D. Started 25-Aug-2014 ActiveOxycodone-Acetaminophen 10-325 MG Oral Tablet Si PO every 4-6 hrs prn with a max of 6 per day. [id number] Quantity: 180 Refills: 0 Richard Keith M.D. Started 23-Nov-2013 Active Allergies and Adverse [...]
--- OUTSIDE RECORDS SUMMARY | 2017-05-20 06:35 | External Medical Summary | Summary of Care ---
:1950 Author Name Inna Torrez, Radha Ramos Address [address] [place], [place] [id number] Care Team Providers Name Role Phone Radha [...] with a max of 6 per day. [id number] must last 30 days Quantity: 180 Refills: [...] twice daily *MUST LAST 30 DAYS*AUGUST FILL 06/19/16 Quantity: 60 Refills: 0 Inna [...] (Fiberoptic) History of Salpingo-oophorectomy Left Side CT NECK WITH IV CONTRAST Ordered: 30-Jul-2016 Immunization Name Dates Details Immunizations not documented [...] Body Surface Area Calculated 1.27 m2 Status: 09-Jul-2016 08:49 BP Systolic 115 mm[Hg] Status: [...] 10-Feb-2017 10:00 Appointment; Provider: Schedule Radiology On 02-Aug-2016 08:30 Interventions Provided Medication ChangesCyclobenzaprine HCl - 10 MG Oral Tablet - [facility]/Procedures /ImagingCT NECK WITH IV CONTRAST; To be Done: 30 Jul 2016 Instructions Name Dates Details Instructions not [...] Encounter Diagnosis: Problem not documented 09:30 Appointment; hCeng Harrington D.O. On Encounter Diagnosis: Problem not [...]
--- OUTSIDE RECORDS SUMMARY | 2017-05-20 06:35 | External Medical Summary | Summary of Care ---
:1950 Author Name Roosevelt Bright M.D. Address [address], [place] [id number] Care Team Providers Name Role Phone Inna Torrez, Radha Ramos Unavailable Unavailable David Woodard M.D. Unavailable Unavailable Aletha Torrez, Luciana Unavailable Unavailable Jacqueline Nova Unavailable Unavailable Deangelo [...] Refills: 11 Richard Keith M.D. Started 13-May-2014 [id number] GM Tube Morphine Sulfate ER 30 MG [...] 08:30 Instructions Instructions not documented Encounters Appointment; Gunner Bright On 28-Nov-2014 Encounter Diagnosis: [...]
--- OUTSIDE RECORDS SUMMARY | 2017-05-20 06:35 | External Medical Summary | Summary of Care ---
:1950 Author Name Inna Torrez, Radha Ramos Address [address], [place] [id number] Care Team Providers Name Role Phone Inna [...] Refills: 11 Richard Keith M.D. Started 13-May-2014 [id number] GM Tube Morphine Sulfate ER 30 MG Oral Tablet Extended Release Si PO every 12 hours with a max of 2 per day. Script must last [address] Bright. Quantity: 60 Refills: 0 Gunner Bright M.D. Started 28-Dec-2014 ActiveMixture Vulvodynia cream-Apply to Vuvla TID Refills: 0 Luciana Pomap M.D. Started Active Allergies and Adverse Reactions [...]
--- OUTSIDE RECORDS SUMMARY | 2017-05-20 06:35 | External Medical Summary | Summary of Care ---
:1950 Author Name Jacqueline Nova Address [address], [place] [id number] Care Team Providers Name Role Phone Inna Torrez, Radha Ramos Unavailable David Estrada M.D. Unavailable Unavailable Jacqueline Nova Unavailable Sigifredo Bright M.D., Roosevelt Martino Unavailable Unavailable Richard Keith Primary [...] 180 Refills: 0 Jacqueline Hill P.ATy Started 29-Aug-2014 ActiveTriamcinolone Acetonide 0.1 % External Cream APPLY SPARINGLY AND MASSAGE IN TWICE DAILY. Quantity: 1 Refills: 11 Richard Keith M.D. Started 13-May-2014 [id number] GM Tube Gabapentin 300 MG Oral Capsule Si PO Tid.Start with 1 po HS and gradually titrate to 3 x daily. Quantity: 90 Refills: 0 Jacqueline Hill PTyATy Started 13-May-2014 ActiveMorphine Sulfate ER 30 MG Oral Tablet Extended Release Si PO every 12 hours with a max of 2 per day. Script must last [address] Bright. Quantity: 60 Refills: 0 Jacqueline Hill PTyATy Started 25-Aug-2014 Active Allergies and Adverse Reactions [...]
--- OUTSIDE RECORDS SUMMARY | 2017-05-20 06:35 | External Medical Summary ---
:1950 Author Name GENERATED, SYSTEM Care Team Providers Name Role Phone MD BISHNU, GERTRUDIS Primary Care Provider Unavailable Reason For Visit Reason for Visit from 09/26/2015 11:38 PM:Pt Stated Reason for Adm : right sided pain Chief Complaint RIGHT URETERAL LITHIASIS Social History Social History from 09/27/2015 6:29 PM:Tobacco Use? : Current Everyday SmokerSocial History from 09/26/2015 11:38 PM:Tobacco Use? : Current Everyday Smoker Functional Status Functional Status from 09/27/2015 5:14 PM:LOC : AlertOriented To : Person,Place, EventFunctional Status from 09/27/2015 4:42 PM:LOC : DrowsyOriented To : PersonFunctional Status from 09/27/2015 8:06 AM:LOC : AlertOriented To : Person, Place,TimeWeight Bearing Status : FullAssist Level : Partial# Assists : 1Functional Status from 09/26/2015 11:38 PM:LOC : AlertOriented To : Person,Place, Time,EventWeight Bearing Status : FullAssist Level : Partial# Assists : 1 Vital Signs Hospital Vital Signs from 09/27/2015 5:50 PM:Height : 4/10 ft,inTemperature : 98.3 FPulse : 101Respirations : 18BP : 130/60Hospital Vital Signs from 09/27/2015 5:05 PM:Heart Rate : 95Resp Rate : 19Systolic BP (mmHg) : 131Diastolic BP (mmHg ) : 81Mean BP (mmHg) : 96O2 Saturation (%) : 99Hospital Vital Signs from 2015 5:00 PM:Heart Rate : 97Resp Rate : 23Systolic BP (mmHg) : 122Diastolic BP ( mmHg) : 79Mean BP (mmHg) : 86O2 Saturation (%) : 100Hospital Vital Signs from 09/27/2015 4:55 PM:Temp : 98.5Heart Rate : 90Resp Rate : 13Systolic BP (mmHg) : 107Diastolic BP (mmHg) : 71Mean BP (mmHg) : 81O2 Saturation (%) : 100Hospital Vital Signs from 09/27/2015 4:50 PM:Heart Rate : 90Resp Rate : 12O2 Saturation (% ) : 100Hospital Vital Signs from 09/27/2015 4:45 PM:Heart Rate : 89Resp Rate : 12Systolic BP (mmHg) : 120Diastolic BP (mmHg) : 71Mean BP (mmHg) : 83O2 Saturation (%) : 97Hospital Vital Signs from 09/27/2015 4:42 PM:Temp : 98.1Hospital Vital Signs from 09/27/2015 12:45 PM:Height : 4/10 ft,inTemperature : 98.3 FBP : 144/72Hospital Vital Signs from 09/27/2015 12:01 PM:Height : 4/10 ft, inPulse : 90Respirations : 16Hospital Vital Signs from 09/27/2015 9:02 AM:Height : 4/10 ft,inHospital Vital Signs from 09/27/2015 7:45 AM:Height : 4/10 ft, inHospital Vital Signs from 09/27/2015 7:40 AM:Height : 4/10 ft,inTemperature : 98.3 FPulse : 100Respirations : 18BP : 111/61Hospital Vital Signs from 09/27/2015 3:29 AM:Height : 4/10 ft,inPulse : 102Respirations : 18BP : 98/56Hospital Vital Signs from 09/26/2015 11:38 PM:Weight : 38.7/ kgHeight : 4/10 ft,inHospital Vital Signs from 09/26/2015 11:38 AM:Weight : 38.7/ kgHeight : 4/10 ft,inTemperature : 97.8 FPulse : 109Respirations : 18BP : 115/65 Results Problems Encounter Diagnosis Acute Pain Status:Active.Fall Risk Status:Active. Encounters Encounter Diagnosis Acute Pain Status:Active.Fall Risk Status:Active. Plan of Care Treatment Plan from 09/27/2015 11:20 AM:Care Management Note : Patient is Observation in a medical bed. Patient was seen in ER with complaints of back pain and was found to have a right ureteral lithiasis. Patient is currently being treated with NPO, levaquin IV daily, NS@125, NPO, and Urology consult. Abnormal labs: Bun- 24, Cr- 1.06, Glu-135, Ca- 7.4, Alb- 2.6, Wbc- 13.1, Platelets- 119, Anc- 11.79. VSS on RA at this time. Plan is for Patient to go for cystoscopy, right ureteroscopy, and possible stent placement. Patient remains Observation status appropriate at this time. SW notified of POC. Care Management will continue to follow. Procedures Completed right ureteroscopy with stent insertion, Right, on 09/27/2015 4:13 PMCompleted , on 04/02/2012 12:00 AMCompleted , on 04/02/2012 12:00 AMCompleted , on 04/02/2012 12:00 AMCompleted , on 04/02/2012 12:00 AMCompleted , on 2011 12:00 AMCompleted , on 04/02/2012 12:00 AMCompleted , on 04/02/2012 12:00 AMCompleted , on 04/02/2012 12:00 AMCompleted , on 04/02/2012 12:00 AMCompleted , on 04/02/2012 12:00 AMCompleted , on 04/02/2012 12:00 AMCompleted , on 2011 12:00 AMCompleted , on 05/17/2010 12:00 AM Immunizations No immunizations administered or ordered. Hospital Course Hospital Discharge Instructions How to care for yourself at home from 09/27/2015 6:29 PM:Discharge Activity : Activity as tolerated,May ShowerDischarge Diet : Diet as toleratedCall your doctor if: : Fever over 101 F or severe chills,You have persistent or worsening symptomsSpecific Discharge Teaching Instructions provided: : YesDischarge on Warfarin : No Allergies, Adverse Reactions, Alerts Latex causes Rash.Penicillins causes Severe Hives.No IV Contrast Allergy.No Known Food Allergies. Medication It is the responsibility of the patient or patient sales donor recruitment representative to confirm the list of medicationswith either the patient's personal care provider or the patient's follow-up care provider to ensure the patient has an appropriate list of medications to take at home. Discharge medicationsNew medicationsphenazopyridine 200 mg Tablet, Ordered By: LEONARD GALINDO RN Directions: 1 tablet oral three times a day PRN pain levofloxacin 500 mg Tablet, Ordered By: LEONARD GALINDO RN Directions: 1 tablet oral daily Additional Instructions: CAUTION: ADMINISTER 2 HOURS BEFORE OR AT LEAST 4 HR AFTER ANTACIDS, IRON, CALCIUM, MVI HYDROcodone-acetaminophen (Posey) 5 mg-325 mg Tablet, Ordered By: LEONARD GALINDO RN Directions: 1 tablet oral every four hours PRN pain Stopped medicationsgabapentin 300 mg Capsule morphine 30 mg Tablet Extended Release oxyCODONE-acetaminophen 10 mg-325 mg Tablet
--- OUTSIDE RECORDS SUMMARY | 2017-05-20 06:35 | External Medical Summary | Summary of Care ---
[...] with a max of 6 per day. [id number] must last 30 days Quantity: 180 Refills: [...] 30 DAYS* Quantity: 60 Refills: 0 Inna TorrezRichrad Start 25-Aug-2014 Active Cyclobenzaprine HCl - 10 [...] Description Value Details 04-Jun-2016 15:39 HSV CULTURE [id number] Comments: [employer] performed at: [facility] [address] [place], [address], Lawn Specialist: Per Hoffman D.O., MPHQuest Collection Date/Time: [id number] Results Received Date/Time: [id number] Reported Date /Time: [id number] VAGINAL LESION FASTING:NO SOURCE: LESION Comments: [MT]----- HSV CULTURE: NOT ISOLATED Comments: [MT]----- Plan of Care Name Dates Details Planned [...] Problem not documented 08:15 Appointment; Tadeo Carson M.D.,[facility], On 03-Apr-2016 Encounter Diagnosis: Problem not [...] Problem not documented 13:15 Appointment; Tadeo Carson M.D.,[facility], On Encounter Diagnosis: Problem not documented [...]
--- OUTSIDE RECORDS SUMMARY | 2017-05-20 06:35 | External Medical Summary | Summary of Care ---
:1950 Author Name Inna Torrez, Radha Ramos Address [address], [place] [id number] Care Team Providers Name Role Phone Inna [...] with a max of 6 per day. [id number] Quantity: 180 Refills: 0 Richard Keith M.D. Started 23-Nov-2013 ActiveGabapentin 300 MG Oral Capsule 1 po morning and noon, 2 po HS Quantity: 120 Refills: 2 Richard Keith M.D. Started 13-May-2014 ActiveTriamcinolone Acetonide 0.1 % External Cream APPLY SPARINGLY AND MASSAGE IN TWICE DAILY. Quantity: 1 Refills: 11 Richard Keith M.D. Started 13-May-2014 [id number] GM Tube Morphine Sulfate ER 30 MG [...]
--- OUTSIDE RECORDS SUMMARY | 2017-05-20 06:35 | External Medical Summary | Summary of Care ---
:1950 Author Name Roosevelt Bright M.D. Address [address] [place], [place] [id number] Care Team Providers Name Role Phone Inna [...] Refills: 11 Richard Keith M.D. Started 13-May-2014 [id number] GM Tube Morphine Sulfate ER 30 MG [...] Encounter Diagnosis: Problem not documented 09:45 Appointment; Luciaan Pompa On 20-Jun-2014 Encounter Diagnosis: Problem not [...]
--- OUTSIDE RECORDS SUMMARY | 2017-05-20 06:35 | External Medical Summary | Summary of Care ---
:1950 Author Name Jacqueline Nova Address [address], [place] [id number] Care Team Providers Name Role Phone Inna [...] Refills: 11 Richard Keith M.D. Started 13-May-2014 [id number] GM Tube Morphine Sulfate ER 30 MG [...] not documented Encounters Appointment; Jacqueline Hill On 25-Aug-2014 Encounter Diagnosis: [...]
--- OUTSIDE RECORDS SUMMARY | 2017-05-20 06:36 | External Medical Summary | Continuity of Care Document ---
:1950 Author Organization [facility] Allergies Active Description Code Type Severity Reaction Onset Reported/ Identified Relationship Clinical to Patient Status Yes No Known No Drug Unknown N/A 03/04/2005 Contrast Known Aller Allergies Contr gy ast Aller gies Yes No Known No Drug Unknown N/A 03/04/2005 Food Known Aller Allergies Food gy Aller gies Yes NO KNOWN NO Drug Unknown N/A 03/04/2005 LATEX KNOWN Aller ALLERGY/SENS LATEX gy ITI ALLER GY/SE NSITI Yes PENICILLIN PENIC Drug Unknown RASH 03/04/2005 ILLIN Aller gy Yes Penicillins Penic Drug Unknown N/A 03/04/2005 illin Aller s gy Yes Penicillins Penic Drug Mild DIFF 04/27/2017 illin Aller BREATHING s gy Yes Penicillins Penic Drug Mild DIFF 04/27/2017 illin Aller BREATHING s gy Medications There is no data. 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 04/28/2017 Alberto DRISCOLL, F E83.42 HYPOMAGNESEMIA Durga B 04/28/2017 Alberto DRISCOLL, F E87.5 HYPERKALEMIA Durga B 04/28/2017 Alberto DRISCOLL, F E87.6 HYPOKALEMIA Durga B 04/28/2017 Alberto DRISCOLL, F G92 TOXIC ENCEPHALOPATHY Durga B 04/28/2017 Alberto DRISCOLL, F J18.9 PNEUMONIA, Durga B UNSPECIFIED ORGANISM 04/28/2017 Alberto DRISCOLL, F J44.0 CHRONIC OBSTRUCTIVE Durga B PULMON DISEASE W ACUTE LOWER R 04/28/2017 Alberto DRISCOLL, F J96.20 ACUTE AND CHR RESP Durga B FAILURE, UNSP W HYPOXIA OR HYPE 04/28/2017 Alberto DRISCOLL, A R41.82 ALTERED MENTAL Durga B STATUS, UNSPECIFIED 04/28/2017 Alberto DRISCOLL, F T40.605A ADVERSE EFFECT OF Durga B UNSPECIFIED NARCOTICS, INITIAL E 04/28/2017 Alberto DRISCOLL, F Y92.[address] [facility] Durga B NON-INSTITUT (PRIVATE) RESIDEMS 04/28/2017 Alberto DRISCOLL F Z68.1 BODY MASS INDEX Durga Joseph (BMI) 19.9 OR LESS, ADULT 04/28/2017 Alberto DRISCOLL F 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 Procedures There is no data.<section xmlns="urn:hl7-org:v3" xmlns:xsi=" http://www.kompany3.org/2000/XMLSchema-instance"> <templateId root=" [id number]" /> <templateId root=" [id number]" /> <code codeSystemName=" LOINC" codeSystem="[id number]" code="80813-9&quot ; displayName="Results" /> <title>Results</title> &lt ;text> <table> <thead> <tr> <th& gt;Test</th> <th>Result</th> <th>Range </th> </tr> </thead> <tbody> &lt ;tr> <th colspan="10">UR DRUGS OF ABUSE SCREEN - 11/05 15:14</th> </tr> <tr> <td> UR AMPHETAMINES SCREEN</td> <td>NEG (<1000 ng/mL) & lt;/td> <td>NEGATIVE</td> </tr> < tr> <td>UR BARBITURATE SCREEN</td> <td> NEG (< 200 ng/mL) </td> <td>NEGATIVE</td> </tr> <tr> <td>DRUGS OF ABUSE SCREEN COMMENT</td> <td> </td> <td /> </tr> <tr> <td>UR OPIATES SCREEN</td& gt; <td>POS (> 300 ng/mL) </td> <td> NEGATIVE</td> </tr> <tr> <td>UR PHENCYCLIDINE (PCP) SCREEN</td> <td>NEG (< 25 ng/ mL) </td> <td>NEGATIVE</td> </tr> <tr> <td>UR CANNABINOIDS (THC) SCREEN</td> <td>POS (> 50 ng/mL) </td> <td>NEGATIVE&lt ;/td> </tr> <tr> <td>UR COCAINE METABOLITE SCREEN</td> <td>NEG (< 300 ng/mL) </ td> <td>NEGATIVE</td> </tr> <tr& gt; <td>UR METHADONE SCREEN</td> <td>NEG (& amp;lt; 300 ng/mL) </td> <td>NEGATIVE</td> </tr& gt; <tr> <td>UR BENZODIAZEPINE SCREEN</td> <td>NEG (< 200 ng/mL) </td> <td> NEGATIVE</td> </tr> <tr> <th colspan ="10">CBC W/DIFF - 04/27/17 15:16</th> </tr> <tr> <td>BASOPHIL #</td> <td>0.0 k/cumm</td> <td>0.0-0.2</td></tr> <tr > <td>BASOPHIL %</td> <td>0.2 & amp;#37;</td> <td>0-1</td> </tr> <tr> <td>EOSINOPHIL #</td> <td>0.1 k/cumm</ td> <td>0.1-0.5</td> </tr> <tr&gt ; <td>EOSINOPHIL %</td> <td>0.9 & #37;</td> <td>2-4</td> </tr> <tr&gt ; <td>GRANULOCYTE #</td> <td>10.2 k/cumm< /td> <td>2.0-9.0</td> </tr> <tr&gt ; <td>GRANULOCYTE %</td> <td>81.7 & amp;#37;</td> <td>50-75</td> </tr> <tr> <td>LYMPHOCYTE #</td> <td>1.2 k/cumm</td> <td>1.0-4.0</td> </tr> <tr> <td>LYMPHOCYTE %</td> <td& gt;9.7 %</td> <td>20-30</td> </tr> <tr> <td>MEAN CELL HGB</td> <td> 35.1 pg</td> <td>27.0-33.0</td> </tr> <tr> <td>MEAN CELL HGB CONCENTRATION</td> <td>30.6 g/dL</td> <td>32.0-37.0</td> </tr> <tr> <td>MEAN CELL VOLUME</td> <td>114.9 fl</td> <td>80.0-100.0</td> </tr> <tr> <td>MONOCYTE #</td> <td>0.9 k/cumm</td> <td>0.1-1.0</td> </tr> <tr> <td>MONOCYTE %</td> <td>7.5 %</td> <td>4-6</td> </tr> <tr> <td>MEANPLATELET VOLUME</td& gt; <td>10.0 fl</td> <td>8.5-10.9</td&gt ; </tr> <tr> <td>RED BLOOD CELL</td& gt; <td>4.04 m/cumm</td> <td>4.00-6.00</ td> </tr> <tr> <td>RED CELL DISTRIBUTION WIDTH</td> <td>12.5 %</td> <td>11.0-15.6</td> </tr> <tr> <td>WHITE BLOOD CELL</td> <td>12.4 k/cumm</td& gt; <td>5.0-10.0</td> </tr> <tr> <td>HEMOGLOBIN</td> <td>14.2 gm/dL</td& gt; <td>12.0-16.0</td> </tr> <tr&gt ; <td>HEMATOCRIT</td> <td>46.4 %< /td> <td>37.0-47.0</td> </tr> <tr > <td>PLATELET COUNT</td> <td>245 k/cumm& lt;/td> <td>150-450</td> </tr> < tr> <th colspan="10">[facility]</th> </tr> <tr> <td> POTASSIUM</td> <td>4.4 mmol/L</td> <td>3.5-5.3 </td> </tr> <tr> <td>EST GFR ( MDRD)</td> <td>55 mL/min</td> <td>> 59& lt;/td> </tr> <tr> <td>ANION GAP< /td> <td>3 mmol/L</td> <td>5-15</td&gt ; </tr> <tr> <td>EST CrCl (CG)</td& gt; <td>< 10 mL/min</td> <td>&gt ; 59</td> </tr> <tr> <td>GLUCOSE& lt;/td> <td>114 mg/dL</td> <td>70-99</ td> </tr> <tr> <td>CALCIUM</td&gt ; <td>8.9mg/dL</td> <td>8.5-10.1</td> </tr> <tr> <td>BLOOD UREA NITROGEN</td> <td>19 mg/dL</td> <td>7-20</td> </tr> <tr> <td>CREATININE</td> <td& gt;1.0 mg/dL</td> <td>0.6-1.0</td> </tr&gt ; <tr> <td>SODIUM</td> <td>145 mmol/L</td> <td>135-148</td> </tr> <tr> <td>CHLORIDE</td> <td>102 mmol/L&lt ;/td> <td>98-110</td> </tr> <tr& gt; <td>AST/SGOT</td> <td>23 Units/L</td& gt; <td>10-37</td> </tr> <tr> <td>ALT/SGPT</td> <td>44 Units/L</td> <td>< 66</td> </tr> <tr> <td>CARBON DIOXIDE</td> <td>40 mmol/L</td& gt; <td>21-32</td> </tr> <tr> <td>TOTALPROTEIN</td> <td>7.6 gm/dL</td&gt ; <td>6.4-8.2</td> </tr> <tr> <td>ALBUMIN</td> <td>3.6 gm/dL</td> <td>3.4-5.0</td> </tr> <tr> < td>BILI TOTAL</td> <td>0.3 mg/dL</td> &lt ;td>0.0-1.0</td> </tr> <tr> <td& gt;ALKALINE PHOSPHATASE TOTAL</td> <td>114 IU/L</td> <td>45-117</td> </tr> <tr> & lt;th colspan="10">LIPASE - 04/27/17 15:16</th> </ tr> <tr> <td>LIPASE</td> <td&gt ;46 Units/L</td> <td>73-393</td> </tr> <tr> <th colspan="10">GLUCOSE (POC) - 15:39</th> </tr> <tr> <td> GLUCOSE (POC)</td> <td>100 mg/dL</td> <td >70-99</td> </tr> <tr> <th colspan="10">LACTIC ACID - 04/27/17 15:53</th> </tr > <tr> <td>LACTIC ACID</td> <td >0.9 mmol/L</td> <td>0.5-2.0</td> </tr& gt; <tr> <th colspan="10">BLOOD CULTURE - 04/27/17 15:53</th> </tr> <tr> <td& gt;Microbiology</td> <td> </td> <td /&gt ; </tr> <tr> <th colspan="10"&gt ;BLOOD CULTURE - 04/27/17 16:05</th> </tr> <tr> <td>Microbiology</td> <td> </td> < td /> </tr> <tr> <th colspan="10& quot;>PROTHROMBIN TIME WITH INR - 04/27/17 22:40</th> </tr&gt ; <tr> <td>INTERNATIONAL NORMAL RATIO</td> <td>1.0 </td> <td>0.9-1.1</td> & lt;/tr> <tr> <td>PROTHROMBIN TIME</td> <td>11.4 sec</td> <td>10.0-12.8</td> </tr> <tr> <th colspan="10">B- TYPE NATRIURETIC PEPTIDE - 04/27/17 22:40</th> </tr> < tr> <td>B-TYPE NATRIURETIC PEPTIDE</td> <td& gt;113 pg/mL</td> <td>< 100</td> </ tr> <tr><th colspan="10">SED RATE WESTERGREN - 04/27/17 22:40</th> </tr> <tr> <td> SED RATE WESTERGREN</td> <td>12 mm/hr</td> & lt;td>0-30</td> </tr> <tr> <th colspan="10">CREATINE KINASE (CK/CPK) - 04/27/17 22:40</th> </tr> <tr> <td>CREATINE KINASE (CK/CPK) </td> <td>45 Units/L</td> <td>&lt ; 193</td> </tr> <tr> <th colspan=& quot;10">THYROID STIM HORMONE (TSH) - 04/27/17 22:40</th> & lt;/tr> <tr> <td>THYROID STIM HORMONE (TSH)</td&gt ; <td>0.53 uIU/mL</td> <td>0.34-4.82</td& gt; </tr> <tr> <th colspan="10"& gt;PREALBUMIN - 04/27/17 22:40</th> </tr> <tr> <td>PREALBUMIN</td> <td>19 mg/dL</td> <td>20-40</td> </tr> <tr> <th colspan="10">CREACTIVE PROTEIN - 04/27/17 22:40</th& gt; </tr> <tr> <td>C REACTIVE PROTEIN& lt;/td> <td>0.4 mg/dL</td> <td>0.00-0.90& lt;/td> </tr> <tr> <th colspan="10 ">VIRUS RESPIRATORY PROFILE - 04/27/17 23:00</th> </tr& gt; <tr> <td>Microbiology</td> <td > </td> <td /> </tr> <tr> <th colspan="10">CBC W/DIFF - 04/28/17 05:39</th> </tr> <tr> <td>BASOPHIL #</td> <td>0.0 k/cumm</td> <td>0.0-0.2</td> </tr> <tr> <td>BASOPHIL %</td& gt; <td>0.1 %</td> <td>0-1</td&gt ; </tr> <tr> <td>EOSINOPHIL #</td&gt ; <td>0.1 k/cumm</td> <td>0.1-0.5</td&gt ; </tr> <tr> <td>EOSINOPHIL %& lt;/td> <td>0.9 %</td> <td>2-4</td& gt; </tr> <tr> <td>GRANULOCYTE #</td > <td>5.8 k/cumm</td> <td>2.0-9.0</td& gt; </tr> <tr> <td>GRANULOCYTE &#37 ;</td> <td>72.0%</td> <td>50- 75</td> </tr> <tr> <td>LYMPHOCYTE #</ td> <td>1.4 k/cumm</td> <td>1.0-4.0</ td> </tr> <tr> <td>LYMPHOCYTE &# 37;</td> <td>17.8 %</td> <td> 20-30</td> </tr> <tr> <td>MEAN CELL HGB</td> <td>34.3 pg</td> <td>27.0- 33.0</td> </tr> <tr> <td>MEAN CELL HGB CONCENTRATION</td> <td>29.5 g/dL</td> <td>32.0-37.0</td> </tr> <tr> <td>MEAN CELL VOLUME</td> <td>116.2 fl</td> <td>80.0-100.0</td> </tr><tr> <td& gt;MONOCYTE #</td> <td>0.7 k/cumm</td> <td>0.1- 1.0</td> </tr> <tr> <td>MONOCYTE %</td> <td>9.2 %</td> <td >4-6</td> </tr> <tr> <td>RED BLOOD CELL</td> <td>3.76 m/cumm</td> <td& gt;4.00-6.00</td> </tr> <tr><td>RED CELL DISTRIBUTION WIDTH</td> <td>12.4 %</td> < td>11.0-15.6</td> </tr> <tr> <td& gt;WHITE BLOODCELL</td> <td>8.0 k/cumm</td> <td>5.0-10.0</td> </tr> <tr> <td> HEMOGLOBIN</td> <td>12.9 gm/dL</td> <td& gt;12.0-16.0</td> </tr> <tr> <td> HEMATOCRIT</td> <td>43.7 %</td> < td>37.0-47.0</td> </tr> <tr> <td& gt;PLATELET COUNT</td> <td>192 k/cumm</td> <td& gt;150-450</td> </tr> <tr> <th colspan="10">METABOLIC PANEL, BASIC - 04/28/17 05:39</th> </tr> <tr> <td>POTASSIUM</td> <td>4.8 mmol/L</td> <td>3.5-5.3</td> </tr> <tr> <td>EST GFR (MDRD)</td> & lt;td>> 60 mL/min</td> <td>> 59</td&gt ; </tr> <tr> <td>ANION GAP</td> <td>3 mmol/L</td> <td>5-15</td> </tr> <tr> <td>EST CrCl (CG)</td> <td>56 mL/min</td> <td>> 59</td> < /tr> <tr> <td>GLUCOSE</td> <td& gt;105 mg/dL</td> <td>70-99</td> </tr> <tr> <td>CALCIUM</td> <td>8.7 mg/dL</td> <td>8.5-10.1</td> </tr> <tr> <td>BLOOD UREA NITROGEN</td> <td& gt;14 mg/dL</td> <td>7-20</td> </tr> <tr> <td>CREATININE</td> <td>0.5mg /dL</td> <td>0.6-1.0</td> </tr> & lt;tr><td>SODIUM</td> <td>145 mmol/L</td> <td>135-148</td> </tr> <tr> <td>CHLORIDE</td> <td>108 mmol/L</td> <td>98-110</td> </tr> <tr> <td& gt;CARBON DIOXIDE</td> <td>34 mmol/L</td> & lt;td>21-32</td> </tr> <tr> <th colspan="10">MAGNESIUM - 04/28/17 05:39</th> </tr& gt; <tr> <td>MAGNESIUM</td> <td&gt ;1.8 mg/dL</td> <td>1.8-2.4</td> </tr> <tr> <th colspan="10">PROCALCITONIN - 12/06 05:39</th> </tr> <tr> <td> PROCALCITONIN</td> <td>0.11 ng/mL</td> < td>< 0.25</td> </tr> <tr> &lt ;th colspan="10">URINALYSIS, ROUTINE - 04/28/17 18:45</th> & lt;/tr> <tr> <td>UA LEUKOCYTE ESTERASE DIPSTICK& lt;/td><td>NEGATIVE </td> <td>NEGATIVE</td> </tr> <tr> <td>UA NITRITE DIPSTICK< /td> <td>NEGATIVE </td> <td>NEGATIVE</td&gt ; </tr> <tr> <td>UA PROTEINDIPSTICK< /td> <td>NEGATIVE </td> <td>NEGATIVE</ td> </tr> <tr> <td>UA GLUCOSE DIPSTICK& lt;/td> <td>NEGATIVE </td> <td>NEGATIVE& lt;/td> </tr> <tr> <td>UA KETONE DIPSTICK</td> <td>1+ </td> <td> NEGATIVE</td> </tr> <tr> <td>UA UROBILINOGEN DIPSTICK</td> <td>NORMAL </td> <td>NORMAL</td> </tr> <tr> <td >UA BILIRUBIN DIPSTICK</td> <td>NEGATIVE </td> <td>NEGATIVE</td> </tr> <tr> <td>UA BLOOD DIPSTICK</td> <td>TRACE </td> <td>NEGATIVE</td> </tr> <tr> <td>UA SPECIFIC GRAVITY</td> <td>1.010 </td&gt ; <td>1.015-1.025</td> </tr> <tr> <td>UR PH</td> <td>7.0 </td> < td>5.0-7.0</td> </tr> <tr> <th colspan="10">UA MICROSCOPIC - 04/28/17 18:45</th> < /tr> <tr> <td>UA RBC</td> <td& gt;0-3 rbc/hpf</td> <td>0 - 3</td> </tr&gt ; <tr> <td>UA VOLUME FOR EXAM</td> & lt;td>12.0mL</td> <td>(12mL STD)</td> </ tr> <tr><td>UA WBC</td> <td>0-1 wbc/ hpf</td> <td>0 - 5</td> </tr> &lt ;tr> <th colspan="10">CBC W/DIFF - 04/29/17 05:53&lt ;/th> </tr> <tr> <td>BASOPHIL #</ td> <td>0.0 k/cumm</td> <td>0.0-0.2</td& gt; </tr> <tr> <td>BASOPHIL %</td > <td>0.2 %</td> <td>0-1</td& gt; </tr> <tr> <td>EOSINOPHIL #</td& gt; <td>0.0 k/cumm</td> <td>0.1-0.5</td& gt; </tr> <tr> <td>EOSINOPHIL %< /td> <td>0.6 %</td> <td>2-4</ td> </tr> <tr> <td>GRANULOCYTE #</td > <td>3.3 k/cumm</td> <td>2.0-9.0</td& gt; </tr> <tr> <td>GRANULOCYTE &#37 ;</td> <td>65.1 %</td> <td>50- 75</td> </tr> <tr> <td> LYMPHOCYTE #</td> <td>1.3 k/cumm</td> <td >1.0-4.0</td> </tr> <tr> <td> LYMPHOCYTE %</td> <td>24.9 %</td> <td>20-30</td> </tr> <tr> <td>MEAN CELL HGB</td> <td>34.8 pg</td> <td >27.0-33.0</td> </tr> <tr> <td&gt ;MEAN CELL HGB CONCENTRATION</td> <td>32.9 g/dL</td> <td>32.0-37.0</td> </tr> <tr> <td>MEAN CELL VOLUME</td> <td>105.7 fl</td > <td>80.0-100.0</td> </tr> <tr& gt; <td>MONOCYTE #</td> <td>0.5 k/cumm</ td> <td>0.1-1.0</td> </tr> <tr&gt ; <td>MONOCYTE %</td> <td>9.2 % </td> <td>4-6</td> </tr> <tr& gt; <td>RED BLOOD CELL</td> <td>3.88 m/cumm& lt;/td> <td>4.00-6.00</td> </tr> &lt ;tr> <td>RED CELL DISTRIBUTION WIDTH</td> < td>11.6 %</td> <td>11.0-15.6</td> & lt;/tr> <tr> <td>WHITE BLOOD CELL</td> <td>5.1 k/cumm</td> <td>5.0-10.0</td> </tr> <tr> <td>HEMOGLOBIN</td> <td>13.5 gm/dL</td> <td>12.0-16.0</td> </tr> <tr> <td>HEMATOCRIT</td> <td>41.0 %</td> <td>37.0-47.0</td& gt; </tr> <tr> <td>PLATELET COUNT</ td> <td>197 k/cumm</td> <td>150-450</ td> </tr> <tr> <th colspan="10& quot;>METABOLIC PANEL,BASIC - 04/29/17 05:53</th> </tr> <tr> <td>POTASSIUM</td> <td>3.4 mmol/L</td> <td>3.5-5.3</td> </tr> <tr> <td>EST GFR (MDRD)</td> <td>& amp;gt; 60mL/min</td> <td>> 59</td> &lt ;/tr> <tr> <td>ANION GAP</td> <td&gt ;4 mmol/L</td> <td>5-15</td> </tr> <tr> <td>EST CrCl (CG)</td> <td>53 mL/min</td> <td>> 59</td> </tr> <tr> <td>GLUCOSE</td> <td>84 mg /dL</td> <td>70-99</td> </tr> &lt ;tr> <td>CALCIUM</td> <td>8.7 mg/dL</td> <td>8.5-10.1</td> </tr> <tr> <td>BLOOD UREA NITROGEN</td> <td>12 mg/dL</td > <td>7-20</td> </tr> <tr> <td>CREATININE</td> <td>0.5 mg/dL</td> <td>0.6-1.0</td> </tr> <tr> & lt;td>SODIUM</td> <td>139 mmol/L</td> < td>135-148</td> </tr> <tr> <td&gt ;CHLORIDE</td> <td>97 mmol/L</td> <td> 98-110</td> </tr> <tr> <td> CARBON DIOXIDE</td> <td>38 mmol/L</td> < td>21-32</td> </tr> <tr> <th colspan="10">MAGNESIUM - 04/29/17 05:53</th> </tr& gt; <tr> <td>MAGNESIUM</td> <td> 1.7 mg/dL</td> <td>1.8-2.4</td> </tr> </tbody> </table> </text> <entry> < organizer moodCode="EVN" classCode="BATTERY"> < templateId root="[id number]" /> <id nullFlavor="NA" /> <code codeSystem="local" code= "DRUGAB" displayName="UR DRUGS OF ABUSE SCREEN" /> & lt;statusCode code="completed" /> <component> &lt ;observation moodCode="EVN" classCode="OBS"> &lt ;templateId root="[id number]" /> < id nullFlavor="NA" /> <code codeSystem="local&quot ; code="AMPHU" displayName="UR AMPHETAMINES SCREEN" /> <statusCode code="completed" /> < effectiveTime value="[id number]" /> <value unit=&quot ;" xsi:type="PQ" value="NEG (<1000 ng/mL)" /&gt ; <referenceRange> <observationRange> <text>NEGATIVE</text> </observationRange> </ referenceRange> </observation> </component> < component> <observation moodCode="EVN" classCode="OBS& quot;> <templateIdroot="[id number]&quot ; /> <id nullFlavor="NA" /> <code codeSystem="local" code="BARBU" displayName="UR BARBITURATE SCREEN" /> <statusCode code="completed&quot ; /> <effectiveTime value="[id number]" /> <value unit="" xsi:type="PQ" value="NEG (&lt ; 200 ng/mL)" /> <referenceRange> < observationRange> <text>NEGATIVE</text> & lt;/observationRange> </referenceRange> </ observation> </component> <component> < observation moodCode="EVN" classCode="OBS"> < templateId root="[id number]" /> < id nullFlavor="NA" /> <code codeSystem="local&quot ; code="DAUCOMMENT" displayName="DRUGS OF ABUSE SCREEN COMMENT& quot; /> <statusCode code="completed" /> & lt;effectiveTime value="[id number]" /> <value unit=& quot;" xsi:type="PQ" value="" /> < referenceRange> <observationRange> <text /& gt; </observationRange> </referenceRange> </observation> </component> <component>< observation moodCode="EVN" classCode="OBS"> < templateId root="[id number]" /> < id nullFlavor="NA" /> <code codeSystem="local" code ="OPIU" displayName="UR OPIATES SCREEN" /> < statusCode code="completed" /> <effectiveTime value=& quot;[id number]" /> <value unit="" xsi:type=& quot;PQ" value="POS (> 300 ng/mL)" /> < interpretationCode codeSystem="local" code="*" /> <referenceRange> <observationRange> <text> NEGATIVE</text> </observationRange> </ referenceRange> </observation> </component> < component> <observation moodCode="EVN" classCode=" OBS"> <templateId root="2.16.840.1.575037.10.20.22.4.2& quot; /> <id nullFlavor="NA" /> <code codeSystem="local" code="PCPU" displayName="UR PHENCYCLIDINE (PCP) SCREEN" /> <statusCode code=" completed" /> <effectiveTime value="438351940124" /> <value unit="" xsi:type="PQ" value=" NEG (< 25 ng/mL)" /> <referenceRange> <observationRange> <text>NEGATIVE</text> </observationRange> </referenceRange> </observation > </component> <component> <observation moodCode="EVN" classCode="OBS"> <templateId root="2.16.840.1.879528.10.20.22.4.2" /> <id nullFlavor ="NA" /> <code codeSystem="local" code=" THCU" displayName="UR CANNABINOIDS (THC) SCREEN" /> & lt;statusCode code="completed" /> <effectiveTime value= "[id number]" /> <value unit="" xsi:type=& quot;PQ" value="POS (> 50 ng/mL)" /> < interpretationCode codeSystem="local" code="*" /> <referenceRange> <observationRange> < text>NEGATIVE</text> </observationRange> </ referenceRange> </observation> </component> < component> <observation moodCode="EVN" classCode=" OBS"> <templateId root="2.16.840.1.053070.10.20.22.4.2& quot; /> <id nullFlavor="NA" /> <code codeSystem="local" code="COCAU" displayName="UR COCAINE METABOLITE SCREEN" /> <statusCode code=" completed" /> <effectiveTime value="262600943148" /> <value unit="" xsi:type="PQ" value=" NEG (< 300 ng/mL)" /> <referenceRange> < observationRange> <text>NEGATIVE</text> & lt;/observationRange> </referenceRange> </ observation> </component><component> <observation moodCode="EVN" classCode="OBS"> <templateId root=& quot;2.16.840.1.608115.10.20.22.4.2" /> <id nullFlavor=&quot ;NA" /> <code codeSystem="local" code="METHU& quot; displayName="UR METHADONE SCREEN" /> <statusCode code="completed" /> <effectiveTime value="[id number]& quot; /> <value unit="" xsi:type="PQ" value=& quot;NEG (< 300 ng/mL)" /> <referenceRange> <observationRange> <text>NEGATIVE</text> </observationRange> </referenceRange> < /observation> </component> <component> < observation moodCode="EVN" classCode="OBS"> < templateId root="2.16.840.1.381561.10.20.22.4.2" /> < id nullFlavor="NA" /> <code codeSystem="local&quot ; code="BENZU" displayName="UR BENZODIAZEPINE SCREEN" /> <statusCode code="completed" /> < effectiveTime value="[id number]" /> <value unit=&quot ;" xsi:type="PQ" value="NEG (< 200 ng/mL)" /&gt ; <referenceRange> <observationRange> <text>NEGATIVE</text> </observationRange> & lt;/referenceRange> </observation> </component> & lt;/organizer> </entry> <entry> <organizer moodCode=&quot ;EVN" classCode="BATTERY"> <templateId root=" 2.16.840.1.579500.10.20.22.4.1" /> <id nullFlavor="NA&quot ; /> <code codeSystem="local" code="CBCD" displayName="CBC W/DIFF" /> <statusCode code=" completed" /> <component> <observation moodCode=& quot;EVN" classCode="OBS"> <templateId root=" 2.16.840.1.459809.10.20.22.4.2" /> <id nullFlavor="NA" / > <code codeSystem="local" code="BA#" displayName="BASOPHIL #" /> <statusCode code=" completed" /> <effectiveTime value="672918061108" /> <value unit="k/cumm" xsi:type="PQ" value=& quot;0.0" /> <referenceRange> <observationRange& gt; <text>0.0-0.2</text> </ observationRange> </referenceRange> </observation&gt ; </component> <component> <observation moodCode=& quot;EVN" classCode="OBS"> <templateId root=" 2.16.840.1.641093.10..22.4.2" /> <id nullFlavor="NA& quot; /> <code codeSystem="local" code="BA&#37 ;" displayName="BASOPHIL %" /> < statusCode code="completed" /> <effectiveTime value=& quot;731940419917" /> <value unit="%" xsi: type="PQ" value="0.2" /> <referenceRange> <observationRange> <text>0-1</text> </observationRange> </referenceRange> </ observation> </component> <component> < observation moodCode="EVN" classCode="OBS"> < templateId root="2.16.840.1.671944.10.20.22.4.2" /> < id nullFlavor="NA" /> <code codeSystem="local&quot ; code="EO#" displayName="EOSINOPHIL #" /> < statusCode code="completed" /> <effectiveTime value=& quot;598800489020" /> <value unit="k/cumm" xsi: type="PQ" value="0.1" /> <referenceRange> <observationRange> <text>0.1-0.5</text& gt; </observationRange></referenceRange> </ observation> </component> <component> < observation moodCode="EVN" classCode="OBS"> < templateId root="2.16.840.1.492559.10.20.22.4.2" /> < id nullFlavor="NA" /> <code codeSystem="local&quot ; code="EO%" displayName="EOSINOPHIL %" /&gt ; <statusCode code="completed" /> < effectiveTime value="913141390984" /> <value unit=&quot ;%" xsi:type="PQ" value="0.9" /> & lt;interpretationCode codeSystem="local" code="*" /> <referenceRange> <observationRange> <text >2-4</text> </observationRange> </ referenceRange> </observation> </component> < component> <observation moodCode="EVN" classCode=" OBS"> <templateId root="2.16.840.1.834676.10.20.22.4.2& quot; /> <id nullFlavor="NA" /> < codecodeSystem="local" code="GR#" displayName=" GRANULOCYTE #" /> <statusCode code="completed" /> <effectiveTime value="778074191357" /> <value unit="k/cumm" xsi:type="PQ" value="10.2" /> <interpretationCode codeSystem="local" code="*" /& gt; <referenceRange> <observationRange> &lt ;text>2.0-9.0</text> </observationRange> < /referenceRange> </observation> </component> &lt ;component> <observation moodCode="EVN" classCode=" OBS"> <templateId root="2.16.840.1.011889.10.20.22.4.2& quot; /> <id nullFlavor="NA" /> <code codeSystem="local" code="GR%" displayName=" GRANULOCYTE %" /> <statusCode code="completed& quot; /> <effectiveTime value="291985412752" /> <value unit="%" xsi:type="PQ" value="81.7 " /> <interpretationCode codeSystem="local" code=" *" /> <referenceRange> <observationRange&gt ; <text>50-75</text> </observationRange> </referenceRange> </observation> </component> <component> <observation moodCode="EVN" classCode="OBS"> <templateId root=" 2.16.840.1.579502.10.20.22.4.2" /> <id nullFlavor="NA& quot; /> <code codeSystem="local" code="LY#" displayName="LYMPHOCYTE #" /> <statusCode code=" completed" /> <effectiveTime value="460678025075" /> <value unit="k/cumm" xsi:type="PQ" value=& quot;1.2" /> <referenceRange> <observationRange&gt ; <text>1.0-4.0</text> </observationRange > </referenceRange> </observation> </ component><component> <observation moodCode="EVN" classCode="OBS"> <templateId root=" 2.16.840.1.288357.10..22.4.2" /> <id nullFlavor="NA& quot; /> <code codeSystem="local" code="LY&#37 ;" displayName="LYMPHOCYTE %" /> < statusCode code="completed" /> <effectiveTime value=& quot;760101414269" /> <value unit="%" xsi: type="PQ" value="9.7" /> <interpretationCode codeSystem="local" code="*" /> < referenceRange> <observationRange> <text> 20-30</text> </observationRange> </referenceRange& gt; </observation> </component> <component> <observation moodCode="EVN" classCode="OBS"> <templateId root="2.16.840.1.110524.10..22.4.2" /> <id nullFlavor="NA" /> <code codeSystem=&quot ;local" code="MCH" displayName="MEAN CELL HGB" /> <statusCode code="completed" /> < effectiveTime value="903985241310" /> <value unit=&quot ;pg" xsi:type="PQ" value="35.1" /> < interpretationCode codeSystem="local" code="*" /> <referenceRange> <observationRange> < text>27.0-33.0</text> </observationRange> &lt ;/referenceRange> </observation> </component> < component> <observation moodCode="EVN" classCode=" OBS"> <templateId root="2.16.840.1.598744.10.20.22.4.2& quot; /> <id nullFlavor="NA" /> <code codeSystem="local" code="MCHC" displayName="MEAN CELL HGB CONCENTRATION" /> <statusCode code="completed" /& gt; <effectiveTime value="745089015680" /> &lt ;value unit="g/dL" xsi:type="PQ" value="30.6" /&gt ; <interpretationCode codeSystem="local" code="*&quot ; /> <referenceRange> <observationRange> <text>32.0-37.0</text> </observationRange> </referenceRange> </observation> </component&gt ; <component> <observation moodCode="EVN" classCode="OBS"> <templateId root=" 2.16.840.1.465380.10.20.22.4.2" /> <id nullFlavor="NA& quot; /> <code codeSystem="local" code="MCV" displayName="MEAN CELL VOLUME" /> <statusCode code=& quot;completed" /> <effectiveTime value="049186974894& quot; /> <value unit="fl" xsi:type="PQ" value ="114.9" /> <interpretationCode codeSystem="local& quot; code="*" /> <referenceRange> < observationRange> <text>80.0-100.0</text> </observationRange> </referenceRange> </ observation> </component> <component> < observation moodCode="EVN" classCode="OBS"> < templateId root="2.16.840.1.543460.10.20.22.4.2" /> < id nullFlavor="NA" /> <code codeSystem="local&quot ; code="MO#" displayName="MONOCYTE #" /> < statusCode code="completed" /> <effectiveTime value=" 321126976126" /> <value unit="k/cumm" xsi:type=& quot;PQ" value="0.9" /> <referenceRange> <observationRange> <text>0.1-1.0</text> </observationRange> </referenceRange> </ observation> </component> <component> < observation moodCode="EVN" classCode="OBS"> < templateId root="2.16.840.1.361504.10.20.22.4.2" /> < id nullFlavor="NA" /> <code codeSystem="local&quot ; code="MO%" displayName="MONOCYTE %" /> <statusCode code="completed" /> < effectiveTime value="630460146642" /> <value unit=&quot ;%" xsi:type="PQ" value="7.5" /> & lt;interpretationCode codeSystem="local" code="*" /> <referenceRange> <observationRange> & lt;text>4-6</text> </observationRange> </ referenceRange> </observation> </component> < component> <observation moodCode="EVN" classCode=" OBS"> <templateId root="2.16.840.1.898149.10.20.22.4.2& quot; /> <id nullFlavor="NA" /> <code codeSystem="local" code="MPVT" displayName="MEAN PLATELET VOLUME" /> <statusCode code="completed" / > <effectiveTime value="362875504911" /> & lt;value unit="fl" xsi:type="PQ" value="10.0" /&gt ; <referenceRange> <observationRange> <text>8.5-10.9</text> </observationRange> </referenceRange> </observation> </component&gt ; <component> <observation moodCode="EVN" classCode="OBS"> <templateId root=" 2.16.840.1.263844.10.20.22.4.2" /> <id nullFlavor="NA& quot; /> <code codeSystem="local" code="RBC" displayName="RED BLOOD CELL" /> <statusCode code=" completed" /> <effectiveTime value="220094938076" /> <value unit="m/cumm" xsi:type="PQ" value=& quot;4.04" /> <referenceRange> < observationRange> <text>4.00-6.00</text> </observationRange> </referenceRange> </ observation> </component> <component> < observation moodCode="EVN" classCode="OBS"> < templateId root="2.16.840.1.761523.10.20.22.4.2" /> < id nullFlavor="NA" /> <code codeSystem="local&quot ; code="RDW" displayName="RED CELL DISTRIBUTION WIDTH" /&gt ; <statusCode code="completed" /> < effectiveTime value="198220843349" /> <value unit=&quot ;%" xsi:type="PQ" value="12.5" /> & lt;referenceRange> <observationRange> <text& gt;11.0-15.6</text> </observationRange> </ referenceRange> </observation> </component> < component> <observation moodCode="EVN" classCode=" OBS"> <templateId root="2.16.840.1.631025.10.20.22.4.2& quot; /> <id nullFlavor="NA" /> <code codeSystem="local" code="WBC" displayName="WHITE BLOOD CELL" /> <statusCode code="completed" /> <effectiveTime value="532409087266" /> <value unit="k/cumm" xsi:type="PQ" value="12.4" /> <interpretationCode codeSystem="local" code="*" /> <referenceRange> <observationRange> <text>5.0-10.0</text> </observationRange> < /referenceRange> </observation> </component> &lt ;component> <observation moodCode="EVN" classCode=" OBS"> <templateId root="2.16.840.1.209233.10.20.22.4.2& quot; /> <id nullFlavor="NA" /> <code codeSystem ="local" code="HGBT" displayName="HEMOGLOBIN" /&gt ; <statusCode code="completed"/> < effectiveTime value="681178695031" /> <value unit=&quot ;gm/dL" xsi:type="PQ" value="14.2" /> < referenceRange> <observationRange> <text>12.0- 16.0</text> </observationRange> </ referenceRange> </observation> </component> < component> <observation moodCode="EVN" classCode=" OBS"> <templateId root="2.16.840.1.602405.10.20.22.4.2& quot; /> <id nullFlavor="NA" /> <code codeSystem="local" code="HCTT" displayName="HEMATOCRIT& quot; /> <statusCode code="completed" /> & lt;effectiveTime value="852034875797" /> <value unit=& quot;%" xsi:type="PQ" value="46.4" /> <referenceRange> <observationRange> < text>37.0-47.0</text> </observationRange> &lt ;/referenceRange> </observation> </component> & lt;component> <observation moodCode="EVN" classCode=&quot ;OBS"> <templateId root="2.16.840.1.218695.10.20.22.4.2 " /> <id nullFlavor="NA" /> <code codeSystem="local" code="PLTT" displayName="PLATELET COUNT" /> <statusCode code="completed" /> <effectiveTime value="980189489063" /> <value unit="k/cumm" xsi:type="PQ" value="245" /> <referenceRange> <observationRange> & lt;text>150-450</text> </observationRange> & lt;/referenceRange> </observation> </component> & lt;/organizer> </entry> <entry> <organizer moodCode=&quot ;EVN" classCode="BATTERY"> <templateId root=" 2.16.840.1.334662.10.20.22.4.1" /> <id nullFlavor="NA&quot ; /> <code codeSystem="local" code="METABC" displayName="METABOLIC PANEL, COMPREHN" /> <statusCode code ="completed" /> <component> <observation moodCode="EVN" classCode="OBS"> <templateId root="2.16.840.1.833020.10..22.4.2" /> <id nullFlavor ="NA" /> <code codeSystem="local" code=" K" displayName="POTASSIUM" /> <statusCode code=& quot;completed" /> <effectiveTime value="864406833973& quot; /> <value unit="mmol/L" xsi:type="PQ" value="4.4" /> <referenceRange> < observationRange> <text>3.5-5.3</text> & lt;/observationRange> </referenceRange> </ observation> </component> <component> < observation moodCode="EVN" classCode="OBS"> < templateId root="2.16.840.1.109034.10.20.22.4.2" /> < id nullFlavor="NA" /> <code codeSystem="local" code=& quot;eGFR" displayName="EST GFR (MDRD)" /> < statusCode code="completed" /> <effectiveTime value=& quot;579341301978" /> <value unit="mL/min" xsi: type="PQ" value="55" /> <interpretationCode codeSystem="local" code="*" /> < referenceRange> <observationRange> <text> > 59</text> </observationRange> </ referenceRange> </observation> </component> < component> <observation moodCode="EVN" classCode=" OBS"> <templateId root="2.16.840.1.815239.10.20.22.4.2& quot; /> <id nullFlavor="NA" /> <code codeSystem="local" code="GAP" displayName="ANION GAP& quot; /> <statusCode code="completed" /> & lt;effectiveTime value="031970074010" /> <value unit="mmol/ L" xsi:type="PQ" value="3" /> < interpretationCode codeSystem="local" code="*" /> <referenceRange> <observationRange> < text>5-15</text> </observationRange> </ referenceRange> </observation> </component> < component> <observation moodCode="EVN" classCode=" OBS"> <templateId root="2.16.840.1.141380.10..22.4.2& quot; /> <id nullFlavor="NA" /> <code codeSystem="local" code="eCrCl" displayName="EST CrCl ( CG)" /> <statusCode code="completed" /> < effectiveTime value="436920619066" /> <value unit=&quot ;mL/min"xsi:type="PQ" value="< 10" /> <interpretationCode codeSystem="local" code="*" /> <referenceRange> <observationRange> <text>> 59</text> </observationRange> </referenceRange> </observation> </component> <component> <observation moodCode="EVN" classCode="OBS"> <templateId root=" 2.16.840.1.086326.10.20.22.4.2" /> <id nullFlavor="NA& quot; /> <code codeSystem="local" code="GLU" displayName="GLUCOSE" /> <statusCode code=" completed" /> <effectiveTime value="512317246965" /> <value unit="mg/dL" xsi:type="PQ" value=& quot;114" /> <interpretationCode codeSystem="local&quot ; code="*" /> <referenceRange> < observationRange> <text>70-99</text> < /observationRange> </referenceRange> </observation& gt; </component> <component> <observation moodCode="EVN" classCode="OBS"> <templateId root="2.16.840.1.299636.10.20.22.4.2" /> <id nullFlavor ="NA" /> <code codeSystem="local" code=" CA" displayName="CALCIUM" /> <statusCode code=& quot;completed" /> <effectiveTime value="091863965095& quot; /> <value unit="mg/dL" xsi:type="PQ" value="8.9" /> <referenceRange> < observationRange> <text>8.5-10.1</text> </ observationRange> </referenceRange> </observation&gt ; </component> <component> <observation moodCode ="EVN" classCode="OBS"> <templateId root=& quot;2.16.840.1.818830.10.20.22.4.2" /> <id nullFlavor="NA& quot; /> <code codeSystem="local" code="BUN" displayName="BLOOD UREA NITROGEN" /> <statusCode code=& quot;completed" /> <effectiveTime value="026067701288& quot; /> <value unit="mg/dL" xsi:type="PQ" value="19" /> <referenceRange> < observationRange> <text>7-20</text> </ observationRange> </referenceRange> </observation&gt ; </component> <component> <observation moodCode ="EVN" classCode="OBS"> <templateId root=& quot;2.16.840.1.151033.10.20.22.4.2" /> <id nullFlavor=&quot ;NA" /> <code codeSystem="local" code="CREAT& quot; displayName="CREATININE" /> <statusCode code=& quot;completed" /> <effectiveTime value="766779298556" /& gt; <value unit="mg/dL" xsi:type="PQ" value=& quot;1.0" /> <referenceRange> < observationRange> <text>0.6-1.0</text> & lt;/observationRange> </referenceRange> </observation& gt; </component> <component> <observation moodCode="EVN" classCode="OBS"> <templateId root="2.16.840.1.712008.10.20.22.4.2" /> <id nullFlavor ="NA" /> <code codeSystem="local" code=" NA" displayName="SODIUM" /> <statusCode code=&quot ;completed" /> <effectiveTime value="400303753008&quot ; /> <value unit="mmol/L" xsi:type="PQ" value ="145" /> <referenceRange> < observationRange> <text>135-148</text> </ observationRange> </referenceRange> </observation&gt ; </component> <component> <observation moodCode ="EVN" classCode="OBS"> <templateId root=& quot;2.16.840.1.118929.10.20.22.4.2" /> <id nullFlavor=&quot ;NA" /> <code codeSystem="local" code="CL& quot; displayName="CHLORIDE" /> <statusCode code=" completed" /> <effectiveTime value="509280858535" /> <value unit="mmol/L" xsi:type="PQ" value=& quot;102" /> <referenceRange> < observationRange> <text>98-110</text> &lt ;/observationRange> </referenceRange> </observation& gt; </component> <component> <observation moodCode="EVN" classCode="OBS"> <templateId root="2.16.840.1.156005.10.20.22.4.2" /> <id nullFlavor ="NA" /> <code codeSystem="local" code=" AST" displayName="AST/SGOT" /> <statusCode code=& quot;completed" /> <effectiveTime value="420094993074& quot; /> <value unit="Units/L" xsi:type="PQ" value="23" /> <referenceRange> < observationRange> <text>10-37</text> </ observationRange> </referenceRange> </observation&gt ; </component> <component> <observation moodCode ="EVN" classCode="OBS"> <templateId root=& quot;2.16.840.1.612558.10.20.22.4.2" /> <id nullFlavor=&quot ;NA" /> <code codeSystem="local" code="ALT& quot; displayName="ALT/SGPT" /> <statusCode code=" completed" /> <effectiveTime value="411173385623" /& gt; <value unit="Units/L" xsi:type="PQ" value=& quot;44" /> <referenceRange> < observationRange> <text>< 66</text> </observationRange> </referenceRange> </ observation> </component> <component> < observation moodCode="EVN" classCode="OBS"> < templateId root="2.16.840.1.699645.10.20.22.4.2" /> < id nullFlavor="NA" /> <code codeSystem="local&quot ; code="CO2" displayName="CARBON DIOXIDE" /> &lt ;statusCode code="completed" /> <effectiveTime value=& quot;846259479370" /> <value unit="mmol/L" xsi: type="PQ" value="40" /> <interpretationCode codeSystem="local" code="*" /> < referenceRange> <observationRange> <text>21-32& lt;/text> </observationRange> </referenceRange& gt; </observation> </component> <component> <observation moodCode="EVN" classCode="OBS"> <templateId root="2.16.840.1.218902.10.20.22.4.2" /> <id nullFlavor="NA" /> <code codeSystem=&quot ;local" code="TP" displayName="TOTAL PROTEIN" /> & lt;statusCode code="completed" /> <effectiveTime value= "718898707379" /> <value unit="gm/dL" xsi: type="PQ" value="7.6" /> <referenceRange> <observationRange> <text>6.4-8.2</text& gt; </observationRange> </referenceRange> </observation> </component> <component> &lt ;observation moodCode="EVN" classCode="OBS"> &lt ;templateId root="2.16.840.1.917511.10..22.4.2" /> < id nullFlavor="NA" /> <code codeSystem="local&quot ; code="ALB" displayName="ALBUMIN" /> < statusCode code="completed" /> <effectiveTime value=& quot;621711544310" /> <value unit="gm/dL" xsi:type ="PQ" value="3.6" /> <referenceRange> <observationRange> <text>3.4-5.0</text> </observationRange> </referenceRange> </ observation> </component> <component> < observation moodCode="EVN" classCode="OBS"> < templateId root="2.16.840.1.054509.10..22.4.2" /> <id nullFlavor="NA" /> <code codeSystem="local" code="BILTOT" displayName="BILI TOTAL" /> < statusCode code="completed" /> <effectiveTime value=& quot;740286933937" /> <value unit="mg/dL" xsi:type ="PQ" value="0.3" /> <referenceRange> <observationRange> <text>0.0-1.0</text> </observationRange> </referenceRange> </ observation> </component> <component> < observation moodCode="EVN" classCode="OBS"> < templateId root="2.16.840.1.164325.10.20.22.4.2" /> < id nullFlavor="NA" /> <code codeSystem="local&quot ; code="ALKP" displayName="ALKALINE PHOSPHATASE TOTAL" /&gt ; <statusCode code="completed" /> < effectiveTime value="837339610402" /> <value unit=&quot ;IU/L" xsi:type="PQ" value="114" /> < referenceRange> <observationRange> <text>45-117&lt ;/text> </observationRange> </referenceRange&gt ; </observation> </component> </organizer> &lt ;/entry> <entry> <organizer moodCode="EVN" classCode=& quot;BATTERY"> <templateId root=" 2.16.840.1.882228.10.20.22.4.1" /> <id nullFlavor="NA&quot ; /> <code codeSystem="local" code="LIP" displayName="LIPASE" /> <statusCode code="completed& quot; /> <component> <observation moodCode="EVN& quot; classCode="OBS"> <templateId root=" 2.16.840.1.924457.10.20.22.4.2" /> <id nullFlavor="NA& quot; /> <code codeSystem="local" code="LIP" displayName="LIPASE" /> <statusCode code=" completed" /> <effectiveTime value="998780091682" /> <value unit="Units/L" xsi:type="PQ" value= "46" /> <interpretationCode codeSystem="local&quot ; code="*" /> <referenceRange> < observationRange> <text>73-393</text> &lt ;/observationRange> </referenceRange> </observation&gt ; </component> </organizer> </entry> <entry> <organizer moodCode="EVN" classCode="BATTERY"> <templateId root="2.16.840.1.729954.10.20.22.4.1" /> < id nullFlavor="NA" /><code codeSystem="local" code=& quot;GLUMON" displayName="GLUCOSE (POC)" /> < statusCode code="completed" /> <component> < observation moodCode="EVN" classCode="OBS"> < templateId root="2.16.840.1.306092.10.20.22.4.2" /> < id nullFlavor="NA" /> <codecodeSystem="local&quot ; code="GLUMON" displayName="GLUCOSE (POC)" /> < statusCode code="completed" /> <effectiveTime value=& quot;543400618598" /> <value unit="mg/dL" xsi:type ="PQ" value="100" /> <interpretationCode codeSystem="local" code="*" /> <referenceRange> <observationRange> <text>70-99</text> </observationRange> </referenceRange> & lt;/observation> </component> </organizer> </entry&gt ; <entry> <organizer moodCode="EVN" classCode=" BATTERY"> <templateId root="2.16.840.1.944003.10.20.22.4.1& quot; /> <id nullFlavor="NA" /> <code codeSystem ="local" code="LACTG" displayName="LACTIC ACID" /& gt; <statusCode code="completed" /> <component> <observation moodCode="EVN"classCode="OBS"> <templateId root="2.16.840.1.160939.10.20.22.4.2" /> <id nullFlavor="NA" /> <code codeSystem=&quot ;local" code="LACT" displayName="LACTIC ACID" /> <statusCode code="completed" /> < effectiveTime value="242876112024" /> <value unit=&quot ;mmol/L" xsi:type="PQ" value="0.9" /> < referenceRange> <observationRange> <text> 0.5-2.0</text> </observationRange> </referenceRange&gt ; </observation> </component> </organizer> &lt ;/entry> <entry> <organizer moodCode="EVN" classCode=& quot;BATTERY"> <templateId root=" 2.16.840.1.412819.10.20.22.4.1" /> <id nullFlavor="NA&quot ; /> <code codeSystem="local" code="BC" displayName="BLOOD CULTURE" /> <statusCode code=" completed" /> <component> <observation moodCode=& quot;EVN" classCode="OBS"> <templateId root=" 2.16.840.1.842962.10.20.22.4.2" /> <id nullFlavor="NA" /&gt ; <code codeSystem="local" code="MB" displayName ="Microbiology" /> <statusCode code="completed& quot; /> <effectiveTime value="529796657671" /> <value xsi:type="ST" value="<pre><b>BLOOD CULTURE</b> See BelowIs this a Possible Sepsis/Sepsis patient? YesBLOOD CULTURE(F) Alia Date/Time: 04/27/2017 15:53 Emmanuel Date/ Time: 05/03/2017 01:59SOURCE: BLOODSPEC DESC: [id number] [facility] [facility] [place] [address]</pre>" /&gt ; <referenceRange> <observationRange> <text /> </observationRange> </ referenceRange> </observation> </component> </ organizer> </entry> <entry> <organizer moodCode="EVN " classCode="BATTERY"> <templateId root=" 2.16.840.1.041047.10.20.22.4.1" /> <id nullFlavor="NA" / > <code codeSystem="local" code="BC" displayName= "BLOOD CULTURE" /> <statusCode code="completed" / > <component> <observation moodCode="EVN" classCode="OBS"> <templateId root=" 2.16.840.1.024311.10.20.22.4.2" /> <id nullFlavor="NA& quot; /> <code codeSystem="local" code="MB" displayName="Microbiology" /> <statusCode code=" completed" /><effectiveTime value="821007569925" /> <value xsi:type="ST" value="<pre><b>BLOOD CULTURE</b> See BelowIs this a Possible Sepsis/Sepsis patient? YesBLOOD CULTURE(F) Alia Date/Time: 04/27/2017 16:05 Emmanuel Date/Time: 05/03/2017 02:14SOURCE: BLOODSPEC DESC: [id number] GROWTH AFTER 5 [facility] [place] [address]</pre>" /> <referenceRange> < observationRange> <text /> </ observationRange> </referenceRange> </observation&gt ; </component> </organizer> </entry> <entry> <organizer moodCode="EVN" classCode="BATTERY"> <templateId root="2.16.840.1.553525.10.20.22.4.1" /> < id nullFlavor="NA" /> <code codeSystem="local" code="PT" displayName="PROTHROMBIN TIME WITH INR" /> <statusCode code="completed" /> <component> & lt;observation moodCode="EVN" classCode="OBS"> &lt ;templateId root="2.16.840.1.711327.10..22.4.2" /> < id nullFlavor="NA" /> <code codeSystem="local&quot ; code="INRX" displayName="INTERNATIONAL NORMAL RATIO" /&gt ; <statusCode code="completed" /> < effectiveTime value="936506994555" /> <value unit=&quot ;" xsi:type="PQ" value="1.0" /> < referenceRange> <observationRange> <text> 0.9-1.1</text> </observationRange> </ referenceRange> </observation> </component> < component> <observation moodCode="EVN" classCode=" OBS"> <templateId root="2.16.840.1.295279.10..22.4.2& quot; /> <id nullFlavor="NA" /> <code codeSystem="local" code="PTPAT" displayName=" PROTHROMBIN TIME" /> <statusCode code="completed" /> <effectiveTime value="406271830520" /> & lt;value unit="sec" xsi:type="PQ" value="11.4" /& gt; <referenceRange> <observationRange> <text>10.0-12.8</text> </observationRange> </referenceRange> </observation> </component> & lt;/organizer> </entry> <entry> <organizer moodCode=" EVN" classCode="BATTERY"> <templateId root=" 2.16.840.1.053707.10.20.22.4.1" /> <id nullFlavor="NA&quot ; /> <code codeSystem="local" code="BNP" displayName="B-TYPE NATRIURETIC PEPTIDE" /> <statusCode code="completed" /><component> <observation moodCode="EVN" classCode="OBS"> <templateId root=& quot;2.16.840.1.449043.10.20.22.4.2" /> <id nullFlavor=&quot ;NA" /> <code codeSystem="local" code="BNP& quot; displayName="B-TYPE NATRIURETIC PEPTIDE" /> < statusCode code="completed" /> <effectiveTime value=& quot;689717198959" /> <value unit="pg/mL" xsi:type ="PQ" value="113" /> <interpretationCode codeSystem="local" code="*" /> < referenceRange> <observationRange> <text> < 100</text> </observationRange> </ referenceRange> </observation> </component> </ organizer> </entry> <entry> <organizer moodCode="EVN " classCode="BATTERY"> <templateId root=" 2.16.840.1.904713.10.20.22.4.1" /> <id nullFlavor="NA&quot ; /> <code codeSystem="local" code="SEDWES" displayName="SED RATE WESTERGREN" /> <statusCode code=&quot ;completed" /> <component> <observation moodCode=& quot;EVN" classCode="OBS"> <templateId root=" 2.16.840.1.108213.10.20.22.4.2" /> <id nullFlavor="NA& quot; /> <code codeSystem="local" code="SEDWES& quot; displayName="SED RATE WESTERGREN" /> <statusCode code="completed" /> <effectiveTime value="001881830327& quot; /> <value unit="mm/hr" xsi:type="PQ" value="12" /> <referenceRange> < observationRange> <text>0-30</text> </ observationRange> </referenceRange> </observation> </component> </organizer> </entry> <entry> & lt;organizer moodCode="EVN" classCode="BATTERY"> &lt ;templateId root="2.16.840.1.411941.10.20.22.4.1" /> <id nullFlavor="NA" /> <code codeSystem="local" code= "CK" displayName="CREATINE KINASE (CK/CPK)" /> < statusCode code="completed" /> <component> < observation moodCode="EVN" classCode="OBS"> < templateId root="2.16.840.1.289495.10.20.22.4.2" /> < id nullFlavor="NA" /> <code codeSystem="local&quot ; code="CK" displayName="CREATINE KINASE (CK/CPK)" /> <statusCode code="completed" /> <effectiveTime value="150869845489" /> <value unit="Units/L&quot ; xsi:type="PQ" value="45" /> <referenceRange > <observationRange> <text>< 193& lt;/text> </observationRange> </referenceRange& gt; </observation> </component> </organizer> & lt;/entry> <entry> <organizer moodCode="EVN" classCode ="BATTERY"> <templateId root=" 2.16.840.1.754574.10.20.22.4.1" /> <id nullFlavor="NA&quot ; /> <code codeSystem="local" code="TSH" displayName="THYROID STIM HORMONE (TSH)" /> <statusCode code="completed" /> <component> <observation moodCode="EVN" classCode="OBS"> <templateId root="2.16.840.1.189348.10.20.22.4.2" /> <id nullFlavor ="NA" /> <code codeSystem="local" code=" TSH" displayName="THYROID STIM HORMONE (TSH)" /> < statusCode code="completed" /> <effectiveTime value=& quot;219373322540" /> <value unit="uIU/mL" xsi: type="PQ" value="0.53" /> <referenceRange&gt ; <observationRange> <text>0.34-4.82</ text> </observationRange> </referenceRange> </observation> </component> </organizer> </ entry> <entry> <organizer moodCode="EVN" classCode=& quot;BATTERY"> <templateId root=" 2.16.840.1.809439.10.20.22.4.1" /> <id nullFlavor="NA&quot ; /> <code codeSystem="local" code="PREALB" displayName="PREALBUMIN" /> <statusCode code=" completed" /> <component> <observation moodCode=& quot;EVN" classCode="OBS"> <templateId root=" 2.16.840.1.267578.10.20.22.4.2" /> <id nullFlavor="NA& quot; /> <code codeSystem="local" code="PREALB& quot; displayName="PREALBUMIN" /> <statusCode code=& quot;completed" /> <effectiveTime value="433551803181& quot; /> <value unit="mg/dL" xsi:type="PQ" value="19" /> <interpretationCode codeSystem=" local" code="*" /> <referenceRange> <observationRange> <text>20-40</text> </observationRange> </referenceRange> </observation> </component> </organizer> </entry> <entry> & lt;organizer moodCode="EVN" classCode="BATTERY"> &lt ;templateId root="2.16.840.1.514549.10.20.22.4.1" /> <id nullFlavor="NA" /> <code codeSystem="local" code= "CRP" displayName="C REACTIVE PROTEIN" /> < statusCode code="completed" /> <component> < observation moodCode="EVN" classCode="OBS"> < templateId root="[id number]" /> < id nullFlavor="NA" /> <code codeSystem="local&quot ; code="CRP" displayName="C REACTIVE PROTEIN" /> <statusCode code="completed" /> <effectiveTime value="[id number]" /> <value unit="mg/dL" xsi:type="PQ" value="0.4" /> <referenceRange& gt; <observationRange> <text>0.00-0.90</ text> </observationRange> </referenceRange> </observation> </component> </organizer> </ entry> <entry> <organizer moodCode="EVN" classCode=& quot;BATTERY"> <templateId root=" [id number]" /> <id nullFlavor="NA&quot ; /> <code codeSystem="local" code="VRP" displayName="VIRUS RESPIRATORY PROFILE" /> <statusCode code ="completed" /> <component> <observation moodCode="EVN" classCode="OBS"> <templateId root="[id number]" /> <id nullFlavor ="NA" /> <code codeSystem="local" code=" MB" displayName="Microbiology" /> <statusCode code ="completed" /> <effectiveTime value="070693728696 " /> <value xsi:type="ST" value="<pre>& lt;b>RESPIRATORY PROFILE</b> See BelowRESPIRATORY PROFILE(F) Alia Date/Time: 04/27/2017 23:00 Emmanuel Date/Time: / / :SOURCE: NASOPHARYNGEALSPEC DESC: See BelowRESPIRATORY PROFILE(F) Alia Date/Time: 04/27/2017 23:00 Emmanuel Date/Time: 04/28/2017 07:13SOURCE: NASOPHARYNGEALSPEC DESC: ADENOVIRUSNOT DETECTEDBORDETELLA PERTUSSISNOT DETECTEDCHLAMYDIA PNEUMONIAENOT DETECTEDCORONAVIRUS 229ENOT DETECTEDCORONAVIRUS YRT1HEM DETECTEDCORONAVIRUS GM87BWJ DETECTEDCORONAVIRUS NL69REU DETECTEDHUMAN METAPNEUMOVIRUSNOT DETECTEDINFLUENZA A 2008 H1NOT DETECTEDINFLUENZA A H1NOT DETECTEDINFLUENZA A H3NOT DETECTEDINFLUENZA ANOTDETECTEDINFLUENZA BNOT DETECTEDMYCOPLASMA PNEUMONIAENOT DETECTEDPARAINFLUENZA 1NOT DETECTEDPARAINFLUENZA 2NOT DETECTEDPARAINFLUENZA 3NOT DETECTEDPARAINFLUENZA 4NOT DETECTEDRHINOVIRUS/ENTEROVIRUSNOT DETECTEDRSVNOT DETECTEDSAKAKAWE[facility] [facility] [place] [address]</pre>" /> < referenceRange> <observationRange> <text /& gt; </observationRange> </referenceRange> </ observation> </component> </organizer> </entry> & lt;entry> <organizer moodCode="EVN" classCode="BATTERY& quot;> <templateId root="2.16.840.1.172862.10.20.22.4.1" /& gt; <id nullFlavor="NA" /> <code codeSystem=" local" code="CBCD" displayName="CBC W/DIFF" /> <statusCode code="completed" /> <component> & lt;observation moodCode="EVN" classCode="OBS"> & lt;templateId root="2.16.840.1.624296.10.20.22.4.2" /> &lt ;id nullFlavor="NA" /> <code codeSystem="local& quot; code="BA#" displayName="BASOPHIL #" /> &lt ;statusCode code="completed" /> <effectiveTime value=& quot;956338250808" /> <value unit="k/cumm" xsi: type="PQ" value="0.0" /> <referenceRange> <observationRange> <text>0.0-0.2</text> </observationRange> </referenceRange> </ observation> </component> <component> < observation moodCode="EVN" classCode="OBS"> < templateId root="2.16.840.1.330389.10..22.4.2" /> < id nullFlavor="NA" /> <code codeSystem="local&quot ; code="BA%" displayName="BASOPHIL %" /> <statusCode code="completed" /> < effectiveTime value="184991341165" /> <value unit=&quot ;%" xsi:type="PQ" value="0.1" /> & lt;referenceRange> <observationRange> <text>0-1</ text> </observationRange> </referenceRange> </observation> </component> <component> <observation moodCode="EVN" classCode="OBS"> <templateId root="2.16.840.1.478483.10.20.22.4.2" /> <id nullFlavor="NA" /> <code codeSystem=" local" code="EO#" displayName="EOSINOPHIL #" /> <statusCode code="completed" /> < effectiveTime value="988731587761" /> <value unit=&quot ;k/cumm" xsi:type="PQ" value="0.1" /> < referenceRange> <observationRange> <text> 0.1-0.5</text> </observationRange> </ referenceRange> </observation> </component> < component><observation moodCode="EVN" classCode="OBS"& gt; <templateId root="2.16.840.1.024048.10.20.22.4.2" /&gt ; <id nullFlavor="NA" /> <code codeSystem=" local" code="EO%" displayName="EOSINOPHIL %& quot; /> <statusCode code="completed" /> & lt;effectiveTime value="114547396453" /> <value unit=& quot;%" xsi:type="PQ" value="0.9" /> <interpretationCode codeSystem="local" code="*" /> <referenceRange> <observationRange> <text& gt;2-4</text> </observationRange> </ referenceRange> </observation> </component> < component> <observation moodCode="EVN" classCode=" OBS"> <templateId root="2.16.840.1.863724.10.20.22.4.2& quot; /> <id nullFlavor="NA" /> <code codeSystem="local" code="GR#" displayName="GRANULOCYTE #" /> <statusCode code="completed" /> <effectiveTime value="389903423380" /> <value unit=& quot;k/cumm" xsi:type="PQ" value="5.8" /> & lt;referenceRange> <observationRange> <text& gt;2.0-9.0</text> </observationRange> </ referenceRange> </observation> </component> < component> <observation moodCode="EVN" classCode=" OBS"> <templateId root="2.16.840.1.143695.10.20.22.4.2& quot; /> <id nullFlavor="NA" /> <code codeSystem="local" code="GR%" displayName=" GRANULOCYTE %" /> <statusCode code="completed& quot; /> <effectiveTime value="274274429766" /> <value unit="%" xsi:type="PQ" value=" 72.0" /> <referenceRange> <observationRange > <text>50-75</text> </ observationRange> </referenceRange> </observation&gt ; </component> <component> <observation moodCode ="EVN" classCode="OBS"> <templateId root=& quot;2.16.840.1.303832.10.20.22.4.2" /> <id nullFlavor=&quot ;NA" /> <code codeSystem="local" code="LY#& quot; displayName="LYMPHOCYTE #" /> <statusCode code=& quot;completed" /> <effectiveTime value="443543376071& quot; /><value unit="k/cumm" xsi:type="PQ" value=&quot ;1.4" /> <referenceRange> <observationRange > <text>1.0-4.0</text> </observationRange > </referenceRange> </observation></component& gt; <component> <observation moodCode="EVN" classCode="OBS"> <templateId root=" 2.16.840.1.829696.10.20.22.4.2" /> <id nullFlavor="NA" /> <code codeSystem="local" code="LY%&quot ; displayName="LYMPHOCYTE %" /> <statusCode code="completed" /> <effectiveTime value=" 863724639093" /> <value unit="%" xsi:type= "PQ" value="17.8" /> <interpretationCode codeSystem="local" code="*" /> < referenceRange> <observationRange> <text> 20-30</text> </observationRange> </ referenceRange> </observation> </component> < component> <observation moodCode="EVN" classCode=" OBS"> <templateId root="2.16.840.1.682565.10.20.22.4.2& quot; /> <id nullFlavor="NA" /> <code codeSystem="local" code="MCH" displayName="MEAN CELL HGB" /> <statusCode code="completed" /> &lt ;effectiveTime value="861390808289" /> <value unit=& quot;pg" xsi:type="PQ" value="34.3" /> < interpretationCode codeSystem="local" code="*" /> <referenceRange> <observationRange> < text>27.0-33.0</text> </observationRange> &lt ;/referenceRange> </observation> </component> & lt;component> <observation moodCode="EVN" classCode="OBS& quot;> <templateId root="2.16.840.1.149967.10.20.22.4.2&quot ; /> <id nullFlavor="NA" /> <code codeSystem= "local" code="MCHC" displayName="MEAN CELL HGB CONCENTRATION" /> <statusCode code="completed" /& gt; <effectiveTime value="612652915345" /> &lt ;value unit="g/dL" xsi:type="PQ" value="29.5" /&gt ; <interpretationCode codeSystem="local" code="*&quot ; /> <referenceRange> <observationRange>< text>32.0-37.0</text> </observationRange> &lt ;/referenceRange> </observation> </component> & lt;component> <observation moodCode="EVN" classCode=&quot ;OBS"> <templateId root="2.16.840.1.595879.10.20.22.4.2 " /> <id nullFlavor="NA" /> <code codeSystem="local" code="MCV" displayName="MEAN CELL VOLUME" /> <statusCode code="completed" /> & lt;effectiveTime value="856011171299" /> <value unit=& quot;fl" xsi:type="PQ" value="116.2"/> < interpretationCode codeSystem="local" code="*" />< referenceRange> <observationRange> <text> 80.0-100.0</text> </observationRange> </ referenceRange> </observation> </component> < component> <observation moodCode="EVN" classCode=" OBS"> <templateId root="2.16.840.1.832317.10.20.22.4.2& quot; /> <id nullFlavor="NA" /> <code codeSystem="local" code="MO#" displayName="MONOCYTE #& quot; /> <statusCode code="completed" /> & lt;effectiveTime value="253383918389" /> <value unit=& quot;k/cumm" xsi:type="PQ" value="0.7" /> & lt;referenceRange> <observationRange> <text& gt;0.1-1.0</text> </observationRange> </ referenceRange> </observation> </component> < component> <observation moodCode="EVN" classCode=" OBS"> <templateId root="2.16.840.1.637429.10.20.22.4.2& quot; /> <id nullFlavor="NA" /> <code codeSystem="local" code="MO%" displayName=" MONOCYTE %" /> <statusCode code="completed&quot ; /> <effectiveTime value="892630517183" /> <value unit="%" xsi:type="PQ" value="9.2& quot; /> <interpretationCode codeSystem="local" code=& quot;*" /> <referenceRange> <observationRange> <text>4-6</text> </observationRange> </referenceRange> </observation> </component&gt ; <component> <observation moodCode="EVN" classCode="OBS"> <templateId root=" 2.16.840.1.396243.10..22.4.2" /> <id nullFlavor="NA& quot; /> <code codeSystem="local" code="RBC" displayName="RED BLOOD CELL" /> <statusCode code=" completed" /> <effectiveTime value="390190945299" /> <value unit="m/cumm" xsi:type="PQ" value=& quot;3.76" /> <interpretationCode codeSystem="local& quot;code="*" /> <referenceRange> < observationRange> <text>4.00-6.00</text> </ observationRange> </referenceRange> </observation&gt ; </component> <component> <observation moodCode ="EVN" classCode="OBS"> <templateId root=& quot;2.16.840.1.896043.10.20.22.4.2" /> <id nullFlavor=&quot ;NA" /> <code codeSystem="local" code="RDW& quot; displayName="RED CELL DISTRIBUTION WIDTH" /> < statusCode code="completed" /> <effectiveTime value=& quot;665535938451" /> <value unit="%" xsi: type="PQ" value="12.4" /> <referenceRange&gt ; <observationRange> <text>11.0-15.6</text> </observationRange> </referenceRange> & lt;/observation> </component> <component> < observation moodCode="EVN" classCode="OBS"> < templateId root="2.16.840.1.280685.10.20.22.4.2" /> < id nullFlavor="NA" /> <code codeSystem="local&quot ; code="WBC" displayName="WHITE BLOOD CELL" /> & lt;statusCode code="completed" /> <effectiveTime value= "734598235359" /> <value unit="k/cumm" xsi: type="PQ" value="8.0" /> <referenceRange> <observationRange> <text>5.0-10.0</text& gt; </observationRange> </referenceRange> & lt;/observation> </component> <component> < observation moodCode="EVN" classCode="OBS"> < templateId root="2.16.840.1.467226.10.20.22.4.2" /> < id nullFlavor="NA" /> <code codeSystem="local&quot ; code="HGBT" displayName="HEMOGLOBIN" /> < statusCode code="completed" /> <effectiveTime value=& quot;236262307020" /> <value unit="gm/dL" xsi:type ="PQ" value="12.9" /> <referenceRange> <observationRange> <text>12.0-16.0</text> </observationRange> </referenceRange> &lt ;/observation> </component> <component> < observation moodCode="EVN" classCode="OBS"> < templateId root="2.16.840.1.906378.10.20.22.4.2" /> < id nullFlavor="NA" /> <code codeSystem="local&quot ; code="HCTT" displayName="HEMATOCRIT" /> < statusCode code="completed" /> <effectiveTime value=& quot;556275141382" /> <value unit="%" xsi: type="PQ" value="43.7" /> <referenceRange&gt ; <observationRange> <text>37.0-47.0</ text> </observationRange> </referenceRange> </observation> </component> <component> &lt ;observation moodCode="EVN" classCode="OBS"> &lt ;templateId root="2.16.840.1.897407.10.20.22.4.2" /> <id nullFlavor="NA" /> <code codeSystem="local" code="PLTT" displayName="PLATELET COUNT" /> < statusCode code="completed" /> <effectiveTime value=& quot;850904259241" /> <value unit="k/cumm" xsi: type="PQ" value="192" /> <referenceRange> <observationRange> <text>150-450</text& gt; </observationRange> </referenceRange> </observation> </component> </organizer> </entry > <entry> <organizer moodCode="EVN"classCode=" BATTERY"> <templateId root="2.16.840.1.238178.10.20.22.4.1& quot; /> <id nullFlavor="NA" /> <code codeSystem ="local" code="METAB" displayName="METABOLIC PANEL, BASIC" /> <statusCode code="completed" /> < component> <observation moodCode="EVN" classCode=" OBS"> <templateId root="2.16.840.1.948893.10.20.22.4.2& quot; /> <id nullFlavor="NA" /> <code codeSystem="local" code="K" displayName="POTASSIUM&quot ; /> <statusCode code="completed" /> < effectiveTime value="127048929710" /> <value unit=&quot ;mmol/L" xsi:type="PQ" value="4.8" /> < referenceRange> <observationRange> <text>3.5- 5.3</text> </observationRange> </ referenceRange> </observation> </component> < component> <observation moodCode="EVN" classCode=" OBS"> <templateId root="2.16.840.1.164965.10.20.22.4.2& quot; /> <id nullFlavor="NA" /> <code codeSystem="local" code="eGFR" displayName="EST GFR ( MDRD)" /> <statusCode code="completed" /> < effectiveTime value="551038406475" /> <value unit=&quot ;mL/min" xsi:type="PQ" value="> 60" /> <referenceRange><observationRange> <text>&amp ;gt; 59</text> </observationRange> </ referenceRange> </observation> </component>< component> <observation moodCode="EVN" classCode=" OBS"> <templateId root="2.16.840.1.750669.10.20.22.4.2" /> <id nullFlavor="NA" /> <code codeSystem="local" code="GAP" displayName="ANION GAP& quot; /> <statusCode code="completed" /> & lt;effectiveTime value="110860343936" /> <value unit=& quot;mmol/L" xsi:type="PQ" value="3" /> &lt ;interpretationCode codeSystem="local" code="*" /> <referenceRange> <observationRange> <text>5- 15</text> </observationRange> </ referenceRange> </observation> </component> < component> <observationmoodCode="EVN" classCode="OBS "> <templateId root="2.16.840.1.839630.10.20.22.4.2& quot; /> <id nullFlavor="NA" /> <code codeSystem="local" code="eCrCl" displayName="EST CrCl ( CG)" /> <statusCode code="completed" /> < effectiveTime value="342617313890" /> <value unit=&quot ;mL/min" xsi:type="PQ" value="56" /> < interpretationCode codeSystem="local" code="*" /> <referenceRange> <observationRange> < text>> 59</text> </observationRange> & lt;/referenceRange> </observation> </component> <component> <observation moodCode="EVN" classCode=& quot;OBS"> <templateId root=" 2.16.840.1.881104.10.20.22.4.2" /> <id nullFlavor="NA& quot; /> <code codeSystem="local" code="GLU" displayName="GLUCOSE" /> <statusCode code=" completed" /> <effectiveTime value="458950075281" /> <value unit="mg/dL" xsi:type="PQ" value=& quot;105" /> <interpretationCode codeSystem="local&quot ; code="*" /> <referenceRange> < observationRange> <text>70-99</text> < /observationRange> </referenceRange> </observation& gt; </component> <component> <observation moodCode="EVN" classCode="OBS"> <templateId root="2.16.840.1.410340.10.20.22.4.2" /> <id nullFlavor ="NA" /> <code codeSystem="local" code=" CA" displayName="CALCIUM" /> <statusCode code=& quot;completed" /> <effectiveTime value="238022813905& quot; /> <value unit="mg/dL" xsi:type="PQ" value="8.7" /> <referenceRange> < observationRange> <text>8.5-10.1</text> </ observationRange> </referenceRange> </observation&gt ; </component> <component> <observation moodCode ="EVN" classCode="OBS"> <templateId root=& quot;2.16.840.1.926292.10.20.22.4.2" /> <id nullFlavor=&quot ;NA" /> <code codeSystem="local" code="BUN& quot; displayName="BLOOD UREA NITROGEN" /> <statusCode code="completed" /> <effectiveTime value=" 377614460489" /> <value unit="mg/dL" xsi:type=& quot;PQ" value="14" /> <referenceRange> <observationRange> <text>7-20</text> </observationRange> </referenceRange> </ observation> </component> <component> < observation moodCode="EVN" classCode="OBS"> < templateId root="2.16.840.1.133577.10.20.22.4.2" /> < id nullFlavor="NA" /> <code codeSystem="local&quot ; code="CREAT" displayName="CREATININE" /> < statusCode code="completed" /> <effectiveTime value=& quot;834345010232" /> <value unit="mg/dL" xsi:type ="PQ" value="0.5" /> <interpretationCode codeSystem ="local" code="*" /> <referenceRange> <observationRange> <text>0.6-1.0</text> </observationRange> </referenceRange> </ observation> </component> <component> < observation moodCode="EVN" classCode="OBS"> < templateId root="2.16.840.1.180936.10.20.22.4.2" /><id nullFlavor="NA" /> <code codeSystem="local" code="NA" displayName="SODIUM" /> < statusCode code="completed" /> <effectiveTime value=" 663327974712" /> <value unit="mmol/L" xsi:type=& quot;PQ" value="145" /> <referenceRange> <observationRange> <text>135-148</text> </observationRange> </referenceRange> </ observation> </component> <component> < observation moodCode="EVN" classCode="OBS"> < templateId root="2.16.840.1.988003.10.20.22.4.2" /> < id nullFlavor="NA" /> <code codeSystem="local&quot ; code="CL" displayName="CHLORIDE" /> < statusCode code="completed" /> <effectiveTime value=& quot;113172147238" /> <value unit="mmol/L" xsi: type="PQ" value="108" /> <referenceRange> <observationRange> <text>98-110</text&gt ; </observationRange> </referenceRange> & lt;/observation> </component> <component> < observation moodCode="EVN" classCode="OBS"> < templateId root="2.16.840.1.692969.10.20.22.4.2" /> < id nullFlavor="NA" /> <code codeSystem="local&quot ; code="CO2" displayName="CARBON DIOXIDE" /> &lt ;statusCode code="completed" /> <effectiveTime value=& quot;479894327206" /> <value unit="mmol/L" xsi: type="PQ" value="34" /> <interpretationCode codeSystem="local" code="*" /> <referenceRange > <observationRange> <text>21-32</text > </observationRange> </referenceRange> </observation> </component> </organizer> </ entry> <entry> <organizer moodCode="EVN" classCode=& quot;BATTERY"> <templateId root=" 2.16.840.1.201574.10.20.22.4.1" /> <id nullFlavor="NA&quot ; /> <code codeSystem="local" code="MAG" displayName="MAGNESIUM" /> <statusCode code="completed " /> <component> <observation moodCode="EVN& quot; classCode="OBS"> <templateId root=" 2.16.840.1.663577.10..22.4.2" /> <id nullFlavor="NA& quot; /> <code codeSystem="local" code="MAG" displayName="MAGNESIUM" /> <statusCode code=" completed" /> <effectiveTime value="297127389437" /> <value unit="mg/dL" xsi:type="PQ" value=& quot;1.8" /> <referenceRange> < observationRange> <text>1.8-2.4</text></ observationRange> </referenceRange> </observation&gt ; </component> </organizer> </entry> <entry> <organizer moodCode="EVN" classCode="BATTERY"> <templateId root="2.16.840.1.575024.10.20.22.4.1" /> < id nullFlavor="NA" /> <code codeSystem="local" code="PROCAL" displayName="PROCALCITONIN" /> < statusCode code="completed" /> <component> < observation moodCode="EVN" classCode="OBS"> < templateId root="2.16.840.1.224836.10.20.22.4.2" /> <id nullFlavor="NA" /> <code codeSystem="local" code="PROCAL" displayName="PROCALCITONIN" /> &lt ;statusCode code="completed" /> <effectiveTime value=& quot;887723895119" /> <value unit="ng/mL" xsi:type ="PQ" value="0.11" /> <referenceRange> <observationRange> <text>< 0.25</ text> </observationRange> </referenceRange> </observation> </component> </organizer> </ entry> <entry> <organizer moodCode="EVN" classCode=& quot;BATTERY"> <templateId root=" 2.16.840.1.728148.10.20.22.4.1" /> <id nullFlavor="NA&quot ; /> <code codeSystem="local" code="UA" displayName="URINALYSIS, ROUTINE" /> <statusCode code=&quot ;completed" /> <component> <observation moodCode=& quot;EVN" classCode="OBS"> <templateId root=" 2.16.840.1.882066.10.20.22.4.2" /> <id nullFlavor="NA" / > <code codeSystem="local" code="LEUESU" displayName="UA LEUKOCYTE ESTERASE DIPSTICK" /> < statusCode code="completed" /> <effectiveTime value=& quot;861941113200" /> <value unit="" xsi:type="PQ& quot; value="NEGATIVE" /> <referenceRange> <observationRange> <text>NEGATIVE</text> </observationRange> </referenceRange> </ observation> </component> <component> < observation moodCode="EVN" classCode="OBS"> < templateId root="2.16.840.1.724327.10.20.22.4.2" /> <id nullFlavor="NA" /> <code codeSystem="local" code="NITRIU" displayName="UA NITRITE DIPSTICK" /> <statusCode code="completed" /> <effectiveTime value="326731500652" /> <value unit="" xsi: type="PQ" value="NEGATIVE" /> <referenceRange > <observationRange> <text>NEGATIVE</ text> </observationRange> </referenceRange> &lt ;/observation> </component> <component> < observation moodCode="EVN" classCode="OBS"> < templateId root="2.16.840.1.951697.10.20.22.4.2" /> < id nullFlavor="NA" /> <code codeSystem="local&quot ; code="PROTEIU" displayName="UA PROTEIN DIPSTICK" /> <statusCode code="completed" /> < effectiveTime value="627474093353" /> <value unit=&quot ;" xsi:type="PQ" value="NEGATIVE" /> < referenceRange> <observationRange> <text> NEGATIVE</text> </observationRange> </ referenceRange> </observation> </component> < component> <observation moodCode="EVN" classCode=" OBS"> <templateId root="2.16.840.1.585526.10.20.22.4.2& quot; /> <id nullFlavor="NA" /> <code codeSystem="local" code="DGLUU"displayName="UA GLUCOSE DIPSTICK" /> <statusCode code="completed"/> <effectiveTime value="810563275128" /> < value unit="" xsi:type="PQ" value="NEGATIVE" /&gt ; <referenceRange> <observationRange> < text>NEGATIVE</text> </observationRange> < /referenceRange> </observation> </component> < component> <observation moodCode="EVN" classCode=" OBS"> <templateId root="2.16.840.1.615910.10.20.22.4.2&quot ; /> <id nullFlavor="NA" /> <code codeSystem="local" code="KETONU" displayName="UA KETONE DIPSTICK" /> <statusCode code="completed" / > <effectiveTime value="368795666367" /> < value unit="" xsi:type="PQ" value="1+" /> <interpretationCode codeSystem="local" code="*" /&gt ; <referenceRange> <observationRange> <text>NEGATIVE</text> </observationRange> </referenceRange> </observation> </component> <component> <observation moodCode="EVN" classCode="OBS"> <templateId root=" 2.16.840.1.939476.10.20.22.4.2" /> <id nullFlavor="NA& quot; /> <code codeSystem="local" code="UROBILU" displayName="UA UROBILINOGEN DIPSTICK" /> <statusCode code="completed" /> <effectiveTime value=" 359933718671" /> <value unit="" xsi:type="PQ& quot; value="NORMAL" /> <referenceRange> <observationRange> <text>NORMAL</text> < /observationRange> </referenceRange> </observation& gt; </component> <component> <observation moodCode="EVN" classCode="OBS"> <templateId root="2.16.840.1.608976.10.20.22.4.2" /> <id nullFlavor ="NA" /> <code codeSystem="local" code=" BILU" displayName="UA BILIRUBIN DIPSTICK"/> < statusCode code="completed" /> <effectiveTime value=& quot;068465173245" /> <value unit="" xsi:type=& quot;PQ" value="NEGATIVE" /> <referenceRange> <observationRange> <text>NEGATIVE</text& gt; </observationRange> </referenceRange> </observation> </component> <component> &lt ;observation moodCode="EVN" classCode="OBS"> &lt ;templateId root="2.16.840.1.439975.10.20.22.4.2" /> < id nullFlavor="NA" /> <code codeSystem="local&quot ; code="RICK" displayName="UA BLOOD DIPSTICK" /> < statusCode code="completed" /> <effectiveTime value=& quot;079980114915" /> <value unit="" xsi:type=& quot;PQ" value="TRACE" /> <interpretationCode codeSystem="local" code="*" /> < referenceRange> <observationRange> <text> NEGATIVE</text> </observationRange> </ referenceRange> </observation> </component> < component> <observation moodCode="EVN" classCode=" OBS"> <templateId root="2.16.840.1.132226.10.20.22.4.2& quot; /> <id nullFlavor="NA" /> <code codeSystem="local" code="SPGRU" displayName="UA SPECIFIC GRAVITY" /> <statusCode code="completed" /> <effectiveTime value="558066116619" /> & lt;value unit="" xsi:type="PQ" value="1.010" /&gt ; <interpretationCode codeSystem="local" code="*&quot ; /> <referenceRange> <observationRange> <text>1.015-1.025</text> </observationRange> </referenceRange> </observation> </component&gt ; <component> <observation moodCode="EVN" classCode ="OBS"> <templateId root=" 2.16.840.1.666049.10.20.22.4.2" /> <id nullFlavor="NA& quot; /> <code codeSystem="local" code="FRANCO" displayName="UR PH" /> <statusCode code="completed " /> <effectiveTime value="942255070390" /> <value unit="" xsi:type="PQ" value="7.0&quot ; /> <referenceRange> <observationRange> <text>5.0-7.0</text> </observationRange> </referenceRange> </observation> </ component> </organizer> </entry> <entry> < organizer moodCode="EVN" classCode="BATTERY"> < templateId root="2.16.840.1.155386.10.20.22.4.1" /> <id nullFlavor="NA" /> <code codeSystem="local" code= "UAMICRO" displayName="UA MICROSCOPIC" /> < statusCode code="completed" /> <component> < observation moodCode="EVN" classCode="OBS"> < templateId root="[id number]" /> < id nullFlavor="NA" /> <code codeSystem="local&quot ; code="RBCU" displayName="UA RBC" /> < statusCode code="completed" /> <effectiveTime value=& quot;[id number]" /> <value unit="rbc/hpf" xsi: type="PQ" value="0-3" /> <referenceRange> <observationRange> <text>0 - 3</text> </observationRange> </referenceRange> </ observation> </component> <component> < observation moodCode="EVN" classCode="OBS"> < templateId root="[id number]" /> < id nullFlavor="NA" /> <code codeSystem="local&quot ; code="UAVOL" displayName="UA VOLUME FOR EXAM" /> & lt;statusCode code="completed" /> <effectiveTime value= "[id number]" /> <value unit="mL" xsi:type=& quot;PQ" value="12.0" /> <referenceRange> <observationRange> <text>(12mL STD)</text&gt ; </observationRange> </referenceRange> & lt;/observation> </component> <component> < observation moodCode="EVN" classCode="OBS"> < templateId root="2.16.840.1.897186.10..22.4.2" /> < id nullFlavor="NA" /> <code codeSystem="local&quot ; code="WBCU" displayName="UA WBC" /> < statusCode code="completed" /> <effectiveTime value=& quot;818106413324" /> <value unit="wbc/hpf" xsi:type=&quot ;PQ" value="0-1" /> <referenceRange> <observationRange> <text>0 - 5</text> </observationRange> </referenceRange> </ observation> </component> </organizer> </entry> < entry> <organizer moodCode="EVN" classCode="BATTERY&quot ;> <templateId root="2.16.840.1.654804.10.20.22.4.1" /> <id nullFlavor="NA" /> <code codeSystem=" local" code="CBCD" displayName="CBC W/DIFF" /> <statusCode code="completed" /> <component> & lt;observation moodCode="EVN" classCode="OBS"> & lt;templateId root="2.16.840.1.052089.10..22.4.2" /> < id nullFlavor="NA" /> <code codeSystem="local&quot ; code="BA#" displayName="BASOPHIL #" /> < statusCode code="completed" /> <effectiveTime value=& quot;150774922758" /> <value unit="k/cumm" xsi: type="PQ" value="0.0" /> <referenceRange> <observationRange> <text>0.0-0.2</text&gt ; </observationRange> </referenceRange> & lt;/observation> </component> <component> < observation moodCode="EVN" classCode="OBS"> < templateId root="2.16.840.1.965789.10..22.4.2" /> < id nullFlavor="NA" /> <code codeSystem="local&quot ; code="BA%" displayName="BASOPHIL %" /> <statusCode code="completed" /> < effectiveTime value="422971258030" /> <value unit=&quot ;%" xsi:type="PQ" value="0.2" /> & lt;referenceRange> <observationRange> <text&gt ;0-1</text> </observationRange> </ referenceRange> </observation> </component> < component> <observation moodCode="EVN" classCode=" OBS"> <templateId root="2.16.840.1.825607.10.20.22.4.2&quot ; /> <id nullFlavor="NA" /> <code codeSystem="local" code="EO#" displayName="EOSINOPHIL # " /> <statusCode code="completed" /> & lt;effectiveTime value="920938381846" /> <value unit=& quot;k/cumm" xsi:type="PQ" value="0.0" /> & lt;interpretationCode codeSystem="local" code="*" /> <referenceRange> <observationRange> < text>0.1-0.5</text> </observationRange> </ referenceRange> </observation> </component> < component> <observation moodCode="EVN" classCode=" OBS"> <templateId root="2.16.840.1.373201.10..22.4.2& quot; /> <id nullFlavor="NA" /> <code codeSystem="local" code="EO%" displayName=" EOSINOPHIL %" /> <statusCode code="completed& quot; /> <effectiveTime value="887906284967" /> <value unit="%" xsi:type="PQ" value=" 0.6" /> <interpretationCode codeSystem="local" code="*" /> <referenceRange> < observationRange> <text>2-4</text> </ observationRange> </referenceRange> </observation> </component> <component> <observation moodCode=& quot;EVN" classCode="OBS"> <templateId root=" 2.16.840.1.345192.10.20.22.4.2" /> <id nullFlavor="NA& quot; /> <code codeSystem="local" code="GR#" displayName="GRANULOCYTE #" /> <statusCode code=" completed" /> <effectiveTime value="934799613050" /> <value unit="k/cumm" xsi:type="PQ" value=& quot;3.3" /> <referenceRange> <observationRange& gt; <text>2.0-9.0</text> </ observationRange> </referenceRange> </observation&gt ; </component> <component> <observation moodCode ="EVN"classCode="OBS"> <templateId root=&quot ;2.16.840.1.007570.10.20.22.4.2" /> <id nullFlavor="NA& quot; /> <code codeSystem="local" code="GR&#37 ;" displayName="GRANULOCYTE %" /> < statusCode code="completed" /> <effectiveTime value=& quot;223888107312" /> <value unit="%" xsi: type="PQ" value="65.1" /> <referenceRange> <observationRange> <text>50-75</text> </observationRange> </referenceRange> & lt;/observation> </component> <component> < observation moodCode="EVN" classCode="OBS"> < templateId root="2.16.840.1.523341.10..22.4.2" /> < id nullFlavor="NA" /> <code codeSystem="local&quot ; code="LY#" displayName="LYMPHOCYTE #" /> < statusCode code="completed" /> <effectiveTime value=& quot;754034279457" /> <value unit="k/cumm" xsi: type="PQ" value="1.3" /> <referenceRange> <observationRange> <text>1.0-4.0</text& gt; </observationRange> </referenceRange> </ observation> </component> <component> < observation moodCode="EVN" classCode="OBS"> < templateId root="2.16.840.1.116828.10..22.4.2" /> < id nullFlavor="NA" /> <code codeSystem="local&quot ; code="LY%" displayName="LYMPHOCYTE %" /&gt ; <statusCode code="completed" /> < effectiveTime value="717272009049" /> <value unit=&quot ;%" xsi:type="PQ" value="24.9" /> & lt;referenceRange> <observationRange> <text& gt;20-30</text> </observationRange> </referenceRange& gt; </observation> </component> <component> <observation moodCode="EVN" classCode="OBS"> <templateId root="2.16.840.1.566586.10.20.22.4.2" /> <id nullFlavor="NA" /> <code codeSystem=&quot ;local" code="MCH" displayName="MEAN CELL HGB" /> <statusCode code="completed" /> < effectiveTime value="389845927898" /> <value unit=&quot ;pg" xsi:type="PQ" value="34.8" /> < interpretationCode codeSystem="local" code="*" /> <referenceRange> <observationRange> < text>27.0-33.0</text> </observationRange> </ referenceRange> </observation> </component> < component> <observation moodCode="EVN" classCode=" OBS"> <templateId root="2.16.840.1.554448.10..22.4.2& quot; /> <id nullFlavor="NA" /> <code codeSystem="local" code="MCHC" displayName="MEAN CELL HGB CONCENTRATION" /> <statusCode code="completed&quot ; /> <effectiveTime value="002400321829" /> <value unit="g/dL" xsi:type="PQ" value="32.9&quot ; /> <referenceRange> <observationRange> <text>32.0-37.0</text> </observationRange&gt ; </referenceRange> </observation> </component&gt ; <component> <observation moodCode="EVN" classCode="OBS"> <templateId root=" 2.16.840.1.328465.10.20.22.4.2" /> <id nullFlavor="NA& quot; /> <code codeSystem="local" code="MCV" displayName="MEAN CELL VOLUME" /> <statusCode code=& quot;completed" /> <effectiveTime value="173033895231& quot; /> <value unit="fl" xsi:type="PQ"value= "105.7" /> <interpretationCode codeSystem="local& quot; code="*" /> <referenceRange> < observationRange> <text>80.0-100.0</text> </observationRange> </referenceRange> </ observation> </component> <component> < observation moodCode="EVN" classCode="OBS"> < templateId root="2.16.840.1.669541.10.20.22.4.2" /> < id nullFlavor="NA" /> <code codeSystem="local&quot ; code="MO#" displayName="MONOCYTE #" /> < statusCode code="completed" /> <effectiveTime value=& quot;605528503016" /> <value unit="k/cumm" xsi: type="PQ" value="0.5" /> <referenceRange> <observationRange> <text>0.1-1.0</text> </observationRange> </referenceRange> & lt;/observation> </component> <component> < observation moodCode="EVN" classCode="OBS"> < templateId root="2.16.840.1.685140.10.20.22.4.2" /> < id nullFlavor="NA" /> <code codeSystem="local&quot ; code="MO%" displayName="MONOCYTE %" /> <statusCode code="completed" /> < effectiveTime value="202882871002" /> <value unit=" %" xsi:type="PQ" value="9.2" /> < interpretationCode codeSystem="local" code="*" /> <referenceRange> <observationRange> < text>4-6</text> </observationRange> </referenceRange > </observation> </component> <component> <observation moodCode="EVN" classCode="OBS"> <templateId root="2.16.840.1.747430.10.20.22.4.2" /> <id nullFlavor="NA" /> <code codeSystem=& quot;local" code="RBC" displayName="RED BLOOD CELL" /& gt; <statusCode code="completed" /> < effectiveTime value="065761487047" /> <value unit=&quot ;m/cumm" xsi:type="PQ" value="3.88" /> < interpretationCode codeSystem="local" code="*" /> <referenceRange> <observationRange> < text>4.00-6.00</text> </observationRange> < /referenceRange> </observation> </component> &lt ;component> <observation moodCode="EVN" classCode=" OBS"> <templateId root="2.16.840.1.629851.10.20.22.4.2& quot; /> <id nullFlavor="NA" /> <code codeSystem="local" code="RDW" displayName="RED CELL DISTRIBUTION WIDTH" /> <statusCode code="completed&quot ; /> <effectiveTime value="181582308588" /> <value unit="%" xsi:type="PQ" value="11.6& quot; /> <referenceRange> <observationRange> <text>11.0-15.6</text> </ observationRange> </referenceRange> </observation&gt ; </component> <component> <observation moodCode ="EVN" classCode="OBS"> <templateId root=& quot;2.16.840.1.622954.10.20.22.4.2" /> <id nullFlavor=&quot ;NA" /> <code codeSystem="local" code="WBC& quot; displayName="WHITE BLOOD CELL" /> <statusCode code="completed" /> <effectiveTime value=" 606224197934" /> <value unit="k/cumm" xsi:type=& quot;PQ" value="5.1" /> <referenceRange> <observationRange> <text>5.0-10.0</text> </observationRange> </referenceRange> < /observation> </component> <component> < observation moodCode="EVN" classCode="OBS"> < templateId root="2.16.840.1.448778.10.20.22.4.2" /> < id nullFlavor="NA" /> <code codeSystem="local" code="HGBT" displayName="HEMOGLOBIN" /> < statusCode code="completed" /> <effectiveTime value=& quot;075909755544" /> <value unit="gm/dL" xsi:type ="PQ" value="13.5" /> <referenceRange> <observationRange> <text>12.0-16.0</text> </observationRange> </referenceRange> </ observation> </component> <component> < observation moodCode="EVN" classCode="OBS"> < templateId root="2.16.840.1.713492.10.20.22.4.2" /> < id nullFlavor="NA" /> <codecodeSystem="local&quot ; code="HCTT" displayName="HEMATOCRIT" /><statusCode code="completed" /> <effectiveTime value=" 894235933085" /> <value unit="%" xsi:type= "PQ" value="41.0" /> <referenceRange> <observationRange> <text>37.0-47.0</text&gt ; </observationRange> </referenceRange></ observation> </component> <component> < observation moodCode="EVN" classCode="OBS"> < templateId root="2.16.840.1.568020.10..22.4.2" /> < id nullFlavor="NA" /> <code codeSystem="local&quot ; code="PLTT" displayName="PLATELET COUNT" /> & lt;statusCode code="completed" /> <effectiveTime value= "234738206432" /> <value unit="k/cumm" xsi: type="PQ" value="197" /> <referenceRange> <observationRange> <text>150-450</text> </observationRange> </referenceRange> < /observation> </component> </organizer> </entry> <entry> <organizer moodCode="EVN" classCode="BATTERY& quot;> <templateId root="2.16.840.1.015872.10.20.22.4.1" /& gt; <id nullFlavor="NA" /> <code codeSystem=" local" code="METAB" displayName="METABOLIC PANEL, BASIC&quot ; /> <statusCode code="completed" /> <component& gt; <observation moodCode="EVN" classCode="OBS"&gt ; <templateId root="2.16.840.1.405235.10..22.4.2" /> <id nullFlavor="NA" /> <code codeSystem=& quot;local" code="K" displayName="POTASSIUM" /> <statusCode code="completed" /> < effectiveTime value="191866517756" /> <value unit="mmol/L " xsi:type="PQ" value="3.4" /> < interpretationCode codeSystem="local" code="*" /> <referenceRange> <observationRange> < text>3.5-5.3</text> </observationRange> </ referenceRange> </observation> </component> < component> <observation moodCode="EVN" classCode=" OBS"> <templateId root="2.16.840.1.329661.10.20.22.4.2& quot; /> <idnullFlavor="NA" /> <code codeSystem="local" code="eGFR"displayName="EST GFR ( MDRD)" /> <statusCode code="completed" /> <effectiveTime value="128169544839" /> <value unit="mL/min" xsi:type="PQ" value="> 60" /& gt; <referenceRange> <observationRange> <text>> 59</text> </observationRange> </referenceRange> </observation> </component& gt; <component> <observation moodCode="EVN" classCode="OBS"> <templateId root=" 2.16.840.1.606392.10.20.22.4.2" /> <id nullFlavor="NA& quot; /> <code codeSystem="local" code="GAP" displayName="ANION GAP" /> <statusCode code=" completed" /> <effectiveTime value="728092897741" /> <value unit="mmol/L" xsi:type="PQ" value="4& quot; /> <interpretationCode codeSystem="local" code=& quot;*" /> <referenceRange> < observationRange> <text>5-15</text> </ observationRange> </referenceRange> </observation&gt ; </component> <component> <observation moodCode ="EVN" classCode="OBS"> <templateId root=& quot;2.16.840.1.454371.10..22.4.2" /> <id nullFlavor=&quot ;NA" /> <code codeSystem="local" code="eCrCl& quot; displayName="EST CrCl (CG)" /> <statusCode code=& quot;completed" /> <effectiveTime value="347775657805& quot; /> <value unit="mL/min" xsi:type="PQ" value="53" /> <interpretationCode codeSystem=" local" code="*" /> <referenceRange> & lt;observationRange> <text>>59</text> </observationRange> </referenceRange> </ observation> </component> <component> < observation moodCode="EVN" classCode="OBS"> < templateId root="2.16.840.1.634550.10.20.22.4.2" /> < id nullFlavor="NA" /> <code codeSystem="local&quot ; code="GLU" displayName="GLUCOSE" /> < statusCode code="completed" /> <effectiveTime value=& quot;551078423282" /> <value unit="mg/dL" xsi:type ="PQ" value="84" /> <referenceRange> <observationRange> <text>70-99</text></ observationRange> </referenceRange> </observation&gt ; </component> <component> <observation moodCode ="EVN" classCode="OBS"> <templateId root=& quot;2.16.840.1.676337.10.20.22.4.2" /> <id nullFlavor=&quot ;NA" /> <code codeSystem="local" code="CA& quot; displayName="CALCIUM" /> <statusCode code=" completed" /> <effectiveTime value="095705188701" /> <value unit="mg/dL"xsi:type="PQ" value=" 8.7" /> <referenceRange> <observationRange& gt; <text>8.5-10.1</text> </ observationRange> </referenceRange> </observation&gt ; </component> <component> <observation moodCode ="EVN" classCode="OBS"> <templateId root=& quot;2.16.840.1.688757.10.20.22.4.2" /> <id nullFlavor=&quot ;NA" /> <code codeSystem="local" code="BUN& quot; displayName="BLOOD UREA NITROGEN" /> <statusCode code="completed" /> <effectiveTime value=" 506372106284" /> <value unit="mg/dL" xsi:type=& quot;PQ" value="12" /> <referenceRange> <observationRange> <text>7-20</text> </observationRange> </referenceRange> </ observation> </component> <component><observation moodCode="EVN" classCode="OBS"> <templateId root="2.16.840.1.036035.10.20.22.4.2" /> <id nullFlavor ="NA" /> <code codeSystem="local" code="CREAT& quot; displayName="CREATININE" /> <statusCode code=& quot;completed" /> <effectiveTime value="308030990202& quot; /> <value unit="mg/dL" xsi:type="PQ" value="0.5" /> <interpretationCode codeSystem=" local" code="*" /> <referenceRange> <observationRange> <text>0.6-1.0</text> </observationRange> </referenceRange> </ observation> </component> <component> < observation moodCode="EVN" classCode="OBS"> < templateId root="2.16.840.1.223610.10.20.22.4.2" /> < id nullFlavor="NA" /> <code codeSystem="local&quot ; code="NA" displayName="SODIUM" /> < statusCode code="completed" /> <effectiveTime value=& quot;207601886040" /> <value unit="mmol/L" xsi: type="PQ" value="139" /> <referenceRange> <observationRange> <text>135-148</text& gt; </observationRange> </referenceRange> </ observation> </component> <component> < observation moodCode="EVN" classCode="OBS"> < templateId root="2.16.840.1.328972.10.20.22.4.2" /> < id nullFlavor="NA" /> <code codeSystem="local&quot ; code="CL" displayName="CHLORIDE" /> < statusCode code="completed" /> <effectiveTime value=" 223506406641" /> <value unit="mmol/L" xsi:type=& quot;PQ" value="97" /> <interpretationCode codeSystem="local" code="*" /> < referenceRange> <observationRange> <text> 98-110</text> </observationRange> </ referenceRange> </observation> </component> < component> <observation moodCode="EVN" classCode="OBS&quot ;> <templateId root="2.16.840.1.907215.10.20.22.4.2" /& gt; <id nullFlavor="NA" /> <code codeSystem=& quot;local" code="CO2" displayName="CARBON DIOXIDE" /& gt; <statusCode code="completed" /> < effectiveTime value="349174390638" /> <value unit=&quot ;mmol/L" xsi:type="PQ" value="38" /> < interpretationCode codeSystem="local" code="*" /> <referenceRange> <observationRange> < text>21-32</text> </observationRange> </ referenceRange> </observation> </component> </ organizer> </entry> <entry> <organizer moodCode="EVN " classCode="BATTERY"> <templateId root=" 2.16.840.1.929369.10.20.22.4.1" /> <id nullFlavor="NA&quot ; /> <code codeSystem="local" code="MAG" displayName="MAGNESIUM" /> <statusCode code="completed " /> <component> <observation moodCode="EVN& quot; classCode="OBS"> <templateId root=" 2.16.840.1.010758.10.20.22.4.2" /> <id nullFlavor="NA& quot; /> <code codeSystem="local" code="MAG" displayName="MAGNESIUM" /> <statusCode code=" completed" /> <effectiveTime value="762298161095" /> <value unit="mg/dL" xsi:type="PQ" value=& quot;1.7" /> <interpretationCode codeSystem="local&quot ; code="*" /> <referenceRange> < observationRange> <text>1.8-2.4</text> & lt;/observationRange> </referenceRange> </ observation> </component> </organizer> </entry>&lt ;/section> Encounters ACCT No. Visit Discharge Status Pt. Type Provider Facility Loc./Unit Complaint Date/Time [id number] 09/27/2015 09/27/2015 DIS Gladis GOETZ, RIGHT 22 08:51:00 18:57:50 t GERTRUDIS URETERAL LITHIASIS [id number] 04/27/2017 04/27/2017 DIS [facility] DRISCOLL, Mukesh RobertoEDW 716 15:05:00 19:03:00 y [facility] [id number] 04/28/2017 04/29/2017 DIS Gladis Dominguez MD, Mukesh RabagoT4 019 14:57:00 12:25:00 t [facility] ER
--- NOTE | 2017-05-20 07:44 | XRay Report ---
Indication: COPD, shortness of air PROCEDURE: XR chest 1V: Encounter: Initial Comparison: July 07, 2016 Findings: Chronic severe emphysema without clear acute change. No focal lobar consolidation, gross pleural effusion or pneumothorax. Heart size and mediastinal contours are stable. Pulmonary vascularity is stable. Right shoulder replacement. Impression: Stable chest with severe emphysema. .
[2017-05-20] MEDS ORDERED: ALBUTEROL/IPRATROPIUM 2.5mg-0.5mg/3ml NEB AEROSOL PRN (07:58)
[2017-05-20 07:59] VITALS: BMI 15.3
[2017-05-20] MEDS ORDERED: ACETAMINOPHEN 325 MG TABLET PO PRN (08:09)
[2017-05-20] MEDS ORDERED: BISACODYL 10 MG SUPPOSITORY RECTALLY PRN (08:33)
--- NOTE | 2017-05-20 08:54 | Progress Note ---
- Date 05/20/17 Subjective: Lara Flood is a 67-year-old female patient of Dr. Keith. She has a history of COPD and requires home oxygen at a baseline of 3L. Due to being on Bipap on exam, history is obtained from prior medical records, ED notes and her , Lavelle. Approximately 2 weeks ago, she was in [place] for a family reunion and family noticed that she was turning blue. She was admitted to [facility] for suspected COPD exacerbation and discharge home after 3 days. He reports that "they gave her a bunch of antibiotics" while admitted but is unaware of any known infections such as pneumonia. He states that when she was discharged home, she did not have any new prescriptions, antibiotics or inhalers. Following her admission, she seemed to be doing better. On 05/18/17 she reports increased dyspnea with occasional productive cough and subjective fevers. She was seen in urgent care yesterday, 05/19/17, and started on prednisone and Levaquin. Throughout the night, she became increasing more restless with increased dyspnea, especially with ambulation despite home oxygen. She was brought to [facility] ED by her for further evaluation. Upon arrival to the ED, she was noted to be hypoxic in the mid-70's after ambulating into the ED despite having 3L NC oxygen in place. She was also noted to be tachypneic (RR 39), tachycardic (HR 116) and hypertensive with blood pressure 172/82. She denies a known history of hypertension. She admits to a 50+ pack year history of tobacco use and states she quit on 04/14/17. She denies use of home inhalers or breathing treatments reporting that her PCP said she could stop using them because they gave her thrush. Labs were obtained and were relatively unremarkable with the exception of elevated CO2 at 44. ABG revealed respiratory acidosis with pH 7.300 and HCO33 at 44. CXR showed stable appearance of chest with severe emphysema. She was given Solu-Medrol 125mg IV x 1 dose in addition to DuoNeb treatments x 2 with minimal improvement. She was subsequently placed on biPAP. Given her acute on chronic respiratory failure with hypercapnia and hypoxia, Dr. Vilchis was consulted and she was accepted as an inpatient for further evaluation, close respiratory and cardiac monitoring, respiratory support including nebulized treatments and IV medications. Her length of stay is expected to exceed more than 2 over nights. Her prior medical records, medication list and history were reviewed extensively and contributed to the history. Objective Vital signs: Temperature 96.6 F L 05/20/17 07:58 Pulse Rate 103 H 05/20/17 07:58 Respiratory Rate 32 H 05/20/17 07:58 Blood Pressure 141/74 H 05/20/17 07:58 Pulse Oximetry 97 05/20/17 07:58 Height/Weight/BMI: Height 4 ft 10 in Weight 73 lb 3.095 oz Body Mass Index 15.3 Results - Labs CBC & Chem 7: 05/20/17 06:24 05/20/17 06:24 Assessment and Plan - Physician Narrative Narrative: Date: 05/20/17 Time: 0835 Hospital Course Summary Disclaimer: The visit summary below is not to be considered part of the above Progress Note.
--- NOTE | 2017-05-20 08:59 | History & Physical Report ---
History of Present Illness Date: 05/20/17 Chief complaint: acute on chronic respiratory failure, hypercapnia, hypoxia, COPD exacerbati HPI: Lara Flood is a 67-year-old female patient of Dr. Keith. She has a history of COPD and requires home oxygen at a baseline of 3L. Due to being on Bipap on exam, history is obtained from prior medical records, ED notes and her , Lavelle. Approximately 2 weeks ago, she was in [place] for a family reunion and family noticed that she was turning blue. She was admitted to [facility] for suspected COPD exacerbation and discharge home after 3 days. He reports that "they gave her a bunch of antibiotics" while admitted but is unaware of any known infections such as pneumonia. He states that when she was discharged home, she did not have any new prescriptions, antibiotics or inhalers. Following her admission, she seemed to be doing better. On 05/18/17 she reports increased dyspnea with occasional productive cough and subjective fevers. She was seen in urgent care yesterday, 05/19/17, and started on prednisone and Levaquin. Throughout the night, she became increasing more restless with increased dyspnea, especially with ambulation despite home oxygen. She was brought to [facility] by her for further evaluation. Upon arrival to the ED, she was noted to be hypoxic in the mid-70's after ambulating into the ED despite having 3L NC oxygen in place. She was also noted to be tachypneic (RR 39), tachycardic (HR 116) and hypertensive with blood pressure 172/82. She denies a known history of hypertension. She admits to a 50+ pack year history of tobacco use and states she quit on 04/14/17. She denies use of home inhalers or breathing treatments reporting that her PCP said she could stop using them because they gave her thrush. Labs were obtained and were relatively unremarkable with the exception of elevated CO2 at 44. ABG revealed respiratory acidosis with pH 7.300 and HCO33 at 44. CXR showed stable appearance of chest with severe emphysema. She was given Solu-Medrol 125mg IV x 1 dose in addition to DuoNeb treatments x 2 with minimal improvement. She was subsequently placed on biPAP. Given her acute on chronic respiratory failure with hypercapnia and hypoxia, Dr. Vilchis was consulted and she was accepted as an inpatient for further evaluation, close respiratory and cardiac monitoring, respiratory support including nebulized treatments and IV medications. Her length of stay is expected to exceed more than 2 over nights. Her prior medical records, medication list and history were reviewed extensively and contributed to the history. Review of Systems All systems PM: 10-point ROS was reviewed, no additional remarkable complaints except Review of systems: limited due to patient on BiPAP. - Constitutional Constitutional: Present: fatigue, fever(s) (subjective), weakness (generalized) . Absent: chills - EENMT Eyes: Absent: diplopia, loss of vision, photophobia Ears: Absent: ear pain Balance: Absent: falling to one side Nose: Absent: nosebleeds Mouth/Throat: Absent: pain, sore throat, changes in swallowing - Cardiovascular Cardiovascular: Present: dyspnea on exertion. Absent: chest pain, palpitations , syncope, orthopnea, edema Vascular: Absent: pallor of an extermity, pedal edema - Respiratory Respiratory: Present: cough, dyspnea, dyspnea on exertion. Absent: hemoptysis, wheezing, pain on inspiration - Gastrointestinal Gastrointestinal: Present: constipation. Absent: abdominal pain, change in bowel habits, diarrhea, hematochezia, melena, nausea, vomiting - Genitourinary Genitourinary: Absent: dysuria, flank pain, hematuria Menstruation: post hysterectomy - Musculoskeletal Musculoskeletal: Present: arthralgias (chronic - OA), muscle weakness ( generalized). Absent: deformity - Integumentary/Breasts Integumentary: Absent: rash - Neurological Neurological: Present: weakness (generalized). Absent: confusion, convulsions, dizziness, focal weakness - Psychiatric Psychiatric: Absent: behavioral changes - Endocrine Endocrine: Absent: heat intolerance, palpitations - Hematologic/Lymphatic Hematologic/Lymphatic: Absent: easy bruising - Allergic/Immunologic Allergic/Immunologic: Absent: seasonal rhinorrhea Past Medical History Patient Stated Medical History COPD/emphysema. Chronic home oxygen dependency at 3L. 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 Underweight. Cataracts. Osteoarthritis. Chronic pain. History of kidney stones. History of pneumonia. Surgical History: Hysterectomy. Right shoulder repair with hardware placement. Left shoulder arthroscopy. Bilateral cataract removal with lense placement. Family History Updates: Mother - , MVA. Father - , unknown medical history. - Social History Smoking status: Former smoker Packs per day: 1 Packs-years: 50 second hand exposure: Yes Quit date: 04/14/17 Substance use type: does not use Alcohol intake frequency: does not drink Housing: house Household members: spouse (Lavelle) Current occupational status: retired Does patient use chewing tobacco?: No Current residence: Apartment/Private Home Social history: PCP - Dr. Keith. Medications Home Medications Medication Instructions Recorded Confirmed Type Cyclobenzaprine HCl 5 mg PO TID PRN #0 07/07/16 10/18/16 History Gabapentin 300 mg PO TID #0 07/07/16 10/18/16 History Morphine Sulfate [Morphine Sulfate 30 mg PO BID PRN #0 07/07/16 10/18/16 History ER] Oxycodone HCl/Acetaminophen 1 tab PO Q4HR PRN #0 07/07/16 10/18/16 History [Oxycodone-Acetaminophen 10-325] B,C/Folic/Zinc/Copper Ox/Vit E 1 each PO DAILY 10/18/16 10/18/16 History [Stress B-Complex Tablet] Ginseng 100 mg PO BID 10/18/16 10/18/16 History No122/Iron/Folic Acid 1 tab PO DAILY 10/18/16 10/18/16 History [ Multi Tablet] Shark Cartilage 2 tab PO BID 10/18/16 10/18/16 History Soy Isofl/Blk Coh/Gr Tea/Yerba 1 each PO TID 10/18/16 10/18/16 History [[employer] Caplet] Turmeric Root Extract [Turmeric] 500 mg PO DAILY 10/18/16 10/18/16 History Allergies Allergy/AdvReac Type Severity Reaction Status Date / Time Penicillins Allergy Mild Hives Verified 05/20/17 06:40 latex Allergy Rash Verified 05/20/17 06:40 Exam Vital Signs: Temperature 96.6 F L 05/20/17 07:58 Pulse Rate 103 H 05/20/17 07:58 Respiratory Rate 32 H 05/20/17 07:58 Blood Pressure 141/74 H 05/20/17 07:58 Pulse Oximetry 97 05/20/17 07:58 Telemetry Rhythm: Sinus Tachycardia Height/Weight/BMI: Height 4 ft 10 in Weight 73 lb 3.095 oz Body Mass Index 15.3 Comments: patient seen resting in bed with BiPAP in place limiting conversation. - Constitutional Present: mild distress, well nourished, well developed, thin, cooperative - Routine HEENT Exam Head: Present: normocephalic, atraumatic Eye: Present: PERRL. Absent: conjunctival icterus Comments: unable to assess dentition and oral mucosa secondary to BiPAP. - Routine Neck Exam Present: supple, full ROM, trachea midline - Routine Chest/Breast/Axilla Exam Chest wall: Absent: pacemaker - Routine Respiratory Exam Present: accessory muscle use, dyspnea, decreased breath sounds, respiratory distress, diminished air movement Comments: BiPAP in place. - Routine Cardiovascular Exam Present: S1, S2, no murmur, tachycardia - Routine Abdominal Exam Present: soft, non distended, non tender Comments: hypoactive bowel sounds. - Routine Extremities Exam Present: no edema, non tender, full ROM, pulses intact - Routine Back/Spine/Pelvis Exam Back/Spine: Present: full ROM, kyphosis. Absent: vertebral tenderness - Routine Skin Exam Present: dry, warm. Absent: jaundice Comments: afebrile - Routine Neurological Exam Present: alert, oriented X3, moving all extremities, hearing grossly intact. Absent: facial asymmetry - Routine Psychiatric Exam Present: cooperative, agitated Comments: frustrated on exam secondary to BiPAP in place and being hungry; requests food multiple times. Results - Labs CBC & Chem 7: 05/20/17 06:24 05/20/17 06:24 - ABG Interpretation ABG results: ABG 05/20/17, 0655. pH 7.300 pCO2 89 pO2 93 HCO3 44 T. CO2 46.5 O2 stat 96 Base Ex 13.6 FiO2 6L NC Interpretation: abnormal, respiratory acidosis - Imaging and Cardiology Chest x-ray Status: image reviewed by me Additional comments: Date of Exam: 05/20/17 Type of Exam(s): XR chest 1V Reason for Exam(s): COPD, shortness of air Findings: Chronic severe emphysema without clear acute change. No focal lobar consolidation, gross pleural effusion or pneumothorax. Heart size and mediastinal contours are stable. Pulmonary vascularity is stable. Right shoulder replacement. Impression: Stable chest with severe emphysema. Assessment and Plan (1) Acute and chronic respiratory failure Current visit: Yes Status: Acute (2) Acute exacerbation of chronic obstructive airways disease Current visit: Yes Status: Acute (3) Hypercapnia Current visit: Yes Status: Acute Assessment and Plan: Assessment Acute COPD exacerbation. Acute on chronic respiratory failure with hypercapnia. Chronic home oxygen dependency at 3L. 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 Underweight. Cataracts. Osteoarthritis. Chronic pain. History of kidney stones. History of pneumonia. Plan - 05/20/17 (Admission) Acute COPD exacerbation with acute on chronic respiratory failure and hypercapnia. - ABG in ED revealed respiratory acidosis. CXR was stable with severe emphysema. CBC and BMP stable - Admit to inpatient status under the care of Dr. Vilchis. - Consult Dr. Barney for treatment recommendations. Appreciate his time and expertise. 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 - Continue BiPAP for respiratory distress. - Patient given DuoNeb x 2 and Solu-Medrol 125mg IV in ED. Will continue DuoNeb treatments QID and Q6 PRN. Initiate Pulmicort BID. Solu-Medrol 125mg Q6H for pulmonary inflammation. - Monitor respiratory and cardiac function closely on telemetry with continuous pulse oximetry. Wean oxygen to baseline of 3L as able. - Encourage acapella for pulmonary toileting. - Patient reports subjective fevers. Will obtain respiratory panel now as well as UA for complete evaluation. - Recheck CBC and BMP in AM to monitor blood counts, electrolytes and renal function. - SCD for DVT prophylaxis. Chronic home oxygen dependency at 3L. - Monitor respiratory and cardiac function closely on telemetry with continuous pulse oximetry. Wean oxygen to baseline of 3L as able. 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 Underweight, BMI 15. - Regular diet. Appetite is good. - Consult dietary as patient is at risk for complications given suspected protein calorie malnutrition. - Macrocytic RBC noted on differential. Will assess B12 for further evaluation. Osteoarthritis and Chronic pain. - Home medications not yet verified by pharmacy. Will plan to continue home pain medications. Upon discharge, patient's care will be returned to her PCP, Dr. Keith. AMELIA Assessment as above with: Human Metapneumovirus DVT Prophylaxis: SCD's Resuscitation Status: Full Code - Time spent with patient Time with patient PN: 70 minutes - Physician Narrative Physician: Prasad Vilchis MD Narrative: Date: 05/20/17 Time: 1400 Have independently interviewed and examined pt. Chart reviewed. Case discussed with ED physician and my PA. Care plan developed with my supervision, agree with above. Presents to ED secondary to severe difficulty breathing. Was hospitalized earlier this month in [place] secondary to COPD exacerbation. Reports decreasing strength and energy for the past week-not able to do her usual activities due to dyspnea. Progressively more SOA. Was seen in clinic and started on Levaquin and Prednisone. This am, breathing so dire that she needed urgent emergency evaluation. BiPAP initiated in ED secondary to patients work of breathing. Admitted for further evaluation and pulmonary treatment. Lungs: decrease breath sound with little air movement. Conversational dyspnea on O2. CV: tachy EXT: thin, no edema Plan: Inpatient admission secondary to acute on chronic hypercapnic respiratory failure requiring BIPAP support. With hypercapnia and chronic O2 use, will consult with Dr Barney for pulmonary evaluation-pt could potentially benefit from home ventilator due to her chronic respiratory failure. Solu-Medrol 125mg IV q 6 hours to decrease pulmonary reactivity. Neb treatments. Acapella to help loosen secretions. PT/OT secondary to her pulmonary debility. Monitor lab. Hospital Course Summary Disclaimer: The visit summary below is not to be considered part of the above Progress Note. Hospital Course: Plan - 05/20/17 (Admission) Acute COPD exacerbation with acute on chronic respiratory failure and hypercapnia. - ABG in ED revealed respiratory acidosis. CXR was stable with severe emphysema. CBC and BMP stable - Admit to inpatient status under the care of Dr. Vilchis. - Consult Dr. Barney for treatment recommendations. Appreciate his time and expertise. 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 - Continue BiPAP for respiratory distress. - Patient given DuoNeb x 2 and Solu-Medrol 125mg IV in ED. Will continue DuoNeb treatments QID and Q6 PRN. Initiate Pulmicort BID. Solu-Medrol 125mg Q6H for pulmonary inflammation. - Monitor respiratory and cardiac function closely on telemetry with continuous pulse oximetry. Wean oxygen to baseline of 3L as able. - Encourage acapella for pulmonary toileting. - Patient reports subjective fevers. Will obtain respiratory panel now as well as UA for complete evaluation. - Recheck CBC and BMP in AM to monitor blood counts, electrolytes and renal function. - SCD for DVT prophylaxis. Chronic home oxygen dependency at 3L. - Monitor respiratory and cardiac function closely on telemetry with continuous pulse oximetry. Wean oxygen to baseline of 3L as able. 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 Underweight, BMI 15. - Regular diet. Appetite is good. - Consult dietary as patient is at risk for complications given suspected protein calorie malnutrition. - Macrocytic RBC noted on differential. Will assess B12 for further evaluation. Osteoarthritis and Chronic pain. - Home medications not yet verified by pharmacy. Will plan to continue home pain medications. Upon discharge, patient's care will be returned to her PCP, Dr. Keith.
[2017-05-20] MEDS ORDERED: ALBUTEROL/IPRATROPIUM 2.5mg-0.5mg/3ml NEB AEROSOL SCH (09:00)
[2017-05-20] MEDS: METHYLPREDNISOLONE SOD SUCC 125mg/2ml INJECTION IVP SCH ×3 (09:26→22:23)
[2017-05-20] MEDS: POLYETHYL GLYCOL 3350 17gm PACKET PO SCH (09:27)
[2017-05-20] MEDS ORDERED: NS 1,000 ML IV SCH (10:00)
--- NOTE | 2017-05-20 12:27 | Pulmonology Consult Note ---
<IvanJulissa D - Last Filed: 05/20/17 12:15> History of Present Illness Consult date: 05/20/17 Requesting physician: Prasad Vilchis Reason for consult: dyspnea, cough, COPD Chief complaint: SOB History of present illness: This is a 67 yo female with a Hx of COPD 3L O2 at home. States she was recently at a family reunion and she started having some SOB and family noticed her turning "blue" and she was admitted into [facility]. Family states she was started on Tx's and antibiotics at that time but was only there for 3 days. States she currently doesn't take much for nebulized or HFA inhalers as she states they all give her thrush. Recently maicol started having increased SOB and was seen at immediate care and started on prednisone and levaqion on 05/18 but unfortunately she had worsening SOB. She was brought to the [facility] and on admit her sats were noted to be in the 70's on her 3L per NC, she was tachypneic , tachycardic and hypertensive. ABG on 6L was 7.3// and she was started on bipap in ER, along with solumedrol and breathing treatments, CXR showed emphysema but no acute cardiopulmonary process. We have been consulted for her respiratory issues and appreciate the consult. Review of Systems - Constitutional Constitutional: Present: fatigue, weight loss - EENT Eyes: Present: as per HPI. Absent: blurry vision, change in vision Nose: Absent: change in smell, nosebleeds - Cardiovascular Cardiovascular: Present: dyspnea on exertion. Absent: chest pain, syncope - Respiratory Respiratory: Present: cough, dyspnea, dyspnea on exertion - Gastrointestinal Gastrointestinal: Absent: abdominal pain, change in bowel habits - Musculoskeletal Musculoskeletal: Absent: abnormal gait, limited range of motion - Neurological Neurological: Absent: abnormal gait, abnormal movements, abnormal speech - Psychiatric Psychiatric: Absent: abnormal sleep pattern, hallucinations, homicidal ideation - Hematologic/Lymphatic Hematologic/Lymphatic: Absent: easy bleeding, easy bruising, lymphadenopathy - Allergic/Immunologic Allergic/Immunologic: Absent: tongue swelling, throat swelling PFS Patient Stated Medical History Cataracts Yes Bronchitis Yes Chronic Obstructive Pulmonary Yes Disease (COPD) Pneumonia Yes Hx Kidney Stones Yes Osteoarthritis Yes Human Papilloma Virus Yes Shingles Yes Abnormal Pap Yes Surgical History: Hysterectomy. Right shoulder repair with hardware placement. Left shoulder arthroscopy. Bilateral cataract removal with lense placement. - Social History Smoking status: Former smoker Does patient use chewing tobacco?: No Current residence: Apartment/Private Home Medications Home Medications Medication Instructions Recorded Confirmed Type Cyclobenzaprine HCl 10 mg PO TID PRN #0 07/07/16 05/20/17 History Gabapentin 300 mg PO TID #0 07/07/16 05/20/17 History Morphine Sulfate [Morphine Sulfate 30 mg PO BID PRN #0 07/07/16 05/20/17 History ER] Oxycodone HCl/Acetaminophen 1 tab PO Q4HR PRN #0 07/07/16 05/20/17 History [Oxycodone-Acetaminophen 10-325] B,C/Folic/Zinc/Copper Ox/Vit E 1 each PO DAILY 10/18/16 10/18/16 History [Stress B-Complex Tablet] Ginseng 100 mg PO BID 10/18/16 10/18/16 History No122/Iron/Folic Acid 1 tab PO DAILY 10/18/16 10/18/16 History [ Multi Tablet] Shark Cartilage 2 tab PO BID 10/18/16 10/18/16 History Soy Isofl/Blk Coh/Gr Tea/Yerba 1 each PO TID 10/18/16 10/18/16 History [[employer] Caplet] Turmeric Root Extract [Turmeric] 500 mg PO DAILY 10/18/16 10/18/16 History Levofloxacin [Levaquin] 500 mg PO DAILY 05/20/17 05/20/17 History Morphine Sulfate *IR* [Morphine 15 mg PO Q4H PRN 05/20/17 05/20/17 History Sulfate *Ir*] predniSONE [Prednisone] 40 mg PO DAILY 05/20/17 05/20/17 History Allergies Allergy/AdvReac Type Severity Reaction Status Date / Time Penicillins Allergy Mild Hives Verified 05/20/17 06:40 latex Allergy Rash Verified 05/20/17 06:40 Exam Vital signs: Temperature 97.5 F 05/20/17 11:10 Pulse Rate 103 H 05/20/17 07:58 Respiratory Rate 103 H 05/20/17 11:36 Blood Pressure 141/74 H 05/20/17 07:58 Pulse Oximetry 95 05/20/17 11:36 - Constitutional mild distress, cachectic - Routine HEENT Exam Head: Present: normocephalic, atraumatic Eye: Present: EOMI, PERRL ENT: Present: mucous membranes moist Nose: moist mucous membranes - Routine Neck Exam Present: supple - Routine Respiratory Exam Present: decreased breath sounds, wheezes - Routine Cardiovascular Exam Present: RRR, S1, S2, no murmur - Routine Abdominal Exam Present: soft, normoactive bowel sounds - Routine Extremities Exam Present: no edema, non tender, full ROM - Routine Back/Spine/Pelvis Exam Back/Spine: Present: full ROM - Routine Skin Exam Present: intact, dry - Routine Neurological Exam Present: alert, oriented X3, CN II-XII intact - Routine Psychiatric Exam Present: normal affect, normal thought process, good judgment Results - Laboratory Findings CBC and BMP: 05/20/17 06:24 05/20/17 06:24 ABG ABG pH 7.300 (7.350-7.450) L 05/20/17 06:55 ABG pCO2 89 MMHG (34-45) H* 05/20/17 06:55 ABG pO2 93 MMHG (80-100) 05/20/17 06:55 ABG O2 Saturation 96.0 % (95.0-98.0) 05/20/17 06:55 Abnormal lab findings: Abnormal Labs 05/20/17 05/20/17 09:17 11:10 Ur Specific Turon >=1.030 H Human Metapneumovir PCR Detected A* - Diagnostic Findings Chest x-ray: image reviewed (per HPI) Assessment and Plan - Assessment and Plan Acute on Chronic Hypoxic Hypercapnic Respiratory Failure COPD exacerbation HMPV - supportive care Pt currently on O2 at 3L per NC, used bipap this am f12, 12/6, 30%, Vt 500. Will increase rate to 16. Continue on BT's with pulmicort BID and increase a/a to q4hr. On solumedrol 125mg q6, could wean tomorrow if stable. CXR with no infiltrates, cont to follow off abx, + human metapneumovirus, cont with supportive care. Encouraged bipap qHs and prn. - Time Spent With Patient Total time spent is greater than 50% in coordination of care (as documented) at patient's floor/unit and/or counseling patient: 25 - 35 minutes <Gunner Barney Last Filed: 05/20/17 15:06> [facility] Patient Stated Medical History Cataracts Yes Bronchitis Yes Chronic Obstructive Pulmonary Yes Disease (COPD) Pneumonia Yes Hx Kidney Stones Yes Osteoarthritis Yes Human Papilloma Virus Yes Shingles Yes Abnormal Pap Yes Exam Vital signs: Temperature 97.5 F 05/20/17 11:10 Pulse Rate 110 H 05/20/17 08:23 Respiratory Rate 103 H 05/20/17 11:36 Blood Pressure 141/74 H 05/20/17 07:58 Pulse Oximetry 95 05/20/17 11:36 Results - Laboratory Findings CBC and BMP: 05/20/17 06:24 05/20/17 06:24 ABG ABG pH 7.300 (7.350-7.450) L 05/20/17 06:55 ABG pCO2 89 MMHG (34-45) H* 05/20/17 06:55 ABG pO2 93 MMHG (80-100) 05/20/17 06:55 ABG O2 Saturation 96.0 % (95.0-98.0) 05/20/17 06:55 Abnormal lab findings: Abnormal Labs 05/20/17 05/20/17 09:17 11:10 Ur Specific Turon >=1.030 H Human Metapneumovir PCR Detected A* Assessment and Plan (1) Acute and chronic respiratory failure with hypercapnia Status: Acute Current Visit: Yes (2) Acute exacerbation of chronic obstructive airways disease Status: Acute Current Visit: Yes - Assessment and Plan I have personally seen and examined this patient. I have gathered all appropriate history and reviewed all pertinent data. I agree with the assessments above. I think the patient would benefit from home vent to mask via nasal interface to minimize hypercapnia in the setting of severe COPD. use of home vent to mask would help reduce the risk of hospitalization and . - Time Spent With Patient Total time spent is greater than 50% in coordination of care (as documented) at patient's floor/unit and/or counseling patient:
[2017-05-20] MEDS: Oxycodone/Apap 10/325 1 TAB PO PRN ×2 (14:17→19:16)
[2017-05-20] MEDS: GABAPENTIN 300 MG CAPSULE PO SCH ×2 (16:13→22:24)
[2017-05-20] MEDS: NS 1,000 ML IV SCH (16:13)
[2017-05-20] MEDS: ALBUTEROL/IPRATROPIUM 2.5mg-0.5mg/3ml NEB AEROSOL SCH ×3 (16:18→23:03)
[2017-05-20] MEDS: BUDESONIDE INH.SOLN 0.5mg/2ml NEB AEROSOL SCH (19:15)
[2017-05-21] MEDS: ALBUTEROL/IPRATROPIUM 2.5mg-0.5mg/3ml NEB AEROSOL SCH ×6 (03:05→22:44)
[2017-05-21] MEDS: METHYLPREDNISOLONE SOD SUCC 125mg/2ml INJECTION IVP SCH ×4 (03:33→20:06)
[2017-05-21] MEDS: SALINE FLUSH 10ml SYRINGE IVF PRN (03:33)
[2017-05-21] MEDS: Oxycodone/Apap 10/325 1 TAB PO PRN ×3 (07:50→17:57)
[2017-05-21] MEDS: NS 1,000 ML IV SCH ×2 (08:24→18:10)
[2017-05-21] MEDS: GABAPENTIN 300 MG CAPSULE PO SCH ×3 (08:25→20:10)
[2017-05-21] MEDS: POLYETHYL GLYCOL 3350 17gm PACKET PO SCH (08:57)
--- NOTE | 2017-05-21 11:07 | Progress Note ---
- Date 05/21/17 Subjective: Lara is seen today in follow up for her COPD exacerbation and human metapneumovir. She is seen while resting in bed with her at the bedside. She reports that she is ready to go home and is feeling better. She is eager to get home to see her dog. She denies any fevers, chills, cough, chest pain, abdominal pain, nausea, vomiting or dysuria. She does admit to increased abdominal gas and received milk of magnesia this morning for constipation. Appetite is stable. Continues to have increased respiratory effort on 4L NC - baseline oxygen is 3L. She is refusing to wear a mask or use BiPAP at night because she doesn't like the mask. She was seen and evaluated by Dr. Barney on 05/20/17 and he recommended increasing rate of BiPAP to 16 and continuing with breathing treatments as well as Solu-Medrol with anticipation of weaning Solu-Medrol. He also recommended encouraging use of BiPAP at night and PRN and felt that the patient would benefit from a home vent to mask via nasal interface to minimize hypercapnia and reduce the risk of hospitalization an . Objective Vital signs: Temperature 97.6 F 05/21/17 07:00 Pulse Rate 114 H 05/21/17 08:00 Respiratory Rate 18 05/21/17 07:24 Blood Pressure 143/75 H 05/21/17 07:00 Pulse Oximetry 96 05/21/17 07:24 Rhythm: Sinus Tachycardia Height/Weight/BMI: Height 4 ft 10 in Weight 74 lb 8.26 oz Body Mass Index 15.3 Comments: resting in bed; at bedside; increased respiratory effort on 4L NC. - Constitutional Present: mild distress, well nourished, well developed, thin, cooperative Comments: eager for discharge home. - Routine HEENT Exam Head: Present: normocephalic, atraumatic Eye: Present: PERRL. Absent: conjunctival icterus ENT: Present: mucous membranes moist, oropharynx clear Comments: no thrush or lesions. - Routine Respiratory Exam Present: accessory muscle use, decreased breath sounds, diminished air movement. Absent: rhonchi, stridor, wheezes Comments: no cough. - Routine Cardiovascular Exam Present: S1, S2, tachycardia - Routine Abdominal Exam Present: soft, normoactive bowel sounds, non distended, non tender. Absent: rebound, guarding - Routine Extremities Exam Present: no edema, non tender, full ROM, pulses intact - Routine Back/Spine/Pelvis Exam Back/Spine: Present: full ROM, kyphosis. Absent: vertebral tenderness - Routine Musculoskeletal Exam Musculoskeletal: Present: moving extremities well - Routine Skin Exam Present: dry, warm. Absent: jaundice Comments: afebrile - Routine Neurological Exam Present: alert, oriented X3, moving all extremities, normal speech. Absent: facial asymmetry - Routine Lymphatic Exam Lymphatic: Absent: lymphedema - Routine Psychiatric Exam Present: cooperative Results - Labs CBC & Chem 7: 05/21/17 04:28 05/21/17 04:28 Assessment and Plan (1) Acute exacerbation of chronic obstructive airways disease Current visit: Yes Status: Acute (2) Hypercapnia Current visit: Yes Status: Acute (3) Acute and chronic respiratory failure Current visit: Yes Status: Acute Assessment and Plan: Assessment Acute COPD exacerbation. Acute on chronic respiratory failure with hypercapnia. Chronic home oxygen dependency at 3L. 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 Underweight. Cataracts. Osteoarthritis. Chronic pain. History of kidney stones. History of pneumonia. Acute bandemia - NEW DIAGNOSIS 05/21/17. Human Metapneumovirus - NEW DIAGNOSIS 05/20/17. Plan - 05/21/17 Acute COPD exacerbation with acute on chronic respiratory failure and hypercapnia. - Reports feeling better. No cough. Refused to use BiPAP at night because doesn't like mask. Currently on 4L NC with increased respiratory effort and global diminished air movement. - She was seen and evaluated by Dr. Barney on 05/20/17 and he recommended increasing rate of BiPAP to 16 and continuing with breathing treatments as well as Solu-Medrol with anticipation of weaning Solu-Medrol. He also recommended encouraging use of BiPAP at night and PRN and felt that the patient would benefit from a home vent to mask via nasal interface to minimize hypercapnia and reduce the risk of hospitalization an . - Continue to encourage use of BiPAP. - Continue breathing treatments and Solu-Medrol 125mg IV Q6H. Will discuss weaning solu-medrol with plan to transition to oral prednisone with Dr. Barney. - Continue to monitor respiratory and cardiac function closely on telemetry with continuous pulse oximetry. Wean oxygen to baseline of 3L as able. - Encourage acapella for pulmonary toileting. - Repeat CBC revealed WBC stable at 6.7 with new bandemia at 10%. Will recheck CBC in AM to monitor blood counts. - CO2 remains elevated at 44. Will review with Dr. Vilchis. - SCD for DVT prophylaxis. Chronic home oxygen dependency at 3L. - Monitor respiratory and cardiac function closely on telemetry with continuous pulse oximetry. Wean oxygen to baseline of 3L as able. 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 - Encourage use of BiPAP at night and as needed. Underweight, BMI 15. - Regular diet. Appetite is good. Encourage frequent small meals as well as mighty shake supplements. - Macrocytic RBC noted on differential. B12 pending. - Continue NS at 40cc/hr for gentle hydration. Osteoarthritis and Chronic pain. - Home medications not yet verified by pharmacy. Will plan to continue home pain medications. DVT Prophylaxis: SCD's Resuscitation Status: Full Code - Time spent with patient Time with patient PN: 35 minutes - Physician Narrative Physician: Prasad Vilchis MD Narrative: Date: 05/21/17 Time: 2100 Have independently interviewed and examined pt. Chart reviewed. Case discussed with my PA. Care plan developed with my supervision; agree with above. Resting on BiPAP this evening. Nursing needed lorazepam to help her to tolerated BIPAP-very resistant to using it. Has been very restless this evening. Lungs: decreased breath sounds CV: tachy, regular EXT: thin, decreased muscle mass Plan: Encourage BiPAP use-likely will not survive without. Order for lowest flow O2 (not less than baseline 3L) to keep sats 88-91. Worry that with increasing O2 flow to increase saturation will only suppress her respiratory drive. Continue with supportive care. Overall prognosis not favorable. Hospital Course Summary Disclaimer: The visit summary below is not to be considered part of the above Progress Note. Hospital Course: Plan - 05/20/17 (Admission) Acute COPD exacerbation with acute on chronic respiratory failure and hypercapnia. - ABG in ED revealed respiratory acidosis. CXR was stable with severe emphysema. CBC and BMP stable - Admit to inpatient status under the care of Dr. Vilchis. - Consult Dr. Barney for treatment recommendations. Appreciate his time and expertise. Patient denies previously seeing copy and print associate. - Continue BiPAP for respiratory distress. - Patient given DuoNeb x 2 and Solu-Medrol 125mg IV in ED. Will continue DuoNeb treatments QID and Q6 PRN. Initiate Pulmicort BID. Solu-Medrol 125mg Q6H for pulmonary inflammation. - Monitor respiratory and cardiac function closely on telemetry with continuous pulse oximetry. Wean oxygen to baseline of 3L as able. - Encourage acapella for pulmonary toileting. - Patient reports subjective fevers. Will obtain respiratory panel now as well as UA for complete evaluation. - Recheck CBC and BMP in AM to monitor blood counts, electrolytes and renal function. - SCD for DVT prophylaxis. Chronic home oxygen dependency at 3L. - Monitor respiratory and cardiac function closely on telemetry with continuous pulse oximetry. Wean oxygen to baseline of 3L as able. 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 Underweight, BMI 15. - Regular diet. Appetite is good. - Consult dietary as patient is at risk for complications given suspected protein calorie malnutrition. - Macrocytic RBC noted on differential. Will assess B12 for further evaluation. Osteoarthritis and Chronic pain. - Home medications not yet verified by pharmacy. Will plan to continue home pain medications. Upon discharge, patient's care will be returned to her PCP, Dr. Keith. Plan - 05/21/17 Acute COPD exacerbation with acute on chronic respiratory failure and hypercapnia. - Reports feeling better. No cough. Refused to use BiPAP at night because doesn't like mask. Currently on 4L NC with increased respiratory effort and global diminished air movement. - She was seen and evaluated by Dr. Barney on 05/20/17 and he recommended increasing rate of BiPAP to 16 and continuing with breathing treatments as well as Solu-Medrol with anticipation of weaning Solu-Medrol. He also recommended encouraging use of BiPAP at night and PRN and felt that the patient would benefit from a home vent to mask via nasal interface to minimize hypercapnia and reduce the risk of hospitalization an . - Continue to encourage use of BiPAP. - Continue breathing treatments and Solu-Medrol 125mg IV Q6H. Will discuss weaning solu-medrol with plan to transition to oral prednisone with Dr. Barney. - Continue to monitor respiratory and cardiac function closely on telemetry with continuous pulse oximetry. Wean oxygen to baseline of 3L as able. - Encourage acapella for pulmonary toileting. - Repeat CBC revealed WBC stable at 6.7 with new bandemia at 10%. Will recheck CBC in AM to monitor blood counts. - CO2 remains elevated at 44. Will review with Dr. Vilchis. - SCD for DVT prophylaxis. Chronic home oxygen dependency at 3L. - Monitor respiratory and cardiac function closely on telemetry with continuous pulse oximetry. Wean oxygen to baseline of 3L as able. 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 - Encourage use of BiPAP at night and as needed. Underweight, BMI 15. - Regular diet. Appetite is good. Encourage frequent small meals as well as mighty shake supplements. - Macrocytic RBC noted on differential. B12 pending. - Continue NS at 40cc/hr for gentle hydration. Osteoarthritis and Chronic pain. - Home medications not yet verified by pharmacy. Will plan to continue home pain medications.
[2017-05-21] MEDS: BUDESONIDE INH.SOLN 0.5mg/2ml NEB AEROSOL SCH ×2 (11:12→18:34)
[2017-05-21] MEDS ORDERED: CYCLOBENZAPRINE 10 MG TABLET PO PRN (11:14)
--- NOTE | 2017-05-21 13:12 | Pulmonology Progress Note ---
<Julissa Love - Last Filed: 05/21/17 13:12> Subjective Principal diagnosis: SOB Interval history: In bed resting, wakes to voice. States her breathing is better. Still with SOB and some cough but minimal sputum. States she won't use the bipap at all it made her feel like she was choking. Exam Vital signs: Temperature 97.6 F 05/21/17 07:00 Pulse Rate 114 H 05/21/17 08:00 Respiratory Rate 18 05/21/17 11:00 Blood Pressure 143/75 H 05/21/17 07:00 Pulse Oximetry 96 05/21/17 11:00 - Constitutional mild distress, cachectic - Routine HEENT Exam Head: Present: normocephalic, atraumatic Eye: Present: EOMI, PERRL ENT: Present: mucous membranes moist - Routine Neck Exam Present: supple, full ROM, trachea midline - Routine Respiratory Exam Present: decreased breath sounds - Routine Cardiovascular Exam Present: RRR, S1, S2, no murmur - Routine Abdominal Exam Present: soft, normoactive bowel sounds - Routine Extremities Exam Present: no edema, non tender, full ROM - Routine Back/Spine/Pelvis Exam Back/Spine: Present: full ROM - Routine Skin Exam Present: intact, dry - Routine Neurological Exam Present: alert, oriented X3, CN II-XII intact - Routine Psychiatric Exam Present: normal affect, normal thought process Assessment and Plan - Assessment and Plan Acute on Chronic Hypoxic Hypercapnic Respiratory Failure COPD exacerbation HMPV - supportive care Pt currently on O2 at 4L per NC, refusing to use bipap, settings f16, 12/6, 30% , Vt 500. Continue on BT's with pulmicort BID and a/a q4hr, hue well. On solumedrol 125mg q6, weaned to 80mg q6, wean as hue. Last CXR with no infiltrates, cont to follow off abx, + human metapneumovirus, cont with supportive care. Pt needs home vent to mask for her hypercapnic failure but refusing to use so will not order. - Time Spent With Patient Total time spent is greater than 50% in coordination of care (as documented) at patient's floor/unit and/or counseling patient: less than 15 minutes <Gunner Barney - Last Filed: 05/22/17 09:41> Exam Vital signs: Temperature 96.9 F 05/22/17 07:53 Pulse Rate 122 H 05/22/17 08:00 Respiratory Rate 26 H 05/22/17 07:53 Blood Pressure 162/64 H 05/22/17 07:53 Pulse Oximetry 91 05/22/17 07:53 Assessment and Plan (1) Acute and chronic respiratory failure with hypercapnia Status: Acute Current Visit: Yes (2) Acute exacerbation of chronic obstructive airways disease Status: Acute Current Visit: Yes - Time Spent With Patient Total time spent is greater than 50% in coordination of care (as documented) at patient's floor/unit and/or counseling patient: - Attestation Attestation Narrative: I agree with the notes written by the REEL AND REWINDER OPERATOR
[2017-05-21] MEDS: MORPHINE SULFATE 2mg INJECTION IVP PRN ×2 (20:07→22:40)
[2017-05-22] MEDS: MORPHINE SULFATE 2mg INJECTION IVP PRN ×4 (02:38→23:50)
[2017-05-22] MEDS: SALINE FLUSH 10ml SYRINGE IVF PRN (02:38)
[2017-05-22] MEDS: ALBUTEROL/IPRATROPIUM 2.5mg-0.5mg/3ml NEB AEROSOL SCH ×3 (02:59→10:57)
[2017-05-22] MEDS: METHYLPREDNISOLONE SOD SUCC 125mg/2ml INJECTION IVP SCH ×4 (03:39→21:31)
[2017-05-22] MEDS: BUDESONIDE INH.SOLN 0.5mg/2ml NEB AEROSOL SCH (07:01)
[2017-05-22] MEDS: NS 1,000 ML IV SCH (08:17)
[2017-05-22] MEDS: GABAPENTIN 300 MG CAPSULE PO SCH ×2 (08:40→17:52)
[2017-05-22] MEDS: POLYETHYL GLYCOL 3350 17gm PACKET PO SCH (08:40)
[2017-05-22] MEDS ORDERED: FALL RISK - PHARMACY CONSULT XX ONE (09:07)
--- NOTE | 2017-05-22 09:46 | Pulmonology Progress Note ---
Subjective Principal diagnosis: SOB Interval history: Unresponsive. pH 7.0/pCO2 >130/pO2 176 On BIPAP 20/6 rate 12. VTE 300 ML Minute Vent 7. She is DNR. Dr Sterling and I discussed the severity of the case with and he is contemplating comfort care. She has severe COPD, end-stage Exam Vital signs: Temperature 96.9 F 05/22/17 07:53 Pulse Rate 122 H 05/22/17 08:00 Respiratory Rate 26 H 05/22/17 07:53 Blood Pressure 162/64 H 05/22/17 07:53 Pulse Oximetry 91 05/22/17 07:53 - Constitutional Comments: unresponsive, cachectic - Routine HEENT Exam Eye: Absent: conjunctival icterus - Routine Neck Exam Present: supple - Routine Respiratory Exam Present: decreased breath sounds, prolonged expiratory phase. Absent: wheezes - Routine Cardiovascular Exam Present: RRR - Routine Abdominal Exam Present: soft. Absent: guarding - Routine Skin Exam Present: warm. Absent: cyanosis - Routine Neurological Exam Absent: motor deficit Assessment and Plan (1) Acute and chronic respiratory failure with hypercapnia Status: Acute Assessment and plan: Has been refusing to use bipap, however now has developed life-threatening hypercapnic failure. PCO2 130. BIPAP settings f12, 20/6, 30%, Vt 300. Unless family indicates, the patient will not undergo intubation due to risk of long-term ventilation as a result Continue on BT's with pulmicort BID and a/a q4hr, hue well. On solumedrol 125mg q6, weaned to 80mg q6, wean as hue. Last CXR with no infiltrates, cont to follow off abx, + human metapneumovirus, cont with supportive care. Current Visit: Yes (2) Acute exacerbation of chronic obstructive airways disease Status: Acute Current Visit: Yes - Time Spent With Patient Total time spent is greater than 50% in coordination of care (as documented) at patient's floor/unit and/or counseling patient: 25 - 35 minutes
--- NOTE | 2017-05-22 11:12 | Progress Note ---
Progress Note: Pt unresponsive this am with marked elevation in pCO2 and resp acidosis. d/w several times and have converted from full code to no CPR/ defibrillation and subsequently he has decided against intubation as well. DNR order written. Pt has been on bipap for 3-4 hrs and is begining to move extremities but does not respond to voice or follow simple commands at this time. Poor airflow on exam. Critically ill. 25 minutes spent at bedside to this point. Additional documentation to follow.
--- NOTE | 2017-05-22 14:53 | Progress Note ---
- Date 05/22/17 Subjective: Patient is seen early this morning at the request of nurses as they found her minimally responsive. She was refusing Bipap overnight and was stating she just wanted to per the notes from the overnight teledoc. At the time of exam, she is not responsive and is on Bipap. is in the room and is tearful. Objective Vital signs: Temperature 96.9 F 05/22/17 07:53 Pulse Rate 122 H 05/22/17 08:00 Respiratory Rate 37 H 05/22/17 10:57 Blood Pressure 162/64 H 05/22/17 07:53 Pulse Oximetry 100 05/22/17 10:57 Rhythm: Sinus Tachycardia Height/Weight/BMI: Height 1.47 m Weight 34.2 kg Body Mass Index 15.3 - Constitutional Present: thin, disheveled, obtunded - Routine HEENT Exam Head: Present: normocephalic, atraumatic Eye: Absent: PERRL - Routine Respiratory Exam Present: decreased breath sounds, diminished air movement - Routine Cardiovascular Exam Present: no murmur, tachycardia - Routine Abdominal Exam Present: soft, non distended, non tender - Routine Extremities Exam Present: no edema - Routine Skin Exam Present: dry, warm - Routine Neurological Exam Present: altered mental status (unresponsive). Absent: alert, moving all extremities - Routine Lymphatic Exam Lymphatic: Absent: adenopathy - Routine Psychiatric Exam Present: unable to assess Results - Labs CBC & Chem 7: 05/22/17 04:05 05/22/17 04:05 - ABG Interpretation ABG results: 05/22/17 05/22/17 05/22/17 08:18 09:50 13:57 ABG pH 7.064 L* 7.192 L* 7.130 L* ABG pCO2 > 130 H* > 130 H* > 130 H* ABG pO2 176 H 322 H 341 H ABG HCO3 TNP TNP TNP ABG Total CO2 TNP TNP TNP ABG O2 Saturation TNP TNP TNP ABG Base Excess TNP TNP TNP Assessment and Plan (1) Acute exacerbation of chronic obstructive airways disease Current visit: Yes Status: Acute (2) Hypercapnia Current visit: Yes Status: Acute (3) Acute and chronic respiratory failure Problem details: Hypoxic/hypercarbic Current visit: Yes Status: Acute Assessment and Plan: Assessment Acute COPD exacerbation. Acute on chronic respiratory failure with hypercapnia. Chronic home oxygen dependency at 3L. 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 Underweight. Cataracts. Osteoarthritis. Chronic pain. History of kidney stones. History of pneumonia. Acute bandemia - 05/21/17. Human Metapneumovirus - 05/20/17. Plan Check ABG's. Continue BiPAP. Discussed with her poor prognosis. At this point, he thinks "she still wants to live," however, understands risks associated with CPR. At this time, he would like to talk with family and declines chest compressions should they be needed. Will have attending talk with again after he has a chance to contact family. New leukocytosis 6.7-->17.4. Case discussed with Dr. Sterling. Resuscitation Status: Do Not Resuscitate - Physician Narrative Physician: Holli Sterling MD Narrative: Date: 05/22/17 Time: 1800 I have independently evaluated and examined this patient. I reviewed the chart, the patient's history, and the INVESTIGATOR UTILITY BILL COMPLAINTS/PA's documented findings as above. We discussed and formulated the assessment and plan as above with additions as below: Mrs. Flood has remained unresponsive through the day. As noted in my brief note earlier family is preparing for the patient's and elected convert to DO NOT RESUSCITATE earlier today. After all of the patient's children arrived this afternoon they requested that BiPAP be discontinued and that care focus solely on patient's comfort without life sustaining interventions. BiPAP was discontinued just after 3 PM. Breath sounds have been slightly coarse bilaterally and very diminished throughout the day even on BiPAP. Respirations are agonal at present. Patient remains unresponsive to voice or examination and cardiac rhythm is regular but tachycardic Continue comfort care; anticipated in short period of time. Critically ill-multiple visits/conversations with the family throughout the day with total time 35-40 minutes. Hospital Course Summary Disclaimer: The visit summary below is not to be considered part of the above Progress Note. Hospital Course: Plan - 05/20/17 (Admission) Acute COPD exacerbation with acute on chronic respiratory failure and hypercapnia. - ABG in ED revealed respiratory acidosis. CXR was stable with severe emphysema. CBC and BMP stable - Admit to inpatient status under the care of Dr. Vilchis. - Consult Dr. Barney for treatment recommendations. Appreciate his time and expertise. Patient denies previously seeing continuous improvement black belt. - Continue BiPAP for respiratory distress. - Patient given DuoNeb x 2 and Solu-Medrol 125mg IV in ED. Will continue DuoNeb treatments QID and Q6 PRN. Initiate Pulmicort BID. Solu-Medrol 125mg Q6H for pulmonary inflammation. - Monitor respiratory and cardiac function closely on telemetry with continuous pulse oximetry. Wean oxygen to baseline of 3L as able. - Encourage acapella for pulmonary toileting. - Patient reports subjective fevers. Will obtain respiratory panel now as well as UA for complete evaluation. - Recheck CBC and BMP in AM to monitor blood counts, electrolytes and renal function. - SCD for DVT prophylaxis. Chronic home oxygen dependency at 3L. - Monitor respiratory and cardiac function closely on telemetry with continuous pulse oximetry. Wean oxygen to baseline of 3L as able. 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 Underweight, BMI 15. - Regular diet. Appetite is good. - Consult dietary as patient is at risk for complications given suspected protein calorie malnutrition. - Macrocytic RBC noted on differential. Will assess B12 for further evaluation. Osteoarthritis and Chronic pain. - Home medications not yet verified by pharmacy. Will plan to continue home pain medications. Upon discharge, patient's care will be returned to her PCP, Dr. Keith. 05/21/17 - Reports feeling better. No cough. Refused to use BiPAP at night because doesn't like mask. Currently on 4L NC with increased respiratory effort and global diminished air movement. - She was seen and evaluated by Dr. Barney on 05/20/17 and he recommended increasing rate of BiPAP to 16 and continuing with breathing treatments as well as Solu-Medrol with anticipation of weaning Solu-Medrol. He also recommended encouraging use of BiPAP at night and PRN and felt that the patient would benefit from a home vent to mask via nasal interface to minimize hypercapnia and reduce the risk of hospitalization an . - Repeat CBC revealed WBC stable at 6.7 with new bandemia at 10%. 05/22/17 Check ABG's. Continue BiPAP. Discussed with her poor prognosis. At this point, he thinks "she still wants to live," however, understands risks associated with CPR. At this time, he would like to talk with family and declines chest compressions should they be needed. Will have attending talk with again after he has a chance to contact family. New leukocytosis 6.7-->17.4. Case discussed with Dr. Sterling.
[2017-05-22] MEDS ORDERED: ACETAMINOPHEN 650 MG SUPPOSITORY PR PRN (15:15)
[2017-05-23 00:04] VITALS: BP 96/57; RESP 28; TEMP 99.4; O2SAT 92
[2017-05-23] MEDS: NS 1,000 ML IV SCH (02:03)
[2017-05-23] MEDS: METHYLPREDNISOLONE SOD SUCC 125mg/2ml INJECTION IVP SCH (02:04)
[2017-05-23] MEDS: MORPHINE SULFATE 2mg INJECTION IVP PRN (03:54)
[2017-05-23 06:09] VITALS: PULSE 36
--- NOTE | 2017-05-23 15:15 | Death Note ---
Providers - Provider Primary care physician: Richard Keith Admitting clinician: Prasad Vilchis Attending Physician: Holli Sterling Consults: Consulting Provider: Gunner Barney Reason For Exam: Hypercapnic resp failure Diagnosis - PCOD Cause of : Acute respiratory failure (with hypercarbia and hypoxia) - Contributing Factors (1) Acute exacerbation of chronic obstructive airways disease Status: Acute (2) Acute and chronic respiratory failure Status: Acute (3) Acute bronchitis due to human metapneumovirus (hMPV) Status: Acute Summary - Date and Time Date of admission: 05/20/17 07:19 Date of : 05/23/17 Time of : 05:35 - Summary Details: Mrs. Flood was hospitalized with an acute COPD exacerbation due to human medicine metapneumovirus with respiratory acidosis due to hypercapnia. Chest x- ray demonstrated severe emphysema but no evidence of infiltrate. Dr. Barney was consulted for assistance managing the patient's advanced pulmonary disease. BiPAP was initiated in conjunction with IV steroids and aggressive breathing treatments. Patient was underweight on admission consistent with pulmonary cachexia and nutritional supplementation was initiated. Patient refused BiPAP the first night due to discomfort, deoxygenated adequately with 4 L of nasal cannula oxygen but had very poor air flow. The BiPAP was again tried but continued to be poorly tolerated with patient refusing throughout much of the next 24 hours as mental status deteriorated to the point of being obtunded. PCO2 was dramatically elevated on the morning of 05/22 and continuous BiPAP was initiated at that time. Patient's mental status did not improve and over the course of the day family members gathered and elected to convert to comfort care with driving BiPAP and other acute interventions. Medications were utilized to minimize respiratory distress. Family remained at bedside until the patient peacefully at 5:35 AM 05/23. Patient's body was released to [facility]. - Additional Data Confirmation of as documented by pronouncing clinician: no pulse, no respirations, no heart sounds Family: at bedside Attending/PCP notified?: Yes Attending physician: Holli Sterling MD Was code activated?: No Autopsy requested?: No money examiner notified?: No Organ bank notified?: No Advance directives: No Hospice patient?: No (comfort care, anticipated)
== END 2017-05-23 05:35 | disposition expired | DRG 190 ==
LOC: ED 05:56 → SUATTDRO 07:19 → MED 07:19
PROVIDERS: ADMIT Hospitalist; ATTEND Internal Medicine